=== PATIENT | female | born 1970 | race Two or more races ===

== ENCOUNTER 2021-10-19 11:37 | Emergency (ER) | payer MEDICARE, MEDICAID, SELFPAY ==
[2021-10-19 11:41] VITALS: BP 141/82; PULSE 92; RESP 18; TEMP 36.1; O2SAT 100; BMI 21.1
[2021-10-19 11:55] VITALS: BP 135/94; PULSE 87; RESP 17; TEMP 36.9; O2SAT 100
--- NOTE | 2021-10-19 11:57 | ED_ITS ---
HPI - General Adult General Chief complaint: Nausea/Vomiting/Diarrhea Stated complaint: Diarrhea 9x days Time Seen by Provider: 10/19/21 11:50 Source: patient Mode of arrival: ambulatory Limitations: no limitations History of Present Illness HPI narrative: Patient comes to the emergency room complaining of diarrhea for 90 days. Patient denies vomiting or diarrhea, complaining of mild lower quadrant cramping discomfort. Patient denies any recent travel. Patient has tried loperamide and Pepto-Bismol without any relief. Patient states she moves her bowels at least 10 times per day with diarrhea, very watery. Patient denies any recent use of antibiotics Related Data Previous Rx's Medication Instructions Recorded amitriptyline 50 mg tablet 50 mg PO BEDTIME 30 Days #30 tab 09/27/20 gabapentin 300 mg capsule 300 mg PO BEDTIME 30 Days #30 cap 09/27/20 naproxen 500 mg tablet (Naprosyn) 500 mg PO BEDTIME PRN 30 Days #30 09/27/20 tab diphenoxylate-atropine 2.5 1 tab PO DAILY PRN #5 tab 10/19/21 mg-0.025 mg tablet (Lomotil) Allergies Allergy/AdvReac Type Severity Reaction Status Date / Time aspirin [Aspirin] Allergy Unknown ANAPHYLAXIS, Unverified 03/29/20 15:55 nausea,vomiting cephalexin Allergy Unknown vomiting Unverified 07/26/19 00:00 ibuprofen [From Motrin] Allergy Unknown BLEEDING-PT Unverified 03/29/20 15:55 STATES STILL TAKES morphine [Morphine] Allergy Unknown SOB, Unverified 03/29/20 15:55 horrible feeling Review of Systems Review of Systems: Constitutional : No Weight loss, No Fever, No Chills, No Night Sweats, No Fatigue, No Malaise ENT/Mouth : No Hearing loss, No Ear Pain, No Nasal Congestion, No Sinus Pain, No Hoarseness, No sore throat, No Rhinorrhea, No Swallowing Difficulty Eyes: No Eye Pain, No Swelling, No Redness, No Foreign Body, No Discharge, No Vision Changes Cardiovascular : No Chest Pain, No SOB, No Dyspnea on Exertion, No Orthopnea, No Edema, No Palpitations Respiratory : No Cough, No Sputum, No Wheezing, No Smoke Exposure, No Dyspnea Gastrointestinal : No Nausea, No Vomiting, complaining of copious Diarrhea, No Constipation, bilateral lower quadrant cramping, No Hematochezia, No Melena Genitourinary : no irregular bleeding, No Dysuria, No Urinary Frequency, No Hematuria, No Urinary Incontinence, No Urgency, No Flank Pain, No Urinary Flow Changes, No Hesitancy Musculoskeletal : No joint pain, No Myalgias, No Joint Swelling Skin : No Skin Lesions, No rash Neuro : No Weakness, No Numbness, No Paresthesias, No Loss of Consciousness, No Dizziness, No Headache Psych : No Anxiety/Panic, No Depression, No SI/HI/AH/VH, No Social Issues, Heme/Lymph: No Bruising, No Bleeding,No Lymphadenopathy Endocrine : No Polyuria, No Polydipsia, No Temperature Intolerance [facility] Social History Social History Alcohol intake: never Patient Tobacco Use Status: Current everyday Tobacco user Use of substances other than those prescribed or required for medical reasons: Yes Substance Use Type: Marijuana Advance Directives: No Advance Directives Information Provided: No Patient : No Physical Exam ED Vital Signs: Vital Signs - 24 hr 10/19/21 11:41 10/19/21 11:55 Temperature 97.0 F 98.5 F Pulse Rate 92 87 Respiratory Rate 18 17 Blood Pressure 141/82 H 135/94 H Pulse Oximetry 100 100 BMI result Body Mass Index 21.1 Const Other: Appearance: Alert. Oriented X3. No acute distress. Well-appearing Eyes: Pupils equal, round and reactive to light. ENT: Pharynx normal. Well hydrated Neck: Normal inspection. Neck supple. No lymph nodes noted. No crepitus CVS: Normal heart rate and rhythm. Pulses normal. Normal S1 and S2 Respiratory: No respiratory distress. Breath sounds normal. No Wheezing. No rales Abdomen: Soft and nontender. No rigidity. No distention. Skin: Skin warm and dry. Normal skin color. Normal skin turgor. Extremities: No lower extremity edema. No Lacerations. No Rash Neuro: Oriented X 3. No motor deficit. No sensory deficit. Moving all extr emities. No slurred speech. CN 2 through 12 grossly intact Psych: calm, cooperative, normal affect Course Course Course Narrative: Discussed the labs with the patient. Patient has not had any episodes of diarrhea. Patient was given Lomotil. Otherwise, patient feels well. Medical Decision Making Lab Data Result diagrams: 10/19/21 12:22 10/19/21 12:22 Labs: Lab Results 04/09/22 04/09/22 Range/Units 12: 12:22 WBC 6.7 (4.8-10.8) X10*3/uL RBC 4.42 (4.20-5.50) X10*6/uL Hgb 13.4 (12.0-16.0) g/dl Hct 39.9 (37.0-47.0) % MCV 90.3 (80.0-98.0) fL MCH 30.3 (27.0-33.0) pg MCHC 33.6 (31.0-35.0) g/dl RDW 14.2 (11.0-16.0) % Plt Count 233 (160-400) X10*3/uL MPV 10.6 (9.4-12.3) fL Immature Gran % (Auto) 0.1 (0.0-0.4) % Neut % (Auto) 50.9 (45-73) % Lymph % (Auto) 34.7 (20-40) % [place] % (Auto) 9.9 (2-11) % Eos % (Auto) 4.0 (0-4) % Baso % (Auto) 0.4 (0-2) % Lymph # (Auto) 2.3 (1.2-4.9) X10*3/uL [place] # (Auto) 0.7 (0.1-1.2) X10*3/uL Eos # (Auto) 0.3 (0.0-0.4) X10*3/uL Baso # (Auto) 0.0 (0.0-0.2) X10*3/uL Abs Immat Gran (auto) 0.01 (0.00-0.03) X10*3/uL Absolute Neuts (auto) 3.4 (2.0-8.3) x10*3/uL Absolute Nucleated RBC 0.000 (0.0-0.012) X10*3/uL Nucleated RBC % (auto) 0.0 (0.0-0.2) /100WBC Sodium 137 (135-145) mmol/L Potassium 4.1 (3.3-5.1) mmol/L Chloride 107 (96-108) mmol/L Carbon Dioxide 23 (22-29) mmol/L Anion Gap 11 L (12-20) BUN 14 (9-16) mg/dL Creatinine 0.83 (0.5-1.4) mg/dL Estim Creat Clear Calc 62.5 Estimated GFR > 60 Random Glucose 92 (60-115) mg/dL Calcium 9.0 (8.4-10.2) mg/dL Total Bilirubin 0.4 (0.0-1.0) mg/dL Direct Bilirubin 0.2 (0.0-0.5) mg/dL AST 17 (5-31) U/L ALT 13 (0-31) U/L Alkaline Phosphatase 73 (39-117) U/L Total Protein 6.5 (6.5-8.0) g/dL Albumin 4.0 (3.5-5.0) g/dL Lipase 27 (8-78) U/L Discharge Plan Discharge Clinical Impression: Diarrhea Patient Disposition: Home, Self-Care Instructions: Acute Diarrhea (ED) Additional Instructions: Please follow-up with your primary care physician tomorrow. If you have any worsening or new symptoms, please return to the emergency room or call 911 Prescriptions: New diphenoxylate-atropine [Lomotil] 2.5-0.025 mg tablet 1 tab PO DAILY PRN (Reason: diarrhea) Qty: 5 0RF No Action amitriptyline 50 mg tablet 50 mg PO BEDTIME 30 Days Qty: 30 0RF gabapentin 300 mg capsule 300 mg PO BEDTIME 30 Days Qty: 30 0RF naproxen [Naprosyn] 500 mg tablet 500 mg PO BEDTIME PRN (Reason: pain) 30 Days Qty: 30 0RF
--- NOTE | 2021-10-19 11:57 | ECG_ITS ---
Test Reason : NAUSEA Blood Pressure : / mmHG Vent. Rate : 075 BPM Atrial Rate : 075 BPM P-R Int : 152 ms QRS Dur : 080 ms QT Int : 396 ms P-R-T Axes : 072 067 049 degrees QTc Int : 442 ms Normal sinus rhythm with sinus arrhythmia Cannot rule out Anterior infarct , age undetermined Abnormal ECG When compared with ECG of 07-AUG-2015 11:54, Premature atrial complexes are no longer Present Referred By: Gela Quezada Electronically Signed By:RAZA ESCALONA MD
[2021-10-19 12:26] LABS: MANUAL DIFF FLAG NO
[2021-10-19] MEDS: 0.9 % Sodium Chloride 1,000 ML 999 ML IVCONT (12:31)
[2021-10-19] MEDS: Diphenoxylate/Atrop 2.5/0.025 TABLET 2 TAB PO (12:31)
[2021-10-19 12:35] LABS: Basophils Percent Auto 0.4 % (0-2); Eosinophils Absolute Auto 0.3 X10*3/uL (0.0-0.4); Hematocrit 39.9 % (37.0-47.0); Hemoglobin 13.4 g/dl (12.0-16.0); Imm Gran Abs Auto 0.01 X10*3/uL (0.00-0.03); Imm Gran Pct Auto 0.1 % (0.0-0.4); Lymphocytes Absolute Auto 2.3 X10*3/uL (1.2-4.9); Lymphocytes Percent Auto 34.7 % (20-40); Mean Corpuscular HGB Conc 33.6 g/dl (31.0-35.0); Mean Corpuscular Hemoglobin 30.3 pg (27.0-33.0); Mean Corpuscular Volume 90.3 fL (80.0-98.0); Mean Platelet Volume 10.6 fL (9.4-12.3); Monocytes Absolute Auto 0.7 X10*3/uL (0.1-1.2); Monocytes Percent Auto 9.9 % (2-11); Neutrophils Absolute Auto 3.4 x10*3/uL (2.0-8.3); Neutrophils Percent Auto 50.9 % (45-73); Platelet Count 233 X10*3/uL (160-400); Red Blood Count 4.42 X10*6/uL (4.20-5.50); Red Cell Distribution Width 14.2 % (11.0-16.0); White Blood Count 6.7 X10*3/uL (4.8-10.8)
[2021-10-19 12:50] LABS: Alanine Aminotransferase 13 U/L (0-31); Alkaline Phosphatase 73 U/L (39-117); Anion Gap 11 (12-20); Aspartate Amino Transferase 17 U/L (5-31); Bilirubin Direct 0.2 mg/dL (0.0-0.5); Bilirubin Total 0.4 mg/dL (0.0-1.0); Blood Urea Nitrogen 14 mg/dL (9-16); Carbon Dioxide 23 mmol/L (22-29); Chloride 107 mmol/L (96-108); Creatinine Clr Calc Pharmacy 62.5; Estimated Glomerular Filt Rate > 60; Glucose Random 92 mg/dL (60-115); Lipase 27 U/L (8-78); Potassium 4.1 mmol/L (3.3-5.1); Sodium 137 mmol/L (135-145); Total Protein 6.5 g/dL (6.5-8.0)
--- NOTE | 2021-10-19 14:21 | PC.NURSE ---
nad, skin wpd, has had some abd cramping that comes and goes, steady gait to bathroom but no diarrhea
== END 2021-10-19 15:22 | disposition home or self-care (01) ==
PROVIDERS: Emergency Provider Emergency Medicine
DX: R19.7 Diarrhea, unspecified (principal); F17.200 Nicotine dependence, unspecified, uncomplicated; F12.90 Cannabis use, unspecified, uncomplicated
CPT/HCPCS: 36415; 80048; 80076; 83690; 85025; 93005; 96360; 99284

== ENCOUNTER 2022-02-06 07:43 | Emergency (ER) | payer MEDICARE, MEDICAID, SELFPAY ==
--- NOTE | ~2022-02-06 | CT_ITS ---
EXAMINATION: CT ABDOMEN AND PELVIS WITHOUT CONTRAST CLINICAL INFORMATION: Suprapubic pain COMPARISON: None TECHNIQUE: Multidetector volumetric imaging was performed from the superior aspect of the liver through the pubic symphysis. Sagittal and coronal reformatted images were obtained on the technologist's workstation. This CT examination was performed using dose optimization techniques as appropriate, variously including the following: *Automated exposure control *Adjustment of mA and/or kV according to patient size (this includes techniques or standardized protocols for targeted exams where dose is matched to indication/reason for exam; i.e. extremities or head) *Use of iterative reconstruction technique DLP: 380 mGy-cm FINDINGS: LUNG BASES: Heart is not enlarged. No pneumothorax. No large pleural effusion. LIVER, GALLBLADDER, AND BILIARY TREE: The liver is normal in size, shape, and attenuation. No focal hepatic lesion or biliary ductal dilatation is present. The gallbladder is unremarkable with no evidence of radiopaque gallstones, gallbladder wall thickening, or obvious pericholecystic inflammatory changes. PANCREAS: Unremarkable. SPLEEN: Unremarkable. ADRENAL GLANDS: Unremarkable. KIDNEYS AND URETERS: The kidneys are normal in size, shape, and attenuation. No hydronephrosis, hydroureter, or calculi seen. No perinephric stranding. Punctate calculus medial to the right renal lower pole measuring 3 mm, nonspecific. BLADDER: Unremarkable. GASTROINTESTINAL TRACT: The small and large bowel are unremarkable. The appendix is unremarkable. ABDOMINAL WALL: No significant hernia is appreciated. LYMPH NODES: No enlarged lymph nodes per size criteria. Multiple subcentimeter mesenteric and right lower quadrant lymph nodes are noted, not enlarged per size criteria and nonspecific though may reflect an element of mesenteric adenitis in the appropriate clinical setting. VASCULAR: Abdominal aorta is nonaneurysmal. PELVIC VISCERA: Anteverted uterus. OSSEOUS STRUCTURES: No large lytic or blastic lesions are noted. Sclerotic focus in the left femoral head and neck junction nonspecific though statistically representing a bone island. CT/CT abdomen pelvis wo con IMPRESSION: 1. No acute process of the abdomen or pelvis identified. 2. Multiple subcentimeter mesenteric and right lower quadrant lymph nodes are noted, not enlarged per size criteria and nonspecific though may reflect an element of mesenteric adenitis in the appropriate clinical setting.
[2022-02-06 08:26] VITALS: BP 138/91; PULSE 81; RESP 18; TEMP 37.1; O2SAT 95
[2022-02-06 09:43] LABS: Appearance Urine CLEAR; Color Urine YELLOW; Glucose Urine UA NEG (NEG); Leukocyte Esterase Urine NEG (NEG); Nitrite Urine NEG (NEG); PH 7.5 (5.0-8.0); UACC Culture Trigger NO; Urine Blood 1+ (NEG); Urine Ketones NEG (NEG); Urine Protein NEG (NEG-TRACE)
[2022-02-06 09:53] LABS: UPreg QC Valid YES; Urine Pregnancy NEGATIVE (NEGATIVE)
[2022-02-06 10:01] LABS: Squamous Epithelial Cell Urine 2+ /LPF
[2022-02-06 10:02] LABS: WBC Urine 0 /HPF (0-4)
[2022-02-06] MEDS: Phenazopyridine HCL 200 MG TABLET PO (10:03)
--- NOTE | 2022-02-06 10:19 | ED_ITS ---
HPI - Female Genitourinary General Chief complaint: Urogenital-Female Stated complaint: BLADDER PAIN Time Seen by Provider: 02/06/22 09:16 Source: patient Mode of arrival: ambulatory Limitations: no limitations History of Present Illness HPI Narrative: This is a [id number]-female, with a past medical history of interstitial cystitis, who presents to the emergency department with complaints of bladder pain x 1 week. Patient states that over the last week she has had suprapubic pain, dysuria, urinary frequency, urgency and low back pain. She denies any hematuria, fevers, chills, nausea, vomiting flank pain, or diarrhea. She states that she has taken Pyridium for her symptoms, did not take any in the last two days, which provided her with some relief. She is not sexually active. Denies vaginal discharge. She has been seen by Dr. Robles of urology for IC, where she had hydrodistention procedures performed on a weekly basis. She states that she missed a few appointments and had to find another urologist, does not have an appointment until mid February. She states that her mother has diabetes. Denies any known history of diabetes. No other complaints or concerns at this time. MD elicited complaint: dysuria and back pain Pertinent past history: interstitial cystits Onset (ago): week(s) Location of symptoms: suprapubic and low back Severity: moderate Female Urogenital Radiation: Non-Radiating Quality of pain: cramping Consistency: constant Vaginal discharge: none Vaginal bleeding: none Urinary symptoms: Dysuria, Urgency and Frequency Exacerbating factors: none and urination Relieving factors: medication Associated symptoms: abdominal pain Related Data Previous Rx's Medication Instructions Recorded amitriptyline 50 mg tablet 50 mg PO BEDTIME 30 days #30 tabs 09/27/20 gabapentin 300 mg capsule 300 mg PO BEDTIME 30 days #30 caps 09/27/20 naproxen 500 mg tablet (Naprosyn) 500 mg PO BEDTIME PRN pain 30 days 09/27/20 #30 tabs diphenoxylate-atropine 2.5 1 tab PO DAILY PRN diarrhea #5 tabs 10/19/21 mg-0.025 mg tablet (Lomotil) ketorolac 10 mg tablet 10 mg PO Q8H PRN pain #14 tabs 02/06/22 ondansetron 4 mg disintegrating 4 mg PO Q8H nausea and vomiting 02/06/22 tablet #14 tabs phenazopyridine 100 mg tablet 100 mg PO TID PRN pain 6 doses #6 02/06/22 (Pyridium) tabs Allergies Allergy/AdvReac Type Severity Reaction Status Date / Time aspirin [Aspirin] Allergy Unknown ANAPHYLAXIS, Unverified 03/29/20 15:55 nausea,vomiting cephalexin Allergy Unknown vomiting Unverified 07/26/19 00:00 ibuprofen [From Motrin] Allergy Unknown BLEEDING-PT Unverified 03/29/20 15:55 STATES STILL TAKES morphine [Morphine] Allergy Unknown SOB, Unverified 03/29/20 15:55 horrible feeling Review of Systems Review of Systems: Constitutional : No Weight loss, No Fever, No Chills, No Night Sweats ENT/Mouth : No Hearing loss, No Ear Pain, No Nasal Congestion, No Sinus Pain, No Hoarseness, No sore throat, No Rhinorrhea, No Swallowing Difficulty Eyes: No Eye Pain, No Swelling, No Redness Cardiovascular : No Chest Pain, No SOB, No Dyspnea on Exertion, No Orthopnea, No Edema, No Palpitations Respiratory : No Cough, No Sputum, No Wheezing, No Smoke Exposure, No Dyspnea Gastrointestinal : No Nausea, No Vomiting, No Diarrhea, No Constipation, + suprapubic abdominal Pain, No Hematochezia, No Melena Genitourinary : no irregular bleeding, +Dysuria, +Urinary Frequency, No Hematuria, No Urinary Incontinence, +Urgency, No Flank Pain, No Urinary Flow Changes, No Hesitancy Musculoskeletal : + low back pain, No joint pain, No Myalgias, No Joint Swelling Skin : No Skin Lesions, No rash Neuro : No Weakness, No Numbness, No Paresthesias, No Loss of Consciousness, No Dizziness, No Headache Psych : No Anxiety/Panic, No Depression, No SI/HI/AH/VH, No Social Issues, Heme/Lymph: No Bruising, No Bleeding,No Lymphadenopathy Endocrine : No Polyuria, No Polydipsia, No Temperature Intolerance Yes all other systems are reviewed and are negative [facility] Past Medical History Attestation statement: The following information was validated with the patient. Source: old records reviewed and nursing notes reviewed Social History Social History Alcohol intake: never Patient Tobacco Use Status: Current everyday Tobacco user Substance Use Type: Marijuana Advance Directives: No Advance Directives Information Provided: No Physical Exam Vital Signs: Vital Signs: Last Vital Signs Temp 98.3 F 02/06/22 12:17 Pulse 65 02/06/22 12:17 Resp 16 02/06/22 12:17 BP 133/80 02/06/22 12:17 Pulse Ox 97 02/06/22 12:17 O2 Del Method 02/06/22 12:17 BMI result Body Mass Index 20.0 Vital signs have been reviewed as normal and appeared to be correct. Blood pr essure 138/91. Heart rate normal. Respiration rate normal. Temperature normal. Oxygen saturation normal. Appearance: Alert. Oriented X3. No acute distress. Head: Normal external exam. Normocephalic. Atraumatic. Eyes: PERRLA. EOMI. Conjunctiva and sclera normal. Eyelids normal. ENT: Pharynx normal. Uvula midline. Moist mucous membranes. Normal voice. No trismus noted. No drooling noted. No muffled voice noted. Neck: Normal inspection. Neck supple. FROM. CVS: Normal heart rate and rhythm. Heart sound normal. Pulses normal throughout. No murmurs/rales/gallops. Respiratory: No respiratory distress. Painless inspiration. Breath sounds normal. No wheezes/rales/rhonchi noted. Chest nontender. No accessory muscle usage noted or decreased air movement noted. Abdomen: Soft, suprapubic tenderness with palpation.Bowel sounds normal in all 4 quadrants. No distention noted. No organomegaly noted. No visible injury noted. Back: + Lumbar paraspinous muscle tenderness. No CVA tenderness. Full range of motion noted. Nontender. No signs of trauma. Patient neuro intact bilaterally and distally on all 4 extremities. Patient's reflexes intact bilaterally and distally on all 4 extremities. No rashes/lesion/induration/fluctuance or signs of infection noted. Skin: Skin warm and dry. Normal skin color. Normal skin turgor. No rashes/lesions/lacerations noted. Extremities: Extremities exhibit normal range of motion and nontender. Neuro: Oriented X 3. No motor deficit. No sensory deficit. Reflexes normal. Normal steady gait. No focal neuro deficits noted. CN's II-XII intact bilaterally? Vascular: + radial pulses/+ 2 distal pedal pulses/+2 dorsalis pedis b/l. Normal cap refill. No cyanosis noted to upper extremity nails and lower extremity toes nails. Course Course Course Narrative: 9:20am This is a 51-[id number]-female, with a past medical history of interstitial cystitis, who presents to the emergency department with complaints of bladder pain x 1 week with associated dysuria/urinary frequency/urgency and suprapubic abdominal pain. Plan: Urinalysis ordered in waiting room and reviewed, 1+ blood, otherwise no leukocytes or nitrites. Patient has been urinating every 5 minutes, and also having suprapubic tenderness and low back pain. Will order CT abdomen and pelvis for further evaluation. Patient medicated with Pyridium 200mg PO and Toradol 30mg IM. Reevaluation(s) Reevaluation #1: - labs reviewed and all labs within normal limits. UA revealed blood otherwise no evidence of UTI. Patient negative for . CT scan abdomen pelvis revealed mesenteric adenitis to the right lower aspect although appendix is within normal limits. Patient does have a renal stone. Will DC home with instructions follow-up with urology/PCP and to return if any new or worsening symptoms patient understands agrees with this plan. Time: 13:16 [facility] - Female Genitourinary Medical Records Attestation: I reviewed the patient's medical records. Lab Data Attestation: I reviewed the patient's lab results. Result diagrams: 02/06/22 10:48 02/06/22 10:48 Labs: Lab Results 02/06/22 02/06/22 02/06/22 Range/Units 09:31 09:31 10:48 WBC 9.0 (4.8-10.8) X10*3/uL RBC 4.31 (4.20-5.50) X10*6/uL Hgb 13.3 (12.0-16.0) g/dl Hct 39.0 (37.0-47.0) % MCV 90.5 (80.0-98.0) fL MCH 30.9 (27.0-33.0) pg MCHC 34.1 (31.0-35.0) g/dl RDW 14.6 (11.0-16.0) % Plt Count 208 (160-400) X10*3/uL MPV 10.2 (9.4-12.3) fL Immature Gran % (Auto) 0.2 (0.0-0.4) % Neut % (Auto) 52.8 (45-73) % Lymph % (Auto) 28.1 (20-40) % [place] % (Auto) 7.3 (2-11) % Eos % (Auto) 10.7 H (0-4) % Baso % (Auto) 0.9 (0-2) % Lymph # (Auto) 2.5 (1.2-4.9) X10*3/uL [place] # (Auto) 0.7 (0.1-1.2) X10*3/uL Eos # (Auto) 1.0 H (0.0-0.4) X10*3/uL Baso # (Auto) 0.1 (0.0-0.2) X10*3/uL Abs Immat Gran (auto) 0.02 (0.00-0.03) X10*3/uL Absolute Neuts (auto) 4.8 (2.0-8.3) x10*3/uL Absolute Nucleated RBC 0.000 (0.0-0.012) X10*3/uL Nucleated RBC % (auto) 0.0 (0.0-0.2) /100WBC Sodium (135-145) mmol/L Potassium (3.3-5.1) mmol/L Chloride (96-108) mmol/L Carbon Dioxide (22-29) mmol/L Anion Gap (12-20) BUN (9-16) mg/dL Creatinine (0.5-1.4) mg/dL Estim Creat Clear Calc Estimated GFR Random Glucose (60-115) mg/dL Estimat Average Glucose mg/dL Hemoglobin A1c % % Calcium (8.4-10.2) mg/dL Magnesium (1.6-2.6) mg/dL Total Bilirubin (0.0-1.0) mg/dL AST (5-31) U/L ALT (0-31) U/L Alkaline Phosphatase (39-117) U/L Total Protein (6.5-8.0) g/dL Albumin (3.5-5.0) g/dL Lipase (8-78) U/L Urine Color YELLOW Urine Appearance CLEAR Urine pH 7.5 (5.0-8.0) Ur Specific [place] 1.010 (1.005-1.025) Urine Protein NEG (NEG-TRACE) MG/DL Urine Glucose (UA) NEG (NEG) MG/DL Urine Ketones NEG (NEG) MG/DL Urine Blood 1+ H (NEG) Urine Nitrite NEG (NEG) Ur Leukocyte Esterase NEG (NEG) Urine RBC 1-4 (0) /HPF Urine WBC 0 (0-4) /HPF Ur Squamous Epith Cells 2+ /LPF Urine Bacteria NONE /LPF Urine Test NEGATIVE (NEGATIVE) 02/06/22 02/06/22 Range/Units 10:48 10:48 WBC (4.8-10.8) X10*3/uL RBC (4.20-5.50) X10*6/uL Hgb (12.0-16.0) g/dl Hct (37.0-47.0) % MCV (80.0-98.0) fL MCH (27.0-33.0) pg MCHC (31.0-35.0) g/dl RDW (11.0-16.0) % Plt Count (160-400) X10*3/uL MPV (9.4-12.3) fL Immature Gran % (Auto) (0.0-0.4) % Neut % (Auto) (45-73) % Lymph % (Auto) (20-40) % [place] % (Auto) (2-11) % Eos % (Auto) (0-4) % Baso % (Auto) (0-2) % Lymph # (Auto) (1.2-4.9) X10*3/uL [place] # (Auto) (0.1-1.2) X10*3/uL Eos # (Auto) (0.0-0.4) X10*3/uL Baso # (Auto) (0.0-0.2) X10*3/uL Abs Immat Gran (auto) (0.00-0.03) X10*3/uL Absolute Neuts (auto) (2.0-8.3) x10*3/uL Absolute Nucleated RBC (0.0-0.012) X10*3/uL Nucleated RBC % (auto) (0.0-0.2) /100WBC Sodium 136 (135-145) mmol/L Potassium 4.2 (3.3-5.1) mmol/L Chloride 106 (96-108) mmol/L Carbon Dioxide 23 (22-29) mmol/L Anion Gap 11 L (12-20) BUN 12 (9-16) mg/dL Creatinine 0.85 (0.5-1.4) mg/dL Estim Creat Clear Calc 60.4 Estimated GFR > 60 Random Glucose 90 (60-115) mg/dL Estimat Average Glucose 105 mg/dL Hemoglobin A1c % 5.3 % Calcium 8.9 (8.4-10.2) mg/dL Magnesium 2.2 (1.6-2.6) mg/dL Total Bilirubin 0.9 (0.0-1.0) mg/dL AST 23 (5-31) U/L ALT 28 (0-31) U/L Alkaline Phosphatase 71 (39-117) U/L Total Protein 6.5 (6.5-8.0) g/dL Albumin 3.9 (3.5-5.0) g/dL Lipase 27 (8-78) U/L Urine Color Urine Appearance Urine pH (5.0-8.0) Ur Specific [place] (1.005-1.025) Urine Protein (NEG-TRACE) MG/DL Urine Glucose (UA) (NEG) MG/DL Urine Ketones (NEG) MG/DL Urine Blood (NEG) Urine Nitrite (NEG) Ur Leukocyte Esterase (NEG) Urine RBC (0) /HPF Urine WBC (0-4) /HPF Ur Squamous Epith Cells /LPF Urine Bacteria /LPF Urine Test (NEGATIVE) Imaging Data Abdomen/Pelvis CT : Attestation: I personally reviewed and interpreted this imaging study as follows: Radiologist's impression: EXAMINATION: CT ABDOMEN AND PELVIS WITHOUT CONTRAST? CLINICAL INFORMATION: Suprapubic pain? COMPARISON: None? TECHNIQUE: Multidetector volumetric imaging was performed from the superior aspect of the liver through the pubic symphysis. Sagittal and coronal reformatted images were obtained on the technologist's workstation.? This CT examination was performed using dose optimization techniques as appropriate, variously including the following: *Automated exposure control *Adjustment of mA and/or kV according to patient size (this includes techniques or standardized protocols for targeted exams where dose is matched to indication/reason for exam; i.e. extremities or head) *Use of iterative reconstruction technique DLP: 380 mGy-cm FINDINGS: LUNG BASES: Heart is not enlarged. No pneumothorax. No large pleural effusion.? LIVER, GALLBLADDER, AND BILIARY TREE: The liver is normal in size, shape, and attenuation. No focal hepatic lesion or biliary ductal dilatation is present. The gallbladder is unremarkable with no evidence of radiopaque gallstones, gallbladder wall thickening, or obvious pericholecystic inflammatory changes.? PANCREAS: Unremarkable.? SPLEEN: Unremarkable.? ADRENAL GLANDS: Unremarkable.? KIDNEYS AND URETERS: The kidneys are normal in size, shape, and attenuation. No hydronephrosis, hydroureter, or calculi seen. No perinephric stranding. Punctate calculus medial to the right renal lower pole measuring 3 mm, nonspecific. BLADDER: Unremarkable.? GASTROINTESTINAL TRACT: The small and large bowel are unremarkable. The appendix is unremarkable.? ABDOMINAL WALL: No significant hernia is appreciated.? LYMPH NODES: No enlarged lymph nodes per size criteria. Multiple subcentimeter mesenteric and right lower quadrant lymph nodes are noted, not enlarged per size criteria and nonspecific though may reflect an element of mesenteric adenitis in the appropriate clinical setting. VASCULAR: Abdominal aorta is nonaneurysmal. PELVIC VISCERA: Anteverted uterus.? OSSEOUS STRUCTURES: No large lytic or blastic lesions are noted. Sclerotic focus in the left femoral head and neck junction nonspecific though statistically representing a bone island.? CT/CT abdomen pelvis wo con IMPRESSION: 1.? No acute process of the abdomen or pelvis identified. 2.? Multiple subcentimeter mesenteric and right lower quadrant lymph nodes are noted, not enlarged per size criteria and nonspecific though may reflect an element of mesenteric adenitis in the appropriate clinical setting. Dictated By: Matt Camarena MD Discharge Plan Discharge Clinical Impression: Calculus of right kidney, Interstitial cystitis Patient Disposition: Home, Self-Care Instructions: Kidney Stones (ED), Interstitial Cystitis (ED) Prescriptions: New ketorolac 10 mg tablet 10 mg PO Q8H PRN (Reason: pain) Qty: 14 0RF Rx Instructions: first dose given in ER tolerated well by IM dose phenazopyridine [Pyridium] 100 mg tablet 100 mg PO TID PRN (Reason: pain) Qty: 6 0RF ondansetron 4 mg tablet,disintegrating 4 mg PO Q8H Qty: 14 0RF No Action amitriptyline 50 mg tablet 50 mg PO BEDTIME 30 Days Qty: 30 0RF gabapentin 300 mg capsule 300 mg PO BEDTIME 30 Days Qty: 30 0RF naproxen [Naprosyn] 500 mg tablet 500 mg PO BEDTIME PRN (Reason: pain) 30 Days Qty: 30 0RF diphenoxylate-atropine [Lomotil] 2.5-0.025 mg tablet 1 tab PO DAILY PRN (Reason: diarrhea) Qty: 5 0RF Referrals: Physician,Unknown J [Primary Care Provider] - 2 days (your pcp) Stand Alone Forms: Work/School Release
[2022-02-06] MEDS: Ketorolac Tromethamine 30 MG/ML VIAL IM (10:43)
[2022-02-06 10:52] LABS: MANUAL DIFF FLAG NO
[2022-02-06 10:55] LABS: Basophils Absolute Auto 0.1 X10*3/uL (0.0-0.2); Basophils Percent Auto 0.9 % (0-2); Eosinophils Percent Auto 10.7 % (0-4); Hemoglobin 13.3 g/dl (12.0-16.0); Imm Gran Abs Auto 0.02 X10*3/uL (0.00-0.03); Imm Gran Pct Auto 0.2 % (0.0-0.4); Lymphocytes Absolute Auto 2.5 X10*3/uL (1.2-4.9); Lymphocytes Percent Auto 28.1 % (20-40); Mean Corpuscular HGB Conc 34.1 g/dl (31.0-35.0); Mean Corpuscular Hemoglobin 30.9 pg (27.0-33.0); Mean Corpuscular Volume 90.5 fL (80.0-98.0); Mean Platelet Volume 10.2 fL (9.4-12.3); Monocytes Absolute Auto 0.7 X10*3/uL (0.1-1.2); Monocytes Percent Auto 7.3 % (2-11); Neutrophils Absolute Auto 4.8 x10*3/uL (2.0-8.3); Neutrophils Percent Auto 52.8 % (45-73); Platelet Count 208 X10*3/uL (160-400); Red Blood Count 4.31 X10*6/uL (4.20-5.50); Red Cell Distribution Width 14.6 % (11.0-16.0)
[2022-02-06 11:15] LABS: Alanine Aminotransferase 28 U/L (0-31); Albumin Level 3.9 g/dL (3.5-5.0); Alkaline Phosphatase 71 U/L (39-117); Anion Gap 11 (12-20); Aspartate Amino Transferase 23 U/L (5-31); Bilirubin Total 0.9 mg/dL (0.0-1.0); Blood Urea Nitrogen 12 mg/dL (9-16); Calcium 8.9 mg/dL (8.4-10.2); Carbon Dioxide 23 mmol/L (22-29); Chloride 106 mmol/L (96-108); Creatinine Clr Calc Pharmacy 60.4; Estimated Glomerular Filt Rate > 60; Glucose Random 90 mg/dL (60-115); Lipase 27 U/L (8-78); Magnesium 2.2 mg/dL (1.6-2.6); Potassium 4.2 mmol/L (3.3-5.1); Sodium 136 mmol/L (135-145); Total Protein 6.5 g/dL (6.5-8.0)
[2022-02-06 11:16] LABS: Estimated Average Glucose 105 mg/dL; Hemoglobin A1c % 5.3 %
[2022-02-06] MEDS: Acetaminophen 325 MG TABLET 975 MG PO (12:16)
[2022-02-06 12:17] VITALS: BP 133/80; PULSE 65; RESP 16; TEMP 36.8; O2SAT 97
== END 2022-02-06 13:26 | disposition home or self-care (01) ==
PROVIDERS: Physician Assistant Medical; Emergency Provider Student in an Organized Health Care Education/Training Program
DX: N30.10 Interstitial cystitis (chronic) without hematuria (principal); N20.0 Calculus of kidney; R39.89 Other symptoms and signs involving the genitourinary system; R30.0 Dysuria; R35.0 Frequency of micturition; F17.200 Nicotine dependence, unspecified, uncomplicated; Z71.6 Tobacco abuse counseling; F12.90 Cannabis use, unspecified, uncomplicated; Z79.899 Other long term (current) drug therapy
CPT/HCPCS: 36415; 51798; 74176; 80053; 81001; 81025; 83036; 83690; 83735; 85025; 96372; 99284; J1885

== ENCOUNTER 2022-04-13 14:55 | Emergency (ER) | payer MEDICARE, MEDICAID, SELFPAY ==
--- NOTE | ~2022-04-13 | CT_ITS ---
EXAMINATION: CT ABDOMEN AND PELVIS WITH CONTRAST CLINICAL INFORMATION: Bilateral flank pain COMPARISON: None TECHNIQUE: Multidetector volumetric images were obtained from the superior aspect of the liver through the pubic symphysis following administration 85 mL of Omnipaque 350 intravenous contrast. Sagittal and coronal reformatted images were obtained on the technologist's workstation. Oral contrast: No This CT examination was performed using dose optimization techniques as appropriate, variously including the following: *Automated exposure control *Adjustment of mA and/or kV according to patient size (this includes techniques or standardized protocols for targeted exams where dose is matched to indication/reason for exam; i.e. extremities or head) *Use of iterative reconstruction technique DLP: 399 mGy-cm FINDINGS: LUNG BASES: The visualized lung bases are unremarkable. LIVER, GALLBLADDER, AND BILIARY TREE: The liver is normal in size, shape, and attenuation. No focal hepatic lesion or biliary ductal dilatation is present. The gallbladder is unremarkable with no evidence of radiopaque gallstones, gallbladder wall thickening, or obvious pericholecystic inflammatory changes. PANCREAS: Unremarkable. SPLEEN: Unremarkable. ADRENAL GLANDS: Unremarkable. KIDNEYS AND URETERS: The kidneys are normal in size, shape, and attenuation. No hydronephrosis, hydroureter, or calculi seen. No perinephric stranding. BLADDER: Unremarkable. GASTROINTESTINAL TRACT: The small and large bowel are unremarkable. The appendix is unremarkable. ABDOMINAL WALL: No significant hernia is appreciated. LYMPH NODES: Normal. VASCULAR: Unremarkable. PELVIC VISCERA: Uterus appears normal. No adnexal lesion. Small centimeter left-sided Bartholin's cysts noted. OSSEOUS STRUCTURES: Unremarkable. CT/CT abdomen pelvis w IV con IMPRESSION: No focal lesion to explain patient's symptoms. No stones or obstructive uropathy. Fleischner guidelines were followed.
--- NOTE | ~2022-04-13 | XR_ITS ---
EXAMINATION: XR CHEST CLINICAL INFORMATION: Cough COMPARISON: Chest x-ray on 11/29/2016 TECHNIQUE: Frontal view of the chest was obtained. FINDINGS: No significant abnormality is noted involving the heart, lungs, mediastinum, bony thorax or soft tissues. XR/XR chest 1V IMPRESSION: Unremarkable examination.
[2022-04-13 15:14] VITALS: BP 109/70; PULSE 71; RESP 16; TEMP 36.8; O2SAT 95; BMI 20.4
--- NOTE | 2022-04-13 15:40 | PC.NURSE ---
PT REFUSING RESPIRATORY PANEL, STATING SHE DOES NOT WANT TO BE SWABBED.
[2022-04-13 15:49] LABS: Appearance Urine Hazy; Glucose Urine UA 100 mg/dL (Negative); Leukocyte Esterase Urine Negative (Negative); PH 5.5 (5.0-9.0); Specific Gravity - Urine 1.025 (1.005-1.025); UMIC TRIGGER UACC YES; Urine Blood Moderate (2+) (Negative); Urine Ketones Trace mg/dL (Negative); Urine Protein 30 (1+) mg/dL (Neg-Trace)
[2022-04-13 15:51] LABS: Color Urine ORANGE; Nitrite Urine Positive (Negative)
[2022-04-13 16:04] LABS: UACC Culture Trigger YES; WBC Urine 0-5 /HPF (0-5)
[2022-04-13 16:05] LABS: Bacteria Urine 2+ (None Seen); Hyaline Casts Urine 0-2 /LPF (0-2); RBC Urine >20 /HPF (0-2)
[2022-04-13 18:22] LABS: MANUAL DIFF FLAG NO
--- NOTE | 2022-04-13 18:34 | ED.ABDPAIN ---
HPI - Abdominal Pain General Chief Complaint: Back Pain/Injury Stated Complaint: asthma, bladder issues Time Seen by Provider: 04/13/22 17:45 Source: patient Mode of arrival: ambulatory Limitations: no limitations History of Present Illness HPI narrative: 51-year-old female with a past medical history of asthma, interstitial cystitis, kidney stones and recurrent UTI's presenting to the ED with complaints of suprapubic abdominal pain with associated dysuria, increased urinary frequency/urgency with bilateral flank/back pain for the past 4 days worse today. She also reports an abnormal green vaginal discharge. Reports that she has been taking Pyridium which is making her urine orange. She reports that the green discharge does not have an odor. She denies any thoughts of STDs reports she has not had sex in many years. She also has dry cough with wheezing and has been using her albuterol inhaler with mild to no symptomatic relief. She was seen here on 03/01/2022 and diagnosed with a kidney stone of the right kidney. She denies any fevers, chills, dizziness, headaches, neck pain/stiffness, chest pain, dyspnea on exertion, orthopnea, palpitations, paresthesias, sputum production, nausea/vomiting, diarrhea, hematuria, rashes or lesions to the vaginal area, recent travel or sick contacts, others with similar symptoms or any other symptoms complaints or concerns at this time. MD elicited complaint: abdominal pain and flank pain Pertinent past history: kidney stones and past UTI Onset (ago): day(s) (4) Pain Consistency: constant Location: suprapubic Severity: moderate Quality: cramping and aching Radiation: bilateral flank and back Exacerbating factors: nothing Relieving factors: other (Urination) Associated symptoms: dysuria Related Data Previous Rx's Medication Instructions Recorded amitriptyline 50 mg tablet 50 mg PO BEDTIME 30 days #30 tabs 09/27/20 gabapentin 300 mg capsule 300 mg PO BEDTIME 30 days #30 caps 09/27/20 naproxen 500 mg tablet (Naprosyn) 500 mg PO BEDTIME PRN pain 30 days 09/27/20 #30 tabs diphenoxylate-atropine 2.5 1 tab PO DAILY PRN diarrhea #5 tabs 10/19/21 mg-0.025 mg tablet (Lomotil) ketorolac 10 mg tablet 10 mg PO Q8H PRN pain #14 tabs 02/06/22 ondansetron 4 mg disintegrating 4 mg PO Q8H nausea and vomiting 02/06/22 tablet #14 tabs phenazopyridine 100 mg tablet 100 mg PO TID PRN pain 6 doses #6 02/06/22 (Pyridium) tabs cefuroxime axetil 250 mg tablet 250 mg PO BID 7 days #14 tabs 04/13/22 cyclobenzaprine 10 mg tablet 10 mg PO Q8H #14 tabs 04/13/22 fluconazole 150 mg tablet 150 mg PO Q3D Vaginitis 2 doses #2 04/13/22 (Diflucan) tabs ketorolac 10 mg tablet 10 mg PO Q8H PRN pain #14 tabs 04/13/22 metronidazole 500 mg tablet 500 mg PO BID 7 days #14 tabs 04/13/22 prednisone 20 mg tablet 40 mg PO DAILY Asthma exacerbation 04/13/22 5 days #10 tabs Allergies Allergy/AdvReac Type Severity Reaction Status Date / Time aspirin [Aspirin] Allergy Unknown ANAPHYLAXIS, Unverified 03/29/20 15:55 nausea,vomiting cephalexin Allergy Unknown vomiting Unverified 07/26/19 00:00 ibuprofen [From Motrin] Allergy Unknown BLEEDING-PT Unverified 03/29/20 15:55 STATES STILL TAKES morphine [Morphine] Allergy Unknown SOB, Unverified 03/29/20 15:55 horrible feeling Review of Systems Review of Systems Constitutional : No Weight loss, No Fever, No Chills, No Night Sweats, No Fatigue, No Malaise ENT/Mouth : No Hearing loss, No Ear Pain, No Nasal Congestion, No Sinus Pain, No Hoarseness, No sore throat, No Rhinorrhea, No Swallowing Difficulty Eyes: No Eye Pain, No Swelling, No Redness, No Foreign Body, No Discharge, No Vision Changes Cardiovascular : No Chest Pain, No SOB, No Dyspnea on Exertion, No Orthopnea, No Edema, No Palpitations Respiratory : + Cough, No Sputum, + Wheezing, No Smoke Exposure, No Dyspnea Gastrointestinal : No Nausea, No Vomiting, No Diarrhea, No Constipation, + abdominal Pain, No Hematochezia, No Melena Genitourinary : no irregular bleeding, + Dysuria, + Urinary Frequency, No Hematuria, No Urinary Incontinence, + Urgency, + Flank Pain, No Urinary Flow Changes, No Hesitancy Musculoskeletal : + back pain, No joint pain, No Myalgias, No Joint Swelling Skin : No Skin Lesions, No rash Neuro : No Weakness, No Numbness, No Paresthesias, No Loss of Consciousness, No Dizziness, No Headache Psych : No Anxiety/Panic, No Depression, No SI/HI/AH/VH, No Social Issues, Heme/Lymph: No Bruising, No Bleeding,No Lymphadenopathy Endocrine : No Polyuria, No Polydipsia, No Temperature Intolerance Denies any thoughts of STD's. Yes all other systems are reviewed and are negative [facility] Past Medical History Attestation statement: The following information was validated with the patient. Source: old records reviewed and nursing notes reviewed Social History Social History Alcohol intake: never Patient Tobacco Use Status: Current everyday Tobacco user Substance Use Type: Marijuana Advance Directives: No Advance Directives Information Provided: Yes Physical Exam ED Vital Signs: Vital Signs - 24 hr 04/13/22 15:14 Temperature 98.3 F Pulse Rate 71 Respiratory Rate 16 Blood Pressure 109/70 Pulse Oximetry 95 Oxygen Delivery Method Room Air BMI result Body Mass Index 20.4 vital signs have been reviewed as normal and appeared to be correct. Blood pressure normal. Heart rate normal. Respiration rate normal. Temperature normal. Oxygen saturation normal. Appearance: Alert. Oriented X3. No acute distress. Head: Normal external exam. Normocephalic. Atraumatic. Eyes: PERRLA. EOMI. Conjunctiva and sclera normal. Eyelids normal. ENT: EAC normal. TM's Normal. Pharynx normal. Uvula midline. Moist mucous membranes. No lesions/ulcerations or masses noted on the tongue. Normal voice. No trismus noted. No drooling noted. No muffled voice noted. Neck: Normal inspection. Neck supple. FROM. No adenopathy. Thyroid Normal. No meningeal signs. No neck mass noted. CVS: Normal heart rate and rhythm. Heart sound normal. Pulses normal throughout. No murmurs/rales/gallops. Respiratory: No respiratory distress. Painless inspiration. Breath sounds normal. No wheezes/rales/rhonchi noted. Chest nontender. No accessory muscle usage noted or decreased air movement noted. Abdomen: Soft and moderate tenderness palpation to suprapubic area with guarding. Bowel sounds normal in all 4 quadrants. No distention noted. No organomegaly noted. No visible injury noted. Negative Field sign. Negative obturator's sign. Negative psoas sign. Negative Rovsing sign. : Supervised by BRENNA Barahona. Normal external appearance of urethra. No lesions/lacerations or tenderness noted. Speculum exam normal appearance/palpation of vagina normal. Patient noted to have a yellow/greenish cottage cheese like discharge. Otherwise no vaginal erythema. No foreign bodies noted. No vaginal laceration/lesions or active bleeding noted. No tissue present in vagina. No vaginal mass noted. No vaginal swelling noted. No vaginal tenderness noted. Normal appearance of cervix. Normal palpation of cervix. Cervical os is closed. No cervical lesion/mass. No Bartholin cyst noted. No cervical motion tenderness noted. Negative chandelier sign. Normal bimanual exam. Uterine size normal. Bladder normal to palpation. Uterine consistency normal. Normal cervical palpation. Uterine mobility normal. Uterine shape normal. Normal adnexa. Normal rectovaginal exam. Back: + bilateral CVA tenderness. Full range of motion noted. Nontender. No signs of trauma. Patient neuro intact bilaterally and distally on all 4 extremities. Patient's reflexes intact bilaterally and distally on all 4 extremities. No rashes/lesion/induration/fluctuance or signs of infection noted. Skin: Skin warm and dry. Normal skin color. Normal skin turgor. No rashes/lesions/lacerations noted. Extremities: Extremities exhibit normal range of motion and nontender. Neuro: Oriented X 3. No motor deficit. No sensory deficit. Reflexes normal. Normal steady gait. No focal neuro deficits noted. CN's II-XII intact bilaterally? Vascular: + radial pulses/+ 2 distal pedal pulses/+2 dorsalis pedis b/l. Normal cap refill. No cyanosis noted to upper extremity nails and lower extremity toes nails. Course Course Course Narrative: 18pm - 51-year-old female with a past medical history of asthma, interstitial cystitis, kidney stones and recurrent UTI's presenting to the ED with complaints of suprapubic abdominal pain with associated dysuria, increased urinary frequency/urgency with bilateral flank/back pain for the past 4 days worse today. She also reports an abnormal green vaginal discharge. Reports that she has been taking Pyridium which is making her urine orange. She reports that the green discharge does not have an odor. She denies any thoughts of STDs reports she has not had sex in many years. She also has dry cough with wheezing and has been using her albuterol inhaler with mild to no symptomatic relief. She was seen here on 03/01/2022 and diagnosed with a kidney stone of the right kidney. UA revealed 30 protein. One hundred glucose. Moderate amounts of blood. Positive nitrates and greater than 20 red blood cells. Patient negative for influenza/RSV/COVID. Plan: Therefore at this time will obtain labs, CT scan abdomen pelvis IV contrast, collect bacterial vaginosis/Trichomonas/yeast and gonorrhea chlamydia swabs. Provide a L of IV fluids with IV Toradol and re-evaluate. Reevaluation(s) Reevaluation #1: - labs reviewed patient carbon dioxide 21. BUN 24. Otherwise all other labs are within normal limits. - chest x-ray within normal limits no acute processes noted. - CT scan abdomen pelvis with IV contrast negative for any acute processes no kidney stones and does not appear like pyelonephritis. Therefore at this time will DC home with antibiotics for UTI and treatment for bacterial vaginosis and yeast and instructions return if any new or worsening symptoms follow up with primary care provider. Patient understands agrees with this plan. Time: 20:09 [facility] - Abdominal Pain Medical Records Attestation: I reviewed the patient's medical records. Lab Data Attestation: I reviewed the patient's lab results. Result diagrams: 04/13/22 18:09 04/13/22 18:09 Labs: Lab Results 04/13/22 04/13/22 04/13/22 Range/Units 15:39 18:09 18:09 WBC 9.8 (4.8-10.8) X10*3/uL RBC 3.89 L (4.20-5.50) X10*6/uL Hgb 12.1 (12.0-16.0) g/dl Hct 36.0 L (37.0-47.0) % MCV 92.5 (80.0-98.0) fL MCH 31.1 (27.0-33.0) pg MCHC 33.6 (31.0-35.0) g/dl RDW 13.6 (11.0-16.0) % Plt Count 244 (160-400) X10*3/uL MPV 10.3 (9.4-12.3) fL Immature Gran % (Auto) 0.2 (0.0-0.4) % Neut % (Auto) 48.8 (45-73) % Lymph % (Auto) 34.0 (20-40) % Nobles % (Auto) 8.3 (2-11) % Eos % (Auto) 7.9 H (0-4) % Baso % (Auto) 0.8 (0-2) % Lymph # (Auto) 3.3 (1.2-4.9) X10*3/uL [place]les # (Auto) 0.8 (0.1-1.2) X10*3/uL Eos # (Auto) 0.8 H (0.0-0.4) X10*3/uL Baso # (Auto) 0.1 (0.0-0.2) X10*3/uL Abs Immat Gran (auto) 0.02 (0.00-0.03) X10*3/uL Absolute Neuts (auto) 4.8 (2.0-8.3) x10*3/uL Absolute Nucleated RBC 0.000 (0.0-0.012) X10*3/uL Nucleated RBC % (auto) 0.0 (0.0-0.2) /100WBC Sodium (135-145) mmol/L Potassium (3.3-5.1) mmol/L Chloride (96-108) mmol/L Carbon Dioxide (22-29) mmol/L Anion Gap (12-20) BUN (9-16) mg/dL Creatinine (0.5-1.4) mg/dL Estim Creat Clear Calc Estimated GFR Random Glucose (60-115) mg/dL Calcium (8.4-10.2) mg/dL Magnesium (1.6-2.6) mg/dL Total Bilirubin (0.0-1.0) mg/dL AST (5-31) U/L ALT (0-31) U/L Alkaline Phosphatase (39-117) U/L Total Protein (6.5-8.0) g/dL Albumin (3.5-5.0) g/dL Urine Color ORANGE Urine Appearance Hazy Urine pH 5.5 (5.0-9.0) Ur Specific [place] 1.025 (1.005-1.025) Urine Protein 30 (1+) H (Neg-Trace) mg/dL Urine Glucose (UA) 100 H (Negative) mg/dL Urine Ketones Trace (Negative) mg/dL Urine Blood Moderate (2+) H (Negative) Urine Nitrite Positive H (Negative) Ur Leukocyte Esterase Negative (Negative) Urine RBC >20 H (0-2) /HPF Urine WBC 0-5 (0-5) /HPF Ur Squamous Epith Cells 6-10 (0-2) /HPF Urine Bacteria 2+ (None Seen) Hyaline Casts 0-2 (0-2) /LPF Influenza Type A (PCR) NEGATIVE (Negative) Influenza Type B (PCR) NEGATIVE (Negative) RSV RNA Qual (PCR) NEGATIVE (Negative) SARS-CoV-2 RNA (RT-PCR) NEGATIVE (Negative) 04/13/22 Range/Units 18:09 WBC (4.8-10.8) X10*3/uL RBC (4.20-5.50) X10*6/uL Hgb (12.0-16.0) g/dl Hct (37.0-47.0) % MCV (80.0-98.0) fL MCH (27.0-33.0) pg MCHC (31.0-35.0) g/dl RDW (11.0-16.0) % Plt Count (160-400) X10*3/uL MPV (9.4-12.3) fL Immature Gran % (Auto) (0.0-0.4) % Neut % (Auto) (45-73) % Lymph % (Auto) (20-40) % Nobles % (Auto) (2-11) % Eos % (Auto) (0-4) % Baso % (Auto) (0-2) % Lymph # (Auto) (1.2-4.9) X10*3/uL [place] # (Auto) (0.1-1.2) X10*3/uL Eos # (Auto) (0.0-0.4) X10*3/uL Baso # (Auto) (0.0-0.2) X10*3/uL Abs Immat Gran (auto) (0.00-0.03) X10*3/uL Absolute Neuts (auto) (2.0-8.3) x10*3/uL Absolute Nucleated RBC (0.0-0.012) X10*3/uL Nucleated RBC % (auto) (0.0-0.2) /100WBC Sodium 139 (135-145) mmol/L Potassium 3.8 (3.3-5.1) mmol/L Chloride 105 (96-108) mmol/L Carbon Dioxide 21 L (22-29) mmol/L Anion Gap 17 (12-20) BUN 24 H D (9-16) mg/dL Creatinine 1.19 (0.5-1.4) mg/dL Estim Creat Clear Calc 43.1 Estimated GFR 48 Random Glucose 95 (60-115) mg/dL Calcium 9.3 (8.4-10.2) mg/dL Magnesium 2.1 (1.6-2.6) mg/dL Total Bilirubin 0.5 (0.0-1.0) mg/dL AST 17 (5-31) U/L ALT 13 (0-31) U/L Alkaline Phosphatase 69 (39-117) U/L Total Protein 7.0 (6.5-8.0) g/dL Albumin 4.4 (3.5-5.0) g/dL Urine Color Urine Appearance Urine pH (5.0-9.0) Ur Specific [place] (1.005-1.025) Urine Protein (Neg-Trace) mg/dL Urine Glucose (UA) (Negative) mg/dL Urine Ketones (Negative) mg/dL Urine Blood (Negative) Urine Nitrite (Negative) Ur Leukocyte Esterase (Negative) Urine RBC (0-2) /HPF Urine WBC (0-5) /HPF Ur Squamous Epith Cells (0-2) /HPF Urine Bacteria (None Seen) Hyaline Casts (0-2) /LPF Influenza Type A (PCR) (Negative) Influenza Type B (PCR) (Negative) RSV RNA Qual (PCR) (Negative) SARS-CoV-2 RNA (RT-PCR) (Negative) Imaging Data CT scan abdomen pelvis with IV contrast: Attestation: I personally reviewed and interpreted this imaging study as follows: Radiologist's impression: FINDINGS: LUNG BASES: The visualized lung bases are unremarkable.? LIVER, GALLBLADDER, AND BILIARY TREE: The liver is normal in size, shape, and attenuation. No focal hepatic lesion or biliary ductal dilatation is present. The gallbladder is unremarkable with no evidence of radiopaque gallstones, gallbladder wall thickening, or obvious pericholecystic inflammatory changes.? PANCREAS: Unremarkable.? SPLEEN: Unremarkable.? ADRENAL GLANDS: Unremarkable.? KIDNEYS AND URETERS: The kidneys are normal in size, shape, and attenuation. No hydronephrosis, hydroureter, or calculi seen. No perinephric stranding. ? BLADDER: Unremarkable.? GASTROINTESTINAL TRACT: The small and large bowel are unremarkable. The appendix is unremarkable.? ABDOMINAL WALL: No significant hernia is appreciated.? LYMPH NODES: Normal. VASCULAR: Unremarkable. PELVIC VISCERA: Uterus appears normal. No adnexal lesion. Small centimeter left-sided Bartholin's cysts noted.? OSSEOUS STRUCTURES: Unremarkable.? CT/CT abdomen pelvis w IV con IMPRESSION: No focal lesion to explain patient's symptoms. No stones or obstructive uropathy.? ? Fleischner guidelines were followed. Discharge Plan Discharge Clinical Impression: UTI (urinary tract infection), Asthma, Bacterial vaginosis, [place] vaginitis Patient Disposition: Home, Self-Care Additional Instructions: You have pending lab results if any are positive you will be contacted within 3-5 days. Return if any new or worsening symptoms. Follow up with her primary care provider. Prescriptions: New prednisone 20 mg tablet 40 mg PO DAILY 5 Days Qty: 10 0RF metronidazole 500 mg tablet 500 mg PO BID 7 Days Qty: 14 0RF fluconazole [Diflucan] 150 mg tablet 150 mg PO Q3D 0 Days Qty: 2 0RF Rx Instructions: may repeat second dose 72 hrs after first dose if symptoms persist cefuroxime axetil 250 mg tablet 250 mg PO BID 7 Days Qty: 14 0RF ketorolac 10 mg tablet 10 mg PO Q8H PRN (Reason: pain) Qty: 14 0RF Rx Instructions: Patient given 1st dose in the ER by IV and tolerated well cyclobenzaprine 10 mg tablet 10 mg PO Q8H Qty: 14 0RF No Action amitriptyline 50 mg tablet 50 mg PO BEDTIME 30 Days Qty: 30 0RF gabapentin 300 mg capsule 300 mg PO BEDTIME 30 Days Qty: 30 0RF naproxen [Naprosyn] 500 mg tablet 500 mg PO BEDTIME PRN (Reason: pain) 30 Days Qty: 30 0RF diphenoxylate-atropine [Lomotil] 2.5-0.025 mg tablet 1 tab PO DAILY PRN (Reason: diarrhea) Qty: 5 0RF ketorolac 10 mg tablet 10 mg PO Q8H PRN (Reason: pain) Qty: 14 0RF Rx Instructions: first dose given in ER tolerated well by IM dose phenazopyridine [Pyridium] 100 mg tablet 100 mg PO TID PRN (Reason: pain) Qty: 6 0RF ondansetron 4 mg tablet,disintegrating 4 mg PO Q8H Qty: 14 0RF Referrals: Physician,Unknown J [Primary Care Provider] - 2 days (your pcp) Print Language: Setswana
[2022-04-13 18:36] LABS: Alanine Aminotransferase 13 U/L (0-31); Albumin Level 4.4 g/dL (3.5-5.0); Alkaline Phosphatase 69 U/L (39-117); Anion Gap 17 (12-20); Aspartate Amino Transferase 17 U/L (5-31); Bilirubin Total 0.5 mg/dL (0.0-1.0); Blood Urea Nitrogen 24 mg/dL (9-16); Calcium 9.3 mg/dL (8.4-10.2); Carbon Dioxide 21 mmol/L (22-29); Chloride 105 mmol/L (96-108); Creatinine Clr Calc Pharmacy 43.1; Estimated Glomerular Filt Rate 48; Glucose Random 95 mg/dL (60-115); Magnesium 2.1 mg/dL (1.6-2.6); Potassium 3.8 mmol/L (3.3-5.1); Sodium 139 mmol/L (135-145)
[2022-04-13 18:39] LABS: Basophils Absolute Auto 0.1 X10*3/uL (0.0-0.2); Basophils Percent Auto 0.8 % (0-2); Eosinophils Absolute Auto 0.8 X10*3/uL (0.0-0.4); Eosinophils Percent Auto 7.9 % (0-4); Hemoglobin 12.1 g/dl (12.0-16.0); Imm Gran Abs Auto 0.02 X10*3/uL (0.00-0.03); Imm Gran Pct Auto 0.2 % (0.0-0.4); Lymphocytes Absolute Auto 3.3 X10*3/uL (1.2-4.9); Mean Corpuscular HGB Conc 33.6 g/dl (31.0-35.0); Mean Corpuscular Hemoglobin 31.1 pg (27.0-33.0); Mean Corpuscular Volume 92.5 fL (80.0-98.0); Mean Platelet Volume 10.3 fL (9.4-12.3); Monocytes Absolute Auto 0.8 X10*3/uL (0.1-1.2); Monocytes Percent Auto 8.3 % (2-11); Neutrophils Absolute Auto 4.8 x10*3/uL (2.0-8.3); Neutrophils Percent Auto 48.8 % (45-73); Platelet Count 244 X10*3/uL (160-400); Red Blood Count 3.89 X10*6/uL (4.20-5.50); Red Cell Distribution Width 13.6 % (11.0-16.0); White Blood Count 9.8 X10*3/uL (4.8-10.8)
[2022-04-13] MEDS: 0.9 % Sodium Chloride 1,000 ML 999 ML IVCONT (18:40)
[2022-04-13] MEDS: iohexoL 350 MG/ML 100 ML INFUS..BTL IV (18:52)
[2022-04-13 18:58] LABS: Influenza A PCR NEGATIVE (Negative); Influenza B PCR NEGATIVE (Negative); Resp Syncy Virus RNA Qual PCR NEGATIVE (Negative); SARS COV2 PCR INHOUSE NEGATIVE (Negative)
[2022-04-13] MEDS: levoFLOXacin/D5W 750 MG/150 ML PIGGYBACK 100 MG IV (20:32)
[2022-04-13] MEDS: Ketorolac Tromethamine 15 MG/ML VIAL 30 MG IV (20:32)
[2022-04-14 02:35] LABS: CT PCR NOT DETECTED (Not Detect.); NG PCR NOT DETECTED (Not Detect.)
[2022-04-14 11:14] LABS: BV Int Neg Control Negative (Negative); BV Int Pos Control Positive (Positive)
== END 2022-04-13 20:54 | disposition home or self-care (01) ==
PROVIDERS: Physician Assistant Medical; Emergency Provider Internal Medicine
DX: N39.0 Urinary tract infection, site not specified (principal); B37.31 Acute candidiasis of vulva and vagina; N76.0 Acute vaginitis; R05.9 Cough, unspecified; R10.2 Pelvic and perineal pain; R10.9 Unspecified abdominal pain; J45.909 Unspecified asthma, uncomplicated; Z20.822 Contact with and (suspected) exposure to COVID-19; Z79.899 Other long term (current) drug therapy
CPT/HCPCS: 0241U; 36415; 71045; 74177; 80053; 81001; 83735; 85025; 87086; 87480; 87491; 87510; 87591; 87660; 96365; 96375; 99284; J1885; J1956; Q9967

== ENCOUNTER 2022-05-13 13:50 | Emergency (ER) | payer MEDICARE, MEDICAID, SELFPAY ==
--- NOTE | ~2022-05-13 | CT_ITS ---
EXAMINATION: CT ABDOMEN AND PELVIS WITH CONTRAST CLINICAL INFORMATION: UTI with bilateral flank pain COMPARISON: CT abdomen pelvis 04/13/2022 TECHNIQUE: Multidetector volumetric images were obtained from the superior aspect of the liver through the pubic symphysis following administration 85 mL of Omnipaque 350 intravenous contrast. Sagittal and coronal reformatted images were obtained on the technologist's workstation. Oral contrast: No This CT examination was performed using dose optimization techniques as appropriate, variously including the following: *Automated exposure control *Adjustment of mA and/or kV according to patient size (this includes techniques or standardized protocols for targeted exams where dose is matched to indication/reason for exam; i.e. extremities or head) *Use of iterative reconstruction technique DLP: 365 mGy-cm FINDINGS: LUNG BASES: The visualized lung bases are unremarkable. LIVER, GALLBLADDER, AND BILIARY TREE: The liver is normal in size, shape, and attenuation. No focal hepatic lesion or biliary ductal dilatation is present. The gallbladder is unremarkable with no evidence of radiopaque gallstones, gallbladder wall thickening, or obvious pericholecystic inflammatory changes. PANCREAS: Unremarkable. SPLEEN: Unremarkable. ADRENAL GLANDS: Unremarkable. KIDNEYS AND URETERS: The kidneys are normal in size, shape, and attenuation. No hydronephrosis, hydroureter, or calculi seen. No perinephric stranding. BLADDER: Nearly empty. No stones. GASTROINTESTINAL TRACT: The small and large bowel are unremarkable. The appendix is unremarkable. ABDOMINAL WALL: No significant hernia is appreciated. LYMPH NODES: Normal. VASCULAR: Unremarkable. PELVIC VISCERA: Unremarkable. OSSEOUS STRUCTURES: Unremarkable. CT/CT abdomen pelvis w IV con IMPRESSION: A cause for the patient's bilateral flank pain has not been found. Fleischner guidelines were followed.
[2022-05-13 13:59] VITALS: BP 106/73; PULSE 68; RESP 18; TEMP 36.6; O2SAT 98; BMI 20.4
[2022-05-13 14:24] LABS: MANUAL DIFF FLAG NO
[2022-05-13 14:29] LABS: UPreg QC Valid YES; Urine Pregnancy NEGATIVE (NEGATIVE)
[2022-05-13 14:30] LABS: Basophils Absolute Auto 0.1 X10*3/uL (0.0-0.2); Basophils Percent Auto 0.6 % (0-2); Eosinophils Absolute Auto 0.2 X10*3/uL (0.0-0.4); Eosinophils Percent Auto 2.3 % (0-4); Hematocrit 35.3 % (37.0-47.0); Hemoglobin 11.7 g/dl (12.0-16.0); Imm Gran Abs Auto 0.02 X10*3/uL (0.00-0.03); Imm Gran Pct Auto 0.3 % (0.0-0.4); Lymphocytes Absolute Auto 2.4 X10*3/uL (1.2-4.9); Lymphocytes Percent Auto 30.5 % (20-40); Mean Corpuscular HGB Conc 33.1 g/dl (31.0-35.0); Mean Corpuscular Hemoglobin 31.2 pg (27.0-33.0); Mean Corpuscular Volume 94.1 fL (80.0-98.0); Mean Platelet Volume 10.3 fL (9.4-12.3); Monocytes Absolute Auto 0.6 X10*3/uL (0.1-1.2); Monocytes Percent Auto 7.6 % (2-11); Neutrophils Absolute Auto 4.6 x10*3/uL (2.0-8.3); Neutrophils Percent Auto 58.7 % (45-73); Platelet Count 209 X10*3/uL (160-400); Red Blood Count 3.75 X10*6/uL (4.20-5.50); Red Cell Distribution Width 13.5 % (11.0-16.0); White Blood Count 7.9 X10*3/uL (4.8-10.8)
[2022-05-13 14:36] LABS: Appearance Urine Clear; Color Urine ORANGE; Glucose Urine UA 100 mg/dL (Negative); UMIC TRIGGER UACC YES; Urine Blood Small (1+) (Negative); Urine Ketones Trace mg/dL (Negative); Urine Protein 30 (1+) mg/dL (Neg-Trace)
[2022-05-13 14:43] LABS: Alanine Aminotransferase 10 U/L (0-31); Albumin Level 4.2 g/dL (3.5-5.0); Alkaline Phosphatase 67 U/L (39-117); Anion Gap 14 (12-20); Aspartate Amino Transferase 15 U/L (5-31); Bilirubin Direct 0.2 mg/dL (0.0-0.5); Bilirubin Total 0.4 mg/dL (0.0-1.0); Blood Urea Nitrogen 21 mg/dL (9-16); Calcium 9.5 mg/dL (8.4-10.2); Carbon Dioxide 26 mmol/L (22-29); Chloride 106 mmol/L (96-108); Creatinine Clr Calc Pharmacy 48.4; Estimated Glomerular Filt Rate 55; Glucose Random 116 mg/dL (60-115); Lipase 48 U/L (8-78); Potassium 4.5 mmol/L (3.3-5.1); Sodium 141 mmol/L (135-145); Total Protein 6.6 g/dL (6.5-8.0)
[2022-05-13 15:14] LABS: Bacteria Urine Trace (None Seen); Hyaline Casts Urine 0-2 /LPF (0-2); RBC Urine 0-2 /HPF (0-2); Squamous Epithelial Cell Urine 0-2 /HPF (0-2); WBC Urine 0-5 /HPF (0-5)
[2022-05-13 16:46] VITALS: BP 132/67; PULSE 64; RESP 18; TEMP 36.1; O2SAT 97
--- OUTSIDE RECORDS SUMMARY | 2022-05-13 21:23 | XMS_ITS | Encounter Summary ---
:1970 Author Care Team Providers Name Role Phone [employer] Primary Care Provider [phone] Reason for Visit nausea Assessment and Plan Assessment Note Time On Scene with Patient: 01:07:54 51 YO F establishing care with . She w as seen at [facility] yesterday for pelvic pain that radiates to her back. She was administered IV Ketorolac which made her nauseous and made her face swell up. My face looks way better . She den ies any swelling to tongue, difficulty speaking, or swallowing. She was diagnosed with UTI, BV and asthma exacerbation. She is a current every day smoker, however has not smoked for the last 3 days due to asthma flare up. She was prescribed Ketorolac PRN, Cyclobenzaprine PRN, Metronidazole, Prednisone, Diflucan, and Ceftin. She continues to feel very nauseous de spite her eating breakfast. She denies t aking any medication since discharged from . VSS Exam:Pleasant female patient NAD, in eut hymic mood. HEENT: Normocephalic, atraumatic, EOMI, non injected,upper and lower lids with no edema. Nares patent. Resp: Expiratory wheeze to yakelin lower bas e, yakelin upper villafana, speaking in full sentences, 02 sat wnl, no use of accessory muscles. CV: RRR S1,S2, Extremity: No edema or cyanosis. Psych: Alert and oriented x 3, in euthym ic mood. Test: None Plan: -Zofran prescribed to use PRN for nausea . Recommended to eat small bland meals, hydrate, and avoid fatty foods. -To avoid GI discomfort Metronidazole va ginal gel prescribed and oral abx discontinued. -Patient is to take Ceftin for UTI. -Asthma flare up is managed with prescri bed Prednisone. The patient is advised to make an appt w ith PCP in 3-5 days to discuss ongoing symptoms/ further management. The patient is also advised to go to the ED immediately for any worsening symptoms. The patie nt understood and agreed with this plan. The patient was given discharge instructions and all questions were answered prior to DH team departure. 1. Bacterial vaginosis ? metronidazole 0.75 % (37.5 mg/5 gram) vaginal gel 2. Nausea ? ondansetron 4 mg disintegrating table t 3. Acute urinary tract infection Discussion Note: None recorded.Patient educational handouts: No information available. Plan of Care Patient Instructions Acute Nausea and Vomiting/Diarrhea BASIC INFORMATION Acute nausea and vomiting often start larose ddenly, worsen quickly, and last a few hours to 24 hours. Nausea and vomiting most often occur together, although they can occur alone. Cases of acute nausea and vomiting are often from gastrointestinal viruses such as norovirus, rotavirus and influenza. Less often it can be caused by toxins released from food that ?goes bad? as well as some types of bacteria and parasites. Diarrhea can also occur. Your nurse practitioner will conduct a careful history to help determine if you have one of the more serious causes. The cause of your nausea and vomiting may be unknown. INSTRUCTIONS Medicines: 1) Anti-nausea: You may have been given a prescription for an anti nausea medicine such as Zofran, Phenergan or Compazine. These can be used every 6-8 hours to help prevent nausea and vomiting. They can make you sleepy, so do not drive after taking them. Be sure to read all of the drug information from the pharmacy. 2) Tylenol: Low grade fever is common wi th acute nausea and vomiting. You may use Tylenol, per the recommended dosing on the label, to help control fever. If you have liver disease, do not use Tylenol. Ask your BANKING ATTORNEY how to address fever if you are concerned about Tylenol use. 3) Anti-diarrheal medicines: These are a vailable uwuv-nkw-psroitz, but in some cases are not recommended and can even worsen some cases of intestinal problems. Ask your BANKING ATTORNEY if you should use them. In chi ldren under 12, the only anti-diarrheal that should be considered is Kaopectate. Diet: 1) For the next 12-24 hours, take clear liquids only. No dairy and no caffeinated beverages. After you have not vomited for a complete hour (either with or without the help of the anti-nausea medicine), begin by taking one tablespoon of clear liquid every 15 minutes for one hour. If you are able to tolerate this, you may increase the amount to 2 tablespoons every hour for the next 2 hours. 2) Clear liquids such as gatorade, pedia lyte or broth are recommended because of the electrolytes and sugars that will help replenish the losses from vomiting and diarrhea. 3) If you are able to tolerate clear liq uids as instructed above, you may begin to take a bland diet. Plain pasta/noodles or toast are suggestions. If you have had diarrhea, bananas, rice and applesauce are suggested as these can help make th e stools more solid. Avoid greasy, fatty or fried foods FOLLOW UP You should make an appointment to see yo primary care provider within 24 hours or sooner for worsening condition as described below. If you do not have a primary care doctor, you should follow up with one of the PCP suggestions from [facility]. SEEK CARE IMMEDIATELY IF: 1) You are still unable to tolerate any oral intake after 24 hours 2) You have blood in your vomit or stool 3) You develop severe abdominal pain ramirez t does not go away after an episode of vomiting or diarrhea 4) You have severe dizziness, heart palp itations or are passing out 5) You develop severe muscle cramps or w eakness 6) You have not made urine in over 24 ho urs If you develop any new or worsening symp toms and need after hours care, please go to nearest ER and/or call 911. If you have additional concerns or develop a change in your condition between 8am-10pm, iris valentin call [facility] at to help navigate your care. Reminders Provider Appointments None recorded. ? ? Lab None recorded. ? ? Referral None recorded. ? ? Procedures None recorded. ? ? Surgeries None recorded. ? ? Imaging None recorded. ? ? Medications Name Start Date ? ? albuterol sulfate 2.5 mg/3 mL (0.083 %) solution for n ebulization ? USE 1 VIAL VIA NEBULIZER EVERY 6 HOURS NEEDED FOR WHEEZING/SHORTNESS OF BREATH albuterol sulfate HFA 90 mcg/actuation aerosol inhaler ? INHALE 2 PUFFS BY MOUTH 4 TIMES A DAY NEEDED FOR W HEEZE/SHORTNESS OF BREATH cefuroxime axetil 250 mg tablet ? citalopram 20 mg tablet ? TAKE 1 AND 1/2 TABLET BY MOUTH EVERY DAY clonazepam 1 mg tablet ? TAKE 1 TABLET BY MOUTH TWICE A DAY NEEDED cyclobenzaprine 10 mg tablet ? diphenoxylate-atropine 2.5 mg-0.025 mg tablet ? TAKE 1 TO 2 TABLETS BY MOUTH TWICE A DAY NEEDED MO DERATE TO SEVERE DIARRHEA Flovent HFA 110 mcg/actuation aerosol inhaler ? INHALE 2 PUFFS TWICE A DAY fluconazole 150 mg tablet ? ketorolac 10 mg tablet ? TAKE 1 TABLET BY MOUTH EVERY 8 HOURS NEEDED FOR PA IN - NOT COVERED levocetirizine 5 mg tablet ? TAKE 1 TABLET BY MOUTH EVERY EVENING metronidazole 0.75 % (37.5 mg/5 gram) vaginal gel ? INSERT 1 APPLICATORFUL EVERY DAY BY VAGINAL ROUTE DIRECTED FOR 7 DAYS. metronidazole 500 mg tablet ? naproxen 500 mg tablet ? TAKE 1 TABLET BY MOUTH TWICE A DAY FOR 10 DAYS NEE DED FOR PAIN WITH FOOD ondansetron 4 mg disintegrating tablet ? PLACE 1 TABLET TWICE A DAY BY TRANSLINGUAL ROUTE N EEDED FOR 7 DAYS. prednisone 20 mg tablet ? TAKE 1 TABLET BY MOUTH TWICE A DAY FOR 5 DAYS quetiapine 50 mg tablet ? TAKE 1 TABLET BY MOUTH EVERY DAY AT NIGHT Symbicort 160 mcg-4.5 mcg/actuation HFA aerosol inhale r ? INHALE 2 PUFFS BY MOUTH TWICE A DAY *RINSE MOUTH/THRO AT AFTER USE* Medications Administered None recorded. Vitals Blood Pressure 120/72 mm[Hg] Results Lab Results None recorded. Allergies Code Code System Name Reaction Severity Onset 1191 RxNorm Aspirin ? ? ? 7052 RxNorm Morphine ? ? ? Problems None recorded. Procedures Date Name Performed by ? ? Procedure on Bladder Information not linda ilable ? Removal of Ovarian Cyst(s) Information n ot available Vaccine List None recorded. Social History Tobacco Smoking Status Current Every Day Smoker Does this patient have a PCP? Y Fall Risk: In your opinion (provider), N does the home or patient potentially predispose them to an increase fall risk? ADL: Do you need help with daily N activities such as bathing, preparing meals, dressing, or cleaning? Within the past 12 months, the food you No bought just didn't last and you didn't have money to get more. Do you have an advanced directive? N We know from many of our patients that No covering all of their costs can be difficult at times. This can cause stress and impact health. In the past year, have you been unable to get any of the following when it was really needed? Has the patient seen their PCP in the Y past 6 months? Do you use any illicit or recreational Y Notes: marijuana drugs? Would you like help connecting to None resources? How many years have you smoked tobacco? 22 Is this patient in hospice? N What is your level of alcohol None consumption? Fall Risk: Do you feel unsteady when N standing or walking? Social Support: Do you feel safe? Y Has lack of transportation kept you No from medical appointments, meetings, work, or from getting things needed for daily living? Within the past 12 months, you worried No that your food would run out before you got money to buy more. Excessive Alcohol or Drug Use N At what age did you start smoking 23 tobacco? Functional Status Unknown. Past Encounters 04/14/2022 Bacterial Vaginosis; Nausea; Acute Urina ry Tract Infection Diane Teixeira NP, S: [address] [place] [address], Ph. [phone] History of Present Illness ? General HPI Template - DH Reported By: Patient Note: <div>51 YO F establishing care with . She was seen at [facility] yesterday for pelvicpain that radiates to her back. She was administered IV Ketorolac which made her nauseous and made her face swell up. My face looks way better . She denies any swelling to tongue, difficulty speaking, or swallowing. She was diagnosed with UTI, BV and asthma exacerbation. She is a current every day smoker, however has not smoked for the last 3 days due to asthma flare up. She was prescribed Ketorolac PRN, Cyclobenzaprine PRN, Metronidazole, Prednisone, Diflucan, and Ceftin. She continues to feel very nauseous despite her eating breakfast. She denies taking any medication since discharged from . </div> Review of Systems ? Adult ROS - DH Reported By: Patient Constitutional: Constitutional: no significa nt weight change, good appetite, no fever, normal activity le marc, no fatigue Eyes: Eyes: no eye pain, no blurry vision, no eye redness, no eye itchiness, no eye swelling, no eye discharge Cardiovascular: Cardiovascular: no chest zohra n, normal heart rate Respiratory: Respiratory: no pain with re spiration, normal respiration, cough, wheezing Gastrointestinal: GI: no abdominal pain, no vo miting, no diarrhea, no constipation, nausea Musculoskeletal: Musculoskeletal: no arthralg ias, no joint swelling, no myalgia, moves all extremiti es well, no previous injuries, no trauma Skin: Skin: no redness, no rash, n o hives, no skin lesions, no bruising Neurological symptoms: Neuro: no numbness, no weakn ess, no tingling, no headache, no dizziness, no loss of consci ousness, no ataxia, no disorientation, no spinning dizziness (vertigo) Psychiatric: Psych: no depression, no anx iety, no insomnia Physical Exam ? General Adult Exam - DH_Upda ted12/17, General Adult Exam - DH (Revised) Reported By: Patient Constitutional: General Appearance: non-toxi c, well appearing, in no acute distress Psychiatric: Mental Status: active and al ert, follows commands appropriately. Orientation: to place. Psych ologic normal mood, normal affect, normal insight Head: Head: normocephalic, atrauma tic. Eyes visual acuity, EOMI, no injection, no icterus, no di scharge, lids grossly normal without stye or swelling, no periorb ital swelling or erythema, lids everted: no foreign body, no fluorescein uptake Eyes: Lids and Conjunctivae: non-i njected, no discharge, no pallor. EOM: EOMI. Lens: clear. Sclerae: non-icteric ENMT: Nose: nares patent, no nasal discharge, no epistaxis Pulmonary: Respiratory effort: no dyspn ea. Auscultation: no rales/crackles, no rhonchi. Pulmonary normal ef fort, no respiratory distress, no tachypnea, no accessory musc le use, no intercostal retractions, wheezes upper lobe, bilatera l, lower lobe, bilateral, upper lobe, bilateral, lower lobe, bilat eral, upper lobe, bilateral, lower lobe, bilateral, upper lobe, bilateral, lower lobe, bilateral, upper lobe, bilateral, lower lobe, bilateral, Cardiovascular: Heart Auscultation: RRR, nor mal S1, normal S2, no murmurs, no rubs, no gallops Musculoskeletal:: Joints, Bones, and Muscles: moves all extremities normally Neurologic: Cranial Nerve Testing: memor y normal recent
--- OUTSIDE RECORDS SUMMARY | 2022-05-13 21:23 | XMS_ITS | Continuity of Care Document ---
:1970 Author Organization [facility] Address [address] [place] [address]- Care Team Providers Name Role Phone Michell Hernandez MD Primary Care Physician En[place] [facility] [place] Date(s): 02/11/22 - 04/04/22 [facility] [address] [place] [address]- Attending Physician: Juany Minor Admitting Physician: Juany Minor Referring Physician: Michell Hernandez MD Allergies, Adverse Reactions, Alerts Substance Reaction Severity Status aspirin rash Active morphine Anxiety Active Pineapple Active Seafood C/O: a rash Active Immunizations Given and Recorded Vaccine Date Status Refusal Reason SARS-CoV-2 (COVID-19) mRNA BNT-162b2 vac 04/24/21 Recorde d SARS-CoV-2 (COVID-19) mRNA BNT-162b2 vac 04/03/21 Recorde d tetanus-diphtheria toxoids (Td) 04/19/01 Recorded Medications Albuterol (Eqv-ProAir HFA) 90 mcg/inh inhalation aerosol 2 puffs, Inhalation, 4 times a day, PRN NEEDED FOR WHEEZE/SHORTNESS OF BREATH, # 8.5 each, 5 Refills, [id number], 25, INHALE 2 PUFFS BY MOUTH 4 TIMES A DAY NEEDED FOR WHEEZE/SHORTNESS OF BREATH, 155, cm, 02/27/22 14:31:00 EDT, Height, 48, k... Start Date: 03/04/22 Status: Orderedalbuterol 0.083% inhalation solution See Instructions, USE 1 VIAL VIA NEBULIZER EVERY 6 HOURS NEEDED FOR WHEEZING/SHORTNESS OF BREATH,# 300 mL, 6 Refills, Maintenance, 03/10/22 10:12:00 EDT, [facility] STORE [id number], 155, cm, 02/27/22 14:31:00EDT, Height, 48, kg, 02/05/22 11:39:00 EDT, Dry W... Start Date: 03/10/22 Status: OrderedCitalopram = 20 mg, By Mouth, Daily, 0 Refills, Maintenance, 04/24/20 11:38:00 EDT Start Date: 04/24/20 Status: OrderedKLONopin Tablet = 1 mg, By Mouth, 3 times a day, 0 Refills, Maintenance, 11/04/11 14:01:33 EDT Start Date: 11/04/11 Status: Orderednaproxen 500 mg oral tablet 1 tablet = 500 mg, By Mouth, 2 times a day, PRN for pain, # 20 tablet, 0 Refills, Maintenance, 02/27/22 14:34:00 EDT, Tablet, Partial fill upon patient request if the prescription is for a schedule II opioid drug. Start Date: 02/27/22 Status: OrderedNebulizer/Compressor See Instructions, # 1 each, Refills 0, Tot. Refills 0, Maintenance, with tubing and mouthpiece. med size mask DX J44.9, 03/21/21 13:22:00 EDT, Supply Start Date: 03/21/21 Status: OrderedSeroquel 50 mg, By Mouth, Daily at bedtime, Maintenance, 11/04/11 14:01:54 EDT Start Date: 11/04/11 Status: OrderedSymbicort 160mcg/4.5mcg Inhaler 2, puffs, Inhalation, 2 times a day, rinse mouth and throat after use, # 10.2 Gm, Refills 3, Tot. Refills 3, Maintenance, 01/23/22 12:05:00 EDT, Aerosol, Route to Pharmacy Electronically, [id number], [facility]/pharmacy #[id number], 156,... Start Date: 01/23/22 Status: OrderedXyzal 5 mg oral tablet 1 tablet = 5 mg, By Mouth, Daily in PM, # 90 tablet, 0 Refills, Maintenance, 03/09/22 11:13:00 EDT, Tablet, [id number], Partial fill upon patient request if the prescription is for a schedule II opioid drug., 1 tablet By Mouth Daily in PM, 155... Start Date: 03/09/22 Status: Ordered Problem List Condition Effective Dates Status Health Status Informant Abnormal uterine bleeding Active (AUB)(Confirmed) Anxiety(Confirmed) Active Hyperlipidemia(Confirmed) Active Moderate persistent asthma(Confirmed) Active Pelvic pain(Confirmed) Active Major depressive disorder, Active recurrent(Confirmed) Urinary retention(Confirmed) Active Tobacco use(Confirmed) Active Vertigo(Confirmed) Active Social History Social History Type Response Smoking Status 5-9 cigarettes (between 1/4 to 1/2 pack)/day in last 30 days entered on: 04/24/20 Sex Care Team PersonnelName: Mary THOMPSON, Michell Lazaro Address: [address] [place] [phone]
--- OUTSIDE RECORDS SUMMARY | 2022-05-13 21:23 | XMS_ITS | Continuity of Care Document ---
:1970 Author Organization [facility] Address [address] [place] [address]- Care Team Providers Name Role Phone Ar Spangler MD Primary Care Physician Encounter [facility] [place] Date(s): 03/06/21 - 04/05/21 [facility] [address] [place], [place] [address] Allergies, Adverse Reactions, Alerts Substance Reaction Severity Status aspirin rash Active morphine Anxiety Active Seafood C/O: a rash Active Medications Albuterol (Eqv-ProAir HFA) 90 mcg/inh inhalation aerosol 2 puffs, Inhalation, 4 times a day, PRN NEEDED FOR, WHEEZING/SHORTNESS OF BREATH, # 8.5 Unknown, 3 Refills, Maintenance, 12/24/20 15:34:00 EDT, [id number], 25, TAKE 2 PUFFS 4 TIMES A DAY,X30 DAYS NEEDED FOR :WHEEZING/SHORTNESS OF BREATH, 15... Start Date: 12/24/20 Status: Orderedalbuterol 0.083% inhalation solution 3 mL = 2.5 mg, Inhalation, Every 6 hours, PRN Wheezing/Shortness of Breath, dx. J45.40 asthma, # 120each, 6 Refills, Maintenance, 03/07/21 9:37:00 EDT, Solution, [id number], Partial fill upon patient request if the prescription is for a sche... Start Date: 03/07/21 Status: Orderedamoxicillin 500 mg oral capsule 0 Refills, Maintenance, 12/26/20 8:06:00 EDT, Partial fill upon patient request if the prescription is for a schedule II opioid drug. Start Date: 12/26/20 Status: OrderedCitalopram = 20 mg, By Mouth, Daily, 0 Refills, Maintenance, 04/24/20 11:38:00 EDT Start Date: 04/24/20 Status: OrderedFlovent HFA 110 mcg/inh inhalation aerosol 2 puffs = 220 mcg, Inhalation, 2 times a day, # 1 each, 0 Refills, Maintenance, 03/05/21 12:25:00 EDT, Aerosol, [facility]/pharmacy #[id number], Partial fill upon patient request if the prescription is for a schedule II opioid drug., 156, cm, 03/04/21 12:45:00 EDT... Start Date: 03/05/21 Status: OrderedKLONopin Tablet = 1 mg, By Mouth, 3 times a day, 0 Refills, Maintenance, 11/04/11 14:01:33 EDT Start Date: 11/04/11 Status: OrderedNebulizer/Compressor See Instructions, # 1 each, Refills 0, Tot. Refills 0, Maintenance, with tubing and mouthpiece. med size mask DX J44.9, 03/21/21 13:22:00 EDT, Supply Start Date: 03/21/21 Status: OrderedSeroquel 50 mg, By Mouth, Daily at bedtime, Maintenance, 11/04/11 14:01:54 EDT Start Date: 11/04/11 Status: Ordered Problem List Condition Effective Dates [...]
--- OUTSIDE RECORDS SUMMARY | 2022-05-13 21:23 | XMS_ITS ---
:1970 Author Care Team Providers Name Role Phone [facility] Primary Care Provider [phone] Allergies Code Code System Name Reaction Severity Status Onset 1191 RxNorm Aspirin ? ? Active ? 7052 RxNorm Morphine ? ? Active ? Medications Name Status Start Date Stop Date ? ? albuterol sulfate 2.5 mg/3 mL (0.083 %) solution for nebulizatio n Active ? Not available USE 1 VIAL VIA NEBULIZER EVERY 6 HOURS NEEDED FOR WHEEZING/SHORTNESS OF BREATH albuterol sulfate HFA 90 mcg/actuation aerosol inhaler Active ? Not available cefuroxime axetil 250 mg tablet Active ? Not available citalopram 20 mg tablet Active ? Not avai lable TAKE 1 AND 1/2 TABLET BY MOUTH EVERY DAY clonazepam 1 mg tablet Active ? Not avail able TAKE 1 TABLET BY MOUTH TWICE A DAY NEEDED cyclobenzaprine 10 mg tablet Active ? Not available diphenoxylate-atropine 2.5 mg-0.025 mg tablet Active ? Not available TAKE 1 TO 2 TABLETS BY MOUTH TWICE A DAY NEEDED MO DERATE TO SEVERE DIARRHEA Flovent HFA 110 mcg/actuation aerosol inhaler Active ? Not available INHALE 2 PUFFS TWICE A DAY fluconazole 150 mg tablet Active ? Not av ailable ketorolac 10 mg tablet Active ? Not avail able TAKE 1 TABLET BY MOUTH EVERY 8 HOURS NEEDED FOR PAIN - NOT C OVERED levocetirizine 5 mg tablet Active ? Not a vailable metronidazole 0.75 % (37.5 mg/5 gram) vaginal gel Active ? Not available INSERT 1 APPLICATORFUL EVERY DAY BY VAGINAL ROUTE DIRECTED F OR 7 DAYS. metronidazole 500 mg tablet Active ? Not available naproxen 500 mg tablet Active ? Not avail able TAKE 1 TABLET BY MOUTH TWICE A DAY FOR 10 DAYS NEEDED FOR PA IN WITH FOOD ondansetron 4 mg disintegrating tablet Active ? Not available PLACE 1 TABLET TWICE A DAY BY TRANSLINGUAL ROUTE NEEDED FOR 7 DAYS. prednisone 20 mg tablet Active ? Not avai lable quetiapine 50 mg tablet Active ? Not avai lable TAKE 1 TABLET BY MOUTH EVERY DAY AT NIGHT Symbicort 160 mcg-4.5 mcg/actuation HFA aerosol inhaler Active ? Not available INHALE 2 PUFFS BY MOUTH TWICE A DAY *RINSE MOUTH/THROAT AFTER U SE* Problems None recorded. Procedures Date Name Performed by ? ? Procedure on Bladder Information not linda ilable ? Removal of Ovarian Cyst(s) Information n ot available Results Lab Results None recorded. Past Encounters 04/14/2022 Bacterial Vaginosis; Nausea; Acute Urina ry Tract Infection Diane Teixeira NP, S: [address] , [place] [address], Ph. [phone] Social History Tobacco Smoking Status Current Every Day Smoker Vaccine List None recorded. Plan of Care Patient Instructions Acute Nausea [...] disease, do not use Tylenol. Ask your APPLICATION CONSULTANT how to address fever if you are concerned about Tylenol use. 3) Anti-diarrheal medicines: These are a vailable [id number]-ikmcwde, but in some cases are not recommended and can even worsen some cases of intestinal problems. Ask your APPLICATION CONSULTANT if you should use them. In chi [...] with one of the PCP suggestions from [facility]. SEEK CARE IMMEDIATELY IF: 1) You [...] your condition between 8am-10pm, iris valentin call [facility] at to help navigate your care. Reminders Provider Appointments None recorded. ? ? Lab None recorded. ? ? Referral None recorded. ? ? Procedures None recorded. ? ? Surgeries None recorded. ? ? Imaging None recorded. ? ? Vitals Blood Pressure 120/72 mm[Hg]
--- OUTSIDE RECORDS SUMMARY | 2022-05-13 21:23 | XMS_ITS | Continuity of Care Document ---
:1970 Author Organization [facility] Address [address] [place] [address]- Care Team Providers Name Role Phone Ar Spangler MD Primary Care Physician [place] [facility] [place](s[place] 03/29/21 - 04/28/21 [facility] [address] [place], [place] [address] Allergies, Adverse Reactions, Alerts Substance Reaction Severity Status aspirin rash Active morphine Anxiety Active Seafood C/O: a rash Active Medications Albuterol (Eqv-ProAir HFA) 90 mcg/inh inhalation aerosol 2 puffs, Inhalation, 4 times a day, PRN NEEDED FOR, WHEEZING/SHORTNESS OF BREATH, # 8.5 Unknown, 3 Refills, Maintenance, 12/24/20 15:34:00 EDT, [id number], 25, TAKE 2 PUFFS 4 TIMES A DAY,X30 DAYS NEEDED FOR :WHEEZING/SHORTNESS OF BREATH, 15... Start Date: 12/24/20 Status: Orderedalbuterol 0.083% inhalation solution 3 mL = 2.5 mg, Inhalation, Every 6 hours, PRN Wheezing/Shortness of Breath, dx. J45.40 asthma, # 120each, 6 Refills, Maintenance, 03/07/21 9:37:00 EDT, Solution, [id number], Partial fill upon patient request if the [...] 0 Refills, Maintenance, 03/05/21 12:25:00 EDT, Aerosol, [facility]/pharmacy #[id number], Partial fill upon patient request if [...]
--- OUTSIDE RECORDS SUMMARY | 2022-05-13 21:23 | XMS_ITS | Continuity of Care Document ---
:1970 Author Organization [facility] Address [address] [place] [address]- Care Team Providers Name Role Phone Mary THOMPSON, Michell Lazaro Primary Care Physician [place] [facility] [place] 02[place]22 [facility] [address] [place] [address]- Allergies, Adverse Reactions, Alerts Substance Reaction Severity Status aspirin rash Active morphine Anxiety Active Seafood C/O: a rash Active Immunizations Given and Recorded Vaccine Date Status Refusal Reason SARS-CoV-2 (COVID-19) mRNA BNT-162b2 vac 04/24/21 Recorde d SARS-CoV-2 (COVID-19) mRNA BNT-162b2 vac 04/03/21 Recorde d tetanus-diphtheria toxoids (Td) 04/19/01 Recorded Medications Albuterol (Eqv-ProAir HFA) 90 mcg/inh inhalation aerosol 2 puffs, Inhalation, 4 times a day, PRN NEEDED FOR, WHEEZING/SHORTNESS OF BREATH, # 8.5 each, 3 Refills, 11/15/21 10:25:00 EDT, [facility]/pharmacy #[id number], 16, 2 puffs Inhalation 4 times a day,PRN: NEEDEDFOR,Instr:WHEEZING/SHORTNESS OF BREATH, 156, cm,... Start Date: 11/15/21 Status: OrderedCitalopram = 20 mg, By Mouth, Daily, 0 Refills, Maintenance, 04/24/20 11:38:00 EDT Start Date: 04/24/20 Status: OrderedKLONopin Tablet = 1 mg, By Mouth, 3 times a day, 0 Refills, Maintenance, 11/04/11 14:01:33 EDT Start Date: 11/04/11 Status: Orderednaproxen 500 mg oral tablet 1 tablet = 500 mg, By Mouth, 2 times a day, PRN Pain , Moderate, for 10 days, with food, # 20 capsule, 0 Refills, Acute 02/22/22 10:16:00 EDT, 02/12/22 10:16:00 EDT, [facility]/pharmacy #[id number], Partial fill upon patient request if the prescription is for a sc... Start Date: 02/12/22 Stop Date: 02/22/22 Status: OrderedNebulizer/Compressor See Instructions, # 1 each, Refills 0, Tot. Refills 0, Maintenance, with tubing and mouthpiece. med size mask DX J44.9, 03/21/21 13:22:00 EDT, Supply Start Date: 03/21/21 Status: Orderednicotine 2 mg oral transmucosal gum 1 each = 2 mg, Chew, 3 times a day after meals, PRN as needed for smoking cessation, # 90 each, 1 Refills, Acute 02/23/22 12:16:00 EDT, 01/23/22 12:15:00 EDT, Gum, [facility]/pharmacy #[id number], Partial fill uponpatient request if the prescription is for a sche... Start Date: 01/23/22 Stop Date: 02/23/22 Status: OrderedSeroquel 50 mg, By Mouth, Daily at bedtime, Maintenance, 11/04/11 14:01:54 EDT Start Date: 11/04/11 Status: OrderedSymbicort 160mcg/4.5mcg Inhaler 2, puffs, Inhalation, 2 times a day, rinse mouth and throat after use, # 10.2 Gm, Refills 3, Tot. Refills 3, Maintenance, 01/23/22 12:05:00 EDT, Aerosol, Route to Pharmacy Electronically, [id number], [facility]/pharmacy #[id number], 156,... Start Date: 01/23/22 Status: OrderedXyzal 5 mg oral tablet 1 tablet = 5 mg, By Mouth, Daily in PM, # 30 tablet, 3 Refills, Maintenance, 01/23/22 12:06:00 EDT, Tablet, [facility]/pharmacy #[id number], Partial fill upon patient request if the prescription is for a schedule II opioid drug., 1 tablet By Mouth Daily in PM, 156... Start Date: 01/23/22 Status: Ordered Problem List Condition Effective Dates [...]
--- OUTSIDE RECORDS SUMMARY | 2022-05-13 21:23 | XMS_ITS | Continuity of Care Document ---
:1970 Author Organization [facility] Address [address] [place] [address]- Care Team Providers Name Role Phone Not on Staff, PCP Primary Care Physician Unavailable Encounter [facility] [place] Date(s): 08/17/20 - 08/24/20 [facility] [address] [place], [place] [address] Attending Physician: Shahram Hernandez MD Referring Physician: Lior Womack NP Allergies, Adverse Reactions, Alerts Substance Reaction Severity Status aspirin rash Active morphine Anxiety Active Seafood C/O: a rash Active Medications Citalopram = 20 mg, By Mouth, Daily, 0 Refills, Maintenance, 04/24/20 11:38:00 EDT Start Date: 04/24/20 Status: OrderedFlovent HFA Inhalation, 2 times a day, PRN Wheezing/Shortness of Breath, 0 Refills, Maintenance, 11/04/11 14:01:59 EDT Start Date: 11/04/11 Status: OrderedKLONopin Tablet = 1 mg, By Mouth, 3 times a day, 0 Refills, Maintenance, 11/04/11 14:01:33 EDT Start Date: 11/04/11 Status: OrderedProAir HFA 90 mcg/inh inhalation aerosol 2 puffs, Inhalation, 4 times a day, PRN Wheezing/Shortness of Breath, # 1 each, 3 Refills, Maintenance, 08/17/20 11:35:00 EST, Inhaler, [id number], Partial fill upon patient request if the prescription is for a schedule II opioid drug., 2 puff... Start Date: 08/17/20 Stop Date: 12/15/20 Status: OrderedSeroquel 50 mg, By Mouth, Daily at bedtime, Maintenance, 11/04/11 14:01:54 EDT Start Date: 11/04/11 Status: Ordered Problem List Condition Effective Dates Status Health Status Informant Abnormal uterine bleeding Active (AUB)(Confirmed) Asthma(Confirmed) Active Depression with anxiety(Confirmed) Active Pelvic pain(Confirmed) Active Urinary retention(Confirmed) Active Tobacco use(Confirmed) Active Vital Signs Most recent to oldest [Reference Range]: 1 Height 156 cm (08/17/20 11:04 AM) Weight 46 kg (08/17/20 11:04 AM) Body Mass Index [18.5-24.99] 18.9 (08/17/20 11:04 AM) Dry Weight 46 kg (08/17/20 11:04 AM) Weight Obtained Via Patient/family stated (08/17/20 11:04 AM) Dry Weight Obtained Via Patient/family stated (08/17/20 11:04 AM) Social History Social History Type Response Smoking Status 5-9 cigarettes (between 1/4 to 1/2 pack)/day in last 30 days entered on: 04/24/20 Sex
--- OUTSIDE RECORDS SUMMARY | 2022-05-13 21:23 | XMS_ITS | Continuity of Care Document ---
:1970 Author Organization [facility] Address [address] [place] [address]- Care Team Providers Name Role Phone Mary THOMPSON, Michell Lazaro Primary Care Physician [place] [facility] [place] - 03/[place]/22 [facility] [address] [place], [place] [address] Attending Physician: Michell Hernandez MD Allergies, Adverse Reactions, Alerts Substance Reaction Severity Status aspirin rash Active morphine Anxiety Active Seafood C/O: a rash Active Pineapple Active Immunizations Given and Recorded Vaccine Date Status Refusal Reason SARS-CoV-2 (COVID-19) mRNA BNT-162b2 vac 04/24/21 Recorde d SARS-CoV-2 (COVID-19) mRNA BNT-162b2 vac 04/03/21 Recorde d tetanus-diphtheria toxoids (Td) 04/19/01 Recorded Medications Albuterol (Eqv-ProAir HFA) 90 mcg/inh inhalation aerosol 2 puffs, Inhalation, 4 times a day, PRN NEEDED FOR WHEEZE/SHORTNESS OF BREATH, # 8.5 each, 5 Refills, [id number], 25, INHALE 2 PUFFS BY MOUTH 4 TIMES A DAY NEEDED FOR WHEEZE/SHORTNESS OF BREATH, 155, cm, 02/27/22 14:31:00 EDT, Height, 48, k... Start Date: 03/04/22 Status: OrderedCitalopram = 20 mg, By Mouth, [...] 12:05:00 EDT, Aerosol, Route to Pharmacy Electronically, [id number], [facility]/pharmacy #[id number], 156,... Start Date: 01/23/22 Status: OrderedXyzal 5 mg oral tablet 1 tablet = 5 mg, By Mouth, Daily in PM, # 30 tablet, 3 Refills, Maintenance, 01/23/22 12:06:00 EDT, Tablet, [facility]/pharmacy #[id number], Partial fill upon patient request if [...] Team PersonnelName: Mary THOMPSON, Michell Lazaro Address: [address] [place] [id number]
--- OUTSIDE RECORDS SUMMARY | 2022-05-13 21:23 | XMS_ITS | Continuity of Care Document ---
:1970 Author Organization [facility] Address [address] [place] [address]- Care Team Providers Name Role Phone Ar Spangler MD Primary Care Physician [place] [facility] [place] 01/17/21 - 02/16/21 [facility] [address] [place], [place] [address] Allergies, Adverse Reactions, Alerts Substance Reaction Severity Status aspirin rash Active morphine Anxiety Active Seafood C/O: a rash Active Medications Albuterol (Eqv-ProAir HFA) 90 mcg/inh inhalation aerosol 2 puffs, Inhalation, 4 times a day, PRN NEEDED FOR, WHEEZING/SHORTNESS OF BREATH, # 8.5 Unknown, 3 Refills, Maintenance, 12/24/20 15:34:00 EDT, [facility], 25, TAKE 2 PUFFS 4 TIMES A DAY,X30 DAYS NEEDED FOR :WHEEZING/SHORTNESS OF BREATH, 15... Start Date: 12/24/20 Status: Orderedalbuterol 0.083% inhalation solution 3 mL = 2.5 mg, Inhalation, Every 6 hours, PRN Wheezing/Shortness of Breath, # 120 each, 1 Refills, Maintenance, 12/27/20 8:09:00 EDT, Solution, [id number], Partial fill upon patient request if the prescription is for a schedule II opioid drug.... Start Date: 12/27/20 Status: Orderedamoxicillin 500 mg oral capsule 0 Refills, Maintenance, 12/26/20 8:06:00 EDT, Partial fill upon patient request if the prescription is for a schedule II opioid drug. Start Date: 12/26/20 Status: OrderedCitalopram = 20 mg, By Mouth, Daily, 0 Refills, Maintenance, 04/24/20 11:38:00 EDT Start Date: 04/24/20 Status: OrderedFlovent HFA 110 mcg/inh inhalation aerosol 2 puffs, Inhalation, 2 times a day, # 12 Gm, 0 Refills, Maintenance, 12/27/20 8:06:00 EDT, Aerosol, Partial fill upon patient request if the prescription is for a schedule II opioid drug. Start Date: 12/27/20 Status: OrderedKLONopin Tablet = 1 mg, By Mouth, 3 times a day, 0 Refills, Maintenance, 11/04/11 14:01:33 EDT Start Date: 11/04/11 Status: OrderedNebulizer/Compressor See Instructions, # 1 each, Maintenance, with tubing and mouthpiece. med size mask DX J44.9, 12/27/20 8:00:00 EDT, Supply, 156, cm, 12/26/20 8:04:00 EDT, Height, 46, kg, 08/17/20 11:04:00 EST, Dry Weight Start Date: 12/27/20 Status: OrderedSeroquel 50 mg, By Mouth, Daily at bedtime, Maintenance, 11/04/11 14:01:54 EDT Start Date: 11/04/11 Status: Ordered Problem List Condition Effective Dates Status Health Status Informant Abnormal uterine bleeding Active (AUB)(Confirmed) Anxiety(Confirmed) Active Moderate persistent asthma(Confirmed) Active Pelvic pain(Confirmed) Active Major depressive disorder, Active recurrent(Confirmed) Urinary retention(Confirmed) Active Tobacco use(Confirmed) Active Social History Social History Type Response Smoking Status 5-9 cigarettes (between 1/4 to 1/2 pack)/day in last 30 days entered on: 04/24/20 Sex
--- OUTSIDE RECORDS SUMMARY | 2022-05-13 21:23 | XMS_ITS | Continuity of Care Document ---
:1970 Author Organization [facility] Address [address] [place] [address]- Care Team Providers Name Role Phone Vu CUELLAR, Lior Rhodes Primary Care Physician Encounter [facility] [place] Date(s): 05/01/20 - 05/08/20 [facility] [address] [place] [address]- [facility] Attending Physician: Not on Staff, Attending MD Allergies, Adverse Reactions, Alerts Substance Reaction Severity Status aspirin Active morphine Anxiety Active Valium Active Medications Citalopram By Mouth, Daily, 0 Refills, Maintenance, 04/24/20 11:38:00 EDT Start Date: 04/24/20 Status: OrderedFlovent HFA Inhalation, 2 times a day, 0 Refills, Maintenance Start Date: 11/04/11 Status: OrderedKLONopin Tablet By Mouth, 3 times a day, 0 Refills, Maintenance Start Date: 11/04/11 Status: OrderedOmega-3 oral capsule 0 Refills, Maintenance, 04/24/20 11:38:00 EDT Start Date: 04/24/20 Status: OrderedProAir HFA Inhalation, 4 times a day, 0 Refills, Maintenance Start Date: 11/04/11 Status: OrderedSeroquel By Mouth, Maintenance, 11/04/11 14:01:54 Start Date: 11/04/11 Status: Ordered Problem List Condition Effective Dates Status Health Status Informant Abnormal uterine bleeding Active (AUB)(Confirmed) Depression with anxiety(Confirmed) Active Pelvic pain(Confirmed) Active Urinary retention(Confirmed) Active Tobacco use(Confirmed) Active Social History Social History Type Response Smoking Status 5-9 cigarettes (between 1/4 to 1/2 pack)/day in last 30 days entered on: 04/24/20 Sex
--- OUTSIDE RECORDS SUMMARY | 2022-05-13 21:23 | XMS_ITS | Continuity of Care Document ---
:1970 Author Organization [facility] Address [address] [place] [address]- Care Team Providers Name Role Phone Mary THOMPSON, Michell Lazaro Primary Care Physician [place] [facility] [place] 02/27/22 - 03/29/22 [facility] [address] [place] [address]- Attending Physician: Admtr, Ar8 Admitting Physician: Admtr, Ar8 Referring Physician: Admtr, Ar8 Allergies, Adverse Reactions, Alerts Substance Reaction Severity Status aspirin rash Active Pineapple Active morphine Anxiety Active Seafood C/O: a [...] OF BREATH, # 8.5 each, 5 Refills, [facility], 25, INHALE 2 PUFFS BY MOUTH 4 TIMES A DAY NEEDED FOR WHEEZE/SHORTNESS OF BREATH, 155, cm, 02/27/22 14:31:00 EDT, Height, 48, k... Start Date: 03/04/22 Status: Orderedalbuterol 0.083% inhalation solution See Instructions, USE 1 VIAL VIA NEBULIZER EVERY 6 HOURS NEEDED FOR WHEEZING/SHORTNESS OF BREATH,# 300 mL, 6 Refills, Maintenance, 03/10/22 10:12:00 EDT, [facility] STORE 14[facility], 155, cm, 02/27/22 14:31:00EDT, Height, 48, kg, [...] 12:05:00 EDT, Aerosol, Route to Pharmacy Electronically, [id number], [facility]/pharmacy #[id number], 156,... Start Date: 01/23/22 Status: OrderedXyzal 5 mg oral tablet 1 tablet = 5 mg, By Mouth, Daily in PM, # 90 tablet, 0 Refills, Maintenance, 03/09/22 11:13:00 EDT, Tablet, [id number], Partial fill upon patient request if the [...] Team PersonnelName: Mary THOMPSON, Michell Lazaro Address: [address] [place] [id number]
--- OUTSIDE RECORDS SUMMARY | 2022-05-13 21:23 | XMS_ITS | Continuity of Care Document ---
:1970 Author Organization [facility] Address [address] [place] [address]- Care Team Providers Name Role Phone Vu CUELLAR, Lior Rhodes Primary Care Physician En[place] [facility] [place] Date(s): 03/02/20 - 04/01/20 [facility] [address] [place] [address]- [facility] Allergies, Adverse Reactions, Alerts Substance Reaction Severity Status Valium Active Medications Abilify Tablet Daily, Maintenance, 11/04/11 14:01:14 Start Date: 11/04/11 Status: Orderedamitriptyline 10 mg oral tablet 1 tablet = 10 mg, By Mouth, Daily at bedtime, # 30 tablet, 5 Refills, Maintenance Start Date: 09/13/12 Stop Date: 03/15/13 Status: OrderedFlovent HFA Inhalation, 2 times a day, 0 Refills, Maintenance Start Date: 11/04/11 Status: OrderedKLONopin Tablet By Mouth, 3 times a day, 0 Refills, Maintenance Start Date: 11/04/11 Status: OrderedLexapro Tablet By Mouth, Daily, 0 Refills, Maintenance Start Date: 11/04/11 Status: Orderedoxybutynin 10 mg/24 hr oral tablet, extended release 1 tablet = 10 mg, By Mouth, Daily, # 30 tablet, 1 Refills, Maintenance, ER Tablet Start Date: 09/14/12 Status: OrderedProAir HFA Inhalation, 4 times a day, 0 Refills, Maintenance Start Date: 11/04/11 Status: OrderedSeroquel By Mouth, Maintenance, 11/04/11 14:01:54 Start Date: 11/04/11 Status: OrderedTrazodone By Mouth, 0 Refills, Maintenance Start Date: 11/04/11 Status: Ordered
--- OUTSIDE RECORDS SUMMARY | 2022-05-13 21:23 | XMS_ITS | Continuity of Care Document ---
:1970 Author Organization [facility] Address [address] [place] [address]- Care Team Providers Name Role Phone Ar Spangler MD Primary Care Physician Encounter [facility] [place] Date(s): 04/02/21 - 05/02/21 [facility] [address] [place], [place] [address] Allergies, Adverse Reactions, Alerts Substance Reaction Severity Status aspirin rash Active morphine Anxiety Active Seafood C/O: a rash Active Medications Albuterol (Eqv-ProAir HFA) 90 mcg/inh inhalation aerosol 2 puffs, Inhalation, 4 times a day, PRN NEEDED FOR, WHEEZING/SHORTNESS OF BREATH, # 8.5 Unknown, 3 Refills, Maintenance, 12/24/20 15:34:00 EDT, [facility], 25, TAKE 2 PUFFS 4 TIMES A DAY,X30 DAYS NEEDED FOR :WHEEZING/SHORTNESS OF BREATH, 15... Start Date: 12/24/20 Status: Orderedalbuterol 0.083% inhalation solution 3 mL = 2.5 mg, Inhalation, Every 6 hours, PRN Wheezing/Shortness of Breath, dx. J45.40 asthma, # 120each, 6 Refills, Maintenance, 03/07/21 9:37:00 EDT, Solution, [id number], Partial fill upon patient request if the [...] 0 Refills, Maintenance, 03/05/21 12:25:00 EDT, Aerosol, [facility]/pharmacy #[id number], Partial fill upon patient request if [...]
--- OUTSIDE RECORDS SUMMARY | 2022-05-13 21:23 | XMS_ITS | Continuity of Care Document ---
:1970 Author Organization [facility] Address [address] [place] [address]- Care Team Providers Name Role Phone Mary THOMPSON, Michell Lazaro Primary Care Physician En[place] [facility] [place] [facility] R [id number] Date(s): 02/12/22 - 04/05/22 [facility] [address] [place] [address]- Attending Physician: Michell Hernandez MD Allergies, Adverse [...] OF BREATH, # 8.5 each, 5 Refills, [facility], 25, INHALE 2 PUFFS BY MOUTH 4 TIMES A DAY NEEDED FOR WHEEZE/SHORTNESS OF BREATH, 155, cm, 02/27/22 14:31:00 EDT, Height, 48, k... Start Date: 03/04/22 Status: Orderedalbuterol 0.083% inhalation solution See Instructions, USE 1 VIAL VIA NEBULIZER EVERY 6 HOURS NEEDED FOR WHEEZING/SHORTNESS OF BREATH,# 300 mL, 6 Refills, Maintenance, 03/10/22 10:12:00 EDT, [facility], 155, cm, 02/27/22 14:31:00EDT, Height, 48, kg, [...] 12:05:00 EDT, Aerosol, Route to Pharmacy Electronically, [id number], [facility]/pharmacy #[id number], 156,... Start Date: 01/23/22 Status: OrderedXyzal 5 mg oral tablet 1 tablet = 5 mg, By Mouth, Daily in PM, # 90 tablet, 0 Refills, Maintenance, 03/09/22 11:13:00 EDT, Tablet, [facility]/pharmacy #[id number], Partial fill upon patient request [...] Team PersonnelName: Mary THOMPSON, Michell Lazaro Address: [address] [place], [place] [address]
--- OUTSIDE RECORDS SUMMARY | 2022-05-13 21:23 | XMS_ITS | Continuity of Care Document ---
:1970 Author Organization [facility] Address [address] [place] [address]- Care Team Providers Name Role Phone Ar Spangler MD Primary Care Physician Encounter [facility] [place] Date(s): 01/04/21 - 02/09/21 [facility] [address] [place], [place] [address] Attending Physician: Ar Spangler MD Allergies, Adverse Reactions, Alerts Substance Reaction Severity Status aspirin rash Active morphine Anxiety Active Seafood C/O: a rash Active Medications Albuterol (Eqv-ProAir HFA) 90 mcg/inh inhalation aerosol 2 puffs, Inhalation, 4 times a day, PRN NEEDED FOR, WHEEZING/SHORTNESS OF BREATH, # 8.5 Unknown, 3 Refills, Maintenance, 12/24/20 15:34:00 EDT, [facility], 25, TAKE 2 PUFFS 4 TIMES A DAY,X30 DAYS NEEDED FOR :WHEEZING/SHORTNESS OF BREATH, 15... Start Date: 12/24/20 Status: Orderedalbuterol 0.083% inhalation solution 3 mL = 2.5 mg, Inhalation, Every 6 hours, PRN Wheezing/Shortness of Breath, # 120 each, 1 Refills, Maintenance, 12/27/20 8:09:00 EDT, Solution, [facility]/pharmacy #[id number], Partial fill upon patient request if the [...]
--- OUTSIDE RECORDS SUMMARY | 2022-05-13 21:23 | XMS_ITS | Continuity of Care Document ---
:1970 Author Organization [facility] Address [address] [place] [address]- Care Team Providers Name Role Phone Ar Spangler MD Primary Care Physician En[place] [facility] [place] Date(s): 01/10/21 - 02/09/21 [facility] [address] [place], [place] [address] Attending Physician: Admtr, Joseph8 Admitting Physician: Admtr, Joseph8 Referring Physician: Admtr, Ar8 Allergies, Adverse Reactions, Alerts Substance Reaction Severity Status aspirin rash Active morphine Anxiety Active Seafood C/O: a rash Active Medications Albuterol (Eqv-ProAir HFA) 90 mcg/inh inhalation aerosol 2 puffs, Inhalation, 4 times a day, PRN NEEDED FOR, WHEEZING/SHORTNESS OF BREATH, # 8.5 Unknown, 3 Refills, Maintenance, 12/24/20 15:34:00 EDT, [facility], 25, TAKE 2 PUFFS 4 TIMES A DAY,X30 DAYS NEEDED FOR :WHEEZING/SHORTNESS OF BREATH, 15... Start Date: 12/24/20 Status: Orderedalbuterol 0.083% inhalation solution 3 mL = 2.5 mg, Inhalation, Every 6 hours, PRN Wheezing/Shortness of Breath, # 120 each, 1 Refills, Maintenance, 12/27/20 8:09:00 EDT, Solution, [facility]/pharmacy #[id number], Partial fill upon patient request if the [...]
--- OUTSIDE RECORDS SUMMARY | 2022-05-13 21:23 | XMS_ITS | Continuity of Care Document ---
:1970 Author Organization [facility] Address [address] [facility], [facility] [address] [place] [address]- Care Team Providers Name Role Phone Mary THOMPSON, Michell Lazaro Primary Care Physician Encounter 11/05/21 - 12/15/21 [facility] [address], [address] [place] [address]- Attending Physician: Ar Spangler MD Admitting Physician: Ar Spangler MD Referring Physician: Ar Spangler MD Allergies, Adverse Reactions, Alerts Substance Reaction Severity Status aspirin rash Active Seafood C/O: a rash Active morphine Anxiety Active Immunizations Given and Recorded Vaccine Date [...] Inhalation, 2 times a day, # 12 each, 0 Refills, [facility], 156, cm, 11/05/21 10:26:00 EDT, Height, 46, kg, 08/17/20 11:04:00 EST, Dry Weight Start Date: 12/11/21 Status: OrderedKLONopin Tablet = 1 mg, By [...]
--- OUTSIDE RECORDS SUMMARY | 2022-05-13 21:23 | XMS_ITS | Continuity of Care Document ---
:1970 Author Organization [facility] Address [address] [place] [address]- Care Team Providers Name Role Phone Mary THOMPSON, Michell Lazaro Primary Care Physician Encounter [facility] [place] ACCT R [id number] Date(s): 03/06/22 - 04/05/22 [facility] [address] [place] [address]- Attending Physician: Admtr, Ar8 Admitting Physician: Admtr, [...] OF BREATH, # 8.5 each, 5 Refills, [facility] 275[facility], 25, INHALE 2 PUFFS BY MOUTH 4 TIMES A DAY NEEDED FOR WHEEZE/SHORTNESS OF BREATH, 155, cm, 02/27/22 14:31:00 EDT, Height, 48, k... Start Date: 03/04/22 Status: Orderedalbuterol 0.083% inhalation solution See Instructions, USE 1 VIAL VIA NEBULIZER EVERY 6 HOURS NEEDED FOR WHEEZING/SHORTNESS OF BREATH,# 300 mL, 6 Refills, Maintenance, 03/10/22 10:12:00 EDT, [facility] 605[facility], 155, cm, 02/27/22 14:31:00EDT, Height, 48, kg, [...] 12:05:00 EDT, Aerosol, Route to Pharmacy Electronically, [id number], [facility]/pharmacy #[id number], 156,... Start Date: 01/23/22 Status: OrderedXyzal 5 mg oral tablet 1 tablet = 5 mg, By Mouth, Daily in PM, # 90 tablet, 0 Refills, Maintenance, 03/09/22 11:13:00 EDT, Tablet, [facility]/pharmacy #[id number], Partial fill upon [...] PersonnelName: Mary THOMPSON, Michell Lazaro Address: [address] [place], [place] [address]
--- OUTSIDE RECORDS SUMMARY | 2022-05-13 21:23 | XMS_ITS | Continuity of Care Document ---
:1970 Author Organization [facility] Address [address] [place] [address]- Care Team Providers Name Role Phone Mary THOMPSON, Michell Lazaro Primary Care Physician Encounter [facility] [place] Date(s): 02/12/22 - 02/19/22 [facility] [address] [place] [address]- Encounter Diagnosis Chronic interstitial cystitis (Discharge Diagnosis) - 02/12/22 Kidney stone (Discharge Diagnosis) - 02/12/22 Moderate persistent asthma (Discharge Diagnosis) - 02/12/22 Tobacco use (Discharge Diagnosis) - 02/12/22 Chronic depression (Discharge Diagnosis) - 02/12/22 Attending Physician: Yuko Quick NP Allergies, Adverse Reactions, Alerts Substance Reaction [...] 8.5 each, 3 Refills, 11/15/21 10:25:00 EDT, [id number], [facility], 2 puffs Inhalation 4 times [...] Acute 02/22/22 10:16:00 EDT, 02/12/22 10:16:00 EDT, [facility]/pharmacy #[id number], Partial fill upon patient request if [...] 02/23/22 12:16:00 EDT, 01/23/22 12:15:00 EDT, Gum, [facility]/pharmacy #[id number], Partial fill uponpatient request if the [...] 12:05:00 EDT, Aerosol, Route to Pharmacy Electronically, [id number], [facility]/pharmacy #[id number], 156,... Start Date: 01/23/22 Status: OrderedXyzal 5 mg oral tablet 1 tablet = 5 mg, By Mouth, Daily in PM, # 30 tablet, 3 Refills, Maintenance, 01/23/22 12:06:00 EDT, Tablet, [facility]/pharmacy #[id number], Partial fill upon patient request if the [...] retention(Confirmed) Active Tobacco use(Confirmed) Active Vertigo(Confirmed) Active Diagnosis Diagnosis Type Effective Dates Health Clinical Infor mant Status Service Chronic Discharge 02/12/22 interstitial Diagnosis cystitis Moderate persistent Discharge 02/12/22 asthma Diagnosis Tobacco use Discharge 02/12/22 Diagnosis Kidney stone Discharge 02/12/22 Diagnosis Chronic depression Discharge 02/12/22 Diagnosis Vital Signs Most recent to oldest [Reference Range]: 1 Height 155 cm (02/12/22 9:26 AM) Weight 50.9 kg (02/12/22 9:26 AM) Oxygen Saturation [94-100 %] 98 % (02/12/22 9:26 AM) Pulse Rate [55-90 bpm] 75 bpm (02/12/22 9:26 AM) Body Mass Index [18.5-24.99] 21.19 (02/12/22 9:26 AM) Blood Pressure [90-138/55-84 mm Hg] 123/81 mm Hg (02/12/22 9:26 AM) Respiratory Rate [16-30 br/min] 18 br/min (02/12/22 9:26 AM) Blood pressure sites Arm, left (02/12/22 9:26 AM) Weight Obtained Via Standing scale (02/12/22 9:26 AM) Social History Social History Type Response Smoking Status 5-9 cigarettes (between 1/4 to 1/2 pack)/day in last 30 days entered on: 04/24/20 Sex
--- OUTSIDE RECORDS SUMMARY | 2022-05-13 21:23 | XMS_ITS | Continuity of Care Document ---
:1970 Author Organization [facility] Address [address] [place] [address]- Care Team Providers Name Role Phone Mary THOMPSON, Michell Lazaro Primary Care Physician [place] [facility] [place]s): 02/10/22 - 03/12/22 [facility] [address] [place] [address]- Allergies, Adverse Reactions, Alerts Substance Reaction Severity [...] OF BREATH, # 8.5 each, 5 Refills, [facility] ST[facility] 58[facility], 25, INHALE 2 PUFFS BY MOUTH 4 TIMES A DAY NEEDED FOR WHEEZE/SHORTNESS OF BREATH, 155, cm, 02/27/22 14:31:00 EDT, Height, 48, k... Start Date: 03/04/22 Status: Orderedalbuterol 0.083% inhalation solution See Instructions, USE 1 VIAL VIA NEBULIZER EVERY 6 HOURS NEEDED FOR WHEEZING/SHORTNESS OF BREATH,# 300 mL, 6 Refills, Maintenance, 03/10/22 10:12:00 EDT, [facility], 155, cm, 02/27/22 14:31:00EDT, Height, 48, kg, [...] 12:05:00 EDT, Aerosol, Route to Pharmacy Electronically, [id number], [facility]/pharmacy #[id number], 156,... Start Date: 01/23/22 Status: OrderedXyzal 5 mg oral tablet 1 tablet = 5 mg, By Mouth, Daily in PM, # 90 tablet, 0 Refills, Maintenance, 03/09/22 11:13:00 EDT, Tablet, [facility]/pharmacy #[id number], Partial fill upon patient request if [...] PersonnelName: Mary THOMPSON, Michell Lazaro Address: [address] [place], [place] [address]
--- OUTSIDE RECORDS SUMMARY | 2022-05-13 21:23 | XMS_ITS | Continuity of Care Document ---
:1970 Author Organization [facility] Address [address] [place] [address]- Care Team Providers Name Role Phone Not on Staff, PCP Primary Care Physician Unavailable Encounter [facility] [place] Date(s): 08/17/20 - 09/16/20 [facility] [address] [place], [place] [address] Attending Physician: Shalini Cisse Admitting Physician: Shalini Cisse Referring Physician: AdmtrShalini Allergies, Adverse Reactions, Alerts Substance Reaction Severity [...] 3 Refills, Maintenance, 08/17/20 11:35:00 EST, Inhaler, [facility]/pharmacy #[id number], Partial fill upon patient request if the [...]
--- OUTSIDE RECORDS SUMMARY | 2022-05-13 21:23 | XMS_ITS | Continuity of Care Document ---
:1970 Author Organization [facility] Address [address] [place] [address]- Care Team Providers Name Role Phone Not on Staff, PCP Primary Care Physician Unavailable Encounter [place] Date(s): 08/09/20 - 09/08/20 [facility] [address] [place], [place] [address] Allergies, Adverse Reactions, Alerts Substance Reaction Severity [...] Refills, Maintenance, 08/17/20 11:35:00 EST, Inhaler, [id number], Partial fill upon patient request if the [...]
--- OUTSIDE RECORDS SUMMARY | 2022-05-13 21:23 | XMS_ITS | Continuity of Care Document ---
:1970 Author Organization [facility] Address [address] [facility], [facility] [address] [place] [address]- Care Team Providers Name Role Phone Ar Spangler MD Primary Care Physician Encounter 03/05/21 - 03/12/21 [facility] [address], [address] [place] [address]- Attending Physician: Ar Spangler MD Admitting Physician: [...] Refills, Maintenance, 12/24/20 15:34:00 EDT, [facility], 25, TAKE 2 PUFFS 4 TIMES A DAY,X30 DAYS NEEDED FOR :WHEEZING/SHORTNESS OF BREATH, 15... Start Date: 12/24/20 Status: Orderedalbuterol 0.083% inhalation solution 3 mL = 2.5 mg, Inhalation, Every 6 hours, PRN Wheezing/Shortness of Breath, dx. J45.40 asthma, # 120each, 6 Refills, Maintenance, 03/07/21 9:37:00 EDT, Solution, [id number], Partial fill upon patient request if the [...] 0 Refills, Maintenance, 03/05/21 12:25:00 EDT, Aerosol, [facility]/pharmacy #[id number], Partial fill upon patient request if the prescription is for a schedule II opioid drug., 156, cm, 03/04/21 12:45:00 EDT... Start Date: 03/05/21 Status: OrderedKLONopin Tablet = 1 mg, By Mouth, 3 times a day, 0 Refills, Maintenance, 11/04/11 14:01:33 EDT Start Date: 11/04/11 Status: Orderedmeclizine 25 mg oral tablet 1 tablet = 25 mg, By Mouth, 3 times a day, PRN for dizziness, # 30 tablet, 1 Refills, Acute 03/18/2112:00:00 EDT, 03/04/21 12:59:00 EDT, Tablet, [facility]/pharmacy #[id number], Partial fill upon patient request if the prescription is for a schedule II opioid lisa... Start Date: 03/04/21 Stop Date: 03/18/21 Status: OrderedNebulizer/Compressor See Instructions, # 1 each, Maintenance, with tubing and mouthpiece. med size mask DX J44.9, 03/05/21 12:26:00 EDT, Supply, 156, cm, 03/04/21 12:45:00 EDT, Height, 46, kg, 08/17/20 11:04:00 EST, Dry Weight Start Date: 03/05/21 Status: OrderedSeroquel 50 mg, By Mouth, Daily [...]
--- OUTSIDE RECORDS SUMMARY | 2022-05-13 21:23 | XMS_ITS | Continuity of Care Document ---
:1970 Author Organization [facility] Address [address] [place] [address]- Care Team Providers Name Role Phone Mary THOMPSON, Michell Lazaro Primary Care Physician Encounter [facility] [place] Date(s): 11/11/21 - 12/11/21 [facility] [address] [place] [address]- Allergies, Adverse Reactions, Alerts Substance Reaction Severity [...] 8.5 each, 3 Refills, 11/15/21 10:25:00 EDT, [facility]/pharmacy #[id number], 16, 2 puffs Inhalation 4 times a day,PRN: NEEDEDFOR,Instr:WHEEZING/SHORTNESS OF BREATH, 156, cm,... Start Date: 11/15/21 Status: OrderedCitalopram = 20 mg, By Mouth, Daily, 0 Refills, Maintenance, 04/24/20 11:38:00 EDT Start Date: 04/24/20 Status: OrderedFlovent HFA 110 mcg/inh inhalation aerosol 2 puffs, Inhalation, 2 times a day, # 12 each, 0 Refills, [facility], 156, cm, 11/05/21 10:26:00 EDT, Height, 46, [...]
--- OUTSIDE RECORDS SUMMARY | 2022-05-13 21:23 | XMS_ITS | Continuity of Care Document ---
:1970 Author Organization [facility] Address [address] [place] [address]- Care Team Providers Name Role Phone Ar Spangler MD Primary Care Physician Encounter [facility] [place] [facility] [id number] Date(s): 12/26/20 - 01/02/21 [facility] [address] [place] [address]- Encounter Diagnosis Moderate persistent asthma (Discharge Diagnosis) - 12/26/20 Major depressive disorder, recurrent (Discharge Diagnosis) - 12/26/20 Anxiety (Discharge Diagnosis) - 12/26/20 Screening for diabetes mellitus (Discharge Diagnosis) - 12/26/20 Need for hepatitis C screening test (Discharge Diagnosis) - 12/26/20 Screening, lipid (Discharge Diagnosis) - 12/26/20 Tobacco use (Discharge Diagnosis) - 12/26/20 Breast cancer screening (Discharge Diagnosis) - 12/26/20 Attending Physician: Ar Spangler MD Allergies, Adverse Reactions, Alerts Substance Reaction Severity Status aspirin rash Active morphine Anxiety Active Seafood C/O: a rash Active Medications Albuterol (Eqv-ProAir HFA) 90 mcg/inh inhalation aerosol 2 puffs, Inhalation, 4 times a day, PRN NEEDED FOR, WHEEZING/SHORTNESS OF BREATH, # 8.5 Unknown, 3 Refills, Maintenance, 12/24/20 15:34:00 EDT, [facility], 25, TAKE 2 PUFFS 4 TIMES A DAY,X30 DAYS NEEDED FOR :WHEEZING/SHORTNESS OF BREATH, 15... Start Date: 12/24/20 Status: Orderedalbuterol 0.083% inhalation solution 3 mL = 2.5 mg, Inhalation, Every 6 hours, PRN Wheezing/Shortness of Breath, # 120 each, 1 Refills, Maintenance, 12/27/20 8:09:00 EDT, Solution, [id number], Partial fill upon patient request if [...] recurrent(Confirmed) Urinary retention(Confirmed) Active Tobacco use(Confirmed) Active Diagnosis Diagnosis Type Effective Dates Health Clinical Infor mant Status Service Moderate Discharge 12/26/20 persistent asthma Diagnosis Major depressive Discharge 12/26/20 disorder, Diagnosis recurrent Anxiety Discharge 12/26/20 Diagnosis Screening for Discharge 12/26/20 diabetes mellitus Diagnosis Need for Discharge 12/26/20 hepatitis C Diagnosis screening test Screening, lipid Discharge 12/26/20 Diagnosis Tobacco use Discharge 12/26/20 Diagnosis Breast cancer Discharge 12/26/20 screening Diagnosis Vital Signs Most recent to oldest [Reference Range]: 1 Height 156 cm (12/26/20 8:04 AM) Social History Social History Type Response Smoking Status 5-9 cigarettes (between 1/4 to 1/2 pack)/day in last 30 days entered on: 04/24/20 Sex
--- OUTSIDE RECORDS SUMMARY | 2022-05-13 21:23 | XMS_ITS | Continuity of Care Document ---
:1970 Author Organization [facility] Address [address] [place] [address]- Care Team Providers Name Role Phone Ar Spangler MD Primary Care Physician [place] [facility] [place] 04/14/21 [facility] [address] [place], [place] [address] Allergies, Adverse Reactions, Alerts Substance Reaction Severity Status aspirin rash Active morphine Anxiety Active Seafood C/O: a rash Active Medications Albuterol (Eqv-ProAir HFA) 90 mcg/inh inhalation aerosol 2 puffs, Inhalation, 4 times a day, PRN NEEDED FOR, WHEEZING/SHORTNESS OF BREATH, # 8.5 Unknown, 3 Refills, Maintenance, 12/24/20 15:34:00 EDT, [facility], 25, TAKE 2 PUFFS 4 TIMES A DAY,X30 DAYS NEEDED FOR :WHEEZING/SHORTNESS OF BREATH, 15... Start Date: 12/24/20 Status: Orderedalbuterol 0.083% inhalation solution 3 mL = 2.5 mg, Inhalation, Every 6 hours, PRN Wheezing/Shortness of Breath, dx. J45.40 asthma, # 120each, 6 Refills, Maintenance, 03/07/21 9:37:00 EDT, Solution, [id number], Partial fill upon patient request if the [...] 0 Refills, Maintenance, 03/05/21 12:25:00 EDT, Aerosol, [facility]/pharmacy #[id number], Partial fill upon patient request [...]
--- OUTSIDE RECORDS SUMMARY | 2022-05-13 21:23 | XMS_ITS | Continuity of Care Document ---
:1970 Author Organization [facility] Address [address] [place] [address]- Care Team Providers Name Role Phone Mary THOMPSON, Michell Lazaro Primary Care Physician Encounter [facility] [place] Date(s): 03/05/22 - 04/04/22 [facility] [address] [place] [address]- Attending Physician: Admtr, Shalini Admitting Physician: Admtr, Ar8 Referring Physician: Admtr, [...] OF BREATH, # 8.5 each, 5 Refills, [facility] STORE 99025, 25, INHALE 2 PUFFS BY MOUTH 4 TIMES A DAY NEEDED FOR WHEEZE/SHORTNESS OF BREATH, 155, cm, 02/27/22 14:31:00 EDT, Height, 48, k... Start Date: 03/04/22 Status: Orderedalbuterol 0.083% inhalation solution See Instructions, USE 1 VIAL VIA NEBULIZER EVERY 6 HOURS NEEDED FOR WHEEZING/SHORTNESS OF BREATH,# 300 mL, 6 Refills, Maintenance, 03/10/22 10:12:00 EDT, [facility] STORE 10351, 155, cm, 02/27/22 14:31:00EDT, Height, 48, kg, [...] 12:05:00 EDT, Aerosol, Route to Pharmacy Electronically, [id number], [facility]/pharmacy #[id number], 156,... Start Date: 01/23/22 Status: OrderedXyzal 5 mg oral tablet 1 tablet = 5 mg, By Mouth, Daily in PM, # 90 tablet, 0 Refills, Maintenance, 03/09/22 11:13:00 EDT, Tablet, [id number], Partial fill upon patient request if the [...] Team PersonnelName: Mary THOMPSON, Michell Lazaro Address: [address] [place] [address]
--- OUTSIDE RECORDS SUMMARY | 2022-05-13 21:23 | XMS_ITS | Continuity of Care Document ---
:1970 Author Organization [facility] Address [address] [place] [address]- Care Team Providers Name Role Phone Ar Spangler MD Primary Care Physician Encounter [facility] [place] Date(s): 03/04/21 - 03/11/21 [facility] [address] [place] [address]- Encounter Diagnosis Moderate persistent asthma (Discharge Diagnosis) - 03/04/21 Hyperlipidemia (Discharge Diagnosis) - 03/04/21 Vertigo (Discharge Diagnosis) - 03/04/21 Anxiety (Discharge Diagnosis) - 03/04/21 Attending Physician: Ar Spangler MD Allergies, Adverse Reactions, Alerts Substance Reaction Severity Status aspirin rash Active morphine Anxiety Active Seafood C/O: a rash Active Medications Albuterol (Eqv-ProAir HFA) 90 mcg/inh inhalation aerosol 2 puffs, Inhalation, 4 times a day, PRN NEEDED FOR, WHEEZING/SHORTNESS OF BREATH, # 8.5 Unknown, 3 Refills, Maintenance, 12/24/20 15:34:00 EDT, [facility], 25, TAKE 2 PUFFS 4 TIMES A DAY,X30 DAYS NEEDED FOR :WHEEZING/SHORTNESS OF BREATH, 15... Start Date: 12/24/20 Status: Orderedalbuterol 0.083% inhalation solution 3 mL = 2.5 mg, Inhalation, Every 6 hours, PRN Wheezing/Shortness of Breath, dx. J45.40 asthma, # 120each, 6 Refills, Maintenance, 03/07/21 9:37:00 EDT, Solution, [id number], Partial fill upon patient request if the [...] Refills, Maintenance, 03/05/21 12:25:00 EDT, Aerosol, [facility]/pharmacy #[id number], Partial fill upon patient request if [...] Acute 03/18/2112:00:00 EDT, 03/04/21 12:59:00 EDT, Tablet, [facility]/pharmacy #[id number], Partial fill upon patient request if [...] Health Clinical Infor mant Status Service Moderate persistent Discharge 03/04/21 asthma Diagnosis Hyperlipidemia Discharge 03/04/21 Diagnosis Vertigo Discharge 03/04/21 Diagnosis Anxiety Discharge 03/04/21 Diagnosis Vital Signs Most recent to oldest [Reference Range]: 1 Height 156 cm (03/04/21 12:45 PM) Weight 49.5 kg (03/04/21 12:45 PM) Pulse Rate [55-90 bpm] 60 bpm (03/04/21 12:45 PM) Body Mass Index [18.5-24.99] 20.34 (03/04/21 12:45 PM) Blood Pressure [90-138/55-84 mm Hg] 117/66 mm Hg (03/04/21 12:45 PM) Blood pressure sites Arm, right (03/04/21 12:45 PM) Weight Obtained Via Standing scale (03/04/21 12:45 PM) Social History Social History Type Response Smoking Status 5-9 cigarettes (between 1/4 to 1/2 pack)/day in last 30 days entered on: 04/24/20 Sex
--- OUTSIDE RECORDS SUMMARY | 2022-05-13 21:23 | XMS_ITS | Continuity of Care Document ---
:1970 Author Organization [facility] Address [address] [place] [address]- Care Team Providers Name Role Phone Ar Spangler MD Primary Care Physician Encounter [facility] [place] Date(s): 11/05/21 - 11/12/21 [facility] [address] [place] [address]- Encounter Diagnosis Chronic diarrhea (Discharge Diagnosis) - 11/05/21 RLQ abdominal pain (Discharge Diagnosis) - 11/05/21 Attending Physician: Ar Spangler MD Allergies, Adverse [...] OF BREATH, # 8.5 each, 3 Refills, [facility], 16, TAKE 2 PUFFS 4 TIMES A DAY,X30 DAYS NEEDED FOR :WHEEZING/SHORTNESS OFBREATH, 156, cm, 03/04/21 12:45:00 EDT, Height, 4... Start Date: 07/24/21 Status: OrderedCitalopram = 20 mg, By Mouth, Daily, 0 Refills, Maintenance, 04/24/20 11:38:00 EDT Start Date: 04/24/20 Status: OrderedFlovent HFA 110 mcg/inh inhalation aerosol See Instructions, INHALE 2 PUFFS TWICE A DAY, # 12 each, 0 Refills, [facility], 156, cm, 03/04/21 12:45:00 EDT, Height, 46, kg, 08/17/20 11:04:00 EST, Dry Weight Start Date: 08/19/21 Status: OrderedFlovent HFA 110 mcg/inh inhalation aerosol See Instructions, INHALE 2 PUFFS TWICE A DAY, # 12 each, 0 Refills, [facility], 156, cm, 11/05/21 10:26:00 EDT, Height, 46, kg, 08/17/20 11:04:00 EST, Dry Weight Start Date: 11/11/21 Status: OrderedKLONopin Tablet = 1 mg, By [...] Active Diagnosis Diagnosis Type Effective Dates Health Status Clinical In formant Service Chronic diarrhea Discharge 11/05/21 Diagnosis RLQ abdominal Discharge 11/05/21 pain Diagnosis Vital Signs Most recent to oldest [Reference Range]: 1 Height 156 cm (11/05/21 10:26 AM) Weight 50 kg (11/05/21 10:26 AM) Oxygen Saturation [94-100 %] 99 % (11/05/21 10:26 AM) Pulse Rate [55-90 bpm] 7 bpm *L* (11/05/21 10:26 AM) Body Mass Index [18.5-24.99] 20.55 (4/26/22 10:26 AM) Blood Pressure [90-138/55-84 mm Hg] 112/78 mm Hg (11/05/21 10:26 AM) Blood pressure sites Arm, left (11/05/21 10:26 AM) Weight Obtained Via Standing scale (11/05/21 10:26 AM) Social History Social History Type Response Smoking Status 5-9 cigarettes (between 1/4 to 1/2 pack)/day in last 30 days entered on: 04/24/20 Sex
--- OUTSIDE RECORDS SUMMARY | 2022-05-13 21:23 | XMS_ITS | Continuity of Care Document ---
:1970 Author Organization [facility] Address [address], [address] [place] [address]- Care Team Providers Name Role Phone Vu CUELLAR, Lior Rhodes Primary Care Physician Encounter 05/09/20 - 06/20/20 [facility] [address], [address] [place] [address]- Attending Physician: Lisette Rangel MD Admitting Physician: Lisette Rangel MD Referring Physician: Lisette Rangel MD Allergies, Adverse Reactions, Alerts Substance Reaction [...]
--- OUTSIDE RECORDS SUMMARY | 2022-05-13 21:24 | XMS_ITS | Continuity of Care Document ---
:1970 Author Organization [facility] Address [address] [place] [address]- Care Team Providers Name Role Phone Mary THOMPSON, Michell Lazaro Primary Care Physician [place] [facility] [place] 11/27[place] [facility] [address] [place] [address]- Allergies, Adverse Reactions, Alerts Substance Reaction Severity [...] each, 3 Refills, 11/15/21 10:25:00 EDT, [facility]/pharmacy #[id number], 16, 2 puffs Inhalation 4 times a day,PRN: NEEDEDFOR,Instr:WHEEZING/SHORTNESS OF BREATH, 156, cm,... Start Date: 11/15/21 Status: OrderedCitalopram = 20 mg, By Mouth, Daily, 0 Refills, Maintenance, 04/24/20 11:38:00 EDT Start Date: 04/24/20 Status: OrderedFlovent HFA 110 mcg/inh inhalation aerosol See Instructions, INHALE 2 PUFFS TWICE A DAY, # 12 each, 0 Refills, [facility], 156, cm, 03/04/21 12:45:00 EDT, Height, 46, kg, 08/17/20 11:04:00 EST, Dry Weight Start Date: 08/19/21 Status: OrderedFlovent HFA 110 mcg/inh inhalation aerosol See Instructions, INHALE 2 PUFFS TWICE A DAY, # 12 each, 0 Refills, [facility], 156, cm, 11/05/21 10:26:00 EDT, Height, 46, [...]
--- OUTSIDE RECORDS SUMMARY | 2022-05-13 21:24 | XMS_ITS | Continuity of Care Document ---
:1970 Author Organization [facility] Address [address] [place] [address]- Care Team Providers Name Role Phone Ar Spangler MD Primary Care Physician Encounter [facility] [place] Date(s): 03/15/21 - 04/14/21 [facility] [address] [place], [place] [address] Allergies, Adverse Reactions, Alerts Substance Reaction Severity Status aspirin rash Active morphine Anxiety Active Seafood C/O: a rash Active Medications Albuterol (Eqv-ProAir HFA) 90 mcg/inh inhalation aerosol 2 puffs, Inhalation, 4 times a day, PRN NEEDED FOR, WHEEZING/SHORTNESS OF BREATH, # 8.5 Unknown, 3 Refills, Maintenance, 12/24/20 15:34:00 EDT, [facility], 25, TAKE 2 PUFFS 4 TIMES A DAY,X30 DAYS NEEDED FOR :WHEEZING/SHORTNESS OF BREATH, 15... Start Date: 12/24/20 Status: Orderedalbuterol 0.083% inhalation solution 3 mL = 2.5 mg, Inhalation, Every 6 hours, PRN Wheezing/Shortness of Breath, dx. J45.40 asthma, # 120each, 6 Refills, Maintenance, 03/07/21 9:37:00 EDT, [facility], [facility], Partial fill upon patient request if the [...] 0 Refills, Maintenance, 03/05/21 12:25:00 EDT, Aerosol, [facility]/pharmacy #[id number], Partial fill upon patient [...]
--- OUTSIDE RECORDS SUMMARY | 2022-05-13 21:24 | XMS_ITS | Continuity of Care Document ---
:1970 Author Organization [facility] Address [address] [place] [address]- Care Team Providers Name Role Phone Ar Spangler MD Primary Care Physician [place] [facility] [place] [id number] Date(s): 10/22/21 - 10/29/21 [facility] [address] [place] [address]- Encounter Diagnosis Diarrhea (Discharge Diagnosis) - 10/22/21 Anxiety (Discharge Diagnosis) - 10/22/21 Attending Physician: Shyann Gaviria MD Allergies, Adverse Reactions, Alerts Substance Reaction [...] OF BREATH, # 8.5 each, 3 Refills, [facility] 63645, 16, TAKE 2 PUFFS 4 TIMES A DAY,X30 DAYS NEEDED FOR :WHEEZING/SHORTNESS OFBREATH, 156, cm, 03/04/21 12:45:00 EDT, Height, 4... Start Date: 07/24/21 Status: OrderedCitalopram = 20 mg, By Mouth, Daily, 0 Refills, Maintenance, 04/24/20 11:38:00 EDT Start Date: 04/24/20 Status: OrderedFlovent HFA 110 mcg/inh inhalation aerosol See Instructions, INHALE 2 PUFFS TWICE A DAY, # 12 each, 0 Refills, [facility], 156, cm, 03/04/21 12:45:00 EDT, Height, 46, kg, 08/17/20 11:04:00 EST, Dry Weight Start Date: 08/19/21 Status: OrderedKLONopin Tablet = 1 mg, By [...] Diagnosis Type Effective Dates Health Status Clinical Serv ice Informant Diarrhea Discharge 10/22/21 Diagnosis Anxiety Discharge 10/22/21 Diagnosis Vital Signs Most recent to oldest [Reference Range]: 1 Height 156 cm (10/22/21 7:57 AM) Social History Social History Type Response Smoking Status 5-9 cigarettes (between 1/4 to 1/2 pack)/day in last 30 days entered on: 04/24/20 Sex
--- OUTSIDE RECORDS SUMMARY | 2022-05-13 21:24 | XMS_ITS | Continuity of Care Document ---
:1970 Author Organization [facility] Address [address] [place] [id number]- Care Team Providers Name Role Phone Mary THOMPSON, Michell Lazaro Primary Care Physician Encounter [facility] [place] Date(s): 02/05/22 - 02/05/[address] [address]- Discharge Disposition: A-D/C Walkout Attending Physician: Not on Staff, Attending MD Admitting Physician: Not on Staff, Admitting MD Referring Physician: Not on Staff, Referring MD Allergies, Adverse Reactions, Alerts Substance Reaction [...] 8.5 each, 3 Refills, 11/15/21 10:25:00 EDT, [facility]/pharmacy #[id number], 16, 2 puffs Inhalation 4 times [...] 02/23/22 12:16:00 EDT, 01/23/22 12:15:00 EDT, Gum, [facility]/pharmacy #[id number], Partial fill uponpatient request if the [...] 12:05:00 EDT, Aerosol, Route to Pharmacy Electronically, [id number], [facility]/pharmacy #[id number], 156,... Start Date: 01/23/22 Status: OrderedXyzal 5 mg oral tablet 1 tablet = 5 mg, By Mouth, Daily in PM, # 30 tablet, 3 Refills, Maintenance, 01/23/22 12:06:00 EDT, Tablet, [facility]/pharmacy #[id number], Partial fill upon patient request if [...] retention(Confirmed) Active Tobacco use(Confirmed) Active Vertigo(Confirmed) Active Vital Signs Most recent to oldest 1 2 3 [Reference Range]: Height 155 cm (02/05/22 11:39 AM) Weight 48 kg (02/05/22 11:39 AM) Oxygen Saturation [94-100 %] 96 % 97 % (02/05/22 1:38 PM) (02/05/22 10:43 AM) Pulse Rate [55-90 bpm] 70 bpm 62 bpm 99 bpm (02/05/22 1:38 PM) (02/05/22 11:39 AM) *H* (02/05/22 10:43 A M) Blood Pressure [90-138/55-84 145/78 mm Hg 144/78 mm Hg mm Hg] *H* *H* (02/05/22 1:38 PM) (02/05/22 11:39 AM) Respiratory Rate [16-30 18 br/min 18 br/min br/min] (02/05/22 1:38 PM) (02/05/22 11:39 AM) Temperature [96.8-100.4 98.1 DegF 97.9 DegF DegF] (02/05/22 1:38 PM) (02/05/22 11:39 AM) Mode of Delivery (Oxygen) Room air Room air Room a ir (02/05/22 1:38 PM) (02/05/22 11:39 AM) (02/05/22 10 :43 AM) Blood pressure sites Arm, right Arm, left (02/05/22 1:38 PM) (02/05/22 11:39 AM) Temperature Route Oral Oral (02/05/22 1:38 PM) (02/05/22 11:39 AM) Dry Weight 48 kg (02/05/22 11:39 AM) Social History Social History Type Response Smoking Status 5-9 cigarettes (between 1/4 to 1/2 pack)/day in last 30 days entered on: 04/24/20 Sex
--- NOTE | 2022-05-13 22:21 | ED_ITS ---
HPI - Female Genitourinary General Chief complaint: Urogenital-Female Stated complaint: dizzy, bladder infection? Time Seen by Provider: 05/13/22 21:28 Source: patient Mode of arrival: ambulatory Limitations: no limitations History of Present Illness HPI Narrative: This is a 51-year-old female past medical history significant for anxiety, depression, asthma, interstitial cystitis overactive bladder presenting to the emergency department with complaints of urinary frequency, urgency, dysuria, vaginal discharge all going on since April 13. Patient tells me she was seen here on April 13 1 is diagnosed with a UTI, vaginal candidiasis, bacterial vaginosis, she was placed on antibiotics and given medication for these however she reports symptoms have not improved. Patient tells me that with bothering he r most is her urinary symptoms, she tells me it feels like her typical UTI. Currently taking [id number] azo and Tylenol with little to no relief. Patient reports subjective fevers and chills. And tells me that she is having bilateral flank discomfort as well as suprapubic abdominal discomfort and some abdominal distension. Reports that that is an aching pain to bilateral flanks. Patient denies any concerns for sexually transmitted infections and tells me she is not sexually active. She does however tell me that she is having green/yellow vaginal discharge that is very uncomfortable. She tells me she would not like a pelvic exam done today and is adamantly refusing 1. Patient de nies chest pain, shortness of breath, nausea, vomiting, headache, dizziness, vision changes and weakness. To note patient tells me she was feeling slightly lightheaded and dizzy before because she had not eaten however this has resolved. Related Data Previous Rx's Medication Instructions Recorded amitriptyline 50 mg tablet 50 mg PO BEDTIME 30 days #30 tabs 09/27/20 gabapentin 300 mg capsule 300 mg PO BEDTIME 30 days #30 caps 09/27/20 naproxen 500 mg tablet (Naprosyn) 500 mg PO BEDTIME PRN pain 30 days 09/27/20 #30 tabs diphenoxylate-atropine 2.5 1 tab PO DAILY PRN diarrhea #5 tabs 10/19/21 mg-0.025 mg tablet (Lomotil) ketorolac 10 mg tablet 10 mg PO Q8H PRN pain #14 tabs 02/06/22 ondansetron 4 mg disintegrating 4 mg PO Q8H nausea and vomiting 02/06/22 tablet #14 tabs phenazopyridine 100 mg tablet 100 mg PO TID PRN pain 6 doses #6 02/06/22 (Pyridium) tabs cefuroxime axetil 250 mg tablet 250 mg PO BID 7 days #14 tabs 04/13/22 cyclobenzaprine 10 mg tablet 10 mg PO Q8H #14 tabs 04/13/22 fluconazole 150 mg tablet 150 mg PO Q3D Vaginitis 2 doses #2 04/13/22 (Diflucan) tabs ketorolac 10 mg tablet 10 mg PO Q8H PRN pain #14 tabs 04/13/22 metronidazole 500 mg tablet 500 mg PO BID 7 days #14 tabs 04/13/22 prednisone 20 mg tablet 40 mg PO DAILY Asthma exacerbation 04/13/22 5 days #10 tabs Allergies Allergy/AdvReac Type Severity Reaction Status Date / Time aspirin [Aspirin] Allergy Unknown ANAPHYLAXIS, Unverified 03/29/20 15:55 nausea,vomiting cephalexin Allergy Unknown vomiting Unverified 07/26/19 00:00 ibuprofen [From Motrin] Allergy Unknown BLEEDING-PT Unverified 03/29/20 15:55 STATES STILL TAKES morphine [Morphine] Allergy Unknown SOB, Unverified 03/29/20 15:55 horrible feeling Review of Systems Review of Systems: Constitutional : No Weight loss, + Fever, + Chills, No Fatigue, No Malaise ENT/Mouth : No sore throat, No Rhinorrhea Eyes: No Eye Pain, No Swelling, No Redness Cardiovascular : No Chest Pain, No SOB, No Dyspnea on Exertion, No Orthopnea, No Edema, No Palpitations Respiratory : No Cough, No Sputum, No Wheezing Gastrointestinal : No Nausea, No Vomiting, No Diarrhea, No Constipation, + abdominal Pain, No Hematochezia, No Melena, + abdominal bloating Genitourinary : + Dysuria, + Urinary Frequency, No Hematuria, + vaginal dc Musculoskeletal : No joint pain, No Myalgias, No Joint Swelling Skin : No Skin Lesions, No rash Neuro : No Weakness, No Numbness, No Dizziness, No Headache Psych : No Anxiety/Panic, No Depression All other systems reviewed and are negative PMFSH Past Medical History Attestation statement: The following information was validated with the patient. Source: old records reviewed and nursing notes reviewed Social History Social History Alcohol intake: never Patient Tobacco Use Status: Current everyday Tobacco user Smoked in Last 30 Days: Yes Use of substances other than those prescribed or required for medical reasons: Yes Substance Use Type: Marijuana Substance Use Frequency: Daily Advance Directives: No Advance Directives Information Provided: No Physical Exam Vital Signs: Vital Signs: Last Vital Signs Temp 98.2 F 05/14/22 00:32 Pulse 69 05/14/22 00:32 Resp 16 05/14/22 00:32 BP 142/79 H 05/14/22 00:32 Pulse Ox 99 05/14/22 00:32 O2 Del Method 05/14/22 00:32 BMI result Body Mass Index 20.4 Vital signs stable Appearance: Alert.? Oriented X3.? No acute distress.? Head: Normocephalic, atraumatic, no step-offs or deformities Eyes: Pupils equal, round and reactive to light.? CVS: Normal heart rate and rhythm.? Pulses normal.? Respiratory: No respiratory distress.? Breath sounds normal.? Abdomen: Soft and tenderness to suprapubic region.? Normoactive bowel Skin: Skin warm and dry.? Normal skin color.? Normal skin turgor.? Extremities: No lower extremity edema.? No calf ttp. 5/5 strength to bilateral upper and lower extremities Back: + mild CVA tenderness bilaterally Neuro: Oriented X 3.? No motor deficit.? No sensory deficit. CN 2-12 intact . Normal esadea-ki-tles, tcxj-vt-vbwn, steady tandem gait with normal coordination. Course Reevaluation(s) Reevaluation #1: CBC appears to be around patient's baseline. Chemistry with no acute electrolyte abnormalities requiring intervention. Transaminases normal. Lipase within normal limits. Urine will be repeated because initial urine had dark pigment which interfered with test results. Bladder scan without urinary retention. Trichomonas negative, use negative. Imaging, repeat urine. Bacterial vaginosis, gonorrhea and chlamydia pending. Time: 23:07 Reevaluation #2: CT of the abdomen and pelvis is unable to identify a cause for patient's bilateral flank pain. Time: 23:48 Reevaluation #3: Urine pending. Patient eating and drinking w/o difficulties no nausea, voiting or abd pain. Time: 00:23 Additional Reevaluation(s): Urine without infection. I suspect this is likely interstitial cystitis. Will advise patient to follow-up with urology will give her information for urology follow-up. At this time I feel comfortable with discharge home. Educated her to return with new or worsening symptoms, educated on worrisome signs and symptoms and when to return. Comfortable discharge. To know at time of discharge patient tells me her pain has improved however she still having urinary frequency and urgency. I explained to her that there is no benefit starting antibiotics within negative urine, I told her if the urine culture comes back positive she will receive a call. I also told her that we will wait to get swabs back before initiating antibiotics. As patient does not want prophylactic treatment for STDs. And patient was adamant on refusing a pelvic exam. I will have her follow-up with GI and urology for these symptoms. At this time I feel comfortable discharge home. At time of discharge patient eating and drinking tolerating p.o. hemodynamically stable and appears comfortable P MDM - Female Genitourinary MDM Narrative Medical decision making narrative: 1025 51-year-old female presents with abdominal distension, suprapubic discomfort, bilateral flank pain, urinary symptoms, vaginal discharge since April 13. Patient reports she took antibiotics and other medications with little to no relief. Also reporting subjective fevers and chills. Was told last time she was here she had bacterial vaginosis, UTI and candidiasis. Physical examination significant for suprapubic tenderness on exam, mild yakelin ateral CVA tenderness, regular rate and rhythm, lungs clear, neuro nonfocal.. Patient refusing/deferring sensitive exam. No signs of acute abdomen. Will rule out cystitis, UTI, pyelo. Unlikely that this is small or large bowel obstruction. Patient denies concerns for STDs, low suspicion for PID. Unlikely torsion or ectopic . Plan at this time is labs, urine, CT of the abdomen and pelvis with contrast. Will obtain swabs for gonorrhea, chlamydia, Trichomonas, BV, yeast. To note p atient tells me she is in pain however does not want pain medicine. Medical Records Attestation: I reviewed the patient's medical records. Lab Data Attestation: I reviewed the patient's lab results. Result diagrams: 05/13/22 14:20 05/13/22 14:20 Labs: Lab Results 05/13/22 05/13/22 05/13/22 Range/Units 14:20 14:20 14:20 WBC 7.9 (4.8-10.8) X10*3/uL RBC 3.75 L (4.20-5.50) X10*6/uL Hgb 11.7 L (12.0-16.0) g/dl Hct 35.3 L (37.0-47.0) % MCV 94.1 (80.0-98.0) fL MCH 31.2 (27.0-33.0) pg MCHC 33.1 (31.0-35.0) g/dl RDW 13.5 (11.0-16.0) % Plt Count 209 (160-400) X10*3/uL MPV 10.3 (9.4-12.3) fL Immature Gran % (Auto) 0.3 (0.0-0.4) % Neut % (Auto) 58.7 (45-73) % Lymph % (Auto) 30.5 (20-40) % [place] % (Auto) 7.6 (2-11) % Eos % (Auto) 2.3 (0-4) % Baso % (Auto) 0.6 (0-2) % Lymph # (Auto) 2.4 (1.2-4.9) X10*3/uL [place] # (Auto) 0.6 (0.1-1.2) X10*3/uL Eos # (Auto) 0.2 (0.0-0.4) X10*3/uL Baso # (Auto) 0.1 (0.0-0.2) X10*3/uL Abs Immat Gran (auto) 0.02 (0.00-0.03) X10*3/uL Absolute Neuts (auto) 4.6 (2.0-8.3) x10*3/uL Absolute Nucleated RBC 0.000 (0.0-0.012) X10*3/uL Nucleated RBC % (auto) 0.0 (0.0-0.2) /100WBC Sodium 141 (135-145) mmol/L Potassium 4.5 (3.3-5.1) mmol/L Chloride 106 (96-108) mmol/L Carbon Dioxide 26 (22-29) mmol/L Anion Gap 14 (12-20) BUN 21 H (9-16) mg/dL Creatinine 1.06 (0.5-1.4) mg/dL Estim Creat Clear Calc 48.4 Estimated GFR 55 Random Glucose 116 H (60-115) mg/dL Calcium 9.5 (8.4-10.2) mg/dL Total Bilirubin 0.4 (0.0-1.0) mg/dL Direct Bilirubin 0.2 (0.0-0.5) mg/dL AST 15 (5-31) U/L ALT 10 (0-31) U/L Alkaline Phosphatase 67 (39-117) U/L Total Protein 6.6 (6.5-8.0) g/dL Albumin 4.2 (3.5-5.0) g/dL Lipase 48 (8-78) U/L Urine Color ORANGE Urine Appearance Clear Urine pH 5.0 (5.0-9.0) Ur Specific [place] 1.020 (1.005-1.025) Urine Protein 30 (1+) H (Neg-Trace) mg/dL Urine Glucose (UA) 100 H (Negative) mg/dL Urine Ketones Trace (Negative) mg/dL Urine Blood Small (1+) H (Negative) Urine Nitrite See Note (Negative) Ur Leukocyte Esterase See Note (Negative) Urine RBC 0-2 (0-2) /HPF Urine WBC 0-5 (0-5) /HPF Ur Squamous Epith Cells 0-2 (0-2) /HPF Urine Bacteria Trace (None Seen) Hyaline Casts 0-2 (0-2) /LPF Urine Test (NEGATIVE) 05/13/22 05/14/22 Range/Units 14:20 00:48 WBC (4.8-10.8) X10*3/uL RBC (4.20-5.50) X10*6/uL Hgb (12.0-16.0) g/dl Hct (37.0-47.0) % MCV (80.0-98.0) fL MCH (27.0-33.0) pg MCHC (31.0-35.0) g/dl RDW (11.0-16.0) % Plt Count (160-400) X10*3/uL MPV (9.4-12.3) fL Immature Gran % (Auto) (0.0-0.4) % Neut % (Auto) (45-73) % Lymph % (Auto) (20-40) % [place] % (Auto) (2-11) % Eos % (Auto) (0-4) % Baso % (Auto) (0-2) % Lymph # (Auto) (1.2-4.9) X10*3/uL [place] # (Auto) (0.1-1.2) X10*3/uL Eos # (Auto) (0.0-0.4) X10*3/uL Baso # (Auto) (0.0-0.2) X10*3/uL Abs Immat Gran (auto) (0.00-0.03) X10*3/uL Absolute Neuts (auto) (2.0-8.3) x10*3/uL Absolute Nucleated RBC (0.0-0.012) X10*3/uL Nucleated RBC % (auto) (0.0-0.2) /100WBC Sodium (135-145) mmol/L Potassium (3.3-5.1) mmol/L Chloride (96-108) mmol/L Carbon Dioxide (22-29) mmol/L Anion Gap (12-20) BUN (9-16) mg/dL Creatinine (0.5-1.4) mg/dL Estim Creat Clear Calc Estimated GFR Random Glucose (60-115) mg/dL Calcium (8.4-10.2) mg/dL Total Bilirubin (0.0-1.0) mg/dL Direct Bilirubin (0.0-0.5) mg/dL AST (5-31) U/L ALT (0-31) U/L Alkaline Phosphatase (39-117) U/L Total Protein (6.5-8.0) g/dL Albumin (3.5-5.0) g/dL Lipase (8-78) U/L Urine Color Dark Yellow Urine Appearance Clear Urine pH 6.5 (5.0-9.0) Ur Specific [place] >= 1.030 H (1.005-1.025) Urine Protein Negative (Neg-Trace) mg/dL Urine Glucose (UA) Negative (Negative) mg/dL Urine Ketones Trace (Negative) mg/dL Urine Blood Small (1+) H (Negative) Urine Nitrite Negative (Negative) Ur Leukocyte Esterase Negative (Negative) Urine RBC (0-2) /HPF Urine WBC (0-5) /HPF Ur Squamous Epith Cells (0-2) /HPF Urine Bacteria (None Seen) Hyaline Casts (0-2) /LPF Urine Test NEGATIVE (NEGATIVE) Critical Care Time Critical Care Time Critical Care Time: No Discharge Plan Discharge Clinical Impression: Interstitial cystitis, Abdominal pain, Vaginal discharge Patient Disposition: Home, Self-Care Instructions: Abdominal Pain (ED), Interstitial Cystitis (ED) Additional Instructions: Take your medications as prescribed. If you were prescribed antibiotics today, it is important that you take your medication to their entirety, do not skip any doses, do not finish them early. Follow-up with your primary care provider this week. Please follow-up with urology. Follow-up with GI for your abdominal discomfort that appears to be chronic in nature. Return to the emergency department with new or worsening symptoms. Such as fevers, chills, chest pain, shortness of breath, nausea, vomiting, dizziness, headache, vision changes, lethargy, weakness In case of emergency call 911 Some of your swabs are still pending. Urine did not show any signs of infection. No need to take antibiotics or Pyridium. Your laboratory studies and electrolytes were unremarkable and showed no acute findings. Apply heating packs to the affected area. He can take Tylenol as needed for discomfort. ?CT/CT abdomen pelvis w IV con IMPRESSION: A cause for the patient's bilateral flank pain has not been found. Prescriptions: No Action amitriptyline 50 mg tablet 50 mg PO BEDTIME 30 Days Qty: 30 0RF gabapentin 300 mg capsule 300 mg PO BEDTIME 30 Days Qty: 30 0RF naproxen [Naprosyn] 500 mg tablet 500 mg PO BEDTIME PRN (Reason: pain) 30 Days Qty: 30 0RF diphenoxylate-atropine [Lomotil] 2.5-0.025 mg tablet 1 tab PO DAILY PRN (Reason: diarrhea) Qty: 5 0RF ketorolac 10 mg tablet 10 mg PO Q8H PRN (Reason: pain) Qty: 14 0RF Rx Instructions: first dose given in ER tolerated well by IM dose phenazopyridine [Pyridium] 100 mg tablet 100 mg PO TID PRN (Reason: pain) Qty: 6 0RF ondansetron 4 mg tablet,disintegrating 4 mg PO Q8H Qty: 14 0RF prednisone 20 mg tablet 40 mg PO DAILY 5 Days Qty: 10 0RF metronidazole 500 mg tablet 500 mg PO BID 7 Days Qty: 14 0RF fluconazole [Diflucan] 150 mg tablet 150 mg PO Q3D 0 Days Qty: 2 0RF Rx Instructions: may repeat second dose 72 hrs after first dose if symptoms persist cefuroxime axetil 250 mg tablet 250 mg PO BID 7 Days Qty: 14 0RF ketorolac 10 mg tablet 10 mg PO Q8H PRN (Reason: pain) Qty: 14 0RF Rx Instructions: Patient given 1st dose in the ER by IV and tolerated well cyclobenzaprine 10 mg tablet 10 mg PO Q8H Qty: 14 0RF Referrals: [facility] [Provider Group] - 1 day Physician,Unknown J [Primary Care Provider] - 2 days [facility] [Provider Group] - 1 day Stand Alone Forms: Work/School Release
[2022-05-13] MEDS: iohexoL 350 MG/ML 100 ML INFUS..BTL IV (22:56)
[2022-05-14 00:32] VITALS: BP 142/79; PULSE 69; RESP 16; TEMP 36.8; O2SAT 99
[2022-05-14 00:57] LABS: Appearance Urine Clear; Color Urine Dark Yellow; Glucose Urine UA Negative (Negative); Leukocyte Esterase Urine Negative (Negative); Nitrite Urine Negative (Negative); PH 6.5 (5.0-9.0); Specific Gravity - Urine >= 1.030 (1.005-1.025); UMIC TRIGGER UACC YES; Urine Blood Small (1+) (Negative); Urine Ketones Trace mg/dL (Negative); Urine Protein Negative (Neg-Trace)
[2022-05-14 01:09] LABS: Bacteria Urine None Seen (None Seen); Hyaline Casts Urine 0-2 /LPF (0-2); Squamous Epithelial Cell Urine 0-2 /HPF (0-2); WBC Urine 0-5 /HPF (0-5)
[2022-05-14] MEDS: Simethicone 80 MG TAB.CHEW PO (01:27)
[2022-05-14 13:08] LABS: BV Int Neg Control Negative (Negative); BV Int Pos Control Positive (Positive)
[2022-05-14 15:21] LABS: CT PCR NOT DETECTED (Not Detect.); NG PCR NOT DETECTED (Not Detect.)
== END 2022-05-14 01:58 | disposition home or self-care (01) ==
PROVIDERS: Physician Assistant; Emergency Provider Internal Medicine
DX: N30.10 Interstitial cystitis (chronic) without hematuria (principal); N76.0 Acute vaginitis; R10.9 Unspecified abdominal pain; F17.200 Nicotine dependence, unspecified, uncomplicated; F12.90 Cannabis use, unspecified, uncomplicated
CPT/HCPCS: 36415; 51798; 74177; 80048; 80076; 81001; 81025; 83690; 85025; 87480; 87491; 87510; 87591; 87660; 99284; Q9967

== ENCOUNTER 2022-07-04 10:34 | Outpatient (REF) | payer MEDICARE, MEDICAID, SELFPAY ==
[2022-07-04 16:40] LABS: Urine Cytology See Pathology rpt
== END 2022-07-04 10:35 | disposition home or self-care (01) ==
LOC: HO.LAB 10:34
PROVIDERS: PCP Family Medicine; Visit Provider Nurse Practitioner Family
DX: R31.29 Other microscopic hematuria (principal)
CPT/HCPCS: 51700; 51798; 88112; 99202

== ENCOUNTER → 2022-07-08 09:23 | Outpatient (BNVA) | payer MEDICARE, MEDICAID, SELFPAY | PROVIDERS: PCP Family Medicine; Visit Provider Nurse Practitioner Family | DX: N30.10 Interstitial cystitis (chronic) without hematuria (principal); N32.81 Overactive bladder | CPT/HCPCS: 51700; 99212 ==

== ENCOUNTER → 2022-07-09 09:27 | Outpatient (BNVA) | payer MEDICARE, MEDICAID, SELFPAY | PROVIDERS: PCP Family Medicine; Visit Provider Nurse Practitioner Family | DX: N30.10 Interstitial cystitis (chronic) without hematuria (principal); N32.81 Overactive bladder | CPT/HCPCS: 51700; 99212 ==

== ENCOUNTER → 2022-07-10 09:24 | Outpatient (BNVA) | payer MEDICARE, MEDICAID, SELFPAY | PROVIDERS: PCP Family Medicine; Visit Provider Nurse Practitioner Family | DX: N32.81 Overactive bladder (principal); N30.10 Interstitial cystitis (chronic) without hematuria | CPT/HCPCS: 99212 ==

== ENCOUNTER → 2022-07-11 09:24 | Outpatient (BNVA) | payer MEDICARE, MEDICAID, SELFPAY | PROVIDERS: PCP Family Medicine; Visit Provider Nurse Practitioner Family | DX: N32.81 Overactive bladder (principal); N30.10 Interstitial cystitis (chronic) without hematuria | CPT/HCPCS: 51700; 99212 ==

== ENCOUNTER 2022-08-04 06:39 | Day surgery (SDC) | payer MEDICARE, MEDICAID, SELFPAY ==
[2022-08-04] VITALS (7 sets, daily range): BP systolic 110–143; BP diastolic 48–81; PULSE 44–60; RESP 14–18; TEMP 36.6–36.8; O2SAT 96–100; BMI 22.1
[2022-08-04 08:23] LABS: UPreg QC Valid YES; Urine Pregnancy NEGATIVE (NEGATIVE)
[2022-08-04] MEDS: levoFLOXacin 500 MG TABLET PO (09:10)
--- NOTE | 2022-08-04 09:19 | HO.ANESPROP2 ---
HPI - Anesthesia Eval Consult details Narrative: Interstitial cystitis PMFSH Active Problems Active Problems: All Active Problems (Updated 07/29/22 @ 16:29 by Shahida Sebastian RN) Overactive bladder (Acute) Interstitial cystitis (Acute) Past Medical History Medical History Anxiety Arthritis Asthma Bipolar disorder Depression Interstitial cystitis Overactive bladder Family History Family history of problems with anesthesia: No Surgical History Surgical History History of cystoscopy Hx of eye surgery Hx of ovarian cystectomy History of Problems with Anesthesia: No Social History Social History Alcohol intake: never Patient Tobacco Use Status: Current everyday Tobacco user Tobacco use type: Cigarette Cigarettes Per Day: 4 Date Education Initiated: 08/04/22 Use of substances other than those prescribed or required for medical reasons: Yes Substance Use Type: Marijuana Are you DNR?: No Advance Directives: No Advance Directives Information Provided: Yes Meds Allergies Allergy/AdvReac Type Severity Reaction Status Date / Time aspirin [Aspirin] Allergy Unknown ANAPHYLAXIS, Verified 07/29/22 16:29 nausea,vomiting cephalexin Allergy Unknown vomiting Verified 07/29/22 16:29 ibuprofen [From Motrin] Allergy Unknown BLEEDING-PT Verified 07/29/22 16:29 STATES STILL TAKES morphine [Morphine] Allergy Unknown SOB, Verified 07/29/22 16:29 horrible feeling Home Medications Medication Instructions Recorded Confirmed Last Taken Type quetiapine 50 mg tablet 50 mg PO BEDTIME 07/04/22 07/29/22 Unknown History clonazepam 1 mg tablet 1 mg PO BID PRN Anxiety 07/08/22 07/29/22 Unknown History albuterol sulfate 90 mcg/actuation inhalation 07/29/22 Unknown History aerosol inhaler budesonide-formoterol HFA 160 2 puff inhalation BID 07/29/22 07/29/22 Unknown History mcg-4.5 mcg/actuation aerosol inhaler (Symbicort) citalopram 20 mg tablet 1.5 tab PO DAILY 07/29/22 07/29/22 Unknown History levocetirizine 5 mg tablet 1 tab PO DAILY 07/29/22 07/29/22 Unknown History Exam Exam Date and Time: August 04, 2022918 Height,Weight and Vital Signs: Height 5 ft 1 in Weight 53.07 kg Last Vital Signs Temp 98.1 F 08/04/22 08:14 Pulse 60 08/04/22 08:14 Resp 18 08/04/22 08:14 BP 115/48 L 08/04/22 08:14 Pulse Ox 96 08/04/22 08:14 O2 Del Method 08/04/22 08:14 Pertinent Lab Results Pertinent Lab Results: Laboratory Tests 08/04/22 08:05 Urine Test NEGATIVE Airway Mallampati Class: II TM Dist: >3cm Neck ROM: Full Partial: Upper Heart: [id number] Lungs: cta b/l Assessment and Plan Assessment Anesthesia Assessment: Anesthesia Plan Discussed and Chart Reviewed Final Anesthetic Review Family History of Problems with Anesthesia: No History of Problems with Anesthesia: No NPO: Yes ASA Class: II Final Preanesthetic Review: No Changes in Pt Med Stat, Meds/Allgs Chart Reviewed, Consent Obtained/Reviewed and Anes Risks/Benef Reviewed Patient Risk: Intermediate Procedure Risk: Low Assessment/Block/Sedation in SS: Assess/Block/Sedation-SS Anesthetic Plan Anesthetic Plan: MAC: and Agree w/ Assess. and Plan Disposition: Standard PACU
--- NOTE | 2022-08-04 09:22 | P.CONAN_ITS ---
FORM[facility]LY [facility] Active Problems Active Problems: All Active Problems (Updated 07/29/22 @ 16:29 by Shahida Sebastian RN) Overactive bladder (Acute) Interstitial cystitis (Acute) Past Medical History Medical History Anxiety Arthritis Asthma Bipolar disorder Depression Interstitial cystitis Overactive bladder Family History Family history of problems with anesthesia: No Surgical History Surgical History History of cystoscopy Hx of eye surgery Hx of ovarian cystectomy History of Problems with Anesthesia: No Social History Social History Alcohol intake: never Patient Tobacco Use Status: Current everyday Tobacco user Tobacco use type: Cigarette Cigarettes Per Day: 4 Date Education Initiated: 08/04/22 Use of substances other than those prescribed or required for medical reasons: Yes Substance Use Type: Marijuana Are you DNR?: No Advance Directives: No Advance Directives Information Provided: Yes Meds Allergies Allergy/AdvReac Type Severity Reaction Status Date / Time aspirin [Aspirin] Allergy Unknown ANAPHYLAXIS, Verified 07/29/22 16:29 nausea,vomiting cephalexin Allergy Unknown vomiting Verified 07/29/22 16:29 ibuprofen [From Motrin] Allergy Unknown BLEEDING-PT Verified 07/29/22 16:29 STATES STILL TAKES morphine [Morphine] Allergy Unknown SOB, Verified 07/29/22 16:29 horrible feeling Active Medications: Current Medications Acetaminophen (Acetaminophen 325 Mg Tablet) 650 mg PO ONCE PRN PRN Reason: Pain, Mild (Pain Scale 1-3) Fentanyl (Fentanyl Citrate/Pf 100 Mcg/2 Ml Vial) 25 mcg IVPUSH Q5M PRN; Protocol PRN Reason: Pain, Moderate (Pain Scale 4-6 Promethazine HCl 6.25 mg/ (Sodium Chloride) 50.25 mls @ 201 mls/hr IV ONCE PRN PRN Reason: Nausea and Vomiting Ondansetron HCl (Ondansetron Hcl 4 Mg/2 Ml Vial) 4 mg IVPUSH ONCE PRN PRN Reason: Nausea and Vomiting Oxycodone HCl (Oxycodone Hcl Immed Release 5 Mg Tablet) 5 mg PO ONCE PRN PRN Reason: Pain, Severe (Pain Scale 7-10) Home Medications Medication Instructions Recorded Confirmed Last Taken Type quetiapine 50 mg tablet 50 mg PO BEDTIME 07/04/22 07/29/22 Unknown History clonazepam 1 mg tablet 1 mg PO BID PRN Anxiety 07/08/22 07/29/22 Unknown History albuterol sulfate 90 mcg/actuation inhalation 07/29/22 Unknown History aerosol inhaler budesonide-formoterol HFA 160 2 puff inhalation BID 07/29/22 07/29/22 Unknown History mcg-4.5 mcg/actuation aerosol inhaler (Symbicort) citalopram 20 mg tablet 1.5 tab PO DAILY 07/29/22 07/29/22 Unknown History levocetirizine 5 mg tablet 1 tab PO DAILY 07/29/22 07/29/22 Unknown History Exam Exam Date and Time: August 04, 2022921 Height,Weight and Vital Signs: Height 5 ft 1 in Weight 53.07 kg Last Vital Signs Temp 98.1 F 08/04/22 08:14 Pulse 60 08/04/22 08:14 Resp 18 08/04/22 08:14 BP 115/48 L 08/04/22 08:14 Pulse Ox 96 08/04/22 08:14 O2 Del Method 08/04/22 08:14 Pertinent Lab Results Pertinent Lab Results: Laboratory Tests 08/04/22 08:05 Urine Test NEGATIVE Airway Mallampati Class: II TM Dist: >3cm Neck ROM: Full Partial: Upper Loose/Missing/Broken Teeth: Upper and Lower Assessment and Plan Assessment Anesthesia Assessment: Anesthesia Plan Discussed and Chart Reviewed Final Anesthetic Review Family History of Problems with Anesthesia: No History of Problems with Anesthesia: No NPO: Yes ASA Class: II Final Preanesthetic Review: No Changes in Pt Med Stat, Meds/Allgs Chart Reviewed, Consent Obtained/Reviewed and Anes Risks/Benef Reviewed Patient Risk: Intermediate Procedure Risk: Intermediate Anesthetic Plan Anesthetic Plan: MAC: Disposition: Standard PACU
--- NOTE | 2022-08-04 09:54 | W.PM.OPN ---
Operative Note Operative Note Date of Service: 08/04/22 Narrative: PreOperative Diagnosis: Interstitial cystitis with pelvic pain Post Operative Diagnosis: Interstitial cystitis with pelvic pain Procedure: Hydrodistention Surgeon: Dr Khurram Hoffmann Anesthesia: General Indications for procedure: completed rescue solutions. Reports frequent small evening voids Procedure: After informed consent was verified the patient was brought to the operating room and placed in a supine position. Anesthesia was administered per protocol. The patient was placed in a modified dorsal lithotomy position and prepped and draped in sterile fashion. Safety pause time-out was observed. Antibiotics being given. A 22 [place] cystoscope was used to empty the bladder. A mixture of bupivacaine lidocaine gel 20 cc was instilled into the bladder and allowed to sit for 2-3 minutes. Hydrodistention of the bladder was performed. The bladder was filled and allowed to sit for 2 minutes. Filling was from a height of 1 m. On the 1st fill there was 300 cc within the bladder. Cystoscopy revealed glomerulations consistent with interstitial cystitis. Second filling of the bladder was performed in similar fashion. l. Volume was approximately 400 cc. Terminal hematuria noted. The the bladder was emptied. The patient tolerated procedure well was extubated in operating room transferred in stable condition to the recovery area. Appropriate postprocedure pain medication was provided. Pathology: none Drains: None
[2022-08-04] MEDS: Acetaminophen 325 MG TABLET 650 MG PO (10:07)
[2022-08-04] MEDS: Phenazopyridine HCL 100 MG TABLET PO (10:08)
== END 2022-08-04 11:43 | disposition home or self-care (01) ==
PROVIDERS: Anesthesiology; PCP Family Medicine; Visit Provider Urology
PROC: 0T7B7ZZ Dilation of Bladder, Via Natural or Artificial Opening (ICD-10-PCS; CPT 52260; principal; 2022-08-04 08:50)
DX: N30.10 Interstitial cystitis (chronic) without hematuria (principal); N32.81 Overactive bladder; R10.2 Pelvic and perineal pain; J45.909 Unspecified asthma, uncomplicated; Z79.1 Long term (current) use of non-steroidal anti-inflammatories (NSAID); Z79.899 Other long term (current) drug therapy; Z88.1 Allergy status to other antibiotic agents; Z88.8 Allergy status to other drugs, medicaments and biological substances; F17.210 Nicotine dependence, cigarettes, uncomplicated
CPT/HCPCS: 52260; 81025; J2795; J3010

== ENCOUNTER 2022-10-01 08:11 | Emergency (ER) | payer MEDICARE, MEDICAID, SELFPAY ==
--- NOTE | ~2022-10-01 | CT_ITS ---
EXAMINATION: CT ABDOMEN AND PELVIS WITH CONTRAST CLINICAL INFORMATION: Generalized abdominal pain COMPARISON: CT abdomen pelvis 05/13/2022. TECHNIQUE: Multidetector volumetric images were obtained from the superior aspect of the liver through the pubic symphysis following administration 85 mL of Omnipaque 350 intravenous contrast. Sagittal and coronal reformatted images were obtained on the technologist's workstation. Oral contrast: No This CT examination was performed using dose optimization techniques as appropriate, variously including the following: *Automated exposure control *Adjustment of mA and/or kV according to patient size (this includes techniques or standardized protocols for targeted exams where dose is matched to indication/reason for exam; i.e. extremities or head) *Use of iterative reconstruction technique DLP: 404 mGy-cm FINDINGS: LUNG BASES: The lung bases are clear. Heart size is normal. LIVER, GALLBLADDER, AND BILIARY TREE: The liver is normal in size, shape, and attenuation. No focal hepatic lesion or biliary ductal dilatation is present. The gallbladder is unremarkable with no evidence of radiopaque gallstones, gallbladder wall thickening, or obvious pericholecystic inflammatory changes. PANCREAS: Unremarkable. SPLEEN: Unremarkable. ADRENAL GLANDS: Unremarkable. KIDNEYS AND URETERS: The kidneys are normal in size, shape, and attenuation. No hydronephrosis, hydroureter, or calculi seen. No perinephric stranding. BLADDER: Unremarkable. GASTROINTESTINAL TRACT: There is moderate scattered stool and gas seen throughout the colon without any significant distention. The small bowel loops are normal caliber. Appendix is normal caliber. No inflammatory process seen. There is no free fluid. ABDOMINAL WALL: No significant hernia is appreciated. LYMPH NODES: Normal. VASCULAR: Unremarkable. PELVIC VISCERA: There is a 4.2 x 3.4 cm cyst right adnexa likely ovarian cysts. The uterus is anteverted and appears unremarkable. There is a 1.3 x 1.8 cm 2 cysts adjacent to each other in left adnexa likely ovarian origin. OSSEOUS STRUCTURES: No aggressive lytic or sclerotic process seen. CT/CT abdomen pelvis w IV con IMPRESSION: 1. No acute intra-abdominal process seen. 2. Moderate constipation.. 3. Bilateral ovarian cysts. Fleischner guidelines were followed.
[2022-10-01 08:34] VITALS: BP 114/54; PULSE 63; RESP 16; TEMP 36.7; O2SAT 99; BMI 23.2
[2022-10-01 09:18] LABS: Appearance Urine Clear; Color Urine Dark Yellow; Glucose Urine UA Negative (Negative); Leukocyte Esterase Urine Negative (Negative); Nitrite Urine Positive (Negative); PH 6.5 (5.0-9.0); UMIC TRIGGER UACC YES; Urine Blood Trace (Negative); Urine Ketones Negative (Negative); Urine Protein Negative (Neg-Trace)
[2022-10-01 09:20] LABS: UPreg QC Valid YES; Urine Pregnancy NEGATIVE (NEGATIVE)
[2022-10-01 09:37] LABS: Bacteria Urine None Seen (None Seen); Hyaline Casts Urine 0-2 /LPF (0-2); Squamous Epithelial Cell Urine 0-2 /HPF (0-2); UACC Culture Trigger YES; WBC Urine 0-5 /HPF (0-5)
--- NOTE | 2022-10-01 11:16 | ED_ITS ---
HPI - Abdominal Pain General Chief Complaint: Abdominal Pain Stated Complaint: lower ab pain Time Seen by Provider: 10/01/22 10:21 Source: patient Mode of arrival: ambulatory Limitations: no limitations History of Present Illness HPI narrative: 51-year-old female presents with abdominal pain. The abdominal pain is generalized to lower abdominal area. The pain is constant. Described as a 7/10. The pain does not radiate. There is no clear relieving or exacerbating features. Patient has chronic hematuria but that has not changed. She denies any frequency, urgency or dysuria. She denies any diarrhea or constipation. She had a small bowel movement earlier today. She reports never passing flatus. She has had no fevers or chills per she had also describes some vaginal cream discharge without irritation or smell patient denies being sexually active for quite some time Related Data Home Medications Medication Instructions Recorded Confirmed quetiapine 50 mg tablet 50 mg PO BEDTIME 07/04/22 07/29/22 clonazepam 1 mg tablet 1 mg PO BID PRN Anxiety 07/08/22 07/29/22 albuterol sulfate 90 mcg/actuation inhalation 07/29/22 aerosol inhaler budesonide-formoterol HFA 160 2 puff inhalation BID 07/29/22 07/29/22 mcg-4.5 mcg/actuation aerosol inhaler (Symbicort) citalopram 20 mg tablet 1.5 tab PO DAILY 07/29/22 07/29/22 levocetirizine 5 mg tablet 1 tab PO DAILY 07/29/22 07/29/22 Previous Rx's Medication Instructions Recorded amitriptyline 50 mg tablet 50 mg PO BEDTIME 30 days #30 tabs 09/27/20 naproxen 500 mg tablet (Naprosyn) 500 mg PO BEDTIME PRN pain 30 days 09/27/20 #30 tabs tramadol 50 mg tablet 50 mg PO Q8H PRN pain #15 tabs 08/01/22 mirabegron 25 mg tablet,extended 25 mg PO DAILY interstial cystitis 08/04/22 release 24 hr (Myrbetriq) 30 days #30 tabs oxycodone 5 mg capsule 5 mg PO Q8H PRN pain (scale score 08/04/22 4-6) 3 days #20 caps dicyclomine 20 mg tablet 20 mg PO TID PRN abdominal 10/01/22 discomfort #10 tabs metronidazole 500 mg tablet 500 mg PO BID #14 tabs 10/01/22 Allergies Allergy/AdvReac Type Severity Reaction Status Date / Time aspirin [Aspirin] Allergy Unknown ANAPHYLAXIS, Verified 10/01/22 08:34 nausea,vomiting cephalexin Allergy Unknown vomiting Verified 10/01/22 08:34 ibuprofen [From Motrin] Allergy Unknown BLEEDING-PT Verified 10/01/22 08:34 STATES STILL TAKES morphine [Morphine] Allergy Unknown SOB, Verified 10/01/22 08:34 horrible feeling PMFSH Past Medical History Medical History Anxiety Arthritis Asthma Bipolar disorder Depression Interstitial cystitis Overactive bladder Surgical History History of cystoscopy Hx of eye surgery Hx of ovarian cystectomy Social History Social History Alcohol intake: never Patient Tobacco Use Status: Current everyday Tobacco user Tobacco use type: Cigarette Cigarettes Per Day: 4 Substance Use Type: Marijuana Advance Directives: No Advance Directives Information Provided: Yes Physical Exam ED Vital Signs: Vital Signs - 24 hr 10/01/22 08:34 Temperature 98.1 F Pulse Rate 63 Respiratory Rate 16 Blood Pressure 114/54 L Pulse Oximetry 99 Oxygen Delivery Method Room Air BMI result Body Mass Index 23.2 GEN: Well developed, no acute distress, alert, oriented HEENT: Normocephalic, atraumatic, normal external ears, nose appears normal, no oropharyngeal edema or exudates Eyes: Normal to appearance Neck: Supple, no lymphadenopathy Respiratory: Talks in complete sentences, no respiratory distress, clear to auscultation bilaterally Cardiovascular: Regular rate and rhythm, no murmurs rubs or gallops Abdomen: Soft, nontender, slightly distended, no guarding, no rebound Back: No CVA tenderness Extremities: No clubbing cyanosis or edema Neurologic: No focal neurologic deficits, cranial nerves 2-12 intact, strength is 5/5 bilaterally, gait normal Skin: No rash Course Course Course Narrative: 51-year-old female presents with abdominal pain. She also reports distention. Examination revealed mild a cinching however abdomen was soft. There is no tenderness, rebound or guarding. Negative Field sign, negative McBurney's point tenderness. Patient reports having had bladder surgery in July of this year. At this point, I doubt postoperative complication however, patient may have built scar tissue. Symptoms could be concerning for bowel obstruction, ileus or partial small bowel obstruction. Will obtain a CT scan of the abdomen and pelvis. Will provide patient with IV fluids analgesics and review laboratory analysis. Reevaluation(s) Reevaluation #1: Patient had of pelvic exam. There is white discharge. This is mostly consistent with bacterial vaginosis. Doubt GC or chlamydia given patient's abstinence from intercourse. Will start patient on metronidazole. Time: 13:43 Reevaluation #2: Patient is pending CT results. Anticipate discharge as I suspect no acute abdominal diagnosis that requires emergent intervention. Discharge instructions and prescriptions have been written in the case of patient's results being negative. She is being signed out to my colleague at this time pending results. Time: 13:47 Medical Decision Making Medical Decision Making MDM Narrative: Differential diagnosis includes: SBO, partial SBO, ileus, UTI, colitis, diverticulitis appendicitis. Abdominal exam without peritoneal signs. No evidence of acute abdomen at this time. Well appearing. Low suspicion for acute hepatobiliary disease (includng acute cholecystitis), acute pancreatitis, PUD (including perforation), acute infectious processes (pneumonia, hepatitis, pyelonephritis), acute appendicitis, vascular catastrophe, bowel obstruction or viscus perforation. Presentation not consistent with other acute, emergent c auses of abdominal pain at this time. Plan: labs, UA, CT, pain control, serial reassessment Differential Diagnosis Differential Diagnoses: The differential diagnosis associated with the presentation includes (Cholecystitis, diverticulitis, pancreatitis, peptic ulcer, bowel obstruction, perforated viscus) Admission/Observation Consideration of admission/observation: Escalation of care including admission/observation considered Lab Data [facility] Lab Attestation statement: I reviewed the patient's lab results. 10/01/22 11:31 10/01/22 11:31 Labs: Lab Results 10/01/22 10/01/22 10/01/22 Range/Units 08:56 08:56 11:31 WBC 8.1 (4.8-10.8) X10*3/uL RBC 3.93 L (4.20-5.50) X10*6/uL Hgb 12.0 (12.0-16.0) g/dl Hct 35.7 L (37.0-47.0) % MCV 90.8 (80.0-98.0) fL MCH 30.5 (27.0-33.0) pg MCHC 33.6 (31.0-35.0) g/dl RDW 14.7 (11.0-16.0) % Plt Count 210 (160-400) X10*3/uL MPV 10.1 (9.4-12.3) fL Immature Gran % (Auto) 0.2 (0.0-0.4) % Neut % (Auto) 56.5 (45-73) % Lymph % (Auto) 32.1 (20-40) % [place] % (Auto) 8.1 (2-11) % Eos % (Auto) 2.6 (0-4) % Baso % (Auto) 0.5 (0-2) % Lymph # (Auto) 2.6 (1.2-4.9) X10*3/uL [place] # (Auto) 0.7 (0.1-1.2) X10*3/uL Eos # (Auto) 0.2 (0.0-0.4) X10*3/uL Baso # (Auto) 0.0 (0.0-0.2) X10*3/uL Abs Immat Gran (auto) 0.02 (0.00-0.03) X10*3/uL Absolute Neuts (auto) 4.6 (2.0-8.3) x10*3/uL Absolute Nucleated RBC 0.000 (0.0-0.012) X10*3/uL Nucleated RBC % (auto) 0.0 (0.0-0.2) /100WBC Sodium (135-145) mmol/L Potassium (3.3-5.1) mmol/L Chloride (96-108) mmol/L Carbon Dioxide (22-29) mmol/L Anion Gap (12-20) BUN (9-16) mg/dL Creatinine (0.5-1.4) mg/dL Estim Creat Clear Calc Estimated GFR Random Glucose (60-115) mg/dL Calcium (8.4-10.2) mg/dL Total Bilirubin (0.0-1.0) mg/dL AST (5-31) U/L ALT (0-31) U/L Alkaline Phosphatase (39-117) U/L Total Protein (6.5-8.0) g/dL Albumin (3.5-5.0) g/dL Lipase (8-78) U/L Urine Color Dark Yellow Urine Appearance Clear Urine pH 6.5 (5.0-9.0) Ur Specific [place] 1.020 (1.005-1.025) Urine Protein Negative (Neg-Trace) mg/dL Urine Glucose (UA) Negative (Negative) mg/dL Urine Ketones Negative (Negative) mg/dL Urine Blood Trace H (Negative) Urine Nitrite Positive H (Negative) Ur Leukocyte Esterase Negative (Negative) Urine RBC 3-5 H (0-2) /HPF Urine WBC 0-5 (0-5) /HPF Ur Squamous Epith Cells 0-2 (0-2) /HPF Urine Bacteria None Seen (None Seen) Hyaline Casts 0-2 (0-2) /LPF Urine Test NEGATIVE (NEGATIVE) 10/01/22 Range/Units 11:31 WBC (4.8-10.8) X10*3/uL RBC (4.20-5.50) X10*6/uL Hgb (12.0-16.0) g/dl Hct (37.0-47.0) % MCV (80.0-98.0) fL MCH (27.0-33.0) pg MCHC (31.0-35.0) g/dl RDW (11.0-16.0) % Plt Count (160-400) X10*3/uL MPV (9.4-12.3) fL Immature Gran % (Auto) (0.0-0.4) % Neut % (Auto) (45-73) % Lymph % (Auto) (20-40) % [place] % (Auto) (2-11) % Eos % (Auto) (0-4) % Baso % (Auto) (0-2) % Lymph # (Auto) (1.2-4.9) X10*3/uL [place] # (Auto) (0.1-1.2) X10*3/uL Eos # (Auto) (0.0-0.4) X10*3/uL Baso # (Auto) (0.0-0.2) X10*3/uL Abs Immat Gran (auto) (0.00-0.03) X10*3/uL Absolute Neuts (auto) (2.0-8.3) x10*3/uL Absolute Nucleated RBC (0.0-0.012) X10*3/uL Nucleated RBC % (auto) (0.0-0.2) /100WBC Sodium 139 (135-145) mmol/L Potassium 3.9 (3.3-5.1) mmol/L Chloride 109 H (96-108) mmol/L Carbon Dioxide 26 (22-29) mmol/L Anion Gap 8 L (12-20) BUN 13 (9-16) mg/dL Creatinine 0.79 (0.5-1.4) mg/dL Estim Creat Clear Calc 64.9 Estimated GFR > 60 Random Glucose 123 H (60-115) mg/dL Calcium 8.8 D (8.4-10.2) mg/dL Total Bilirubin 0.4 (0.0-1.0) mg/dL AST 17 (5-31) U/L ALT 12 (0-31) U/L Alkaline Phosphatase 70 (39-117) U/L Total Protein 6.1 L (6.5-8.0) g/dL Albumin 3.9 (3.5-5.0) g/dL Lipase 30 (8-78) U/L Urine Color Urine Appearance Urine pH (5.0-9.0) Ur Specific [place] (1.005-1.025) Urine Protein (Neg-Trace) mg/dL Urine Glucose (UA) (Negative) mg/dL Urine Ketones (Negative) mg/dL Urine Blood (Negative) Urine Nitrite (Negative) Ur Leukocyte Esterase (Negative) Urine RBC (0-2) /HPF Urine WBC (0-5) /HPF Ur Squamous Epith Cells (0-2) /HPF Urine Bacteria (None Seen) Hyaline Casts (0-2) /LPF Urine Test (NEGATIVE) Independent Interpretation I performed an independent interpretation of an: CT Scan (Distended bladder, possible intrahepatic biliary dilation, mild, no obstruction no other acute findings) Radiology Impression Discussion of test interpretation with radiology: I have reviewed the radiologist's reading. External Record Review External record reviewed: Other (Surgical report from 08/04/2022) Tests considered The following testing was considered but not selected: MRI Prescription Management I considered prescription management with: Pain Medication and Antibiotic Medications Administered Discontinued Medications Generic Name Dose Route Start Last Admin Trade Name Freq PRN Reason Stop Dose Admin Sodium Chloride 1,000 mls @ 999 mls/hr 10/01/22 11:15 10/01/22 12:34 Ns IV 10/01/22 12:15 Infused .Q1H1M ALISIA Infusion Iohexol 100 ml 10/01/22 12:59 10/01/22 13:00 Iohexol 350 Mg/Ml 100 Ml Infus..Btl IV 10/01/22 13:00 85 ml ONCE ONE Administration Ketorolac Tromethamine 15 mg 10/01/22 11:12 10/01/22 11:34 Ketorolac Tromethamine 15 Mg/Ml Vial IVPUSH 10/01/22 11:13 15 mg ONCE ONE Administration Discharge Plan Discharge Clinical Impression: Abdominal pain, Bacterial vaginosis Patient Disposition: Still a Patient Instructions: Abdominal Pain (ED), Vaginal Discharge (ED) Additional Instructions: You have been evaluated in the emergency department today for abdominal pain. Your evaluation did not show any evidence of a medical condition requiring emergent intervention at this time. Please schedule appointment with her [facility] provider within 2-3 days. Should you experience worsening or uncontrolled pain, high fevers, recurrent vomiting, inability to tolerate food or fluids by mouth, blood in stools or vomit, black or dark tarry stools or any other concerning symptoms, please return to the emergency department for evaluation. Please make sure to follow-up with your urologist on Thursday as scheduled. Prescriptions: New dicyclomine 20 mg tablet 20 mg PO TID PRN (Reason: abdominal discomfort) Qty: 10 0RF metronidazole 500 mg tablet 500 mg PO BID Qty: 14 0RF No Action amitriptyline 50 mg tablet 50 mg PO BEDTIME 30 Days Qty: 30 0RF naproxen [Naprosyn] 500 mg tablet 500 mg PO BEDTIME PRN (Reason: pain) 30 Days Qty: 30 0RF tramadol 50 mg tablet 50 mg PO Q8H PRN (Reason: pain) Qty: 15 0RF citalopram 20 mg tablet 1.5 tab PO DAILY albuterol sulfate 90 mcg/actuation HFA aerosol inhaler inhalation budesonide-formoterol [Symbicort] 160-4.5 mcg/actuation HFA aerosol inhaler 2 puff INHALATION BID levocetirizine 5 mg tablet 1 tab PO DAILY Myrbetriq 25 mg tablet extended release 24 hr 25 mg PO DAILY 30 Days Qty: 30 0RF oxycodone 5 mg capsule 5 mg PO Q8H PRN (Reason: pain (scale score 4-6)) 3 Days Qty: 20 0RF Rx Instructions: Partial Fill upon patient request. quetiapine 50 mg tablet 50 mg PO BEDTIME clonazepam 1 mg tablet 1 mg PO BID PRN (Reason: Anxiety) Referrals: Michell Hernandez MD [Primary Care Provider] - 2 days
[2022-10-01] MEDS: 0.9 % Sodium Chloride 1,000 ML 999 ML IV (11:33)
[2022-10-01] MEDS: Ketorolac Tromethamine 15 MG/ML VIAL IVPUSH (11:34)
[2022-10-01 11:35] LABS: MANUAL DIFF FLAG NO
[2022-10-01 11:36] LABS: Basophils Percent Auto 0.5 % (0-2); Eosinophils Absolute Auto 0.2 X10*3/uL (0.0-0.4); Eosinophils Percent Auto 2.6 % (0-4); Hematocrit 35.7 % (37.0-47.0); Imm Gran Abs Auto 0.02 X10*3/uL (0.00-0.03); Imm Gran Pct Auto 0.2 % (0.0-0.4); Lymphocytes Absolute Auto 2.6 X10*3/uL (1.2-4.9); Lymphocytes Percent Auto 32.1 % (20-40); Mean Corpuscular HGB Conc 33.6 g/dl (31.0-35.0); Mean Corpuscular Hemoglobin 30.5 pg (27.0-33.0); Mean Corpuscular Volume 90.8 fL (80.0-98.0); Mean Platelet Volume 10.1 fL (9.4-12.3); Monocytes Absolute Auto 0.7 X10*3/uL (0.1-1.2); Monocytes Percent Auto 8.1 % (2-11); Neutrophils Absolute Auto 4.6 x10*3/uL (2.0-8.3); Neutrophils Percent Auto 56.5 % (45-73); Platelet Count 210 X10*3/uL (160-400); Red Blood Count 3.93 X10*6/uL (4.20-5.50); Red Cell Distribution Width 14.7 % (11.0-16.0); White Blood Count 8.1 X10*3/uL (4.8-10.8)
[2022-10-01 11:53] LABS: Alanine Aminotransferase 12 U/L (0-31); Albumin Level 3.9 g/dL (3.5-5.0); Alkaline Phosphatase 70 U/L (39-117); Anion Gap 8 (12-20); Aspartate Amino Transferase 17 U/L (5-31); Bilirubin Total 0.4 mg/dL (0.0-1.0); Blood Urea Nitrogen 13 mg/dL (9-16); Calcium 8.8 mg/dL (8.4-10.2); Carbon Dioxide 26 mmol/L (22-29); Chloride 109 mmol/L (96-108); Creatinine Clr Calc Pharmacy 64.9; Estimated Glomerular Filt Rate > 60; Glucose Random 123 mg/dL (60-115); Lipase 30 U/L (8-78); Potassium 3.9 mmol/L (3.3-5.1); Sodium 139 mmol/L (135-145); Total Protein 6.1 g/dL (6.5-8.0)
[2022-10-01] MEDS: iohexoL 350 MG/ML 100 ML INFUS..BTL IV (13:00)
[2022-10-01 14:24] VITALS: BP 157/83; PULSE 58; RESP 12; O2SAT 100
--- NOTE | 2022-10-01 14:30 | PC.NURSE ---
Patient becoming very agitated towards staff, requesting to leave AMA. Provider made aware. Patient refusing to sign AMA form. Yelling go fuck yourself on way out of emergency department.
--- NOTE | 2022-10-01 14:31 | PC.NURSE ---
agitated and verbally abusive to staff, pt upset that we suggested that she not eat until afte ct results, pt refused to sign ama paperwork
[2022-10-02 10:48] LABS: BV Int Neg Control Negative (Negative); BV Int Pos Control Positive (Positive)
== END 2022-10-01 14:34 | disposition left against medical advice (07) ==
PROVIDERS: Emergency Provider Emergency Medicine; PCP Family Medicine
DX: R10.30 Lower abdominal pain, unspecified (principal); N76.0 Acute vaginitis; F17.210 Nicotine dependence, cigarettes, uncomplicated; F12.90 Cannabis use, unspecified, uncomplicated; Z79.899 Other long term (current) drug therapy
CPT/HCPCS: 36415; 74177; 80053; 81001; 81025; 83690; 85025; 87086; 87480; 87510; 87660; 96361; 96374; 99284; J1885; Q9967

== ENCOUNTER 2022-10-03 10:30 | Outpatient (REF) | payer MEDICARE, MEDICAID, SELFPAY | END 2022-10-03 10:31 | disposition home or self-care (01) | LOC: HO.LAB 10:30 | PROVIDERS: PCP Family Medicine; Visit Provider Nurse Practitioner Family | DX: N32.81 Overactive bladder (principal); N30.10 Interstitial cystitis (chronic) without hematuria | CPT/HCPCS: 51700; 87086; 99212 ==

== ENCOUNTER → 2022-10-07 13:25 | Outpatient (BNVA) | payer MEDICARE, MEDICAID, SELFPAY | PROVIDERS: PCP Family Medicine; Visit Provider Nurse Practitioner Family | DX: N30.10 Interstitial cystitis (chronic) without hematuria (principal) | CPT/HCPCS: 51700; 99212 ==

== ENCOUNTER → 2022-10-08 09:14 | Outpatient (BNVA) | payer MEDICARE, MEDICAID, SELFPAY | PROVIDERS: PCP Family Medicine; Visit Provider Nurse Practitioner Family | DX: N30.10 Interstitial cystitis (chronic) without hematuria (principal) | CPT/HCPCS: 51700; 99212 ==

== ENCOUNTER → 2022-10-09 09:26 | Outpatient (BNVA) | payer MEDICARE, MEDICAID, SELFPAY | PROVIDERS: PCP Family Medicine; Visit Provider Nurse Practitioner Family | DX: N30.10 Interstitial cystitis (chronic) without hematuria (principal) | CPT/HCPCS: 51700; 99212 ==

== ENCOUNTER → 2022-10-10 09:26 | Outpatient (BNVA) | payer MEDICARE, MEDICAID, SELFPAY | PROVIDERS: PCP Family Medicine; Visit Provider Nurse Practitioner Family | DX: N30.10 Interstitial cystitis (chronic) without hematuria (principal) | CPT/HCPCS: 51700; 99212 ==

== ENCOUNTER → 2022-10-13 10:30 | Outpatient (BNVA) | payer MEDICARE, MEDICAID, SELFPAY | PROVIDERS: PCP Family Medicine; Visit Provider Nurse Practitioner Family | DX: N30.10 Interstitial cystitis (chronic) without hematuria (principal) | CPT/HCPCS: 51700; 99212 ==

== ENCOUNTER → 2022-11-04 09:25 | Outpatient (BNVA) | payer MEDICARE, MEDICAID, SELFPAY | PROVIDERS: PCP Family Medicine; Visit Provider Nurse Practitioner Family | DX: N30.10 Interstitial cystitis (chronic) without hematuria (principal); N32.81 Overactive bladder | CPT/HCPCS: 51700; 99212 ==

== ENCOUNTER → 2022-11-11 08:25 | Outpatient (BNVA) | payer MEDICARE, MEDICAID, SELFPAY | PROVIDERS: PCP Family Medicine; Visit Provider Nurse Practitioner Family | DX: N30.10 Interstitial cystitis (chronic) without hematuria (principal); N32.81 Overactive bladder | CPT/HCPCS: 51700; 99212 ==

== ENCOUNTER → 2022-11-21 10:25 | Outpatient (BNVA) | payer MEDICARE, MEDICAID, SELFPAY | PROVIDERS: PCP Family Medicine; Visit Provider Nurse Practitioner Family | DX: N32.81 Overactive bladder (principal); N30.10 Interstitial cystitis (chronic) without hematuria | CPT/HCPCS: 51700; 99212 ==

== ENCOUNTER → 2022-11-28 09:28 | Outpatient (BNVA) | payer MEDICARE, MEDICAID, SELFPAY | PROVIDERS: PCP Family Medicine; Visit Provider Nurse Practitioner Family | DX: N32.81 Overactive bladder (principal); N30.10 Interstitial cystitis (chronic) without hematuria | CPT/HCPCS: 51700; 99212 ==

== ENCOUNTER → 2022-12-02 09:25 | Outpatient (BNVA) | payer MEDICARE, MEDICAID, SELFPAY | PROVIDERS: PCP Family Medicine; Visit Provider Nurse Practitioner Family | DX: N32.81 Overactive bladder (principal); N30.10 Interstitial cystitis (chronic) without hematuria | CPT/HCPCS: 51700; 99212 ==

== ENCOUNTER → 2022-12-10 10:25 | Outpatient (BNVA) | payer MEDICARE, MEDICAID, SELFPAY | PROVIDERS: PCP Family Medicine; Visit Provider Nurse Practitioner Family | DX: N30.10 Interstitial cystitis (chronic) without hematuria (principal); N32.81 Overactive bladder | CPT/HCPCS: 51700; 99212 ==

== ENCOUNTER → 2023-01-09 11:45 | Outpatient (BNVA) | payer MEDICARE, MEDICAID, SELFPAY | PROVIDERS: PCP Family Medicine; Visit Provider Nurse Practitioner Family | DX: N30.10 Interstitial cystitis (chronic) without hematuria (principal); N32.81 Overactive bladder; Z79.899 Other long term (current) drug therapy | CPT/HCPCS: 51700; 51701; 99212 ==

== ENCOUNTER 2023-04-06 06:16 | Day surgery (SDC) | payer MEDICARE, MEDICAID, SELFPAY ==
[2023-04-02 11:20] VITALS: BMI 21.5
--- NOTE | 2023-04-03 11:54 | P.CONAN_ITS ---
Documented by User: Dahiana Leach NP 04/03/23 11:57 HPI - Anesthesia Eval Consult details Narrative: 52yo F for Cystoscopy Hydrodistention of Bladder s/p same 07/2022 with GA-LMA PMFSH Active Problems Active Problems: All Active Problems (Updated 04/02/23 @ 11:16 by Leticia Monique RN) Overactive bladder (Acute) Interstitial cystitis (Acute) Past Medical History Medical History PONV (postoperative nausea and vomiting) Arthritis Bipolar disorder Depression Anxiety Asthma Interstitial cystitis Overactive bladder Family History Family history of problems with anesthesia: No Surgical History Surgical History Hx of eye surgery History of cystoscopy Hx of ovarian cystectomy History of Problems with Anesthesia: No Social History Social History (Updated 04/02/23 @ 11:17 by Leticia Monique RN) Household Members: None Housing: Apartment Are you a primary restorative care technician to a significant other at home: No Do you presently have visiting nurse or other home services: No Alcohol intake: never Patient Tobacco Use Status: Current everyday Tobacco user Tobacco use type: Cigarette Cigarettes Per Day: 4 Use of substances other than those prescribed or required for medical reasons: Yes Substance Use Type: Marijuana Substance Use Frequency: Occasionally Have you been hit, kicked, punched, or otherwise hurt by someone within the past year? If so, by whom?: No Are you DNR?: No Advance Directives: No Advance Directives Information Provided: Yes Advance Directives on File: No Recently lost weight without trying: No Nutrition Risks: No Nutritional Risk Patient : No FDLMP: 03/25/2023 : No Poor oral hygiene: No Meds Allergies Allergy/AdvReac Type Severity Reaction Status Date / Time aspirin [Aspirin] Allergy Severe ANAPHYLAXIS, Verified 04/02/23 11:18 nausea,vomiting morphine [Morphine] Allergy Severe SOB, Verified 04/02/23 11:18 horrible feeling cephalexin Allergy Intermediate vomiting Verified 04/02/23 11:18 ibuprofen [From Motrin] Allergy Intermediate BLEEDING-PT Verified 04/02/23 11:18 STATES STILL TAKES pineapple Allergy Mild Rash Verified 04/02/23 13:21 Home Medications Medication Instructions Recorded Confirmed Last Taken Type clonazepam 1 mg tablet 1 mg PO BID PRN Anxiety 07/08/22 04/02/23 Unknown History albuterol sulfate 90 mcg/actuation inhalation PRN Shortness Of Breath 07/29/22 Unknown History aerosol inhaler Or Wheezing budesonide-formoterol HFA 160 2 puff inhalation BID 07/29/22 07/29/22 Unknown History mcg-4.5 mcg/actuation aerosol inhaler (Symbicort) citalopram 20 mg tablet 1.5 tab PO DAILY 07/29/22 04/02/23 Unknown History levocetirizine 5 mg tablet 1 tab PO DAILY 07/29/22 04/02/23 Unknown History quetiapine 50 mg tablet 50 mg PO BEDTIME 01/09/23 04/02/23 Unknown History Exam Exam Date and Time: April 03, 2023 1154 Height,Weight and Vital Signs: Height 5 ft 1 in Weight 51.71 kg Pertinent Lab Results Pertinent Lab Results: Laboratory Tests 10/01/22 11:31 WBC 8.1 Hgb 12.0 Hct 35.7 L Plt Count 210 Sodium 139 Potassium 3.9 Chloride 109 H Carbon Dioxide 26 BUN 13 Creatinine 0.79 Assessment and Plan Assessment Anesthesia Assessment: Chart Reviewed Final Anesthetic Review Family History of Problems with Anesthesia: No History of Problems with Anesthesia: No Documented by User: Cuco Monique MD 04/06/23 08:37 [facility] Past Medical History Medical History PONV (postoperative nausea and vomiting) Arthritis Bipolar disorder Depression Anxiety Asthma Interstitial cystitis Overactive bladder Surgical History Surgical History Hx of eye surgery History of cystoscopy Hx of ovarian cystectomy History of Problems with Anesthesia: Yes (PONV) Social History Social History (Updated 04/02/23 @ 11:17 by Leticia Monique RN) Household Members: None Housing: Apartment Are you a primary restorative care technician to a significant other at home: No Do you presently have visiting nurse or other home services: No Alcohol intake: never Patient Tobacco Use Status: Current everyday Tobacco user Tobacco use type: Cigarette Cigarettes Per Day: 4 Use of substances other than those prescribed or required for medical reasons: Yes Substance Use Type: Marijuana Substance Use Frequency: Occasionally Have you been hit, kicked, punched, or otherwise hurt by someone within the past year? If so, by whom?: No Are you DNR?: No Advance Directives: No Advance Directives Information Provided: Yes Advance Directives on File: No Recently lost weight without trying: No Nutrition Risks: No Nutritional Risk Patient : No FDLMP: 03/25/2023 : No Poor oral hygiene: No Meds Allergies Allergy/AdvReac Type Severity Reaction Status Date / Time aspirin [Aspirin] Allergy Severe ANAPHYLAXIS, Verified 04/02/23 11:18 nausea,vomiting morphine [Morphine] Allergy Severe SOB, Verified 04/02/23 11:18 horrible feeling cephalexin Allergy Intermediate vomiting Verified 04/02/23 11:18 ibuprofen [From Motrin] Allergy Intermediate BLEEDING-PT Verified 04/02/23 11:18 STATES STILL TAKES pineapple Allergy Mild Rash Verified 04/02/23 13:21 Home Medications Medication Instructions Recorded Confirmed Last Taken Type clonazepam 1 mg tablet 1 mg PO BID PRN Anxiety 07/08/22 04/02/23 Unknown History albuterol sulfate 90 mcg/actuation inhalation PRN Shortness Of Breath 07/29/22 Unknown History aerosol inhaler Or Wheezing budesonide-formoterol HFA 160 2 puff inhalation BID 07/29/22 07/29/22 Unknown History mcg-4.5 mcg/actuation aerosol inhaler (Symbicort) citalopram 20 mg tablet 1.5 tab PO DAILY 07/29/22 04/02/23 Unknown History levocetirizine 5 mg tablet 1 tab PO DAILY 07/29/22 04/02/23 Unknown History quetiapine 50 mg tablet 50 mg PO BEDTIME 01/09/23 04/02/23 Unknown History Exam Airway Mallampati Class: I TM Dist: >3cm Neck ROM: Full Partial: Upper Heart: ok Lungs: ok Assessment and Plan Assessment Anesthesia Assessment: Anesthesia Plan Discussed Final Anesthetic Review History of Problems with Anesthesia: Yes (PONV) NPO: Yes ASA Class: II Final Preanesthetic Review: No Changes in Pt Med Stat, Meds/Allgs Chart Reviewed, Consent Obtained/Reviewed and Anes Risks/Benef Reviewed Patient Risk: Low Procedure Risk: Low Anesthetic Plan Anesthetic Plan: GA and Agree w/ Assess. and Plan Disposition: Standard PACU
[2023-04-06] VITALS (7 sets, daily range): BP systolic 92–112; BP diastolic 51–67; PULSE 42–66; RESP 14–17; TEMP 36.1–36.7; O2SAT 98–100
[2023-04-06 07:13] LABS: UPreg QC Valid YES; Urine Pregnancy NEGATIVE (NEGATIVE)
[2023-04-06] MEDS: Lactated Ringers 1,000 ML 100 ML IVCONT (07:23)
--- NOTE | 2023-04-06 08:26 | MHC.SHP ---
Pre-Procedural Eval Section A Date of Service: 04/06/23 The patient is an INPATIENT: No Changes since office visit: No Cold of Flu in the past 2 weeks, No New Medical Problems, No Changes in Medication and No Patient answered all questions The History & Physical has been completed within 30 days and I have reviewed it.: Yes Section B Chief Complaint: Interstitial cystitis (chronic) without hematuria Relevant Social History: None Present Medications: see Short Stay Collaborative assessment Medical History: Significant History History of Previous Operations: Relevant previous surgery/procedure and date(s) Allergies: Allergies Allergy/AdvReac Type Severity Reaction Status Date / Time aspirin [Aspirin] Allergy Severe ANAPHYLAXIS, Verified 04/02/23 11:18 nausea,vomiting morphine [Morphine] Allergy Severe SOB, Verified 04/02/23 11:18 horrible feeling cephalexin Allergy Intermediate vomiting Verified 04/02/23 11:18 ibuprofen [From Motrin] Allergy Intermediate BLEEDING-PT Verified 04/02/23 11:18 STATES STILL TAKES pineapple Allergy Mild Rash Verified 04/02/23 13:21 Review of Systems Sugical H&P ROS: Negative: Constitution, Cardiovascular, Respiratory, Neurological, Psychiatric, Hem-Onc, Allergic/Immunologic, Gastrointestinal, Genitourinary, Musculoskeletal, Integumentary, Endocrine and Eyes/Ears/Nose/Throat Exam Surgical H&P Exam: Normal: HEENT, Normal: Heart, Normal: Lungs, Normal: Extremities, Normal: Abdomen, Normal: Skin and Normal: Neurological Plan Diagnosis/Plan: Unchanged ( hydro distension) I have reviewed the history and physical and performed a pertinent physical examination on my patient. No changes have occurred unless specified. Time Spent With Patient Time: Total time managing care of this patient today ____ minutes.
[2023-04-06] MEDS: Acetaminophen 325 MG TABLET 975 MG PO (09:27)
[2023-04-06] MEDS: Phenazopyridine HCL 100 MG TABLET PO (09:27)
--- NOTE | 2023-04-06 09:35 | P.OP_ITS ---
Operative Note Operative Note Date of Service: 04/06/23 Narrative: PreOperative Diagnosis: Interstitial cystitis with pelvic pain Post Operative Diagnosis: Interstitial cystitis with pelvic pain Procedure: Hydrodistention Surgeon: Dr Khurram Hoffmann Anesthesia: General Indications for procedure: prior procedure good effect. Worsening current control. Procedure: After informed consent was verified the patient was brought to the operating room and placed in a supine position. Anesthesia was administered per protocol. The patient was placed in a modified dorsal lithotomy position and prepped and draped in sterile fashion. Safety pause time-out was observed. Antibiotics being given. A 22 Croatian cystoscope was used to empty the bladder. A mixture of bupivacaine lidocaine gel 20 cc was instilled into the bladder and allowed to sit for 2-3 minutes. A belladonna and opiate rectal suppository was placed. Hydrodistention of the bladder was performed. The bladder was filled and allowed to sit for 2 minutes. Filling was from a height of 1 m. On the 1st fill there was Three hundred seventy-five cc within the bladder. Cystoscopy revealed glomerulations consistent with interstitial cystitis. Second filling of the bladder was performed in similar fashion. Bladder biopsies were performed and fulguration used for control. Volume was approximately 400 cc. Terminal hematuria noted. The the bladder was emptied. The patient tolerated procedure well was extubated in operating room transferred in stable condition to the recovery area. Appropriate postprocedure pain medication was provided. Pathology: - Drains: None
== END 2023-04-06 11:15 | disposition home or self-care (01) ==
PROVIDERS: Anesthesiology; Visit Provider Urology
PROC: 0T7B7ZZ Dilation of Bladder, Via Natural or Artificial Opening (ICD-10-PCS; CPT 52260; principal; 2023-04-06 08:30)
DX: N30.10 Interstitial cystitis (chronic) without hematuria (principal); N32.81 Overactive bladder; J45.909 Unspecified asthma, uncomplicated; F41.9 Anxiety disorder, unspecified; F17.210 Nicotine dependence, cigarettes, uncomplicated; F12.90 Cannabis use, unspecified, uncomplicated; Z79.899 Other long term (current) drug therapy
CPT/HCPCS: 52260; 81025; J1956; J2250; J2405; J3010

== ENCOUNTER → 2023-04-06 06:16 | Outpatient (BNV) | payer MEDICARE, MEDICAID, SELFPAY | PROVIDERS: Visit Provider Urology | DX: N30.10 Interstitial cystitis (chronic) without hematuria (principal) | CPT/HCPCS: 52260 ==

== ENCOUNTER 2023-04-22 09:05 | Outpatient (AMB) | payer MEDICARE, MEDICAID, SELFPAY ==
--- NOTE | 2023-04-22 09:11 | MHC.OFFVIS ---
Intake Intake Visit Reasons: 2 weeks ([place]) Intake Note: Patient is present for follow up interstitial cystitis/hydrodistention Urology Medications: none Blood Thinner: none PVR: 0mls Microbiology Laboratory Manager Required: No Accompanied by: Self / Same As Patient Allergies aspirin [Aspirin] Allergy (Severe, Verified 04/22/23 09:49) ANAPHYLAXIS, nausea,vomiting morphine [Morphine] Allergy (Severe, Verified 04/22/23 09:49) SOB, horrible feeling cephalexin Allergy (Intermediate, Verified 04/22/23 09:49) vomiting ibuprofen [From Motrin] Allergy (Intermediate, Verified 04/22/23 09:49) BLEEDING-PT STATES STILL TAKES pineapple Allergy (Mild, Verified 04/22/23 09:49) Rash Medication List - Last Reconciled 04/22/23 by PHIL Mccormick-NOE albuterol sulfate 90 mcg/actuation inhalation PRN amitriptyline 50 mg PO BEDTIME 30 days budesonide-formoterol 160-4.5 mcg/actuation (Symbicort) 2 puffs inhalation BID citalopram 1.5 tabs PO DAILY clonazepam 1 mg PO BID PRN dicyclomine 20 mg PO TID PRN levocetirizine 1 tab PO DAILY quetiapine 50 mg PO BEDTIME tramadol 50 mg PO Q8H PRN 7 days HPI HPI Comments History of Present Illness Details Analilia is a pleasant 52-year-old female who is a patient of Dr. Hernandez. She presents to the office today as a follow-up of her interstitial cystitis in addition to her overactive bladder. She has a past medical history of anxiety, asthma, bipolar disorder, depression, interstitial cystitis, and overactive bladder. Patient is status post cystoscopy hydrodistention with Dr. Hoffmann in the OR on 04/06/23. Patient presents to the office today for a follow up. When asked she reports recently losing her dog Obama approximately 1 month ago and is trying to cope with this situation. She reports noting lower urinary tract symptoms status post cystoscopy hydrodistention 4 days after. She reports typically after her cystoscopy hydro distentions symptoms worsen for 24 hours however feels this time symptoms were longer. She currently reports urgency, bladder pressure, and intermittent episodes of dysuria however states symptoms are improving compared to prior. In office urinalysis results reviewed with the patient today. Discussed and stressed importance of avoiding bladder triggers. PFSH Medical History PONV (postoperative nausea and vomiting) Arthritis Bipolar disorder Depression Anxiety Asthma Interstitial cystitis Overactive bladder Surgical History Hx of eye surgery History of cystoscopy Hx of ovarian cystectomy Social History Household Members: None Housing: Apartment Are you a primary healthcare translator to a significant other at home: No Do you presently have visiting nurse or other home services: No Alcohol intake: never Patient Tobacco Use Status: Current everyday Tobacco user Tobacco use type: Cigarette Cigarettes Per Day: 4 Substance Use Type: Marijuana Physical Exam Const General: cooperative, healthy appearing, comfortable, no acute distress, well developed, alert and awake Orientation/consciousness: patient oriented x3 Limitations: no limitations HEENT Head: Yes normal to inspection, Yes normocephalic and Yes atraumatic Ears: hearing grossly normal bilaterally Eyes General: appearance normal, both eyes and all related structures Neck Neck: Yes normal visual inspection and Yes trachea midline Chest Chest palpation & inspection: normal inspection of the chest Resp Effort & Inspection: normal respiratory effort and able to speak in complete sentences Cardio Rate: regular rate GI Inspection: Yes normal to inspection General: Yes no CVA tenderness Back/Spine/Pelvis Back: no CVA tenderness Skin General skin exam: no rashes or lesions noted Neuro General: patient oriented x3 Extrem General: Yes normal to inspection Psych Appearance: grossly normal and well kempt Mental Status: mental status grossly normal Speech and movement: Normal speech and movement present and Clear speech present Affect: normal affect and Sad affect present Attitude: cooperative Thought process: Normal thought process present Thought content: Normal thought content present Insight: Fair insight present (Psych) Judgement: Fair judgement present (Psych) Office Procedures Post Void Residual Post Residual Void Post Void Residual (PVR): 0 [id number] Void Residual by ultrasound Results AMB Urinalysis, Automated UA Leukoctes 0 Carina/uL Last Edit by Marvel Palma on 04/22/23 09:23 UA Nitrite Negative Last Edit by Marvel Palma on 04/22/23 09:23 UA Urobilinogen 0.2 mg/dL Last Edit by Marvel Petersonvelma on 04/22/23 09:23 UA Protein 15 mg/dL Last Edit by Marvel Palma on 04/22/23 09:23 UA pH 5.5 Last Edit by Marvel Kristenvelma on 04/22/23 09:23 UA Blood 200 Vinicio/uL Last Edit by Marvel Palma on 04/22/23 09:23 UA Specific Howard 1.030 Last Edit by Robertash Kristenvelma on 04/22/23 09:23 UA Ketone Negative Last Edit by Marvel Kristenvelma on 04/22/23 09:23 UA Bilirubin 1 mg/dL Last Edit by Marvel Palma on 04/22/23 09:23 UA Glucose 0 mg/dL Last Edit by Marvel Palma on 04/22/23 09:23 Results Reviewed Results Reviewed: Laboratory Last Values Urine pH (Auto) 5.5 04/22/23 09:14 Specific Howard (Auto) 1.030 04/22/23 09:14 Urine Protein (Auto) 15 mg/dL 04/22/23 09:14 Glucose (UA)(Auto) 0 mg/dL 04/22/23 09:14 Urine Ketones (Auto) Negative 04/22/23 09:14 Urine Blood (Auto) 200 Vinicio/uL 04/22/23 09:14 Urine Nitrite (Auto) Negative 04/22/23 09:14 Urine Bilirubin (Auto) 1 mg/dL 04/22/23 09:14 Urine Urobilinogen (Auto) 0.2 mg/dL 04/22/23 09:14 Leukocyte Esterase (Auto) 0 Carina/uL 04/22/23 09:14 Assessment & Plan Assessment & Plan (1) Overactive bladder: Code(s): N32.81 - Overactive bladder (2) Interstitial cystitis: Code(s): N30.10 - Interstitial cystitis (chronic) without hematuria Plan In office urinalysis results reviewed with the patient today; as noted above. Discussed, educated, and stressed the importance of drinking plenty of water daily. Discussed avoiding bladder triggers/irritants. Patient continues to report urinary urgency, frequency, and bladder pressure however reports symptoms are improving when compared to preprocedure. Discussed near future in office rescue treatments if symptoms persist. Follow-up in 1 week with PVR; or sooner with any issues, concerns, and or questions. Orders: Orders AMB Urinalysis Automated Today Z13.9 - Encounter for screening, unspecified AMB Post Void Residual by ultrasound Today N30.10 - Interstitial cystitis (chronic) without hematuria Medications: Refilled tramadol 50 mg PO Q8H PRN 15 tabs 0RF pain 7 days N30.10 - Interstitial cystitis (chronic) without hematuria Patient Instructions: The patient had an opportunity to ask questions regarding the treatment plan. All questions were answered. Physical exam, labs, and imaging were discussed and reviewed in detail. As well as risks, benefits, and discussion of treatment choices. No major barriers to understanding were identified. The patient expressed understanding and agreement with the above treatment plan. The patient was made aware they should contact our office by phone for worsening of their current condition, the appearance of new symptoms, or with any questions or concerns. Compliance is encouraged with any medications and follow up testing that is ordered. It is a privilege to be allowed the opportunity to participate in? your urological care.? Again, if you have any questions or concerns If you have any questions or concerns please do not hesitate to contact me. The office is [phone]. This note is constructed using voice recognition software. While every effort has been made to ensure accuracy environmental management specialist errors may have been included. Yours sincerely, EVERT Mccormick Coding Level of Care Code Est Pt Level 3 (45908) Diagnoses Overactive bladder N32.81 Interstitial cystitis N30.10 CPT Codes Post Residual Void - PVR CPT Code: 60736-Feno Void Residual by ultrasound ([id number])
== END 2023-04-22 09:51 | disposition home or self-care (01) ==
LOC: HO.HUSH 09:05
PROVIDERS: Visit Provider Nurse Practitioner Family
DX: N32.81 Overactive bladder (principal); N30.10 Interstitial cystitis (chronic) without hematuria
CPT/HCPCS: 99213

== ENCOUNTER → 2023-04-22 09:05 | Outpatient (BNVA) | payer MEDICARE, MEDICAID, SELFPAY | PROVIDERS: Visit Provider Nurse Practitioner Family | DX: N30.10 Interstitial cystitis (chronic) without hematuria (principal); N32.81 Overactive bladder | CPT/HCPCS: 51798; 81003; 99212 ==

== ENCOUNTER 2023-07-17 09:26 | Outpatient (AMB) | payer MEDICARE, MEDICAID, SELFPAY ==
--- NOTE | 2023-07-17 10:14 | MHC.OFFVIS ---
Intake Intake Visit Reasons: 1 Month f/u w/ PVR r/s Intake Note: Patient is present for follow up interstitial cystitis/hydrodistention Urology Medications: none Blood Thinner: none PVR: 0mls Public Works Technician Required: No Accompanied by: Self / Same As Patient Allergies aspirin [Aspirin] Allergy (Severe, Verified 07/18/23 13:36) ANAPHYLAXIS, nausea,vomiting morphine [Morphine] Allergy (Severe, Verified 07/18/23 13:36) SOB, horrible feeling cephalexin Allergy (Intermediate, Verified 07/18/23 13:36) vomiting ibuprofen [From Motrin] Allergy (Intermediate, Verified 07/18/23 13:36) BLEEDING-PT STATES STILL TAKES pineapple Allergy (Mild, Verified 07/18/23 13:36) Rash Medication List - Last Reconciled 07/19/23 by PHIL Mccormick- albuterol sulfate 90 mcg/actuation inhalation PRN amitriptyline 50 mg PO BEDTIME 30 days budesonide-formoterol 160-4.5 mcg/actuation (Symbicort) 2 puffs inhalation BID citalopram 1.5 tabs PO DAILY clonazepam 1 mg PO BID PRN dicyclomine 20 mg PO TID PRN levocetirizine 1 tab PO DAILY quetiapine 50 mg PO BEDTIME tramadol 50 mg PO Q8H PRN 7 days HPI HPI Comments History of Present Illness Details Analilia is a pleasant 52-year-old female who is a patient of Dr. Hernandez. She has a past medical history of anxiety, asthma, bipolar disorder, depression, interstitial cystitis, and overactive bladder. She presents to the office today as a follow-up of her interstitial cystitis in addition to her overactive bladder. When asked she reports feeling flare-up of her interstitial cystitis. She reports noting nocturia, urinary urgency, urinary frequency, and bladder pressure. She reports she is unsure if she is premenopausal as she has not had her menses for the last 2 months. When asked she denies incontinence, nocturia, hematuria, dysuria, foul smelling urine, changes to urinary stream, flank pain, fever, and or chills. In office bladder instillation provided. Discussed further treatment options with weekly bladder instillation, medications, and other treatment options. At this time patient wishes to move forward with cystoscopy hydrodistention given good benefits in the past. In office urinalysis results reviewed with the patient today. PVR 0ml's. Discussed and stressed importance of avoiding bladder triggers. She discusses her upcoming travel to [place] to see her mom who was had recent kidney surgery. She otherwise denies any other issues or concerns at this time [facility] Medical History PONV (postoperative nausea and vomiting) Arthritis Bipolar disorder Depression Anxiety Asthma Interstitial cystitis Overactive bladder Surgical History Hx of eye surgery History of cystoscopy Hx of ovarian cystectomy Social History Household Members: None Housing: Apartment Are you a primary health care attorney to a significant other at home: No Do you presently have visiting nurse or other home services: No Alcohol intake: never Patient Tobacco Use Status: Current everyday Tobacco user Tobacco use type: Cigarette Cigarettes Per Day: 4 Substance Use Type: Marijuana Review of Systems Const Reports no additional complaints Eyes Reports no additional complaints ENT Details: patient reports allergies Reports no additional complaints Card Reports no additional complaints Resp Reports no additional complaints GI Reports as per HPI Reports as per HPI Neuro Reports no additional complaints Psych Reports anxiety and Reports depression Endo Reports no additional complaints Ryan/Lymph Reports no additional complaints Aller/Immun Reports no additional complaints Physical Exam Const General: cooperative, healthy appearing, comfortable, no acute distress, well developed, alert and awake Orientation/consciousness: patient oriented x3 Limitations: no limitations HEENT Head: Yes normal to inspection, Yes normocephalic and Yes atraumatic Ears: hearing grossly normal bilaterally Eyes General: appearance normal, both eyes and all related structures Neck Neck: Yes normal visual inspection and Yes trachea midline Chest Chest palpation & inspection: normal inspection of the chest Resp Effort & Inspection: normal respiratory effort and able to speak in complete sentences Cardio Rate: regular rate GI Inspection: Yes normal to inspection General: Yes no CVA tenderness Back/Spine/Pelvis Back: no CVA tenderness Skin General skin exam: no rashes or lesions noted Neuro General: patient oriented x3 Extrem General: Yes normal to inspection Psych Appearance: grossly normal and well kempt Mental Status: mental status grossly normal Speech and movement: Normal speech and movement present and Clear speech present Affect: normal affect and Sad affect present Attitude: cooperative Thought process: Normal thought process present Thought content: Normal thought content present Insight: Fair insight present (Psych) Judgement: Fair judgement present (Psych) Office Procedures Bladder/Catheter Procedure Details: Bladder instillation for interstitial cystitis. Patient was catheterized using clean technique 14 [place] female CIC catheter utilized. Bladder was emptied for [10] mL of yellow urine Bladder rescue installed : 10 mls bupivicaine 0.50% 10 mls lidocaine 2% 10 ml lidocaine urojet 2 mls (10,000 units) heparin 1 ml (40 mg) solumedrol Patient tolerated procedure well. Instructed and educated to hold in bladder for 1 hour or greater. 74973-Sovsaurwel of Bladder 70792-Tshadh Bladder Catheter Procedure code (CPT) selection complete Post Void Residual Post Residual Void Post Void Residual (PVR): 0 82452-Oois Void Residual by ultrasound Results AMB Urinalysis, Automated UA Leukoctes 0 Carina/uL Last Edit by Tuloko on 07/17/23 10:54 UA Nitrite Negative Last Edit by Tuloko on 07/17/23 10:54 UA Urobilinogen 0.2 mg/dL Last Edit by Tuloko on 07/17/23 10:54 UA Protein 0 mg/dL Last Edit by Tuloko on 07/17/23 10:54 UA pH 6.0 Last Edit by Tuloko on 07/17/23 10:54 UA Blood 80 Vinicio/uL Last Edit by Tuloko on 07/17/23 10:54 UA Specific [place] 1.020 Last Edit by Tuloko on 07/17/23 10:54 UA Ketone Negative Last Edit by Tuloko on 07/17/23 10:54 UA Bilirubin 0 mg/dL Last Edit by Tuloko on 07/17/23 10:54 UA Glucose 0 mg/dL Last Edit by Tuloko on 07/17/23 10:54 Results Reviewed Results Reviewed: Laboratory Last Values Urine pH (Auto) 6.0 07/17/23 10:16 Specific [place] (Auto) 1.020 07/17/23 10:16 Urine Protein (Auto) 0 mg/dL 07/17/23 10:16 Glucose (UA)(Auto) 0 mg/dL 07/17/23 10:16 Urine Ketones (Auto) Negative 07/17/23 10:16 Urine Blood (Auto) 80 Vinicio/uL 07/17/23 10:16 Urine Nitrite (Auto) Negative 07/17/23 10:16 Urine Bilirubin (Auto) 0 mg/dL 07/17/23 10:16 Urine Urobilinogen (Auto) 0.2 mg/dL 07/17/23 10:16 Leukocyte Esterase (Auto) 0 Carina/uL 07/17/23 10:16 Assessment & Plan Assessment & Plan (1) Overactive bladder: Code(s): N32.81 - Overactive bladder (2) Interstitial cystitis: Code(s): N30.10 - Interstitial cystitis (chronic) without hematuria Plan: Risks, benefits and alternatives to therapy were discussed. These include but are not limited to infection, bleeding, damage to local organs and tissues, need for further interventions. ? Anesthetic risks regarding cardiac arrhythmia, blood clots, and potential mortality were discussed. The patient understands the typical recovery time and the outpatient nature of the procedure. After consideration of these risks the patient gives full informed consent and they wish to move ahead with the procedure. Plan In office urinalysis results reviewed with the patient today; as noted above. PVR: 0ml's Discussed, educated, and stressed the importance of drinking plenty of water daily. Discussed avoiding bladder triggers/irritants. Bladder instillation provided at today's office visit Patient continues to report urinary urgency, nocturia, frequency, and bladder pressure. Discussed cystoscopy hydrodistention at length; risks and benefits Will schedule for cystoscopy hydrodistention with Dr. Hoffmann as discussed Follow-up postprocedure per Dr. Hoffmann's order; or sooner with any issues, concerns, and or questions. Orders: Orders AMB Urinalysis Automated 07/17/23 Z13.9 - Encounter for screening, unspecified AMB Post Void Residual by ultrasound 07/17/23 N32.81 - Overactive bladder AMB Bladder/Catheter Procedure 07/17/23 N30.10 - Interstitial cystitis (chronic) without hematuria Medications: Refilled tramadol 50 mg PO Q8H 7 days PRN 15 tabs 0RF pain N30.10 - Interstitial cystitis (chronic) without hematuria Patient Instructions: The patient had an opportunity to ask questions regarding the treatment plan. All questions were answered. Physical exam, labs, and imaging were discussed and reviewed in detail. As well as risks, benefits, and discussion of treatment choices. No major barriers to understanding were identified. The patient expressed understanding and agreement with the above treatment plan. The patient was made aware they should contact our office by phone for worsening of their current condition, the appearance of new symptoms, or with any questions or concerns. Compliance is encouraged with any medications and follow up testing that is ordered. It is a privilege to be allowed the opportunity to participate in? your urological care.? Again, if you have any questions or concerns If you have any questions or concerns please do not hesitate to contact me. The office is [phone]. This note is constructed using voice recognition software. While every effort has been made to ensure accuracy slitter helper errors may have been included. Yours sincerely, EVERT Mccormick Coding Level of Care Code Est Pt Level 4 (09498) Diagnoses Overactive bladder N32.81 Interstitial cystitis N30.10 CPT Codes Bladder/Catheter Procedure - CPT: 18537-Amoyymllvy of Bladder ([id number]) Bladder/Catheter Procedure - CPT: 40681-Oxqbsi Bladder Catheter ([id number]) Post Residual Void - PVR CPT Code: 85655-Lzyo Void Residual by ultrasound ([id number])
== END 2023-07-17 10:52 | disposition home or self-care (01) ==
LOC: HO.HUSH 09:26
PROVIDERS: Visit Provider Nurse Practitioner Family
DX: N30.10 Interstitial cystitis (chronic) without hematuria (principal); N32.81 Overactive bladder; Z13.9 Encounter for screening, unspecified
CPT/HCPCS: 51700; 99214

== ENCOUNTER → 2023-07-17 09:26 | Outpatient (BNVA) | payer MEDICARE, MEDICAID, SELFPAY | PROVIDERS: Visit Provider Nurse Practitioner Family | DX: N32.81 Overactive bladder (principal); N30.10 Interstitial cystitis (chronic) without hematuria | CPT/HCPCS: 51700; 51798; 81003; 99212 ==

== ENCOUNTER 2023-10-08 14:25 | Outpatient (AMB) | payer MEDICARE, MEDICAID, SELFPAY ==
--- NOTE | 2023-10-08 14:51 | A.OFFVIS_ITS ---
Intake Intake Visit Reasons: H&P Hydrodistention/cath Intake Note: Patient presents today for a follow up on H&P Hydrodistention/cath Meds- None Allergies to Antibiotic- Aspirin, Cephalexin Blood Thinner- None Post Void Residual: 0ml Pad Assembler Required: No Accompanied by: Self / Same As Patient Allergies aspirin [Aspirin] Allergy (Severe, Verified 10/08/23 15:47) ANAPHYLAXIS, nausea,vomiting morphine [Morphine] Allergy (Severe, Verified 10/08/23 15:47) SOB, horrible feeling cephalexin Allergy (Intermediate, Verified 10/08/23 15:47) vomiting ibuprofen [From Motrin] Allergy (Intermediate, Verified 10/08/23 15:47) BLEEDING-PT STATES STILL TAKES pineapple Allergy (Mild, Verified 10/08/23 15:47) Rash Medication List - Last Reconciled 10/08/23 by PHIL Mccormick-NOE albuterol sulfate 90 mcg/actuation 1 inh inhalation Q4H PRN amitriptyline 50 mg PO BEDTIME 30 days budesonide-formoterol 160-4.5 mcg/actuation (Symbicort) 2 puffs inhalation BID citalopram 1.5 tabs PO DAILY clonazepam 1 mg PO BID PRN quetiapine 50 mg PO BEDTIME HPI HPI Comments History of Present Illness Details Analilia is a pleasant 52-year-old female who is a patient of Dr. Hernandez. She has a past medical history of anxiety, asthma, bipolar disorder, depression, interstitial cystitis, and overactive bladder. She presents to the office today as a follow-up of her interstitial cystitis in addition to her overactive bladder. When asked she reports feeling flare-up of her interstitial cystitis. She reports noting nocturia, urinary urgency, urinary frequency, and bladder pressure. She discusses not having her menses for over the last 5 months and feels she has been having hot flashes. She discusses having dysmenorrhea however has not had her menses. When asked she denies incontinence, nocturia, hematuria, dysuria, foul smelling urine, changes to urinary stream, flank pain, fever, and or chills. In office bladder instillation provided. Discussed further treatment options with weekly bladder instillation, medications, and other treatment options. At this time patient wishes to move forward with cystoscopy hydrodistention given good benefits in the past. In office urinalysis results reviewed with the patient today. PVR 0ml's. Discussed and stressed importance of avoiding bladder triggers. She otherwise denies any other issues or concerns at this time. [facility] Medical History PONV (postoperative nausea and vomiting) Arthritis Bipolar disorder Depression Anxiety Asthma Interstitial cystitis Overactive bladder Surgical History Hx of eye surgery History of cystoscopy Hx of ovarian cystectomy Social History Household Members: None Housing: Apartment Are you a primary healthcare recruiter to a significant other at home: No Do you presently have visiting nurse or other home services: No Alcohol intake: never Patient Tobacco Use Status: Current everyday Tobacco user Tobacco use type: Cigarette Cigarettes Per Day: 4 Substance Use Type: Marijuana Review of Systems Const Reports no additional complaints Eyes Reports no additional complaints ENT Details: patient reports allergies Reports no additional complaints Card Reports no additional complaints Resp Reports no additional complaints GI Reports as per HPI Reports as per HPI Neuro Reports no additional complaints Psych Reports anxiety and Reports depression Endo Reports no additional complaints Ryan/Lymph Reports no additional complaints Aller/Immun Reports no additional complaints Physical Exam Const General: cooperative, healthy appearing, comfortable, no acute distress, well developed, alert and awake Orientation/consciousness: patient oriented x3 Limitations: no limitations HEENT Head: Yes normal to inspection, Yes normocephalic and Yes atraumatic Ears: hearing grossly normal bilaterally Eyes General: appearance normal, both eyes and all related structures Neck Neck: Yes normal visual inspection and Yes trachea midline Chest Chest palpation & inspection: normal inspection of the chest Resp Effort & Inspection: normal respiratory effort and able to speak in complete sentences Cardio Rate: regular rate GI Inspection: Yes normal to inspection General: Yes no CVA tenderness Back/Spine/Pelvis Back: no CVA tenderness Skin General skin exam: no rashes or lesions noted Neuro General: patient oriented x3 Extrem General: Yes normal to inspection Psych Appearance: grossly normal and well kempt Mental Status: mental status grossly normal Speech and movement: Normal speech and movement present and Clear speech present Affect: normal affect and Sad affect present Attitude: cooperative Thought process: Normal thought process present Thought content: Normal thought content present Insight: Fair insight present (Psych) Judgement: Fair judgement present (Psych) Office Procedures Post Void Residual Post Residual Void Post Void Residual (PVR): 0 50081-Fpvv Void Residual by ultrasound Bladder/Catheter Procedure Details: Bladder instillation for interstitial cystitis. Patient was catheterized using clean technique 14 [place] female CIC catheter utilized. Bladder was emptied for 10 mL of yellow urine Bladder rescue installed 50% bupivacaine- 10mL Heparin 5000 units- 1mL Lidocaine 2% uro jet- 10mL Lidocaine 2%- 10mL Patient tolerated procedure well. Instructed and educated to hold in bladder for 1 hour or greater. 80508-Zavxmj Temporary Bladder Catheter Procedure code (CPT) selection complete Results AMB Urinalysis, Automated UA Leukoctes 0 Carina/uL Last Edit by Layne Donald CMA on 10/08/23 15 :09 UA Nitrite Negative Last Edit by Layne Donald CMA on 10/08/23 15: 09 UA Urobilinogen 0.2 mg/dL Last Edit by Layne Donald CMA on 4 15:09 UA Protein 15 mg/dL Last Edit by Layne Donald CMA on 10/08/23 15:0 9 UA pH 6.0 Last Edit by Layne Donald CMA on 10/08/23 15:09 UA Blood 80 Vinicio/uL Last Edit by Layne Donald [facility] on 10/08/23 15:09 UA Specific [place] 1.025 Last Edit by Layne Donald CMA on 15:09 UA Ketone Negative Last Edit by Layne Donald CMA on 10/08/23 15:0 9 UA Bilirubin 0 mg/dL Last Edit by Layne Donald CMA on 10/08/23 15: 09 UA Glucose 0 mg/dL Last Edit by Layne Donald CMA on 10/08/23 15:09 Results Reviewed Results Reviewed: Laboratory Last Values Urine pH (Auto) 6.0 10/08/23 14:53 Specific [place] (Auto) 1.025 10/08/23 14:53 Urine Protein (Auto) 15 mg/dL 10/08/23 14:53 Glucose (UA)(Auto) 0 mg/dL 10/08/23 14:53 Urine Ketones (Auto) Negative 10/08/23 14:53 Urine Blood (Auto) 80 Vinicio/uL 10/08/23 14:53 Urine Nitrite (Auto) Negative 10/08/23 14:53 Urine Bilirubin (Auto) 0 mg/dL 10/08/23 14:53 Urine Urobilinogen (Auto) 0.2 mg/dL 10/08/23 14:53 Leukocyte Esterase (Auto) 0 Carina/uL 10/08/23 14:53 Assessment & Plan Assessment & Plan (1) Overactive bladder: Code(s): N32.81 - Overactive bladder (2) Interstitial cystitis: Code(s): N30.10 - Interstitial cystitis (chronic) without hematuria Plan: Risks, benefits and alternatives to therapy were discussed. These include but are not limited to infection, bleeding, damage to local organs and tissues, need for further interventions. ? Anesthetic risks regarding cardiac arrhythmia, blood clots, and potential mortality were discussed. The patient understands the typical recovery time and the outpatient nature of the procedure. After consideration of these risks the patient gives full informed consent and they wish to move ahead with the procedure. Plan In office urinalysis results reviewed with the patient today; as noted above. PVR: 0ml's Discussed, educated, and stressed the importance of drinking plenty of water daily. Discussed avoiding bladder triggers/irritants. Bladder instillation provided at today's office visit Patient continues to report urinary urgency, nocturia, frequency, and bladder pressure. Will refer to PERFECT BINDER FEEDER OFFBEARER as requested; has not had menses for 5 months and experiencing hot flashes Discussed cystoscopy hydrodistention at length; risks and benefits Follow-up postprocedure per Dr. Hoffmann's order; or sooner with any issues, concerns, and or questions. Orders: Orders AMB Urinalysis Automated 10/08/23 R33.9 - Retention of urine, unspecified AMB Post Void Residual by ultrasound 10/08/23 R33.9 - Retention of urine, unspecified Referrals THERAPY ASSISTANT Referral N95.1 - Menopausal and female climacteric states Patient Instructions: The patient had an opportunity to ask questions regarding the treatment plan. All questions were answered. Physical exam, labs, and imaging were discussed and reviewed in detail. As well as risks, benefits, and discussion of treatment choices. No major barriers to understanding were identified. The patient expressed understanding and agreement with the above treatment plan. The patient was made aware they should contact our office by phone for worsening of their current condition, the appearance of new symptoms, or with any questions or concerns. Compliance is encouraged with any medications and follow up testing that is ordered. It is a privilege to be allowed the opportunity to participate in? your urological care.? Again, if you have any questions or concerns If you have any questions or concerns please do not hesitate to contact me. The office is [phone]. This note is constructed using voice recognition software. While every effort has been made to ensure accuracy operator supply errors may have been included. Yours sincerely, EVERT Mccormick Coding Level of Care Code Est Pt Level 4 (11375) Diagnoses Overactive bladder N32.81 Interstitial cystitis N30.10 CPT Codes Post Residual Void - PVR CPT Code: 03797-Mfpn Void Residual by ultrasound ([id number]) Bladder/Catheter Procedure - CPT: 41747-Dxhvjc Temporary Bladder Catheter ([id number]) Time Spent (min) 30
== END 2023-10-08 15:41 | disposition home or self-care (01) ==
PROVIDERS: Visit Provider Nurse Practitioner Family
DX: N32.81 Overactive bladder (principal); N30.10 Interstitial cystitis (chronic) without hematuria
CPT/HCPCS: 51702; 99214

== ENCOUNTER → 2023-10-08 14:25 | Outpatient (BNVA) | payer MEDICARE, MEDICAID, SELFPAY | PROVIDERS: Visit Provider Nurse Practitioner Family | DX: N32.81 Overactive bladder (principal); N30.10 Interstitial cystitis (chronic) without hematuria | CPT/HCPCS: 51702; 51798; 81003; 99212 ==

== ENCOUNTER 2023-12-21 09:12 | Day surgery (SDC) | payer MEDICARE, MEDICAID, SELFPAY ==
[2023-10-08 09:56] VITALS: BMI 21.5
--- NOTE | 2023-10-09 09:24 | P.CONAN_ITS ---
HPI - Anesthesia Eval Consult details Narrative: 52yo F for Cystoscopy Hydrodistention of Bladder s/p same 03/2023 with [facility]-LMA 4 PMFSH Active Problems Active Problems: All Active Problems (Updated 10/08/23 @ 15:47 [facility] Hot flashes due to menopause (Acute) Perimenopausal (Acute) Overactive bladder (Acute) Interstitial cystitis (Acute) Past Medical History Medical History PONV (postoperative nausea and vomiting) Arthritis Bipolar disorder Depression Anxiety Asthma Interstitial cystitis Overactive bladder Family History Family history of problems with anesthesia: No Surgical History Surgical History Hx of eye surgery History of cystoscopy Hx of ovarian cystectomy History of Problems with Anesthesia: Yes (PONV) Social History Social History Household Members: None Housing: Apartment Are you a primary critical care paramedic to a significant other at home: No Do you presently have visiting nurse or other home services: No Alcohol intake: never Patient Tobacco Use Status: Current everyday Tobacco user Tobacco use type: Cigarette Cigarettes Per Day: 4 Substance Use Type: Marijuana Meds Allergies Allergy/AdvReac Type Severity Reaction Status Date / Time aspirin [Aspirin] Allergy Severe ANAPHYLAXIS, Verified 10/08/23 15:47 nausea,vomiting morphine [Morphine] Allergy Severe SOB, Verified 10/08/23 15:47 horrible feeling cephalexin Allergy Intermediate vomiting Verified 10/08/23 15:47 ibuprofen [From Motrin] Allergy Intermediate BLEEDING-PT Verified 10/08/23 15:47 STATES STILL TAKES pineapple Allergy Mild Rash Verified 10/08/23 15:47 Home Medications Medication Instructions Recorded Confirmed Last Taken Type clonazepam 1 mg tablet 1 mg PO BID PRN Anxiety 07/08/22 10/08/23 Unknown History albuterol sulfate 90 mcg/actuation 1 inh inhalation Q4H PRN Shortness 07/29/22 10/08/23 Unknown History aerosol inhaler Of Breath Or Wheezing budesonide-formoterol HFA 160 2 puff inhalation BID 07/29/22 10/08/23 Unknown History mcg-4.5 mcg/actuation aerosol inhaler (Symbicort) citalopram 20 mg tablet 1.5 tab PO DAILY 07/29/22 10/08/23 Unknown History quetiapine 50 mg tablet 50 mg PO BEDTIME 01/09/23 10/08/23 Unknown History Exam Height,Weight and Vital Signs: Height 5 ft 1 in Weight 51.71 kg Assessment and Plan Assessment Anesthesia Assessment: Chart Reviewed Final Anesthetic Review Family History of Problems with Anesthesia: No History of Problems with Anesthesia: Yes (PONV)
--- NOTE | 2023-12-17 14:43 | P.CONAN_ITS ---
Documented by User: Dahiana Leach NP 12/17/23 14:44 HPI - Anesthesia Eval Consult details Narrative: 53yo F for Cystoscopy Hydrodistention of Bladder s/p same 2022 with GA-LMA 4 Hx PONV but none with previous hydrodistentions PMFSH Active Problems Active Problems: All Active Problems Hot flashes due to menopause (Acute) Perimenopausal (Acute) Overactive bladder (Acute) Interstitial cystitis (Acute) Past Medical History Medical History PONV (postoperative nausea and vomiting) Arthritis Bipolar disorder Depression Anxiety Asthma Interstitial cystitis Overactive bladder Family History Family history of problems with anesthesia: No Surgical History Surgical History Hx of eye surgery History of cystoscopy Hx of ovarian cystectomy History of Problems with Anesthesia: Yes (PONV) Social History Social History Household Members: None Housing: Apartment Are you a primary rn coronary care unit to a significant other at home: No Do you presently have visiting nurse or other home services: No Alcohol intake: never Patient Tobacco Use Status: Current everyday Tobacco user Tobacco use type: Cigarette Cigarettes Per Day: 4 Substance Use Type: Marijuana Advance Directives: No Advance Directives Information Provided: Yes Meds Allergies Allergy/AdvReac Type Severity Reaction Status Date / Time aspirin [Aspirin] Allergy Severe ANAPHYLAXIS, Verified 12/21/23 09:58 nausea,vomiting morphine [Morphine] Allergy Severe SOB, Verified 12/21/23 09:58 horrible feeling cephalexin Allergy Intermediate vomiting Verified 12/21/23 09:58 ibuprofen [From Motrin] Allergy Intermediate BLEEDING-PT Verified 12/21/23 09:58 STATES STILL TAKES pineapple Allergy Mild Rash Verified 12/21/23 09:58 Home Medications ?Medication ?Instructions ?Recorded ?Confirmed ?Last Taken ?Type clonazepam 1 mg tablet 1 mg PO BID PRN Anxiety 07/08/22 12/21/23 Unknown History albuterol sulfate 90 mcg/actuation 1 inh inhalation Q4H PRN Shortness 07/29/22 12/21/23 Unknown History aerosol inhaler Of Breath Or Wheezing citalopram 20 mg tablet 1.5 tab PO DAILY 07/29/22 12/21/23 Unknown History quetiapine 50 mg tablet 50 mg PO BEDTIME 01/09/23 12/21/23 Unknown History tramadol 50 mg tablet 50 mg PO Q8H PRN pain 12/21/23 12/21/23 Unknown History Exam Height,Weight and Vital Signs: Height 5 ft 1 in Weight 51.71 kg Assessment and Plan Assessment Anesthesia Assessment: Chart Reviewed Final Anesthetic Review Family History of Problems with Anesthesia: No History of Problems with Anesthesia: Yes (PONV) Documented by User: Cuco Monique MD 12/21/23 11:45 PMFSH Past Medical History Medical History PONV (postoperative nausea and vomiting) Arthritis Bipolar disorder Depression Anxiety Asthma Interstitial cystitis Overactive bladder Surgical History Surgical History Hx of eye surgery History of cystoscopy Hx of ovarian cystectomy Social History Social History Household Members: None Housing: Apartment Are you a primary rn coronary care unit to a significant other at home: No Do you presently have visiting nurse or other home services: No Alcohol intake: never Patient Tobacco Use Status: Current everyday Tobacco user Tobacco use type: Cigarette Cigarettes Per Day: 4 Substance Use Type: Marijuana Advance Directives: No Advance Directives Information Provided: Yes Meds Allergies Allergy/AdvReac Type Severity Reaction Status Date / Time aspirin [Aspirin] Allergy Severe ANAPHYLAXIS, Verified 12/21/23 09:58 nausea,vomiting morphine [Morphine] Allergy Severe SOB, Verified 12/21/23 09:58 horrible feeling cephalexin Allergy Intermediate vomiting Verified 12/21/23 09:58 ibuprofen [From Motrin] Allergy Intermediate BLEEDING-PT Verified 12/21/23 09:58 STATES STILL TAKES pineapple Allergy Mild Rash Verified 12/21/23 09:58 Home Medications ?Medication ?Instructions ?Recorded ?Confirmed ?Last Taken ?Type clonazepam 1 mg tablet 1 mg PO BID PRN Anxiety 07/08/22 12/21/23 Unknown History albuterol sulfate 90 mcg/actuation 1 inh inhalation Q4H PRN Shortness 07/29/22 12/21/23 Unknown History aerosol inhaler Of Breath Or Wheezing citalopram 20 mg tablet 1.5 tab PO DAILY 07/29/22 12/21/23 Unknown History quetiapine 50 mg tablet 50 mg PO BEDTIME 01/09/23 12/21/23 Unknown History tramadol 50 mg tablet 50 mg PO Q8H PRN pain 12/21/23 12/21/23 Unknown History Exam Airway Mallampati Class: II TM Dist: >3cm Neck ROM: Full Denture: Upper Heart: ok Lungs: ok Assessment and Plan Assessment Anesthesia Assessment: Anesthesia Plan Discussed Final Anesthetic Review NPO: Yes ASA Class: II Final Preanesthetic Review: No Changes in Pt Med Stat, Meds/Allgs Chart Reviewed, Consent Obtained/Reviewed and Anes Risks/Benef Reviewed Patient Risk: Low Procedure Risk: Low Anesthetic Plan Anesthetic Plan: GA and Agree w/ Assess. and Plan Disposition: Standard PACU
[2023-12-21 10:09] VITALS: BP 102/64; PULSE 59; RESP 16; TEMP 36.7; O2SAT 98; BMI 20.2
[2023-12-21 10:15] LABS: UPreg QC Valid YES; Urine Pregnancy NEGATIVE (NEGATIVE)
[2023-12-21] MEDS: Lactated Ringers 1,000 ML 100 ML IVCONT (10:29)
--- NOTE | 2023-12-21 11:05 | P.HPSUR_ITS ---
Pre-Procedural Eval Section A - 24 Hr Update-Section A only Date of Service: 12/21/23 The patient is an INPATIENT: No Changes since office visit: No Cold of Flu in the past 2 weeks, No New Medical Problems, No Changes in Medication and No Patient answered all questions The patient has been examined within 24 hours of the surgical procedure. The History & Physical has been completed within 30 days and I have reviewed it.: No Section B - Complete if H&P > 30 days Chief Complaint: Interstitial cystitis (chronic) without hematuria Details of Present Illness: Chronic interstitial cystitis. Here for hyd rodistention Relevant Family History (Specify if Yes): No Relevant Social History: None Present Medications: see Short Stay Collaborative assessment Medical History: Significant History History of Previous Operations: Relevant previous surgery/procedure and date(s) Allergies: Allergies Allergy/AdvReac Type Severity Reaction Status Date / Time aspirin [Aspirin] Allergy Severe ANAPHYLAXIS, Verified 12/21/23 09:58 nausea,vomiting morphine [Morphine] Allergy Severe SOB, Verified 12/21/23 09:58 horrible feeling cephalexin Allergy Intermediate vomiting Verified 12/21/23 09:58 ibuprofen [From Motrin] Allergy Intermediate BLEEDING-PT Verified 12/21/23 09:58 STATES STILL TAKES pineapple Allergy Mild Rash Verified 12/21/23 09:58 Review of Systems Sugical H&P ROS: Negative: Constitution, Cardiovascular, Respiratory, Neurological, Psychiatric, Hem-Onc, Allergic/Immunologic, Gastrointestinal, Genitourinary, Musculoskeletal, Integumentary, Endocrine and Eyes/Ears/Nose/Throat Exam Surgical H&P Exam: Normal: HEENT, Normal: Heart, Normal: Lungs, Normal: Extremities, Normal: Abdomen, Normal: Skin and Normal: Neurological Plan Diagnosis/Plan: Unchanged (Cystoscopy hydrodistention) I have reviewed the history and physical and performed a pertinent physical examination on my patient. No changes have occurred unless specified. Time Spent With Patient Time: Total time managing care of this patient today ____ minutes.
--- NOTE | 2023-12-21 12:24 | W.PM.OPN ---
Operative Note Operative Note Date of Service: 12/21/23 Narrative: PreOperative Diagnosis: Interstitial cystitis with pelvic pain Post Operative Diagnosis: Interstitial cystitis with pelvic pain Procedure: Hydrodistention Surgeon: Dr Khurram Hoffmann Anesthesia: General Indications for procedure: None interstitial cystitis Procedure: After informed consent was verified the patient was brought to the operating room and placed in a supine position. Anesthesia was administered per protocol. The patient was placed in a modified dorsal lithotomy position and prepped and draped in sterile fashion. Safety pause time-out was observed. Antibiotics being given. A 22 [place] cystoscope was used to empty the bladder. A mixture of bupivacaine lidocaine gel 20 cc was instilled into the bladder and allowed to sit for 2-3 minutes. A belladonna and opiate rectal suppository was placed. Hydrodistention of the bladder was performed. The bladder was filled and allowed to sit for 2 minutes. Filling was from a height of 1 m. On the 1st fill there was 275 cc within the bladder. Cystoscopy revealed glomerulations consistent with interstitial cystitis. Second filling of the bladder was performed in similar fashion. Volume was approximately 300 cc. Terminal hematuria noted. The the bladder was emptied. The patient tolerated procedure well was extubated in operating room transferred in stable condition to the recovery area. Appropriate postprocedure pain medication was provided. Reintroduction of 20 cc of lidocaine gel with bupivacaine placed. Pathology: None Drains: None
[2023-12-21 12:29] VITALS: BP 84/54; PULSE 75; RESP 16; TEMP 36.3; O2SAT 97
[2023-12-21 12:34] VITALS: BP 99/59; PULSE 61; RESP 16; O2SAT 99
[2023-12-21 12:39] VITALS: BP 93/60; PULSE 60; RESP 17; O2SAT 100
[2023-12-21 12:44] VITALS: BP 106/69; PULSE 54; RESP 17; O2SAT 100
[2023-12-21 12:59] VITALS: BP 112/79; PULSE 47; RESP 15; TEMP 36.1; O2SAT 100
== END 2023-12-21 13:55 | disposition home or self-care (01) ==
PROVIDERS: Anesthesiology; Visit Provider Urology
PROC: 0T7B7ZZ Dilation of Bladder, Via Natural or Artificial Opening (ICD-10-PCS; CPT 52260; principal; 2023-12-21 11:20)
DX: N30.10 Interstitial cystitis (chronic) without hematuria (principal); N32.81 Overactive bladder; Z88.5 Allergy status to narcotic agent; Z88.6 Allergy status to analgesic agent; Z88.8 Allergy status to other drugs, medicaments and biological substances
CPT/HCPCS: 52260; 81025; J0131; J1956; J2250; J2704; J3010

== ENCOUNTER → 2023-12-21 09:12 | Outpatient (BNV) | payer MEDICARE, MEDICAID, SELFPAY | PROVIDERS: Visit Provider Urology | DX: N30.10 Interstitial cystitis (chronic) without hematuria (principal) | CPT/HCPCS: 52260 ==

== ENCOUNTER 2023-12-24 10:27 | Outpatient (AMB) | payer MEDICARE, MEDICAID, SELFPAY ==
--- NOTE | 2023-12-24 10:30 | AM.OFFVISNUR ---
Intake Intake Visit Reasons: PVR Allergies aspirin [Aspirin] Allergy (Severe, Verified 12/21/23 09:58) ANAPHYLAXIS, nausea,vomiting morphine [Morphine] Allergy (Severe, Verified 12/21/23 09:58) SOB, horrible feeling cephalexin Allergy (Intermediate, Verified 12/21/23 09:58) vomiting ibuprofen [From Motrin] Allergy (Intermediate, Verified 12/21/23 09:58) BLEEDING-PT STATES STILL TAKES pineapple Allergy (Mild, Verified 12/21/23 09:58) Rash Office Procedures Bladder/Catheter Procedure Details: pt presents to office for follow up s/p bladder botox. UA done, no signs of infection. Per Dr. Hoffmann give patient one treatment rescue solution for IC flare and send 5 days pyridium 5mg TID PRN. Patient stated she did not want pyridium sent as insurance does not cover medication and she has AZO OTC at home. Patient understood to hold rescue solution for an hour and then can release bladder. Patient to call office with any questions or concerns 12 fr straight cath used to empty bladder and instill: bupivicaine 10 mls heparin 10,000 units (2 mls) lidocaine 2% 10 mls lidocaine urojet 1(10 mls) solumedrol 1 ml (40 mg) 99750-Odfkldzooe of Bladder 91738-Qaoqva Bladder Catheter Procedure code (CPT) selection complete Results AMB Urinalysis, Automated UA Leukoctes 0 Carina/uL Last Edit by Scott Mock LPN on 12/24/23 10:43 UA Nitrite Negative Last Edit by Scott Mock LPN on 12/24/23 10:43 UA Urobilinogen 0 mg/dL Last Edit by Scott Mock LPN on 12/24/23 10:43 UA Protein 15 mg/dL Last Edit by Scott Mock LPN on 12/24/23 10:43 UA pH 6.0 Last Edit by Scott Mock LPN on 12/24/23 10:43 UA Blood 200 Vinicio/uL Last Edit by Scott Mock LPN on 12/24/23 10:43 UA Specific [place] 1.020 Last Edit by Scott Mock LPN on 12/24/23 10:43 UA Ketone Negative Last Edit by Scott Mock LPN on 12/24/23 10:43 UA Bilirubin 0 mg/dL Last Edit by Scott Mock LPN on 12/24/23 10:43 UA Glucose 0 mg/dL Last Edit by Scott Mock LPN on 12/24/23 10:43 Coding CPT Codes Bladder/Catheter Procedure - CPT: 59618-Fxccdotdss of Bladder ([id number]) Bladder/Catheter Procedure - CPT: 67710-Hyxuiv Bladder Catheter ([id number]) Assessment & Plan Assessment & Plan Orders: Orders AMB Urinalysis Automated Today N30.10 - Interstitial cystitis (chronic) without hematuria, N32.81 - Overactive bladder AMB Bladder/Catheter Procedure Today N30.10 - Interstitial cystitis (chronic) without hematuria, N32.81 - Overactive bladder
== END 2023-12-24 11:06 | disposition home or self-care (01) ==
LOC: HO.HUSH 10:27
PROVIDERS: Visit Provider Urology
DX: N32.81 Overactive bladder (principal); N30.10 Interstitial cystitis (chronic) without hematuria

== ENCOUNTER → 2023-12-24 10:27 | Outpatient (BNVA) | payer MEDICARE, MEDICAID, SELFPAY | PROVIDERS: Visit Provider Urology | DX: N30.10 Interstitial cystitis (chronic) without hematuria (principal); N32.81 Overactive bladder | CPT/HCPCS: 51700; 51701; 81003; J0665; J1644; J2919 ==

== ENCOUNTER 2023-12-31 08:26 | Emergency (ER) | payer MEDICARE, MEDICAID, SELFPAY ==
[2023-12-31 08:33] VITALS: BP 132/75; PULSE 67; RESP 18; TEMP 36.4; O2SAT 99; BMI 20.2
[2023-12-31 09:02] VITALS: BP 125/75; PULSE 74; RESP 16; TEMP 36.7; O2SAT 100
--- NOTE | 2023-12-31 09:14 | PC.NURSE ---
Pt reports she found a lump on right breast, was seen by her doctor last Thursday and is waiting for an appointment for further work-up.Reports she had an increase in anxiety for last week waiting for appointment. Reports pain and pressure in right breast 01/19. Surgery 2 weeks ago on her bladder. Denies SOB, CP, N/V/D, fevers, cough. Alert and oriented, breathing even and unlabored, skin warm and dry.
--- NOTE | 2023-12-31 09:39 | ED.GENADULT ---
HPI - General Adult General Chief complaint: General Medical Stated complaint: Pain R breast Time Seen by Provider: 12/31/23 08:55 Source: patient and RN notes reviewed Mode of arrival: ambulatory Limitations: no limitations History of Present Illness ED Provider: Carmen Hill PA-C HPI narrative: This is a 86-[id number]-ehw-female, who presents to the ER with complaints of right breast mass x 1 week. Pt reports that over the last week she had noticed a right sided breast mass that is tender to the touch. She followed up with her primary care physician who told her that it is nothing to worry about but also ordered a mammogram. She has been waiting for a call for scheduling, and has called 3 times and they have not returned her phone call. She states that she is very anxious about this. She states that her last mammogram was 1 year ago, which was normal. She denies any fevers, chills, chest pain, shortness of breath, abdominal pain, nausea, vomiting or diarrhea. Denies any significant changes in her weight or profound night sweats. No other complaints or concerns at this time. MD complaint: R breast mass Onset (ago): week(s) Radiation: non-radiation Quality: aching Relieving factors: none Exacerbating factors: none Associated symptoms: denies other symptoms Treatments prior to arrival: none Related Data Home Medications ?Medication ?Instructions ?Recorded ?Confirmed clonazepam 1 mg tablet 1 mg PO BID PRN Anxiety 07/08/22 12/21/23 albuterol sulfate 90 mcg/actuation 1 inh inhalation Q4H PRN Shortness 07/29/22 12/21/23 aerosol inhaler Of Breath Or Wheezing citalopram 20 mg tablet 1.5 tab PO DAILY 07/29/22 12/21/23 quetiapine 50 mg tablet 50 mg PO BEDTIME 01/09/23 12/21/23 tramadol 50 mg tablet 50 mg PO Q8H PRN pain 12/21/23 12/21/23 Previous Rx's ?Medication ?Instructions ?Recorded oxycodone-acetaminophen 5 mg-325 1 tab PO Q4H PRN pain (scale score 12/21/23 mg tablet 4-6) 7 days #20 tabs oxycodone-acetaminophen 5 mg-325 1 tab PO Q4H PRN pain (scale score 12/21/23 mg tablet 4-6) 7 days #20 tabs Allergies Allergy/AdvReac Type Severity Reaction Status Date / Time aspirin [Aspirin] Allergy Severe ANAPHYLAXIS, Verified 12/31/23 08:35 nausea,vomiting morphine [Morphine] Allergy Severe SOB, Verified 12/31/23 08:35 horrible feeling cephalexin Allergy Intermediate vomiting Verified 12/31/23 08:35 ibuprofen [From Motrin] Allergy Intermediate BLEEDING-PT Verified 12/31/23 08:35 STATES STILL TAKES pineapple Allergy Mild Rash Verified 12/31/23 08:35 Review of Systems Review of Systems: Yes all other systems are reviewed and are negative Constitutional: Constitutional: Reports as per HPI [facility] Past Medical History Medical History PONV (postoperative nausea and vomiting) Arthritis Bipolar disorder Depression Anxiety Asthma Interstitial cystitis Overactive bladder Surgical History Hx of eye surgery History of cystoscopy Hx of ovarian cystectomy Social History Social History Household Members: None Housing: Apartment Are you a primary director long term care to a significant other at home: No Do you presently have visiting nurse or other home services: No Alcohol intake: never Patient Tobacco Use Status: Current everyday Tobacco user Tobacco use type: Cigarette Cigarettes Per Day: 4 Smoked in Last 30 Days: Yes Use of substances other than those prescribed or required for medical reasons: Yes Substance Use Type: Marijuana Advance Directives: No Advance Directives Information Provided: Yes Physical Exam ED Vital Signs: Vital Signs - 24 hr 12/31/23 09:02 12/31/23 10:32 12/31/23 10:33 Temperature 98.1 F 98.1 F 98.1 F Pulse Rate 74 57 57 Respiratory Rate 16 14 14 Blood Pressure 125/75 135/77 135/77 Pulse Oximetry 100 99 99 Oxygen Delivery Method Room Air Room Air Room Air BMI result Body Mass Index 20.2 Const General: cooperative, comfortable and no acute distress Orientation/consciousness: patient oriented x3 Limitations: no limitations HENMT Head: Yes normal to inspection, Yes normocephalic and Yes atraumatic Ears: hearing grossly normal bilaterally General nose exam: Normal external nose present Face and sinus: Yes normal facial exam Mouth: Normal oral and palatal mucosa present, oropharynx normal and moist mucous membranes Throat: Yes posterior oropharynx normal Eyes General: appearance normal, both eyes and all related structures Eyelids: Yes eyelids normal Conjunctivae: conjunctivae normal Sclerae: sclerae normal Pupils: Equal, round and reactive pupils present EOM: EOMs intact bilaterally Neck Neck: Yes normal visual inspection, Yes full ROM and Yes no lymphadenopathy Lymphatic: no lymphadenopathy noted Chest Other: Patient has 2 x 2 cm tender, indurated mass noted to the right upper outer quadrant of the right breast, proximally at the 11 o'clock position 5 in from the nipple. No overlying skin changes, or nipple drainage. Chest palpation & inspection: normal inspection of the chest Resp Effort & Inspection: normal respiratory effort and able to speak in complete sentences Auscultation: clear to auscultation bilaterally, no crackles, no rales, no rhonchi and no wheezes Cardio Rate: regular rate Rhythm: regular rhythm Heart sounds: S1 normal heart sound present and S2 normal heart sound present GI Inspection: Yes normal to inspection Skin General skin exam: no rashes or lesions noted Trauma: no lacerations or abrasions Wounds: no wounds Neuro General: patient oriented x3 and moves all extremities Cranial nerves: Yes Equal, round and reactive pupils present Extrem General: Yes normal to inspection Right upper extremity: normal to inspection Left upper extremity: normal to inspection Right lower extremity: normal to inspection Left lower extremity: normal to inspection Medical Decision Making Medical Decision Making MDM Narrative: This is a [id number]-female who presents to the ER with complaints of right breast mass x 1 week. On arrival, pt is a&Ox4, under no distress. VSS. There is a 2 x 2 cm tender, indurated mass noted to the right upper outer quadrant of the right breast, proximally at the 11 o'clock position 5 in from the nipple. No overlying skin changes, or nipple drainage. Does not appear to be cellulitic or abscess, therefore cannot obtaain diagnostic US/mammogram in the ER, relayed message to pt. [facility] and Dr. Cain to help schedule this. She received a call while in the ER and will have further US scheduled. Given return precautions. Stable for d/c. Differential Diagnosis Differential Diagnoses: The differential diagnosis associated with the presentation includes mass, abscess, cellulitis Discharge Plan Discharge Clinical Impression: Breast mass, right Patient Disposition: Home, Self-Care Instructions: Breast Mass (ED) Additional Instructions: You were seen in the ER for a breast mass. [facility]. If any new or worsening symptoms occur, please return. Prescriptions: No Action citalopram 20 mg tablet 1.5 tab PO DAILY albuterol sulfate 90 mcg/actuation HFA aerosol inhaler 1 inh inhalation Q4H PRN (Reason: Shortness Of Breath Or Wheezing) tramadol 50 mg tablet 50 mg PO Q8H PRN (Reason: pain) oxycodone-acetaminophen 5-325 mg tablet 1 tab PO Q4H PRN (Reason: pain (scale score 4-6)) 7 Days Qty: 20 0RF Rx Instructions: Partial Fill upon patient request. oxycodone-acetaminophen 5-325 mg tablet 1 tab PO Q4H PRN (Reason: pain (scale score 4-6)) 7 Days Qty: 20 0RF Rx Instructions: Partial Fill upon patient request. clonazepam 1 mg tablet 1 mg PO BID PRN (Reason: Anxiety) quetiapine 50 mg tablet 50 mg PO BEDTIME Interventions: ED Discharge Assessment Last Done: 12/31/23 10:33 Discharge Date/Time: 12/31/23 10:33 Print Language: [place]
[2023-12-31 10:32] VITALS: BP 135/77; PULSE 57; RESP 14; TEMP 36.7; O2SAT 99
[2023-12-31 10:33] VITALS: BP 135/77; PULSE 57; RESP 14; TEMP 36.7; O2SAT 99
== END 2023-12-31 10:33 | disposition home or self-care (01) ==
PROVIDERS: Emergency Provider Emergency Medicine
DX: N63.11 Unspecified lump in the right breast, upper outer quadrant (principal); N64.4 Mastodynia
CPT/HCPCS: 99282; 99284

== ENCOUNTER 2024-01-12 10:24 | Outpatient (AMB) | payer MEDICARE, MEDICAID, SELFPAY ==
--- NOTE | 2024-01-12 10:28 | MHC.OFFVIS ---
Intake Visit Reasons: Hydrodistention follow up Sub Assembly Team Worker Required: No Accompanied by: Self / Same As Patient Allergies aspirin [Aspirin] Allergy (Severe, Verified 01/12/24 11:40) ANAPHYLAXIS, nausea,vomiting morphine [Morphine] Allergy (Severe, Verified 01/12/24 11:40) SOB, horrible feeling cephalexin Allergy (Intermediate, Verified 01/12/24 11:40) vomiting ibuprofen [From Motrin] Allergy (Intermediate, Verified 01/12/24 11:40) BLEEDING-PT STATES STILL TAKES pineapple Allergy (Mild, Verified 01/12/24 11:40) Rash Medication List - Last Reconciled 01/12/24 by PHIL Mccormick- albuterol sulfate 90 mcg/actuation 1 inh inhalation Q4H PRN citalopram 1.5 tabs PO DAILY clonazepam 1 mg PO BID PRN mirabegron ER (Myrbetriq) 25 mg PO DAILY 30 days quetiapine 50 mg PO BEDTIME tramadol 50 mg PO Q8H PRN 10 days HPI Comments Details: Analilia is a pleasant 53-year-old female who is a patient of Dr. Hernandez. She has a past medical history of anxiety, asthma, bipolar disorder, depression, interstitial cystitis, and overactive bladder. She presents to the office today as a follow-up of her interstitial cystitis in addition to her overactive bladder. Of note, patient underwent cystoscopy hydrodistention with Dr. Hoffmann on 12/21/23. She reports feeling lower urinary tract symptoms have significantly improved since her hydrodistention. She reports prior to hydrodistention she felt extreme sense of urinary urgency, urinary frequency, and episodes of nocturia up to 6 times per night. She does continue to report bladder pressure at times however discusses recently getting her menses the last 2-3 months regularly as she had been not having her menses for the last 5 months prior. She discusses following up on Thursday with urogynaecologist for right-sided lump she palpated during self breast exam. She reports pain upon palpation of lump. She has a scheduled breast ultrasound and mammogram. In office urinalysis results reviewed with the patient today 3+ microscopic hematuria otherwise within normal limits. Discussed Cystoscopy revealed glomerulations consistent with interstitial cystitis. She otherwise denies incontinence, foul smelling urine, changes to urinary stream, flank pain, fever, and or chills. Discussed and stressed importance of avoiding bladder triggers. She otherwise denies any other issues or concerns at this time. FOR[facility]LY [facility] Medical History PONV (postoperative nausea and vomiting) Arthritis Bipolar disorder Depression Anxiety Asthma Interstitial cystitis Overactive bladder Surgical History Hx of eye surgery History of cystoscopy Hx of ovarian cystectomy Social History Household Members: None Housing: Apartment Are you a primary school child care attendant to a significant other at home: No Do you presently have visiting nurse or other home services: No Alcohol intake: never Patient Tobacco Use Status: Current everyday Tobacco user Tobacco use type: Cigarette Cigarettes Per Day: 4 Substance Use Type: Marijuana Office Procedures Post Void Residual Post Residual Void Post Void Residual (PVR): 0 [id number]-[id number] Void Residual by ultrasound Results AMB Urinalysis, Automated UA Leukoctes 0 Carina/uL Last Edit by Verena Muhammad CMA on 01/12/24 10:45 UA Nitrite Negative Last Edit by Verena Muhammad CMA on 01/12/24 10:45 UA Urobilinogen 0.2 mg/dL Last Edit by Verena Muhammad CMA on 01/12/24 10:45 UA Protein 15 mg/dL Last Edit by Verena Muhammad CMA on 01/12/24 10:45 UA pH 6.0 Last Edit by Verena Muhammad CMA on 01/12/24 10:45 UA Blood 200 Vinicio/uL Last Edit by Verena Muhammad CMA on 01/12/24 10:45 UA Specific [place] 1.030 Last Edit by Verena Muhammad CMA on 01/12/24 10:45 UA Ketone Negative Last Edit by Verena Muhammad CMA on 01/12/24 10:45 UA Bilirubin 0 mg/dL Last Edit by Verena Muhammad CMA on 01/12/24 10:45 UA Glucose 0 mg/dL Last Edit by Verena Muhammad CMA on 01/12/24 10:45 Results Reviewed Results Reviewed: Laboratory Last Values Urine pH (Auto) 6.0 01/12/24 10:42 Specific [place] (Auto) 1.030 01/12/24 10:42 Urine Protein (Auto) 15 mg/dL 01/12/24 10:42 Glucose (UA)(Auto) 0 mg/dL 01/12/24 10:42 Urine Ketones (Auto) Negative 01/12/24 10:42 Urine Blood (Auto) 200 Vinicio/uL 01/12/24 10:42 Urine Nitrite (Auto) Negative 01/12/24 10:42 Urine Bilirubin (Auto) 0 mg/dL 01/12/24 10:42 Urine Urobilinogen (Auto) 0.2 mg/dL 01/12/24 10:42 Leukocyte Esterase (Auto) 0 Carina/uL 01/12/24 10:42 Assessment & Plan Assessment & Plan (1) Overactive bladder: Code(s): N32.81 - Overactive bladder Category: Medical (2) Interstitial cystitis: Code(s): N30.10 - Interstitial cystitis (chronic) without hematuria Category: Medical Plan In office urinalysis results reviewed with the patient today; as noted above. PVR: 0ml's Discussed, educated, and stressed the importance of drinking plenty of water daily. Discussed avoiding bladder triggers/irritants. Patient continues to report urinary urgency, nocturia, frequency, and bladder pressure however does feel symptoms are improving since cystoscopy hydrodistention Continue to follow-up with urogynaecologist for palpable right-sided breast mass. Start Myrbetriq as discussed and prescribed. Follow-up in 1-3 months with PVR; or sooner with any issues, concerns, and or questions. Orders: Orders AMB Urinalysis Automated Today Z13.9 - Encounter for screening, unspecified AMB Post Void Residual by ultrasound Today N32.81 - Overactive bladder Medications: New mirabegron ER (Myrbetriq) 25 mg PO DAILY 30 tabs 2RF 30 days N30.10 - Interstitial cystitis (chronic) without hematuria, N32.81 - Overactive bladder, R35.1 - Nocturia, R39.15 - Urgency of urination Changed From tramadol 50 mg PO Q8H PRN pain To tramadol 50 mg PO Q8H PRN 30 tabs 0RF pain 10 days Patient Instructions: The patient had an opportunity to ask questions regarding the treatment plan. All questions were answered. Physical exam, labs, and imaging were discussed and reviewed in detail. As well as risks, benefits, and discussion of treatment choices. No major barriers to understanding were identified. The patient expressed understanding and agreement with the above treatment plan. The patient was made aware they should contact our office by phone for worsening of their current condition, the appearance of new symptoms, or with any questions or concerns. Compliance is encouraged with any medications and follow up testing that is ordered. It is a privilege to be allowed the opportunity to participate in? your urological care.? Again, if you have any questions or concerns If you have any questions or concerns please do not hesitate to contact me. The office is [phone]. This note is constructed using voice recognition software. While every effort has been made to ensure accuracy delivery professional errors may have been included. Yours sincerely, EVERT Mccormick Coding Level of Care Code Est Pt Level 4 (53888) Complex EM visit Add On G2211 Diagnoses Overactive bladder N32.81 Interstitial cystitis N30.10 CPT Codes Post Residual Void - PVR CPT Code: 60187-Pcgd Void Residual by ultrasound ([id number])
== END 2024-01-12 11:05 | disposition home or self-care (01) ==
LOC: HO.HUSH 10:24
PROVIDERS: Visit Provider Nurse Practitioner Family
DX: N32.81 Overactive bladder (principal); N30.10 Interstitial cystitis (chronic) without hematuria; Z13.9 Encounter for screening, unspecified
CPT/HCPCS: 99214; G2211

== ENCOUNTER → 2024-01-12 10:24 | Outpatient (BNVA) | payer MEDICARE, MEDICAID, SELFPAY | PROVIDERS: Visit Provider Nurse Practitioner Family | DX: N32.81 Overactive bladder (principal); N30.10 Interstitial cystitis (chronic) without hematuria | CPT/HCPCS: 51798; 81003; 99212 ==

== ENCOUNTER 2024-03-07 11:30 | Outpatient (AMB) | payer MEDICARE, MEDICAID, SELFPAY ==
--- NOTE | 2024-03-07 11:31 | MHC.OFFVIS ---
Intake Visit Reasons: 1m/PVR Intake Note: Patient presents today for follow up on: interstitial cystitis Urology Medication: Myrbetriq Allergies to Antibiotic- Aspirin, Cephalexin Blood Thinner- None Post Void Residual: 0ml's Flat Screen Worker Required: No Accompanied by: Self / Same As Patient Allergies aspirin [Aspirin] Allergy (Severe, Verified 03/07/24 12:26) ANAPHYLAXIS, nausea,vomiting morphine [Morphine] Allergy (Severe, Verified 03/07/24 12:26) SOB, horrible feeling cephalexin Allergy (Intermediate, Verified 03/07/24 12:26) vomiting ibuprofen [From Motrin] Allergy (Intermediate, Verified 03/07/24 12:26) BLEEDING-PT STATES STILL TAKES pineapple Allergy (Mild, Verified 03/07/24 12:) Rash Medication List - Last Reconciled 03/07/24 by PHIL Mccormick- albuterol sulfate 90 mcg/actuation 1 inh inhalation Q4H PRN citalopram 1.5 tabs PO DAILY clonazepam 1 mg PO BID PRN mirabegron ER (Myrbetriq) 25 mg PO DAILY 30 days quetiapine 50 mg PO BEDTIME tramadol 50 mg PO Q8H PRN 10 days HPI Comments Details: Analilia is a pleasant 53-year-old female who is a patient of Dr. Hernandez. She has a past medical history of anxiety, asthma, bipolar disorder, depression, interstitial cystitis, and overactive bladder. She presents to the office today as a follow-up of her interstitial cystitis in addition to her overactive bladder. In discussion with the patient today she reports since her last office visit here approximately 6 weeks ago she has since undergone right-sided breast lump biopsy and has been diagnosed with breast cancer. She reports being told by Dr. Otoole that she was able to remove cancerous lump and she is s/p right-sided lumpectomy. She reports last 2 breast biopsies have been negative. She reports to be undergoing 3-4 weeks of daily radiation with Dr. Patel. She discusses needing referral for peanut butter maker for bilateral oophorectomy given recent diagnosis of breast cancer and patient continues with menstruation. She reports having had intermittent issues with lower urinary tract symptoms however has increased her fluid intake and feels this has been helpful. She reports having quit smoking recreational marijuana since her surgery. She reports somewhat bothersome urinary symptoms of urinary urgency and frequency however upon increase water consumption feels they improve. In office urinalysis results reviewed with the patient today. Of note, patient underwent cystoscopy hydrodistention with Dr. Hoffmann on 12/21/23. Discussed Cystoscopy revealed glomerulations consistent with interstitial cystitis. She otherwise denies incontinence, foul smelling urine, changes to urinary stream, flank pain, fever, and or chills. Discussed and stressed importance of avoiding bladder triggers. She otherwise denies any other issues or concerns at this time. PFSH Medical History PONV (postoperative nausea and vomiting) Arthritis Bipolar disorder Depression Anxiety Asthma Interstitial cystitis Overactive bladder Surgical History Hx of eye surgery History of cystoscopy Hx of ovarian cystectomy Social History Household Members: None Housing: Apartment Are you a primary animal caretaker to a significant other at home: No Do you presently have visiting nurse or other home services: No Alcohol intake: never Patient Tobacco Use Status: Current everyday Tobacco user Tobacco use type: Cigarette Cigarettes Per Day: 4 Substance Use Type: Marijuana Review of Systems Const Reports no additional complaints Eyes Reports no additional complaints ENT Details: patient reports allergies Reports no additional complaints Card Reports no additional complaints Resp Reports no additional complaints GI Reports as per HPI Reports as per HPI Neuro Reports no additional complaints Psych Reports anxiety and Reports depression Endo Reports no additional complaints Ryan/Lymph Reports no additional complaints Aller/Immun Reports no additional complaints Physical Exam Const General: cooperative, healthy appearing, comfortable, no acute distress, well developed, alert and awake Orientation/consciousness: patient oriented x3 Limitations: no limitations HEENT Head: Yes normal to inspection, Yes normocephalic and Yes atraumatic Ears: hearing grossly normal bilaterally Eyes General: appearance normal, both eyes and all related structures Neck Neck: Yes normal visual inspection and Yes trachea midline Chest Chest palpation & inspection: normal inspection of the chest Resp Effort & Inspection: normal respiratory effort and able to speak in complete sentences Cardio Rate: regular rate GI Inspection: Yes normal to inspection General: Yes no CVA tenderness Back/Spine/Pelvis Back: no CVA tenderness Skin General skin exam: no rashes or lesions noted Neuro General: patient oriented x3 Extrem General: Yes normal to inspection Psych Appearance: grossly normal and well kempt Mental Status: mental status grossly normal Speech and movement: Normal speech and movement present and Clear speech present Affect: normal affect and Sad affect present Attitude: cooperative Thought process: Normal thought process present Thought content: Normal thought content present Insight: Fair insight present (Psych) Judgement: Fair judgement present (Psych) Office Procedures Post Void Residual Post Residual Void Post Void Residual (PVR): 0 [id number] Void Residual by ultrasound Results AMB Urinalysis, Automated UA Leukoctes 0 Carina/uL Last Edit by Decision Pace on 03/07/24 11:52 UA Nitrite Last Edit by Decision Pace on 03/07/24 11:52 UA Urobilinogen 0.2 mg/dL Last Edit by Decision Pace on 03/07/24 11:52 UA Protein 0 mg/dL Last Edit by Decision Pace on 03/07/24 11:52 UA pH 6.0 Last Edit by Decision Pace on 03/07/24 11:52 UA Blood 80 Vinicio/uL Last Edit by Decision Pace on 03/07/24 11:52 UA Specific [place] 1.015 Last Edit by Decision Pace on 03/07/24 11:52 UA Ketone Last Edit by Decision Pace on 03/07/24 11:52 UA Bilirubin 0 mg/dL Last Edit by Decision Pace on 03/07/24 11:52 UA Glucose 0 mg/dL Last Edit by Decision Pace on 03/07/24 11:52 Results Reviewed Results Reviewed: Laboratory Last Values Urine pH (Auto) 6.0 03/07/24 11:50 Specific [place] (Auto) 1.015 03/07/24 11:50 Urine Protein (Auto) 0 mg/dL 03/07/24 11:50 Glucose (UA)(Auto) 0 mg/dL 03/07/24 11:50 Urine Blood (Auto) 80 Vinicio/uL 03/07/24 11:50 Urine Bilirubin (Auto) 0 mg/dL 03/07/24 11:50 Urine Urobilinogen (Auto) 0.2 mg/dL 03/07/24 11:50 Leukocyte Esterase (Auto) 0 Carina/uL 03/07/24 11:50 Assessment & Plan Assessment & Plan (1) Overactive bladder: Code(s): N32.81 - Overactive bladder Category: Medical (2) Interstitial cystitis: Code(s): N30.10 - Interstitial cystitis (chronic) without hematuria Category: Medical Plan In office urinalysis results reviewed with the patient today; as noted above. PVR 0ml's Discussed at length bladder triggers/irritants. Will refer to [facility] for further assessment evaluation. Discussed, educated, and stressed the importance of drinking plenty of water daily. Patient continues to report urinary urgency, nocturia, frequency, and bladder pressure however does feel symptoms improve with water intake. Follow-up in 1-3 months with PVR; or sooner with any issues, concerns, and or questions. Orders: Orders AMB Urinalysis Automated Today Z13.9 - Encounter for screening, unspecified AMB Post Void Residual by ultrasound Today N32.81 - Overactive bladder Urine Cytology Today C50.919 - Malignant neoplasm of unspecified site of unspecified female breast, N30.10 - Interstitial cystitis (chronic) without hematuria, Z13.9 - Encounter for screening, unspecified Medications: Refilled tramadol 50 mg PO Q8H PRN 30 tabs 0RF pain 10 days Patient Instructions: The patient had an opportunity to ask questions regarding the treatment plan. All questions were answered. Physical exam, labs, and imaging were discussed and reviewed in detail. As well as risks, benefits, and discussion of treatment choices. No major barriers to understanding were identified. The patient expressed understanding and agreement with the above treatment plan. The patient was made aware they should contact our office by phone for worsening of their current condition, the appearance of new symptoms, or with any questions or concerns. Compliance is encouraged with any medications and follow up testing that is ordered. It is a privilege to be allowed the opportunity to participate in? your urological care.? Again, if you have any questions or concerns If you have any questions or concerns please do not hesitate to contact me. The office is [phone]. This note is constructed using voice recognition software. While every effort has been made to ensure accuracy lead assistant manager errors may have been included. Yours sincerely, EVERT Mccormick Coding Level of Care Code Est Pt Level 3 (02887) Complex EM visit Add On G2211 Diagnoses Overactive bladder N32.81 Interstitial cystitis N30.10 CPT Codes Post Residual Void - PVR CPT Code: 74364-Ecpn Void Residual by ultrasound ([id number])
== END 2024-03-07 12:23 | disposition home or self-care (01) ==
PROVIDERS: Visit Provider Nurse Practitioner Family
DX: N32.81 Overactive bladder (principal); N30.10 Interstitial cystitis (chronic) without hematuria; Z13.9 Encounter for screening, unspecified
CPT/HCPCS: 99213; G2211

== ENCOUNTER 2024-03-07 11:30 | Outpatient (REF) | payer MEDICARE, MEDICAID, SELFPAY ==
[2024-03-07 16:20] LABS: Urine Cytology See Pathology rpt
== END 2024-03-07 11:31 | disposition home or self-care (01) ==
LOC: HO.LNP 11:30
PROVIDERS: Visit Provider Nurse Practitioner Family
DX: N30.10 Interstitial cystitis (chronic) without hematuria (principal); C50.919 Malignant neoplasm of unspecified site of unspecified female breast; N32.81 Overactive bladder
CPT/HCPCS: 51798; 81003; 88112; 99212

== ENCOUNTER 2024-04-12 11:06 | Outpatient (AMB) | payer MEDICARE, MEDICAID, SELFPAY ==
--- NOTE | 2024-04-12 11:12 | A.OFFVIS_ITS ---
Intake Visit Reasons: 2M f/u with PVR Intake Note: Patient presents today for follow up on: interstitial cystitis Urology Medication: Myrbetriq (pt stated that she never took) Allergies to Antibiotic: Cephalexin Blood Thinner:None Post Void Residual: 0ml's [employer] Administrator Required: No Accompanied by: Self / Same As Patient Allergies aspirin [Aspirin] Allergy (Severe, Verified 04/12/24 21:03) ANAPHYLAXIS, nausea,vomiting morphine [Morphine] Allergy (Severe, Verified 04/12/24 21:03) SOB, horrible feeling cephalexin Allergy (Intermediate, Verified 04/12/24 21:03) vomiting ibuprofen [From Motrin] Allergy (Intermediate, Verified 04/12/24 21:03) BLEEDING-PT STATES STILL TAKES pineapple Allergy (Mild, Verified 04/12/24 21:03) Rash Medication List - Last Reconciled 04/12/24 by PHIL Mccormick- albuterol sulfate 90 mcg/actuation 1 inh inhalation Q4H PRN citalopram 1.5 tabs PO DAILY clonazepam 1 mg PO BID PRN mirabegron ER (Myrbetriq) 25 mg PO DAILY 30 days quetiapine 50 mg PO BEDTIME tramadol 50 mg PO Q8H PRN 10 days HPI Comments Details: Analilia is a pleasant 53-year-old female who is a patient of Dr. Hernandez. She has a past medical history of anxiety, asthma, bipolar disorder, depression, interstitial cystitis, and overactive bladder. She presents to the office today as a follow-up of her interstitial cystitis in addition to her overactive bladder. She presents to the office today for bladder instillation due to ongoing urgency, frequency, and episodes of nocturia she has been experiencing over the last 3-5 days. In discussion with the patient today she reports feeling her interstitial cystitis is flaring up as she has been experiencing increased lower urinary tract symptoms. She discusses she will complete radiation treatment to right breast tomorrow as she has been recently diagnosed with breast cancer and follows up with Dr. Otoole. She also discusses her upcoming appointment with [facility] for possible hys terectomy and or oophorectomy consultation given history of breast cancer and patient continues with menstruation. In office urinalysis results reviewed with the patient today 3+ microscopic hematuria and pH 5.5. We discussed at length importance of increase in hydration in relation to interstitial cystitis as well as microscopic hematuria. She otherwise denies incontinence, foul smelling urine, changes to urinary stream, flank pain, fever, and or chills. She reports having quit smoking recreational marijuana since her surgery. Of note, patient underwent cystoscopy hydrodistention with Dr. Hoffmann on 12/21/23. Discussed Cystoscopy revealed glomerulations consistent with interstitial cystitis. Bladder instillation provided at today's office visit. She otherwise denies any other issues or concerns at this time. [facility] Medical History PONV (postoperative nausea and vomiting) Arthritis Bipolar disorder Depression Anxiety Asthma Interstitial cystitis Overactive bladder Surgical History Hx of eye surgery History of cystoscopy Hx of ovarian cystectomy Social History Household Members: None Housing: Apartment Are you a primary dog daycare provider to a significant other at home: No Do you presently have visiting nurse or other home services: No Alcohol intake: never Patient Tobacco Use Status: Current everyday Tobacco user Tobacco use type: Cigarette Cigarettes Per Day: 4 Substance Use Type: Marijuana Review of Systems Const Reports no additional complaints Eyes Reports no additional complaints ENT Details: patient reports allergies Reports no additional complaints Card Reports no additional complaints Resp Reports no additional complaints GI Reports as per HPI Reports as per HPI Neuro Reports no additional complaints Psych Reports anxiety and Reports depression Endo Reports no additional complaints Ryan/Lymph Reports no additional complaints Aller/Immun Reports no additional complaints Physical Exam Const General: cooperative, healthy appearing, comfortable, no acute distress, well developed, alert and awake Orientation/consciousness: patient oriented x3 Limitations: no limitations HEENT Head: Yes normal to inspection, Yes normocephalic and Yes atraumatic Ears: hearing grossly normal bilaterally Eyes General: appearance normal, both eyes and all related structures Neck Neck: Yes normal visual inspection and Yes trachea midline Chest Chest palpation & inspection: normal inspection of the chest Resp Effort & Inspection: normal respiratory effort and able to speak in complete sentences Cardio Rate: regular rate GI Inspection: Yes normal to inspection General: Yes no CVA tenderness Back/Spine/Pelvis Back: no CVA tenderness Skin General skin exam: no rashes or lesions noted Neuro General: patient oriented x3 Extrem General: Yes normal to inspection Psych Appearance: grossly normal and well kempt Mental Status: mental status grossly normal Speech and movement: Normal speech and movement present and Clear speech present Affect: normal affect and Sad affect present Attitude: cooperative Thought process: Normal thought process present Thought content: Normal thought content present Insight: Fair insight present (Psych) Judgement: Fair judgement present (Psych) Office Procedures Bladder/Catheter Procedure Details: Gloria LOYD to do instillation for patient. 14 fr straight catheter used to instill: 10mls bupivicaine 0.50% 2mls heparin 10,000 units 10mls lidocaine 2% 1 lidocaine urojet 1ml solumedrol 90358-Nayncooadv of Bladder 33711-Ytpmrn Bladder Catheter Procedure code (CPT) selection complete Post Void Residual Post Residual Void Post Void Residual (PVR): 0 29173-Xflm Void Residual by ultrasound Results AMB Urinalysis, Automated UA Leukoctes 0 Carina/uL Last Edit by Marvel Palma on 04/12/24 11:45 UA Nitrite Negative Last Edit by Marvel Palma on 04/12/24 11:45 UA Urobilinogen 0.2 mg/dL Last Edit by Marvel Palma on 04/12/24 11:45 UA Protein 15 mg/dL Last Edit by Marvel Palma on 04/12/24 11:45 UA pH 5.5 Last Edit by Marvel Palma on 04/12/24 11:45 UA Blood 200 Vinicio/uL Last Edit by Marvel Palma on 04/12/24 11:45 UA Specific [place] 1.030 Last Edit by Marvel Palma on 04/12/24 11:45 UA Ketone Last Edit by Marvel Palma on 04/12/24 11:45 UA Bilirubin 1 mg/dL Last Edit by Marvel Palma on 04/12/24 11:45 UA Glucose 0 mg/dL Last Edit by Marvel Palma on 04/12/24 11:45 Results Reviewed Results Reviewed: Laboratory Last Values Urine pH (Auto) 5.5 04/12/24 11:43 Specific [place] (Auto) 1.030 04/12/24 11:43 Urine Protein (Auto) 15 mg/dL 04/12/24 11:43 Glucose (UA)(Auto) 0 mg/dL 04/12/24 11:43 Urine Blood (Auto) 200 Vinicio/uL 04/12/24 11:43 Urine Nitrite (Auto) Negative 04/12/24 11:43 Urine Bilirubin (Auto) 1 mg/dL 04/12/24 11:43 Urine Urobilinogen (Auto) 0.2 mg/dL 04/12/24 11:43 Leukocyte Esterase (Auto) 0 Carina/uL 04/12/24 11:43 Assessment & Plan Assessment & Plan (1) Overactive bladder: Code(s): N32.81 - Overactive bladder Category: Medical (2) Interstitial cystitis: Code(s): N30.10 - Interstitial cystitis (chronic) without hematuria Category: Medical Plan In office urinalysis results reviewed with the patient today; as noted above. PVR 0ml's Bladder instillation provided. Discussed at length bladder triggers/irritants. Discussed, educated, and stressed the importance of drinking plenty of water daily. Discussed trial of Myrbetriq; however patient declines at this time. Follow-up next week for bladder instillation; or sooner with any issues, concerns, and or questions. Orders: Orders AMB Post Void Residual by ultrasound Today N32.81 - Overactive bladder AMB Bladder/Catheter Procedure Today N30.10 - Interstitial cystitis (chronic) without hematuria AMB Urinalysis Automated Today Z13.9 - Encounter for screening, unspecified Medications: Refilled tramadol 50 mg PO Q8H PRN 30 tabs 0RF pain 10 days Patient Instructions: The patient had an opportunity to ask questions regarding the treatment plan. All questions were answered. Physical exam, labs, and imaging were discussed and reviewed in detail. As well as risks, benefits, and discussion of treatment choices. No major barriers to understanding were identified. The patient expressed understanding and agreement with the above treatment plan. The patient was made aware they should contact our office by phone for worsening of their current condition, the appearance of new symptoms, or with any questions or concerns. Compliance is encouraged with any medications and follow up testing that is ordered. It is a privilege to be allowed the opportunity to participate in? your urological care.? Again, if you have any questions or concerns If you have any questions or concerns please do not hesitate to contact me. The office is [phone]. This note is constructed using voice recognition software. While every effort has been made to ensure accuracy area loss prevention manager errors may have been included. Yours sincerely, EVERT Mccormick Coding Level of Care Code Est Pt Level 4 (26633) Complex EM visit Add On G2211 Diagnoses Overactive bladder N32.81 Interstitial cystitis N30.10 CPT Codes Bladder/Catheter Procedure - CPT: 57134-Cnutphzxwn of Bladder ([id number]) Bladder/Catheter Procedure - CPT: 47022-Hwsotz Bladder Catheter ([id number]) Post Residual Void - PVR CPT Code: 35846-Yyqb Void Residual by ultrasound ([id number]) Time Spent (min) 25
== END 2024-04-12 11:54 | disposition home or self-care (01) ==
LOC: HO.HUSH 11:06
PROVIDERS: Visit Provider Nurse Practitioner Family
DX: N32.81 Overactive bladder (principal); N30.10 Interstitial cystitis (chronic) without hematuria; Z13.9 Encounter for screening, unspecified
CPT/HCPCS: 51700; 99214; G2211

== ENCOUNTER → 2024-04-12 11:06 | Outpatient (BNVA) | payer MEDICARE, MEDICAID, SELFPAY | PROVIDERS: Visit Provider Nurse Practitioner Family | DX: N30.10 Interstitial cystitis (chronic) without hematuria (principal); N32.81 Overactive bladder | CPT/HCPCS: 51700; 51798; 81003; 99212 ==

== ENCOUNTER 2024-04-20 08:29 | Outpatient (AMB) | payer MEDICARE, MEDICAID, SELFPAY ==
--- NOTE | 2024-04-20 08:41 | A.OFFVIS_ITS ---
Intake Visit Reasons: IC instillation Intake Note: Patient presents today for follow up on: interstitial cystitis/bladder installation#2 Urology Medication: none Allergies to Antibiotic: Cephalexin Blood Thinner:None Route Inspector Required: No Accompanied by: Self / Same As Patient Allergies aspirin [Aspirin] Allergy (Severe, Verified 04/20/24 15:12) ANAPHYLAXIS, nausea,vomiting morphine [Morphine] Allergy (Severe, Verified 04/20/24 15:12) SOB, horrible feeling cephalexin Allergy (Intermediate, Verified 04/20/24 15:12) vomiting ibuprofen [From Motrin] Allergy (Intermediate, Verified 04/20/24 15:12) BLEEDING-PT STATES STILL TAKES pineapple Allergy (Mild, Verified 04/20/24 15:12) Rash Medication List - Last Reconciled 04/20/24 by PHIL Mccormick- albuterol sulfate 90 mcg/actuation 1 inh inhalation Q4H PRN citalopram 1.5 tabs PO DAILY clonazepam 1 mg PO BID PRN quetiapine 50 mg PO BEDTIME tramadol 50 mg PO Q8H PRN 10 days HPI Comments Details: Analilia is a pleasant 53-year-old female who is a patient of Dr. Hernandez. She has a past medical history of anxiety, asthma, bipolar disorder, depression, interstitial cystitis, and overactive bladder. She presents to the office today as a follow-up of her interstitial cystitis in addition to her overactive bladder. She presents to the office today for bladder instillation due to ongoing urgency, frequency, and episodes of nocturia she has been experiencing over the last 3-5 days. In discussion with the patient today she reports feeling her interstitial cystitis is flaring up as she has been experiencing increased lower urinary tract symptoms. However, she feels bladder instillation since last week has has been helpful in improving lower urinary tract symptoms as she feels they are still present however not as bothersome. She discusses having completed radiation treatment to right breast and will follow-up with Dr. Otoole within the next 6 weeks. She also reports she has upcoming appointment with [facility] bass mechanism maker to discuss hysterectomy and or oophorectomy consultation given history of breast cancer and patient continues with menstruation. She reports having increased her fluid intake and also feels this has been helpful in urinary urgency and frequency. We discussed importance in doing so in relation to lower urinary tract symptoms and interstitial cystitis. In office urinalysis results reviewed with the patient today. PVR 0 mL.She otherwise denies incontinence, foul smelling urine, changes to urinary stream, flank pain, fever, and or chills. She reports having quit smoking recr eational marijuana since her surgery. Of note, patient underwent cystoscopy hydrodistention with Dr. Hoffmann on 12/21/23. Discussed Cystoscopy revealed glomerulations consistent with interstitial cystitis. Bladder instillation provided at today's office visit. She otherwise denies any other issues or concerns at this time. Recent urine cytology results reviewed with the patient today 03/05 Negative for high-grade urothelial carcinoma. [facility] Medical History PONV (postoperative nausea and vomiting) Arthritis Bipolar disorder Depression Anxiety Asthma Interstitial cystitis Overactive bladder Surgical History Hx of eye surgery History of cystoscopy Hx of ovarian cystectomy Social History Household Members: None Housing: Apartment Are you a primary home care manager to a significant other at home: No Do you presently have visiting nurse or other home services: No Alcohol intake: never Patient Tobacco Use Status: Current everyday Tobacco user Tobacco use type: Cigarette Cigarettes Per Day: 4 Substance Use Type: Marijuana Review of Systems Const Reports no additional complaints Eyes Reports no additional complaints ENT Details: patient reports allergies Reports no additional complaints Card Reports no additional complaints Resp Reports no additional complaints GI Reports as per HPI Reports as per HPI Neuro Reports no additional complaints Psych Reports anxiety and Reports depression Endo Reports no additional complaints Ryan/Lymph Reports no additional complaints Aller/Immun Reports no additional complaints Office Procedures Bladder/Catheter Procedure Details: Gloria LOYD to do instillation for patient. 14 fr straight catheter used to instill: 10mls bupivicaine 0.50% 2mls heparin 10,000 units 10mls lidocaine 2% 1 lidocaine urojet 1ml solumedrol 41468-Ftblsvtzfb of Bladder 34490-Hxvjrz Bladder Catheter Procedure code (CPT) selection complete Results AMB Urinalysis, Automated UA Leukoctes 0 Carina/uL Last Edit by Marvel Palma on 04/20/24 08:50 UA Nitrite Last Edit by Marvel Kristenvelma on 04/20/24 08:50 UA Urobilinogen 0.2 mg/dL Last Edit by Robertash Kristenvelma on 04/20/24 08:50 UA Protein 0 mg/dL Last Edit by Marvel Kristenvelma on 04/20/24 08:50 UA pH 6.0 Last Edit by Robertash Kristenvelma on 04/20/24 08:50 UA Blood 80 Vinicio/uL Last Edit by Marvel Kristenvelma on 04/20/24 08:50 UA Specific [place] 1.020 Last Edit by Marvel Kristenvelma on 04/20/24 08:50 UA Ketone Last Edit by Robertash Kristenvelma on 04/20/24 08:50 UA Bilirubin 0 mg/dL Last Edit by Marvel Kristenvelma on 04/20/24 08:50 UA Glucose 0 mg/dL Last Edit by Marvel Kristenvelma on 04/20/24 08:50 Results Reviewed Results Reviewed: Laboratory Last Values Urine pH (Auto) 6.0 04/20/24 08:49 Specific [place] (Auto) 1.020 04/20/24 08:49 Urine Protein (Auto) 0 mg/dL 04/20/24 08:49 Glucose (UA)(Auto) 0 mg/dL 04/20/24 08:49 Urine Blood (Auto) 80 Vinicio/uL 04/20/24 08:49 Urine Bilirubin (Auto) 0 mg/dL 04/20/24 08:49 Urine Urobilinogen (Auto) 0.2 mg/dL 04/20/24 08:49 Leukocyte Esterase (Auto) 0 Carina/uL 04/20/24 08:49 Assessment & Plan Assessment & Plan (1) Overactive bladder: Code(s): N32.81 - Overactive bladder Category: Medical (2) Interstitial cystitis: Code(s): N30.10 - Interstitial cystitis (chronic) without hematuria Category: Medical Plan In office urinalysis results reviewed with the patient today; as noted above. PVR 0ml's Bladder instillation provided. Discussed at length bladder triggers/irritants. Discussed, educated, and stressed the importance of drinking plenty of water daily. Previous urine cytology results reviewed with the patient today; as noted above. Follow-up next week for bladder instillation; or sooner with any issues, concerns, and or questions. Orders: Orders AMB Urinalysis Automated Today Z13.9 - Encounter for screening, unspecified AMB Bladder/Catheter Procedure Today N30.10 - Interstitial cystitis (chronic) without hematuria, N32.81 - Overactive bladder Patient Instructions: The patient had an opportunity to ask questions regarding the treatment plan. All questions were answered. Physical exam, labs, and imaging were discussed and reviewed in detail. As well as risks, benefits, and discussion of treatment choices. No major barriers to understanding were identified. The patient expressed understanding and agreement with the above treatment plan. The patient was made aware they should contact our office by phone for worsening of their current condition, the appearance of new symptoms, or with any questions or concerns. Compliance is encouraged with any medications and follow up testing that is ordered. It is a privilege to be allowed the opportunity to participate in? your urological care.? Again, if you have any questions or concerns If you have any questions or concerns please do not hesitate to contact me. The office is [phone]. This note is constructed using voice recognition software. While every effort has been made to ensure accuracy disease control inspector errors may have been included. Yours sincerely, EVERT Mccormick Coding Level of Care Code Est Pt Level 3 (15039) Complex EM visit Add On G2211 Diagnoses Overactive bladder N32.81 Interstitial cystitis N30.10 CPT Codes Bladder/Catheter Procedure - CPT: 46845-Ewadzzmggz of Bladder ([id number]) Bladder/Catheter Procedure - CPT: 35231-Pkpuqf Bladder Catheter ([id number])
== END 2024-04-20 09:06 | disposition home or self-care (01) ==
LOC: HO.HUSH 08:29
PROVIDERS: Visit Provider Nurse Practitioner Family
DX: N32.81 Overactive bladder (principal); N30.10 Interstitial cystitis (chronic) without hematuria; Z13.9 Encounter for screening, unspecified
CPT/HCPCS: 51700; 99213; G2211

== ENCOUNTER → 2024-04-20 08:29 | Outpatient (BNVA) | payer MEDICARE, MEDICAID, SELFPAY | PROVIDERS: Visit Provider Nurse Practitioner Family | DX: N30.10 Interstitial cystitis (chronic) without hematuria (principal); N32.81 Overactive bladder | CPT/HCPCS: 51700; 81003; 99212 ==

== ENCOUNTER 2024-04-28 09:29 | Outpatient (AMB) | payer MEDICARE, MEDICAID, SELFPAY ==
--- NOTE | 2024-04-28 09:39 | A.OFFVIS_ITS ---
Intake Visit Reasons: IC instillation Intake Note: Patient presents today for follow up on: interstitial cystitis/bladder installation#3 Urology Medication: none Allergies to Antibiotic: Cephalexin Blood Thinner:None Swimming Pool Salesperson Required: No Accompanied by: Self / Same As Patient Allergies aspirin [Aspirin] Allergy (Severe, Verified 04/28/24 10:19) ANAPHYLAXIS, nausea,vomiting morphine [Morphine] Allergy (Severe, Verified 04/28/24 10:19) SOB, horrible feeling cephalexin Allergy (Intermediate, Verified 04/28/24 10:19) vomiting ibuprofen [From Motrin] Allergy (Intermediate, Verified 04/28/24 10:19) BLEEDING-PT STATES STILL TAKES pineapple Allergy (Mild, Verified 04/28/24 10:19) Rash Medication List - Last Reconciled 04/28/24 by PHIL Mccormick-NOE albuterol sulfate 90 mcg/actuation 1 inh inhalation Q4H PRN citalopram 1.5 tabs PO DAILY clonazepam 1 mg PO BID PRN quetiapine 50 mg PO BEDTIME sulfamethoxazole-trimethoprim 800-160 mg (Bactrim DS) 1 tab PO BID 5 days tramadol 50 mg PO Q8H PRN 10 days HPI Comments Details: Analilia is a pleasant 53-year-old female who is a patient of Dr. Hernandez. She has a past medical history of anxiety, asthma, bipolar disorder, depression, interstitial cystitis, and overactive bladder. She presents to the office today as a follow-up of her interstitial cystitis in addition to her overactive bladder. She presents to the office today for rescue bladder instillation due to ongoing urgency, frequency, and episodes of nocturia she has been experiencing over the last 3 weeks. However, upon assessment of the patient today she is reporting UTI like symptoms that she has noted over the last 2-3 days. She reports noting dysuria and a pulsation to her urethra. In office urinalysis results notes positive leukocytes and nitrates. We discussed treatment for urinary tract infection in holding bladder instillation at this time given patient with a potential UTI. Will send urine today for urine culture. She discusses having followed up with [place] mus[facility] physiotherapist and will be undergoing bilateral oophorectomy within the next 6-8 weeks given her recent diagnosis of breast cancer with Dr. Otoole. She is status post right breast biopsy and completion of radiation. She otherwise denies incontinence, changes to urinary stream, flank pain, fever, and or chills. Of note, patient underwent cystoscopy hydrodistention with Dr. Hoffmann on 12/21/23. Discussed Cystoscopy revealed glomerulations consistent with interstitial cystitis. She otherwise denies any other issues or concerns at this time. Urine cytology 03/05 Negative for high-grade urothelial carcinoma. [facility] Medical History PONV (postoperative nausea and vomiting) Arthritis Bipolar disorder Depression Anxiety Asthma Interstitial cystitis Overactive bladder Surgical History Hx of eye surgery History of cystoscopy Hx of ovarian cystectomy Social History Household Members: None Housing: Apartment Are you a primary healthcare management to a significant other at home: No Do you presently have visiting nurse or other home services: No Alcohol intake: never Patient Tobacco Use Status: Current everyday Tobacco user Tobacco use type: Cigarette Cigarettes Per Day: 4 Substance Use Type: Marijuana Review of Systems Const Reports no additional complaints Eyes Reports no additional complaints ENT Details: patient reports allergies Reports no additional complaints Card Reports no additional complaints Resp Reports no additional complaints GI Reports as per HPI Reports as per HPI Neuro Reports no additional complaints Psych Reports anxiety and Reports depression Endo Reports no additional complaints Ryan/Lymph Reports no additional complaints Aller/Immun Reports no additional complaints Physical Exam Const General: cooperative, healthy appearing, comfortable, no acute distress, well developed, alert and awake Orientation/consciousness: patient oriented x3 Limitations: no limitations HEENT Head: Yes normal to inspection, Yes normocephalic and Yes atraumatic Ears: hearing grossly normal bilaterally Eyes General: appearance normal, both eyes and all related structures Neck Neck: Yes normal visual inspection and Yes trachea midline Chest Chest palpation & inspection: normal inspection of the chest Resp Effort & Inspection: normal respiratory effort and able to speak in complete sentences Cardio Rate: regular rate GI Inspection: Yes normal to inspection General: Yes no CVA tenderness Back/Spine/Pelvis Back: no CVA tenderness Skin General skin exam: no rashes or lesions noted Neuro General: patient oriented x3 Extrem General: Yes normal to inspection Psych Appearance: grossly normal and well kempt Mental Status: mental status grossly normal Speech and movement: Normal speech and movement present and Clear speech present Affect: normal affect and Sad affect present Attitude: cooperative Thought process: Normal thought process present Thought content: Normal thought content present Insight: Fair insight present (Psych) Judgement: Fair judgement present (Psych) Office Procedures Bladder/Catheter Procedure Details: Patient did not get instillation due to infection. Procedure code (CPT) selection complete Results AMB Urinalysis, Automated UA Leukoctes 15 Carina/uL Last Edit by Marvel Petersonvelma on 04/28/24 09:51 UA Nitrite Last Edit by RobertColoWraplucía PetersonBarre on 04/28/24 09:51 UA Urobilinogen 0.2 mg/dL Last Edit by Marvel Palma on 04/28/24 09:51 UA Protein 15 mg/dL Last Edit by RobertColoWraplucía PetersonBarre on 04/28/24 09:51 UA pH 5.5 Last Edit by [employer] on 04/28/24 09:51 UA Blood 80 Vinicio/uL Last Edit by Mah[employer] Gameslucía PetersonBarre on 04/28/24 09:51 UA Specific Foster 1.025 Last Edit by [employer] on 04/28/24 09:51 UA Ketone Negative Last Edit by RobertColoWraplucía PetersonBarre on 04/28/24 09:51 UA Bilirubin 1 mg/dL Last Edit by RobertColoWraplucía PetersonBarre on 04/28/24 09:51 UA Glucose 0 mg/dL Last Edit by [employer] on 04/28/24 09:51 Results Reviewed Results Reviewed: Laboratory Last Values Urine pH (Auto) 5.5 04/28/24 09:49 Specific Foster (Auto) 1.025 04/28/24 09:49 Urine Protein (Auto) 15 mg/dL 04/28/24 09:49 Glucose (UA)(Auto) 0 mg/dL 04/28/24 09:49 Urine Ketones (Auto) Negative 04/28/24 09:49 Urine Blood (Auto) 80 Vinicio/uL 04/28/24 09:49 Urine Bilirubin (Auto) 1 mg/dL 04/28/24 09:49 Urine Urobilinogen (Auto) 0.2 mg/dL 04/28/24 09:49 Leukocyte Esterase (Auto) 15 Carina/uL 04/28/24 09:49 Assessment & Plan Assessment & Plan (1) Overactive bladder: Code(s): N32.81 - Overactive bladder Category: Medical (2) Interstitial cystitis: Code(s): N30.10 - Interstitial cystitis (chronic) without hematuria Category: Medical (3) UTI (urinary tract infection): Code(s): N39.0 - Urinary tract infection, site not specified Category: Medical Plan In office urinalysis results reviewed with the patient today; as noted above; will send for urine culture. Start Bactrim as discussed and prescribed. Discussed, educated, and stressed the importance of adequate hydration. Discussed bladder triggers/irritants. No rescue bladder instillation provided given patient with possible UTI. Discussed seeking medical treatment or calling office with worsening symptoms. Follow-up next week; or sooner with any issues, concerns, and or questions. Orders: Orders AMB Urinalysis Automated Today Z13.9 - Encounter for screening, unspecified AMB Bladder/Catheter Procedure Today N30.10 - Interstitial cystitis (chronic) without hematuria, N32.81 - Overactive bladder Urine Culture Today N39.0 - Urinary tract infection, site not specified Medications: New sulfamethoxazole-trimethoprim 800-160 mg (Bactrim DS) 1 tab PO BID 10 tabs 0RF 5 days N32.81 - Overactive bladder Refilled tramadol 50 mg PO Q8H PRN 30 tabs 0RF pain 10 days Patient Instructions: The patient had an opportunity to ask questions regarding the treatment plan. All questions were answered. Physical exam, labs, and imaging were discussed and reviewed in detail. As well as risks, benefits, and discussion of treatment choices. No major barriers to understanding were identified. The patient expressed understanding and agreement with the above treatment plan. The patient was made aware they should contact our office by phone for worsening of their current condition, the appearance of new symptoms, or with any questions or concerns. Compliance is encouraged with any medications and follow up testing that is ordered. It is a privilege to be allowed the opportunity to participate in? your urological care.? Again, if you have any questions or concerns If you have any questions or concerns please do not hesitate to contact me. The office is [phone]. This note is constructed using voice recognition software. While every effort has been made to ensure accuracy trucker hand errors may have been included. Yours sincerely, EVERT Mccormick Coding Level of Care Code Est Pt Level 4 (13743) Diagnoses Overactive bladder N32.81 Interstitial cystitis N30.10 UTI (urinary tract infection) N39.0
== END 2024-04-28 10:10 | disposition home or self-care (01) ==
LOC: HO.HUSH 09:29
PROVIDERS: Visit Provider Nurse Practitioner Family
DX: N32.81 Overactive bladder (principal); N30.10 Interstitial cystitis (chronic) without hematuria; N39.0 Urinary tract infection, site not specified
CPT/HCPCS: 51700; 99214

== ENCOUNTER 2024-05-05 09:48 | Outpatient (AMB) | payer MEDICARE, MEDICAID, SELFPAY ==
--- NOTE | 2024-05-05 10:08 | A.OFFVIS_ITS ---
Intake Visit Reasons: follow up Intake Note: Patient presents today for follow up on: interstitial cystitis/bladder installation#3 Urology Medication: none Allergies to Antibiotic: Cephalexin Blood Thinner:None Shredded Filler Cutter Operator Required: No Accompanied by: Self / Same As Patient Allergies aspirin [Aspirin] Allergy (Severe, Verified 05/05/24 11:20) ANAPHYLAXIS, nausea,vomiting morphine [Morphine] Allergy (Severe, Verified 05/05/24 11:20) SOB, horrible feeling cephalexin Allergy (Intermediate, Verified 05/05/24 11:20) vomiting ibuprofen [From Motrin] Allergy (Intermediate, Verified 05/05/24 11:20) BLEEDING-PT STATES STILL TAKES pineapple Allergy (Mild, Verified 05/05/24 11:20) Rash Medication List - Last Reconciled 05/05/24 by PHIL Mccormick- albuterol sulfate 90 mcg/actuation 1 inh inhalation Q4H PRN citalopram 1.5 tabs PO DAILY clonazepam 1 mg PO BID PRN quetiapine 50 mg PO BEDTIME tramadol 50 mg PO Q8H PRN 10 days HPI Comments Details: Analilia is a pleasant 53-year-old female who is a patient of Dr. Hernandez. She has a past medical history of anxiety, asthma, bipolar disorder, depression, interstitial cystitis, and overactive bladder. She presents to the office today as a follow-up of her interstitial cystitis in addition to her overactive bladder. She presents to the office today for rescue bladder instillation due to ongoing urgency, frequency, and episodes of nocturia she has been experiencing over the last 3 weeks. Patient was last seen approximately 1 week ago however was unable to undergo rescue bladder solution as she had been experiencing UTI like symptoms and in office urinalysis noted positive leukocytes and nitrates. In discussion with the patient today she reports having completed antibiotics as prescribed. She reports somewhat improvement in lower urinary tract symptoms however does continue to experience episodes of nocturia. In office urinalysis results today 2+ microscopic hematuria otherwise within normal limits. She discusses having followed up with [place] and will undergo surgical procedure for potential bilateral oophorectomy June 20. She also discusses her recent diagnosis of right-sided breast cancer with Dr. Otoole. She is status post right breast biopsy and completion of radiation. She otherwise denies incontinence, changes to urinary stream, flank pain, fever, and or chills. Of note, patient underwent cystoscopy hydrodistention with Dr. Hoffmann on 12/21/23. Discussed Cystoscopy revealed glomerulations consistent with interstitial cystitis at which time recommendations were made for Myrbetriq 25 mg daily however given patient's multiple medical issues she had been experiencing she has not yet started the medication. She otherwise denies any other issues or concerns at this time. Urine cytology 03/05 Negative for high- grade urothelial carcinoma. [facility] Medical History PONV (postoperative nausea and vomiting) Arthritis Bipolar disorder Depression Anxiety Asthma Interstitial cystitis Overactive bladder Surgical History Hx of eye surgery History of cystoscopy Hx of ovarian cystectomy Social History Household Members: None Housing: Apartment Are you a primary care manager to a significant other at home: No Do you presently have visiting nurse or other home services: No Alcohol intake: never Patient Tobacco Use Status: Current everyday Tobacco user Tobacco use type: Cigarette Cigarettes Per Day: 4 Substance Use Type: Marijuana Review of Systems Const Reports no additional complaints Eyes Reports no additional complaints ENT Details: patient reports allergies Reports no additional complaints Card Reports no additional complaints Resp Reports no additional complaints GI Reports as per HPI Reports as per HPI Neuro Reports no additional complaints Psych Reports anxiety and Reports depression Endo Reports no additional complaints Ryan/Lymph Reports no additional complaints Aller/Immun Reports no additional complaints Physical Exam Const General: cooperative, healthy appearing, comfortable, no acute distress, well developed, alert and awake Orientation/consciousness: patient oriented x3 Limitations: no limitations HEENT Head: Yes normal to inspection, Yes normocephalic and Yes atraumatic Ears: hearing grossly normal bilaterally Eyes General: appearance normal, both eyes and all related structures Neck Neck: Yes normal visual inspection and Yes trachea midline Chest Chest palpation & inspection: normal inspection of the chest Resp Effort & Inspection: normal respiratory effort and able to speak in complete sentences Cardio Rate: regular rate GI Inspection: Yes normal to inspection General: Yes no CVA tenderness Back/Spine/Pelvis Back: no CVA tenderness Skin General skin exam: no rashes or lesions noted Neuro General: patient oriented x3 Extrem General: Yes normal to inspection Psych Appearance: grossly normal and well kempt Mental Status: mental status grossly normal Speech and movement: Normal speech and movement present and Clear speech present Affect: normal affect and Sad affect present Attitude: cooperative Thought process: Normal thought process present Thought content: Normal thought content present Insight: Fair insight present (Psych) Judgement: Fair judgement present (Psych) Office Procedures Bladder/Catheter Procedure Details: Bladder instillation for interstitial cystitis. Patient was catheterized using clean technique 14 [place] female CIC catheter utilized. Bladder was emptied for 10 mL of yellow urine Bladder rescue installed 50% bupivacaine- 10mL Heparin 5000 units- 1mL Lidocaine 2% uro jet- 10mL Lidocaine 2%- 10mL Patient tolerated procedure well. Instructed and educated to hold in bladder for 1 hour or greater. 62603-Pkplhvbtrl of Bladder 25022-Azzqyg Bladder Catheter Procedure code (CPT) selection complete Results AMB Urinalysis, Automated UA Leukoctes 0 Carina/uL Last Edit by Marvel Palma on 05/05/24 10:34 UA Nitrite Last Edit by Marvel Palma on 05/05/24 10:34 UA Urobilinogen 0.2 mg/dL Last Edit by RobertMeusoniclucía Palma on 05/05/24 10:34 UA Protein 15 mg/dL Last Edit by Marvel Palma on 05/05/24 10:34 UA pH 6.0 Last Edit by [email or web address] on 05/05/24 10:34 UA Blood 80 Vinicio/uL Last Edit by [employer] Minerva on 05/05/24 10:34 UA Specific [place] 1.030 Last Edit by RobertMeusoniclucía Palma on 05/05/24 10:34 UA Ketone Last Edit by RobertMeusoniclucía Palma on 05/05/24 10:34 UA Bilirubin 1 mg/dL Last Edit by RobertMeusoniclucía Palma on 05/05/24 10:34 UA Glucose 0 mg/dL Last Edit by [employer] on 05/05/24 10:34 Results Reviewed Results Reviewed: Laboratory Last Values Urine pH (Auto) 6.0 05/05/24 10:23 Specific [place] (Auto) 1.030 05/05/24 10:23 Urine Protein (Auto) 15 mg/dL 05/05/24 10:23 Glucose (UA)(Auto) 0 mg/dL 05/05/24 10:23 Urine Blood (Auto) 80 Vinicio/uL 05/05/24 10:23 Urine Bilirubin (Auto) 1 mg/dL 05/05/24 10:23 Urine Urobilinogen (Auto) 0.2 mg/dL 05/05/24 10:23 Leukocyte Esterase (Auto) 0 Carina/uL 05/05/24 10:23 Assessment & Plan Assessment & Plan (1) Overactive bladder: Code(s): N32.81 - Overactive bladder Category: Medical (2) Interstitial cystitis: Code(s): N30.10 - Interstitial cystitis (chronic) without hematuria Category: Medical (3) UTI (urinary tract infection): Code(s): N39.0 - Urinary tract infection, site not specified Category: Medical Plan In office urinalysis results reviewed with the patient today; as noted above. Bladder instillation provided during today's office visit. Discussed, educated, and stressed the importance of adequate hydration. Discussed bladder triggers/irritants. Start Myrbetriq as discussed and prescribed. Follow-up next week; or sooner with any issues, concerns, and or questions. Orders: Orders AMB Bladder/Catheter Procedure 05/05/24 N30.10 - Interstitial cystitis (chronic) without hematuria, N32.81 - Overactive bladder AMB Urinalysis Automated 05/05/24 Z13.9 - Encounter for screening, unspecified Medications: New ondansetron HCl 4 mg PO Q8H PRN 15 tabs 0RF nausea and vomiting 7 days Refilled tramadol 50 mg PO Q8H PRN 30 tabs 1RF pain 10 days Patient Instructions: The patient had an opportunity to ask questions regarding the treatment plan. All questions were answered. Physical exam, labs, and imaging were discussed and reviewed in detail. As well as risks, benefits, and discussion of treatment choices. No major barriers to understanding were identified. The patient expressed understanding and agreement with the above treatment plan. The patient was made aware they should contact our office by phone for worsening of their current condition, the appearance of new symptoms, or with any questions or concerns. Compliance is encouraged with any medications and follow up testing that is ordered. It is a privilege to be allowed the opportunity to participate in? your urological care.? Again, if you have any questions or concerns If you have any questions or concerns please do not hesitate to contact me. The office is [phone]. This note is constructed using voice recognition software. While every effort has been made to ensure accuracy director organizational errors may have been included. Yours sincerely, VEERT Mccormick Coding Level of Care Code Est Pt Level 3 (28406) Complex EM visit Add On G2211 Diagnoses Overactive bladder N32.81 Interstitial cystitis N30.10 UTI (urinary tract infection) N39.0 CPT Codes Bladder/Catheter Procedure - CPT: 01567-Epoggvkald of Bladder ([id number]) Bladder/Catheter Procedure - CPT: 25927-Sjzmwo Bladder Catheter ([id number])
== END 2024-05-05 10:46 | disposition home or self-care (01) ==
LOC: HO.HUSH 09:48
PROVIDERS: Visit Provider Nurse Practitioner Family
DX: N32.81 Overactive bladder (principal); N39.0 Urinary tract infection, site not specified; N30.10 Interstitial cystitis (chronic) without hematuria
CPT/HCPCS: 51700; 99213

== ENCOUNTER → 2024-05-05 09:48 | Outpatient (BNVA) | payer MEDICARE, MEDICAID, SELFPAY | PROVIDERS: Visit Provider Nurse Practitioner Family | DX: N30.10 Interstitial cystitis (chronic) without hematuria (principal); N32.81 Overactive bladder; R35.1 Nocturia | CPT/HCPCS: 51700; 81003; 99212; J0665; J1644; J2003; J2919 ==

== ENCOUNTER 2024-05-16 09:27 | Outpatient (AMB) | payer MEDICARE, MEDICAID, SELFPAY ==
--- NOTE | 2024-05-16 09:32 | MHC.OFFVIS ---
Intake Visit Reasons: IC instillation Intake Note: Patient presents today for follow up on: interstitial cystitis/bladder installation#4 Urology Medication: none Allergies to Antibiotic: Cephalexin Blood Thinner:None Alterations Tailor Required: No Accompanied by: Self / Same As Patient Allergies aspirin [Aspirin] Allergy (Severe, Verified 05/16/24 10:42) ANAPHYLAXIS, nausea,vomiting morphine [Morphine] Allergy (Severe, Verified 05/16/24 10:42) SOB, horrible feeling cephalexin Allergy (Intermediate, Verified 05/16/24 10:42) vomiting ibuprofen [From Motrin] Allergy (Intermediate, Verified 05/16/24 10:42) BLEEDING-PT STATES STILL TAKES pineapple Allergy (Mild, Verified 05/16/24 10:42) Rash Medication List - Last Reconciled 05/16/24 by PHIL Mccormick- albuterol sulfate 90 mcg/actuation 1 inh inhalation Q4H PRN citalopram 1.5 tabs PO DAILY clonazepam 1 mg PO BID PRN mirabegron ER (Myrbetriq) 25 mg PO DAILY 90 days ondansetron HCl 4 mg PO Q8H PRN 7 days quetiapine 50 mg PO BEDTIME tramadol 50 mg PO Q8H PRN 7 days HPI Comments Details: Analilia is a pleasant 53-year-old female who is a patient of Dr. Hernandez. She has a past medical history of anxiety, asthma, bipolar disorder, depression, interstitial cystitis, and overactive bladder. She presents to the office today as a follow-up of her interstitial cystitis in addition to her overactive bladder. She presents to the office today for rescue bladder instillation due to ongoing urgency, frequency, and episodes of nocturia she has been experiencing over the last few weeks. In discussion with the patient today she reports having started Myrbetriq as prescribed and feels this has also been helpful in decreasing episodes of nocturia she had been experiencing. In office urinalysis results reviewed with the patient today. PVR 27 mLs. She discusses her upcoming surgical intervention for bilateral oophorectomy given her recent history of right-sided breast cancer. She is status post right breast biopsy and completion of radiation. She otherwise denies incontinence, changes to urinary stream, flank pain, fever, and or chills. Of note, patient underwent cystoscopy hydrodistention with Dr. Hoffmann on 12/21/23. Discussed Cystoscopy revealed glomerulations consistent with interstitial cystitis at which time recommendations were made for Myrbetriq 25 mg daily however given patient's multiple medical issues she had been experiencing she was hesitant in initiation of Myrbetriq however has since started medication approximately 2 weeks ago. She otherwise denies any other issues or concerns at this time. Urine cytology 03/05 Negative for high-grade urothelial carcinoma. Bladder instillation provided at today's office visit. PFSH Medical History PONV (postoperative nausea and vomiting) Arthritis Bipolar disorder Depression Anxiety Asthma Interstitial cystitis Overactive bladder Surgical History Hx of eye surgery History of cystoscopy Hx of ovarian cystectomy Social History Household Members: None Housing: Apartment Are you a primary career and technology education teacher to a significant other at home: No Do you presently have visiting nurse or other home services: No Alcohol intake: never Patient Tobacco Use Status: Current everyday Tobacco user Tobacco use type: Cigarette Cigarettes Per Day: 4 Substance Use Type: Marijuana Review of Systems Const Reports no additional complaints Eyes Reports no additional complaints ENT Details: patient reports allergies Reports no additional complaints Card Reports no additional complaints Resp Reports no additional complaints GI Reports as per HPI Reports as per HPI Neuro Reports no additional complaints Psych Reports anxiety and Reports depression Endo Reports no additional complaints Ryan/Lymph Reports no additional complaints Aller/Immun Reports no additional complaints Physical Exam Const General: cooperative, healthy appearing, comfortable, no acute distress, well developed, alert and awake Nutritional Appearance: average body habitus Orientation/consciousness: patient oriented x3 Limitations: no limitations HEENT Head: Yes normal to inspection, Yes normocephalic and Yes atraumatic Ears: hearing grossly normal bilaterally Eyes General: appearance normal, both eyes and all related structures Neck Neck: Yes normal visual inspection and Yes trachea midline Chest Chest palpation & inspection: normal inspection of the chest Resp Effort & Inspection: normal respiratory effort and able to speak in complete sentences Cardio Rate: regular rate GI Inspection: Yes normal to inspection General: Yes no CVA tenderness Back/Spine/Pelvis Back: no CVA tenderness Skin General skin exam: no rashes or lesions noted Neuro General: patient oriented x3 Extrem General: Yes normal to inspection Psych Appearance: grossly normal and well kempt Mental Status: mental status grossly normal Speech and movement: Normal speech and movement present and Clear speech present Affect: normal affect and Sad affect present Attitude: cooperative Thought process: Normal thought process present Thought content: Normal thought content present Insight: Fair insight present (Psych) Judgement: Fair judgement present (Psych) Office Procedures Bladder/Catheter Procedure Details: Bladder instillation for interstitial cystitis. Patient was catheterized using clean technique 14 [place] female CIC catheter utilized. Bladder was emptied for 27 mL of yellow urine Bladder rescue installed 50% bupivacaine- 10mL Heparin 5000 units- 1mL Lidocaine 2% uro jet- 10mL Lidocaine 2%- 10mL Patient tolerated procedure well. Instructed and educated to hold in bladder for 1 hour or greater. 35831-Mdpuwrildp of Bladder 77363-Dfvggi Bladder Catheter Procedure code (CPT) selection complete Results AMB Urinalysis, Automated UA Leukoctes 0 Carina/uL Last Edit by [employer] E Capital Managementlucía PetersonRabbit on 05/16/24 09:45 UA Nitrite Last Edit by Marvel Palma on 05/16/24 09:45 UA Urobilinogen 0.2 mg/dL Last Edit by Marvel Palma on 05/16/24 09:45 UA Protein 0 mg/dL Last Edit by Blue Medora KristenRabbit on 05/16/24 09:45 UA pH 6.0 Last Edit by RobertE [employer] E Capital Managementlucía PetersonRabbit on 05/16/24 09:45 UA Blood 80 Vinicio/uL Last Edit by Blue Medora KristenRabbit on 05/16/24 09:45 UA Specific [place] 1.025 Last Edit by RobertE [employer] E Capital Managementlucía Palma on 05/16/24 09:45 UA Ketone Last Edit by Blue Medora KristenRabbit on 05/16/24 09:45 UA Bilirubin 0 mg/dL Last Edit by Immunome on 05/16/24 09:45 UA Glucose 0 mg/dL Last Edit by Blue Medora KristenRabbit on 05/16/24 09:45 Results Reviewed Results Reviewed: Laboratory Last Values Urine pH (Auto) 6.0 05/16/24 09:44 Specific [place] (Auto) 1.025 05/16/24 09:44 Urine Protein (Auto) 0 mg/dL 05/16/24 09:44 Glucose (UA)(Auto) 0 mg/dL 05/16/24 09:44 Urine Blood (Auto) 80 Vinicio/uL 05/16/24 09:44 Urine Bilirubin (Auto) 0 mg/dL 05/16/24 09:44 Urine Urobilinogen (Auto) 0.2 mg/dL 05/16/24 09:44 Leukocyte Esterase (Auto) 0 Carina/uL 05/16/24 09:44 Assessment & Plan Assessment & Plan (1) Overactive bladder: Code(s): N32.81 - Overactive bladder Category: Medical (2) Interstitial cystitis: Code(s): N30.10 - Interstitial cystitis (chronic) without hematuria Category: Medical Plan In office urinalysis results reviewed with the patient today; as noted above. PVR 27 mL Bladder instillation provided during today's office visit. Discussed, educated, and stressed the importance of adequate hydration. Discussed bladder triggers/irritants. Continue Myrbetriq as patient reports significant improvement in lower urinary tract symptoms; refill provided Follow-up next week for in office bladder instillation; or sooner with any issues, concerns, and or questions. Orders: Orders AMB Urinalysis Automated Today Z13.9 - Encounter for screening, unspecified Medications: New mirabegron ER (Myrbetriq) 25 mg PO DAILY 90 tabs 1RF 90 days N32.81 - Overactive bladder, R35.1 - Nocturia Changed From tramadol 50 mg PO Q8H PRN 30 tabs 1RF pain 10 days To tramadol 50 mg PO Q8H PRN 20 tabs 0RF pain 7 days Patient Instructions: The patient had an opportunity to ask questions regarding the treatment plan. All questions were answered. Physical exam, labs, and imaging were discussed and reviewed in detail. As well as risks, benefits, and discussion of treatment choices. No major barriers to understanding were identified. The patient expressed understanding and agreement with the above treatment plan. The patient was made aware they should contact our office by phone for worsening of their current condition, the appearance of new symptoms, or with any questions or concerns. Compliance is encouraged with any medications and follow up testing that is ordered. It is a privilege to be allowed the opportunity to participate in? your urological care.? Again, if you have any questions or concerns If you have any questions or concerns please do not hesitate to contact me. The office is [phone]. This note is constructed using voice recognition software. While every effort has been made to ensure accuracy stencil cutter errors may have been included. Yours sincerely, PHIL Mccormick- Coding Level of Care Code Est Pt Level 3 (08894) Complex EM visit Add On G2211 Diagnoses Overactive bladder N32.81 Interstitial cystitis N30.10 CPT Codes Bladder/Catheter Procedure - CPT: 51575-Npovmabwnv of Bladder ([id number]) Bladder/Catheter Procedure - CPT: 42900-Jhmsku Bladder Catheter ([id number])
== END 2024-05-16 10:21 | disposition home or self-care (01) ==
LOC: HO.HUSH 09:27
PROVIDERS: Visit Provider Nurse Practitioner Family
DX: N32.81 Overactive bladder (principal); N30.10 Interstitial cystitis (chronic) without hematuria; Z13.9 Encounter for screening, unspecified
CPT/HCPCS: 51700; 99213

== ENCOUNTER → 2024-05-16 09:27 | Outpatient (BNVA) | payer MEDICARE, MEDICAID, SELFPAY | PROVIDERS: Visit Provider Nurse Practitioner Family | DX: N32.81 Overactive bladder (principal); N30.10 Interstitial cystitis (chronic) without hematuria | CPT/HCPCS: 51700; 81003; 99212 ==

== ENCOUNTER 2024-05-23 09:29 | Outpatient (AMB) | payer MEDICARE, MEDICAID, SELFPAY ==
--- NOTE | 2024-05-23 09:36 | A.OFFVIS_ITS ---
Intake Visit Reasons: IC instillation Intake Note: Patient presents today for follow up on: interstitial cystitis/bladder installation#5 Urology Medication: myrbetriq Allergies to Antibiotic: Cephalexin Blood Thinner:None Scoreboard Operator Required: No Accompanied by: Self / Same As Patient Allergies aspirin [Aspirin] Allergy (Severe, Verified 05/23/24 10:42) ANAPHYLAXIS, nausea,vomiting morphine [Morphine] Allergy (Severe, Verified 05/23/24 10:42) SOB, horrible feeling cephalexin Allergy (Intermediate, Verified 05/23/24 10:42) vomiting ibuprofen [From Motrin] Allergy (Intermediate, Verified 05/23/24 10:42) BLEEDING-PT STATES STILL TAKES pineapple Allergy (Mild, Verified 05/23/24 10:42) Rash Medication List - Last Reconciled 05/23/24 by ROSAS MccormickP- albuterol sulfate 90 mcg/actuation 1 inh inhalation Q4H PRN citalopram 1.5 tabs PO DAILY clonazepam 1 mg PO BID PRN mirabegron ER (Myrbetriq) 25 mg PO DAILY 90 days ondansetron HCl 4 mg PO Q8H PRN 7 days quetiapine 50 mg PO BEDTIME tramadol 50 mg PO Q8H PRN 7 days HPI Comments Details: Analilia is a pleasant 53-year-old female who is a patient of Dr. Hernandez. She has a past medical history of anxiety, asthma, bipolar disorder, depression, interstitial cystitis, and overactive bladder. She presents to the office today as a follow-up of her interstitial cystitis in addition to her overactive bladder. She presents to the office today for rescue bladder instillation due to ongoing urgency, frequency, and episodes of nocturia she has been experiencing. In discussion with the patient today she reports to be doing and feeling well. She reports significant improvement in lower urinary tract symptoms with weekly bladder instillations as well as having started Myrbetriq as prescribed. In office urinalysis results reviewed with the patient today. PVR 13 mL. She discusses her upcoming appointment tomorrow for pelvic ultrasound as she has upcoming surgical intervention for bilateral oophorectomy given her recent history of right-sided breast cancer. She is status post right breast biopsy and completion of radiation. She discusses feeling episodes of no cturia have significantly decreased as she had been experiencing nocturia up to 5 times per night. She otherwise denies incontinence, changes to urinary stream, flank pain, fever, and or chills. Of note, patient underwent cystoscopy hydrodistention with Dr. Hoffmann on 12/21/23. Cystoscopy revealed glomerulations consistent with interstitial cystitis. She otherwise denies any other issues or concerns at this time. Urine cytology 03/05 Negative for high-grade urothelial carcinoma. Bladder instillation provided at today's office visit. [facility] Medical History PONV (postoperative nausea and vomiting) Arthritis Bipolar disorder Depression Anxiety Asthma Interstitial cystitis Overactive bladder Surgical History Hx of eye surgery History of cystoscopy Hx of ovarian cystectomy Social History Household Members: None Housing: Apartment Are you a primary customer care agent to a significant other at home: No Do you presently have visiting nurse or other home services: No Alcohol intake: never Patient Tobacco Use Status: Current everyday Tobacco user Tobacco use type: Cigarette Cigarettes Per Day: 4 Substance Use Type: Marijuana Review of Systems Const Reports no additional complaints Eyes Reports no additional complaints ENT Details: patient reports allergies Reports no additional complaints Card Reports no additional complaints Resp Reports no additional complaints GI Reports as per HPI Reports as per HPI Neuro Reports no additional complaints Psych Reports anxiety and Reports depression Endo Reports no additional complaints Ryan/Lymph Reports no additional complaints Aller/Immun Reports no additional complaints Physical Exam Const General: cooperative, healthy appearing, comfortable, no acute distress, well developed, alert and awake Nutritional Appearance: average body habitus Orientation/consciousness: patient oriented x3 Limitations: no limitations HEENT Head: Yes normal to inspection, Yes normocephalic and Yes atraumatic Ears: hearing grossly normal bilaterally Eyes General: appearance normal, both eyes and all related structures Neck Neck: Yes normal visual inspection and Yes trachea midline Chest Chest palpation & inspection: normal inspection of the chest Resp Effort & Inspection: normal respiratory effort and able to speak in complete sentences Cardio Rate: regular rate GI Inspection: Yes normal to inspection General: Yes no CVA tenderness Back/Spine/Pelvis Back: no CVA tenderness Skin General skin exam: no rashes or lesions noted Neuro General: patient oriented x3 Extrem General: Yes normal to inspection Psych Appearance: grossly normal and well kempt Mental Status: mental status grossly normal Speech and movement: Normal speech and movement present and Clear speech present Affect: normal affect and Sad affect present Attitude: cooperative Thought process: Normal thought process present Thought content: Normal thought content present Insight: Fair insight present (Psych) Judgement: Fair judgement present (Psych) Office Procedures Bladder/Catheter Procedure Details: Bladder instillation for interstitial cystitis. Patient was catheterized using clean technique 14 [place] female CIC catheter utilized. Bladder was emptied for 13 mL of yellow urine Bladder rescue installed 50% bupivacaine- 10mL Heparin 5000 units- 1mL Lidocaine 2% uro jet- 10mL Lidocaine 2%- 10mL Patient tolerated procedure well. Instructed and educated to hold in bladder for 1 hour or greater. 93164-Cqikxwblyl of Bladder 38230-Swdbbi Temporary Bladder Catheter Procedure code (CPT) selection complete Results AMB Urinalysis, Automated UA Leukoctes 0 Carina/uL Last Edit by Marvel Palma on 05/23/24 10:32 UA Nitrite Last Edit by Marvel Palma on 05/23/24 10:32 UA Urobilinogen 0.2 mg/dL Last Edit by Marvel Palma on 05/23/24 10:32 UA Protein 0 mg/dL Last Edit by Marvel Palma on 05/23/24 10:32 UA pH 6.0 Last Edit by RobertMobiliteclucía Palma on 05/23/24 10:32 UA Blood 25 Vinicio/uL Last Edit by Marvel Palma on 05/23/24 10:32 UA Specific [place] 1.015 Last Edit by Marvel Palma on 05/23/24 10:32 UA Ketone Last Edit by Marvel Palma on 05/23/24 10:32 UA Bilirubin 0 mg/dL Last Edit by Marvel Palma on 05/23/24 10:32 UA Glucose 0 mg/dL Last Edit by RobertMobiliteclucía Palma on 05/23/24 10:32 Results Reviewed Results Reviewed: Laboratory Last Values Urine pH (Auto) 6.0 05/23/24 10:31 Specific [place] (Auto) 1.015 05/23/24 10:31 Urine Protein (Auto) 0 mg/dL 05/23/24 10:31 Glucose (UA)(Auto) 0 mg/dL 05/23/24 10:31 Urine Blood (Auto) 25 Vinicio/uL 05/23/24 10:31 Urine Bilirubin (Auto) 0 mg/dL 05/23/24 10:31 Urine Urobilinogen (Auto) 0.2 mg/dL 05/23/24 10:31 Leukocyte Esterase (Auto) 0 Carina/uL 05/23/24 10:31 Assessment & Plan Assessment & Plan (1) Overactive bladder: Code(s): N32.81 - Overactive bladder Category: Medical (2) Interstitial cystitis: Code(s): N30.10 - Interstitial cystitis (chronic) without hematuria Category: Medical Plan In office urinalysis results reviewed with the patient today; as noted above. PVR 13 mL Bladder instillation provided during today's office visit. Discussed, educated, and stressed the importance of adequate hydration. Discussed bladder triggers/irritants. Continue Myrbetriq Follow-up next week for in office bladder instillation; or sooner with any issues, concerns, and or questions. Orders: Orders AMB Urinalysis Automated Today Z13.9 - Encounter for screening, unspecified Medications: Changed From tramadol 50 mg PO Q8H 7 days PRN 20 tabs 0RF pain To tramadol 50 mg PO Q8H 10 days PRN 30 tabs 0RF pain Patient Instructions: The patient had an opportunity to ask questions regarding the treatment plan. All questions were answered. Physical exam, labs, and imaging were discussed and reviewed in detail. As well as risks, benefits, and discussion of treatment choices. No major barriers to understanding were identified. The patient expressed understanding and agreement with the above treatment plan. The patient was made aware they should contact our office by phone for worsening of their current condition, the appearance of new symptoms, or with any questions or concerns. Compliance is encouraged with any medications and follow up testing that is ordered. It is a privilege to be allowed the opportunity to participate in? your urological care.? Again, if you have any questions or concerns If you have any questions or concerns please do not hesitate to contact me. The office is [phone]. This note is constructed using voice recognition software. While every effort has been made to ensure accuracy optometrist assistant errors may have been included. Yours sincerely, PHIL Mccormick- Coding Level of Care Code Est Pt Level 3 (20342) Complex EM visit Add On G2211 Diagnoses Overactive bladder N32.81 Interstitial cystitis N30.10 CPT Codes Bladder/Catheter Procedure - CPT: 56685-Ooalakfqlh of Bladder ([id number]) Bladder/Catheter Procedure - CPT: 18418-Xjgyul Temporary Bladder Catheter ([id number])
== END 2024-05-23 10:24 | disposition home or self-care (01) ==
LOC: HO.HUSH 09:29
PROVIDERS: Visit Provider Nurse Practitioner Family
DX: N32.81 Overactive bladder (principal); N30.10 Interstitial cystitis (chronic) without hematuria; Z13.9 Encounter for screening, unspecified
CPT/HCPCS: 51700; 99213

== ENCOUNTER → 2024-05-23 09:29 | Outpatient (BNVA) | payer MEDICARE, MEDICAID, SELFPAY | PROVIDERS: Visit Provider Nurse Practitioner Family | DX: N32.81 Overactive bladder (principal); N30.10 Interstitial cystitis (chronic) without hematuria | CPT/HCPCS: 51700; 81003; 99212 ==

== ENCOUNTER 2024-05-31 09:42 | Outpatient (AMB) | payer MEDICARE, MEDICAID, SELFPAY ==
--- NOTE | 2024-05-31 09:45 | A.OFFVIS_ITS ---
Intake Visit Reasons: IC instillation Intake Note: Patient presents today for follow up on: interstitial cystitis/bladder installation#6 Urology Medication: myrbetriq Allergies to Antibiotic: Cephalexin Blood Thinner:None Vendor Relationship Manager Required: No Accompanied by: Self / Same As Patient Allergies aspirin [Aspirin] Allergy (Severe, Verified 05/31/24 11:24) ANAPHYLAXIS, nausea,vomiting morphine [Morphine] Allergy (Severe, Verified 05/31/24 11:24) SOB, horrible feeling cephalexin Allergy (Intermediate, Verified 05/31/24 11:24) vomiting ibuprofen [From Motrin] Allergy (Intermediate, Verified 05/31/24 11:24) BLEEDING-PT STATES STILL TAKES pineapple Allergy (Mild, Verified 05/31/24 11:24) Rash Medication List - Last Reconciled 05/31/24 by Gloria Roberts AUTO PAINTER HELPER- albuterol sulfate 90 mcg/actuation 1 inh inhalation Q4H PRN citalopram 1.5 tabs PO DAILY clonazepam 1 mg PO BID PRN mirabegron ER (Myrbetriq) 25 mg PO DAILY 90 days ondansetron HCl 4 mg PO Q8H PRN 7 days quetiapine 50 mg PO BEDTIME tramadol 50 mg PO Q8H PRN 10 days HPI Comments Details: Analilia is a pleasant 53-year-old female who is a patient of Dr. Hernandez. She has a past medical history of anxiety, asthma, bipolar disorder, depression, interstitial cystitis, and overactive bladder. She presents to the office today as a follow-up of her interstitial cystitis in addition to her overactive bladder. She presents to the office today for rescue bladder instillation due to ongoing urgency, frequency, and episodes of nocturia she has been experiencing however feels lower urinary tract symptoms have improved and does not wish to have bladder instillation at today's office visit. She reports feeling Myrbetriq has been extremely helpful in episodes of nocturia as well as urinary urgency and frequency. In office urinalysis results reviewed with the patient today 2+ microscopic hematuria otherwise within normal limits. She reports having had pelvic ultrasound late last week and right ovarian cysts were noted therefore she was educated to obtain blood work for further assessment evaluation. She reports having had blood work earlier this morning prior to her appointment here. She discusses her anxiety regarding her health as she has recently been diagnosed with breast cancer and has underwent lumpectomy and radiation to her right breast. She discusses her upcoming surgical appointment on June 20 for possible hysterectomy verses oophorectomy. She otherwise denies incontinence, changes to urinary stream, flank pain, fever, and or chills. Of note, patient underwent cystoscopy hydrodistention with Dr. Hoffmann on 12/21/23. Cystoscopy revealed glomerulations consistent with interstitial cystitis. She otherwise denies any other issues or concerns at this time. Urine cytology 03/05 Negative for high-grade urothelial carcinoma. [facility] Medical History PONV (postoperative nausea and vomiting) Arthritis Bipolar disorder Depression Anxiety Asthma Interstitial cystitis Overactive bladder Surgical History Hx of eye surgery History of cystoscopy Hx of ovarian cystectomy Social History Household Members: None Housing: Apartment Are you a primary home care manager rn to a significant other at home: No Do you presently have visiting nurse or other home services: No Alcohol intake: never Patient Tobacco Use Status: Current everyday Tobacco user Tobacco use type: Cigarette Cigarettes Per Day: 4 Substance Use Type: Marijuana Review of Systems Const Reports no additional complaints Eyes Reports no additional complaints ENT Details: patient reports allergies Reports no additional complaints Card Reports no additional complaints Resp Reports no additional complaints GI Reports as per HPI Reports as per HPI Neuro Reports no additional complaints Psych Reports anxiety and Reports depression Endo Reports no additional complaints Ryan/Lymph Reports no additional complaints Aller/Immun Reports no additional complaints Physical Exam Const General: cooperative, healthy appearing, comfortable, no acute distress, well developed, alert and awake Nutritional Appearance: average body habitus Orientation/consciousness: patient oriented x3 Limitations: no limitations HEENT Head: Yes normal to inspection, Yes normocephalic and Yes atraumatic Ears: hearing grossly normal bilaterally Eyes General: appearance normal, both eyes and all related structures Neck Neck: Yes normal visual inspection and Yes trachea midline Chest Chest palpation & inspection: normal inspection of the chest Resp Effort & Inspection: normal respiratory effort and able to speak in complete sentences Cardio Rate: regular rate GI Inspection: Yes normal to inspection General: Yes no CVA tenderness Back/Spine/Pelvis Back: no CVA tenderness Skin General skin exam: no rashes or lesions noted Neuro General: patient oriented x3 Extrem General: Yes normal to inspection Psych Appearance: grossly normal and well kempt Mental Status: mental status grossly normal Speech and movement: Normal speech and movement present and Clear speech present Affect: normal affect and Sad affect present Attitude: cooperative Thought process: Normal thought process present Thought content: Normal thought content present Insight: Fair insight present (Psych) Judgement: Fair judgement present (Psych) Results AMB Urinalysis, Automated UA Leukoctes 0 Carina/uL Last Edit by [employer] on 05/31/24 10:08 UA Nitrite Last Edit by [employer] on 05/31/24 10:08 UA Urobilinogen 0.2 mg/dL Last Edit by [employer] on 05/31/24 10:08 UA Protein 15 mg/dL Last Edit by [employer] on 05/31/24 10:08 UA pH 6.0 Last Edit by [employer] on 05/31/24 10:08 UA Blood 80 Vinicio/uL Last Edit by [employer] on 05/31/24 10:08 UA Specific [place] 1.030 Last Edit by [employer] on 05/31/24 10:08 UA Ketone Negative Last Edit by [employer] on 05/31/24 10:08 UA Bilirubin 0 mg/dL Last Edit by [employer] on 05/31/24 10:08 UA Glucose 0 mg/dL Last Edit by [employer] on 05/31/24 10:08 Results Reviewed Results Reviewed: Laboratory Last Values Urine pH (Auto) 6.0 05/31/24 10:04 Specific [place] (Auto) 1.030 05/31/24 10:04 Urine Protein (Auto) 15 mg/dL 05/31/24 10:04 Glucose (UA)(Auto) 0 mg/dL 05/31/24 10:04 Urine Ketones (Auto) Negative 05/31/24 10:04 Urine Blood (Auto) 80 Vinicio/uL 05/31/24 10:04 Urine Bilirubin (Auto) 0 mg/dL 05/31/24 10:04 Urine Urobilinogen (Auto) 0.2 mg/dL 05/31/24 10:04 Leukocyte Esterase (Auto) 0 Carina/uL 05/31/24 10:04 Assessment & Plan Assessment & Plan (1) Interstitial cystitis: Code(s): N30.10 - Interstitial cystitis (chronic) without hematuria Category: Medical (2) Overactive bladder: Code(s): N32.81 - Overactive bladder Category: Medical Plan In office urinalysis results reviewed with the patient today; as noted above. Discussed, educated, and stressed the importance of adequate hydration. Discussed bladder triggers/irritants. Continue Myrbetriq. Follow-up next week for in office bladder instillation; or sooner with any issues, concerns, and or questions. Orders: Orders AMB Urinalysis Automated Today Z13.9 - Encounter for screening, unspecified Medications: Refilled tramadol 50 mg PO Q8H PRN 30 tabs 0RF pain 10 days Patient Instructions: The patient had an opportunity to ask questions regarding the treatment plan. All questions were answered. Physical exam, labs, and imaging were discussed and reviewed in detail. As well as risks, benefits, and discussion of treatment choices. No major barriers to understanding were identified. The patient expressed understanding and agreement with the above treatment plan. The patient was made aware they should contact our office by phone for worsening of their current condition, the appearance of new symptoms, or with any questions or concerns. Compliance is encouraged with any medications and follow up testing that is ordered. It is a privilege to be allowed the opportunity to participate in? your urological care.? Again, if you have any questions or concerns If you have any questions or concerns please do not hesitate to contact me. The office is [phone]. This note is constructed using voice recognition software. While every effort has been made to ensure accuracy ict programmer errors may have been included. Yours sincerely, EVERT Mccormick Coding Level of Care Code Est Pt Level 3 (91935) Diagnoses Interstitial cystitis N30.10 Overactive bladder N32.81
== END 2024-05-31 10:12 | disposition home or self-care (01) ==
LOC: HO.HUSH 09:42
PROVIDERS: Visit Provider Nurse Practitioner Family
DX: N30.10 Interstitial cystitis (chronic) without hematuria (principal); N32.81 Overactive bladder; Z13.9 Encounter for screening, unspecified
CPT/HCPCS: 99213

== ENCOUNTER → 2024-05-31 09:42 | Outpatient (BNVA) | payer MEDICARE, MEDICAID, SELFPAY | PROVIDERS: Visit Provider Nurse Practitioner Family | DX: N30.10 Interstitial cystitis (chronic) without hematuria (principal); N32.81 Overactive bladder | CPT/HCPCS: 81003; 99212 ==

== ENCOUNTER 2024-08-22 09:50 | Outpatient (AMB) | payer MEDICARE, MEDICAID, SELFPAY ==
--- NOTE | 2024-08-22 09:50 | MHC.OFFVIS ---
Intake Visit Reasons: H & P discussion Intake Note: Patient presents today for follow up on: interstitial cystitis Urology Medication: myrbetriq Allergies to Antibiotic: Cephalexin Blood Thinner:None Electric Meter Installer Helper Required: No Accompanied by: Self / Same As Patient Allergies aspirin [Aspirin] Allergy (Severe, Verified 08/22/24 09:52) ANAPHYLAXIS, nausea,vomiting morphine [Morphine] Allergy (Severe, Verified 08/22/24 09:52) SOB, horrible feeling cephalexin Allergy (Intermediate, Verified 08/22/24 09:52) vomiting ibuprofen [From Motrin] Allergy (Intermediate, Verified 08/22/24 09:52) BLEEDING-PT STATES STILL TAKES pineapple Allergy (Mild, Verified 08/22/24 09:52) Rash PFSH Medical History PONV (postoperative nausea and vomiting) Arthritis Bipolar disorder Depression Anxiety Asthma Interstitial cystitis Overactive bladder Surgical History Hx of eye surgery History of cystoscopy Hx of ovarian cystectomy Social History Household Members: None Housing: Apartment Are you a primary rn care manager to a significant other at home: No Do you presently have visiting nurse or other home services: No Alcohol intake: never Patient Tobacco Use Status: Current everyday Tobacco user Tobacco use type: Cigarette Cigarettes Per Day: 4 Substance Use Type: Marijuana Telehealth Telehealth [facility]health [facility] Location of provider rendering services: practice address Location of patient: address on file Patient Identification confirmed using: Name, : Yes Telehealth method: video Patient verbally consented to treatment: Yes Patient verbally consented to billing insurance company: Yes Patient informed of any privacy concerns related to visit: Yes Coding
== END 2024-08-22 10:32 | disposition home or self-care (01) ==
LOC: HO.HUSH 09:50
PROVIDERS: Visit Provider Nurse Practitioner Family
DX: N32.81 Overactive bladder (principal); N30.10 Interstitial cystitis (chronic) without hematuria
CPT/HCPCS: 98016

== ENCOUNTER 2024-11-14 06:43 | Day surgery (SDC) | payer MEDICARE, MEDICAID, SELFPAY ==
--- OUTSIDE RECORDS SUMMARY | 2024-11-11 13:51 | XMS_ITS | Data Portability ---
Author Organization [place] [facility] Address [address] [place] [id number] Care Team Providers Care Chief Mechanical Engineer Name Role Phone [facility] Primary Care Provider Assessment Encounter Date Assessment Date Assessment LastModified by Organization Details LastModified Time 04/14/2022 04/14/2022 Time On Scene with Patient: 01:07:54 51 YO F establishing care with . She was seen at [facility] yesterday for pelvic pain that radiates [...] taking any medication since discharged from . VSS Exam:Pleasant female patient NAD, in euthymic mood. HEENT: Normocephalic, atraumatic, EOMI, non injected,upper and lower lids with no edema. Nares patent. Resp: Expiratory wheeze to yakelin lower base, yakelin upper villafana, speaking in full sentences, 02 sat wnl, no use of accessory muscles. CV: RRR S1,S2, Extremity: No edema or cyanosis. Psych: Alert and oriented x 3, in euthymic mood. Test: None Plan: -Zofran prescribed to use PRN for nausea. Recommended to eat small bland meals, hydrate, and avoid fatty foods. -To avoid GI discomfort Metronidazole vaginal gel prescribed and oral abx discontinued. -Patient is to take Ceftin for UTI. -Asthma flare up is managed with prescribed Prednisone. The patient is advised to make an appt with PCP in 3-5 days to discuss ongoing symptoms/ further management. The patient is also advised to go to the ED immediately for any worsening symptoms. The patient understood and agreed with this plan. The patient was given discharge instructions and all questions were answered prior to DH team departure. [email or web address] Not available 04/14/2022 16:04:44 Plan of Treatment Reminders Order Date Submit Date Provider Last Modified By Organization Details Last Modified Time Details Appointments None recorded. Lab None recorded. Referral None recorded. Procedures None recorded. Surgeries None recorded. Imaging None recorded. Medication Orders ondansetron 4 mg disintegrat ing tablet 2021 [email or web address] [facility]/Pharmacy #[id number], [address] [place], [address], 16:00:25 metronidazo le 0.75 % (37.5 mg/5 gram) vaginal gel 2021 LOLA [facility]/Pharmacy #[id number], [address] [place], [address], 13:42:34 Patient TargetsNo targets recorded. Patient Instructions Encounter Date Encounter Id Patient Instructions Last Modified By Organization Details Last Modified Time 04/14/2022 [id number] Acute Nausea and Vomiting/Diarrhea BASIC INFORMATION Acute nausea and vomiting often start suddenly, worsen quickly, and last a few hours to 24 hours. Nausea and vomiting most often occur together, although they can occur alone. Cases of acute nausea and vomiting are often from gastrointestinal viruses such as norovirus, rotavirus and influenza. Less often it can be caused by toxins released from food that ? g oes bad? as well as some types of [...] 2) Tylenol: Low grade fever is common with acute nausea and vomiting. You may use Tylenol, per the recommended dosing on the label, to help control fever. If you have liver disease, do not use Tylenol. Ask your DIESEL TRAILER MECHANIC how to address fever if you are concerned about Tylenol use. 3) Anti-diarrheal medicines: These are available [id number], but in some cases are not recommended and can even worsen some cases of intestinal problems. Ask your DIESEL TRAILER MECHANIC if you should use them. In children under 12, the only anti-diarrheal that should [...] hours. 2) Clear liquids such as gatorade, pedialyte or broth are recommended because of the electrolytes and sugars that will help replenish the losses from vomiting and diarrhea. 3) If you are able to tolerate clear liquids as instructed above, you may begin to take a bland diet. Plain pasta/noodles or toast are suggestions. If you have had diarrhea, bananas, rice and applesauce are suggested as these can help make the stools more solid. Avoid greasy, fatty or fried foods FOLLOW UP You should make an appointment to see your primary care provider within 24 hours or sooner for worsening condition as described below. If you do not have a primary care doctor, you should follow up with one of the PCP suggestions from [facility]. SEEK CARE IMMEDIATELY IF: 1) You are still unable to tolerate any oral intake after 24 hours 2) You have blood in your vomit or stool 3) You develop severe abdominal pain that does not go away after an episode of vomiting or diarrhea 4) You have severe dizziness, heart palpitations or are passing out 5) You develop severe muscle cramps or weakness 6) You have not made urine in over 24 hours If you develop any new or worsening symptoms and need after hours care, please go to nearest ER and/or call 911. If you have additional concerns or develop a change in your condition between 8am-10pm, please call [facility] at [phone] to help navigate your care. 3 Not available 04/14/2022 14:43:23 Reason for Referral None Reported. Procedures Surgical History Date Name Laterality Status Provider Name and Address Organization Details Recorded Time Removal of ovarian cyst(s) completed Angela Teixeira NP [address], [place], [address], [place] [facility] 04/14/2022 12:43:44 procedure on urinary bladder completed Angela Teixeira NP [address], [place], [address], [place] [facility] 04/14/2022 12:44:03 Imaging Results None recorded. Procedure Notes None recorded. Medical Equipment None Reported. Allergies Allergen ID Allergen Name Allergen Category Reaction Reaction Severity Criticality Documentation Date Start Date Code Code System Note Provider Name and Address Organization Details Recorded Time 487609 morphine medicatio n Not available Not available Not available 04/14/2022 7052 RxNorm Angela Teixeira NP [address], [place], [address], [place] [facility] 12:41:13 039348 aspirin medicatio n Not available Not available Not available 04/14/2022 1191 RxNorm Angela Teixeira NP [address], [place], [address], [place] - [facility] 2 12:41:21 Medications Name Sig Start Date Stop Date Status Note LastModified by Organization Details LastModified Time cyclobenzapr ine 10 mg tablet active Not Available Not Available Not Available cefuroxime axetil 250 mg tablet active Not Available Not Available No t Available albuterol sulfate 2.5 mg/3 mL (0.083 %) solution for nebulization USE 1 VIAL VIA NEBULIZER EVERY 6 HOURS NEEDED FOR WHEEZING/SH ORTNESS OF BREATH active Not Available Not Available No t Available fluconazole 150 mg tablet active Not Available Not Available Not Available metronidazol e 0.75 % (37.5 mg/5 gram) vaginal gel INSERT 1 APPLICATORF UL EVERY DAY BY VAGINAL ROUTE DIRECTED FOR 7 DAYS. active Not Available Not Available Not Available prednisone 20 mg tablet TAKE 1 TABLET BY MOUTH TWICE A DAY FOR 5 DAYS active Not Available Not Available No t Available clonazepam 1 mg tablet TAKE 1 TABLET BY MOUTH TWICE A DAY NEEDED active Not Available Not Available No t Available diphenoxylat e-atropine 2.5 mg-0.025 mg tablet TAKE 1 TO 2 TABLETS BY MOUTH TWICE A DAY NEEDED MODERATE TO SEVERE DIARRHEA active Not Available Not Available No t Available metronidazol e 500 mg tablet active Not Available Not Available Not Available ketorolac 10 mg tablet TAKE 1 TABLET BY MOUTH EVERY 8 HOURS NEEDED FOR PAIN - NOT COVERED active Not Available Not Available No t Available citalopram 20 mg tablet TAKE 1 AND 1/2 TABLET BY MOUTH EVERY DAY active Not Available Not Available No t Available albuterol sulfate HFA 90 mcg/actuatio n aerosol inhaler INHALE 2 PUFFS BY MOUTH 4 TIMES A DAY NEEDED FOR WHEEZE/SHOR TNESS OF BREATH active Not Available Not Available No t Available ondansetron 4 mg disintegrati ng tablet PLACE 1 TABLET TWICE A DAY BY TRANSLINGUA L ROUTE NEEDED FOR 7 DAYS. active Not Available Not Available No t Available naproxen 500 mg tablet TAKE 1 TABLET BY MOUTH TWICE A DAY FOR 10 DAYS NEEDED FOR PAIN WITH FOOD active Not Available Not Available No t Available Flovent HFA 110 mcg/actuatio n aerosol inhaler INHALE 2 PUFFS TWICE A DAY active Not Available Not Available No t Available quetiapine 50 mg tablet TAKE 1 TABLET BY MOUTH EVERY DAY AT NIGHT active Not Available Not Available No t Available Symbicort 160 mcg-4.5 mcg/actuatio n HFA aerosol inhaler INHALE 2 PUFFS BY MOUTH TWICE A DAY *RINSE MOUTH/THROA T AFTER USE* active Not Available Not Available No t Available levocetirizi ne 5 mg tablet TAKE 1 TABLET BY MOUTH EVERY EVENING active Not Available Not Available No t Available Vitals Date Recorded Body temperature Respiratory rate Oxygen saturation Oxygen saturation in Arterial blood by Pulse oximetry Heart rate Systolic blood pressure Diastolic blood pressure Provider Name and Address Organization Details Last Updated DateTime 2 97.8 [degF] 18 /min 97 % 97 % 67 /min 120 mm[Hg] 72 mm[Hg] Not Available [facility] 13:37:49 Social History Question Answer Notes LastModified by Organizat ion Details LastModified Time Tobacco Smoking Status Current Every Day Smoker January Puneet, [facility] [address], [place], [address], [place] [facility] 04/14/2022 12:42:29 Do You Have An Advance Directive? No [email or web address] Information not available 04/14/2022 What Is Your Level Of Alcohol Consumption? None [email or web address] Information not available 04/14/2022 Within The Past 12 Months, Has It Happened That The Food You Bought Just Didn't Last And You Didn't Have Money To Get More. No [email or web address] Information not available 04/14/2022 Within The Past 12 Months, Have You Worried That Your Food Would Run Out Before You Got Money To Buy More. No [email or web address] Information not available 04/14/2022 Fall Risk: Do You Feel Unsteady When Standing Or Walking? No [email or web address] Information not available 04/14/2022 Excessive Alcohol Or Drug Use No [email or web address] Information not available 04/14/2022 Does This Patient Have A PCP? Yes [email or web address] Information not available 04/14/2022 Has The Patient Seen Their PCP In The Past 6 Months? Yes [email or web address] Information not available 04/14/2022 Is This Patient In Hospice? No [email or web address] Information not available 04/14/2022 We Know From Many Of Our Patients That Covering All Of Their Costs Can Be Difficult At Times. This Can Cause Stress And Impact Health. In The Past Year, Have You Been Unable To Get Any Of The Following When It Was Really Needed? No [email or web address] Information not available 04/14/2022 Would You Like Help Connecting To Resources? None [email or web address] Information not available 04/14/2022 At What Age Did You Start Smoking Tobacco? 23 [email or web address] Information not available 04/14/2022 How Much Tobacco Do You Smoke? No [email or web address] Information not available 04/14/2022 Do You Use Any Illicit Or Recreational Drugs? Yes Marijuana [email or web address] Information not available 04/14/2022 How Many Years Have You Smoked Tobacco? 22 [email or web address] Information not available 04/14/2022 Sex: Unknown Functional Status None recorded. Mental Status None recorded. Family History Nothing Reported. Medical History Condition Response Diabetes N Coronary Artery Disease N CHF N Parkinson's Disease N Cancer N Stroke N Dementia N Hypothyroidism N Asthma Y COPD N Depression Y High Cholesterol N Rheumatoid Arthritis N Pulmonary Embolism N Hypertension N Osteoporosis N A-fib N Kidney Disease N Gynecological HistoryNo gynecological history recorded. Obstetrics History GPAL:G 0 P 0 0 0 0 Past Encounters Encounter ID Performer Location Encounter Start Date Encounter Closed Date Diagnosis/Indication Diagnosis SNOMED-CT Code Diagnosis ICD10 Code Diagnosis Note [id number] January [facility] Te[facility] [address] [place] [address] 04/14/2022 12:40:08 04/15/2022 09:35:56 Bacterial vaginosis 344611181 N76.0 Nausea 885940298 R11.0 Acute urin gennaro tract infection 713151923 N39.0 Health Concerns Section Related Observation LastModified by Organization Detai ls LastModified Time None Recorded Concern Status LastModified by Organization Details LastModified Time None Recorded Advance Directives Directive N: Payers Encounter Date Sequence Insurance Name Policy Number Policy In[place] Covered Member ID In[place] Member ID Guarantor Name 04/14/2022 1 [place] [employer] [id number] [facility] 04/14/2022 2 [place] [facility] [id number] [facility] Notes Date Note Type Note Provider Name and Address Organization Details Recorded Time 04/14/2022 text/html 51 YO F [facility] with . She was seen at [facility] yesterday for pelvic pain that radiates [...] taking any medication since discharged from . January POLO Teixeira [address], [place], [address], [place] [facility] 04/14/2022 16:04:57 OBGyn Episode No OBEpisode recorded.
[2024-11-14] VITALS (7 sets, daily range): BP systolic 102–124; BP diastolic 69–93; PULSE 59–95; RESP 16–19; TEMP 36.6–36.7; O2SAT 96–100; BMI 25.2
[2024-11-14] MEDS: Lactated Ringers 1,000 ML 80 ML IVCONT (07:46)
--- NOTE | 2024-11-14 08:14 | P.CONAN_ITS ---
HPI - Anesthesia Eval Consult details Narrative: for cysto, hydrodistension. PMFSH Active Problems Active Problems: All Active Problems Breast cancer (Acute) Hot flashes due to menopause (Acute) Perimenopausal (Acute) Overactive bladder (Acute) Interstitial cystitis (Acute) Past Medical History Medical History PONV (postoperative nausea and vomiting) Arthritis Bipolar disorder Depression Anxiety Asthma Interstitial cystitis Overactive bladder Family History Family history of problems with anesthesia: No Surgical History Surgical History (Updated 11/09/24 @ 13:37 by Aleisha Melara RN) Hx of eye surgery History of cystoscopy Hx of ovarian cystectomy History of Problems with Anesthesia: Yes (PONV) Social History Social History Household Members: None Housing: Apartment Are you a primary medical care evaluation specialist to a significant other at home: No Do you presently have visiting nurse or other home services: No Alcohol intake: never Patient Tobacco Use Status: Former Tobacco user Tobacco use type: Cigarette Cigarettes Per Day: 4 Second Hand Smoke Exposure: No Use of substances other than those prescribed or required for medical reasons: Yes Substance Use Type: Marijuana Substance Use Frequency: Occasionally Have you been hit, kicked, punched, or otherwise hurt by someone within the past year? If so, by whom?: No Are you DNR?: No Advance Directives: No Advance Directives Information Provided: Yes Advance Directives on File: No : No Poor oral hygiene: No Meds Allergies Allergy/AdvReac Type Severity Reaction Status Date / Time aspirin [Aspirin] Allergy Severe ANAPHYLAXIS, Verified 08/22/24 10:03 nausea,vomiting morphine [Morphine] Allergy Severe SOB, Verified 08/22/24 10:03 horrible feeling cephalexin Allergy Intermediate vomiting Verified 08/22/24 10:03 ibuprofen [From Motrin] Allergy Intermediate BLEEDING-PT Verified 08/22/24 10:03 STATES STILL TAKES pineapple Allergy Mild Rash Verified 08/22/24 10:03 Active Medications: Current Medications Lactated Ringer's (Lr) 1,000 mls @ 80 mls/hr IVCONT .[id number] ALISIA Last Admin: 11/14/24 07:46 Dose: 80 mls/hr Levofloxacin (Levaquin) 500 mg in 100 mls @ 100 mls/hr IV PREOP ONE Stop: 11/14/24 09:03 Home Medications ?Medication ?Instructions ?Recorded ?Confirmed ?Last Taken ?Type clonazepam 1 mg tablet 1 mg PO BID PRN Anxiety 07/08/22 11/09/24 Unknown History albuterol sulfate 90 mcg/actuation 1 inh inhalation Q4H PRN Shortness 07/29/22 11/09/24 Unknown History aerosol inhaler Of Breath Or Wheezing citalopram 20 mg tablet 1.5 tab PO DAILY 07/29/22 11/09/24 Unknown History quetiapine 50 mg tablet 50 mg PO BEDTIME 01/09/23 11/09/24 Unknown History Exam Height,Weight and Vital Signs: Height 5 ft 1 in Weight 60.498 kg Last Vital Signs Temp 97.9 F 11/14/24 07:40 Pulse 88 11/14/24 07:40 Resp 16 11/14/24 07:40 BP 115/93 H 11/14/24 07:40 Pulse Ox 99 11/14/24 07:40 O2 Del Method Room Air 11/14/24 07:40 Airway Mallampati Class: II TM Dist: <=3cm Neck ROM: Full Partial: Upper Heart: ok Lungs: ok Assessment and Plan Assessment Anesthesia Assessment: Anesthesia Plan Discussed and Chart Reviewed Final Anesthetic Review Family History of Problems with Anesthesia: No History of Problems with Anesthesia: Yes (PONV) NPO: Yes ASA Class: II Final Preanesthetic Review: No Changes in Pt Med Stat, Meds/Allgs Chart Reviewed, Consent Obtained/Reviewed and Anes Risks/Benef Reviewed Patient Risk: Low Procedure Risk: Low Anesthetic Plan Anesthetic Plan: GA and Agree w/ Assess. and Plan Disposition: Standard PACU
--- NOTE | 2024-11-14 08:18 | MHC.SHP ---
Pre-Procedural Eval Section A - 24 Hr Update-Section A only Date of Service: 11/14/24 The patient is an INPATIENT: No Changes since office visit: No Cold of Flu in the past 2 weeks, No New Medical Problems, No Changes in Medication and No Patient answered all questions The patient has been examined within 24 hours of the surgical procedure. The History & Physical has been completed within 30 days and I have reviewed it.: Yes Section B - Complete if H&P > 30 days Chief Complaint: Interstitial cystitis (chronic) without hematuria Details of Present Illness: for hydrodistention Allergies: Allergies Allergy/AdvReac Type Severity Reaction Status Date / Time aspirin [Aspirin] Allergy Severe ANAPHYLAXIS, Verified 08/22/24 10:03 nausea,vomiting morphine [Morphine] Allergy Severe SOB, Verified 08/22/24 10:03 horrible feeling cephalexin Allergy Intermediate vomiting Verified 08/22/24 10:03 ibuprofen [From Motrin] Allergy Intermediate BLEEDING-PT Verified 08/22/24 10:03 STATES STILL TAKES pineapple Allergy Mild Rash Verified 08/22/24 10:03 Review of Systems Sugical H&P ROS: Negative: Constitution, Cardiovascular, Respiratory, Neurological, Psychiatric, Hem-Onc, Allergic/Immunologic, Gastrointestinal, Genitourinary, Musculoskeletal, Integumentary, Endocrine and Eyes/Ears/Nose/Throat Exam Surgical H&P Exam: Normal: HEENT, Normal: Heart, Normal: Lungs, Normal: Extremities, Normal: Abdomen, Normal: Skin and Normal: Neurological Plan Diagnosis/Plan: Unchanged (hydrodistention) I have reviewed the history and physical and performed a pertinent physical examination on my patient. No changes have occurred unless specified. Time Spent With Patient Time: Total time managing care of this patient today ____ minutes.
[2024-11-14] MEDS: levoFLOXacin/D5W 500 MG/100 ML PIGGYBACK 100 MG IV (08:28)
--- NOTE | 2024-11-14 09:02 | W.PM.OPN ---
Operative Note Operative Note Date of Service: 11/14/24 Narrative: PreOperative Diagnosis: Interstitial cystitis with pelvic pain Post Operative Diagnosis: Interstitial cystitis with pelvic pain Procedure: Hydrodistention Surgeon: Dr Khurram Hoffmann Anesthesia: General Indications for procedure interstitial cystitis - failed 6 weeks of outpatient intravesical therapy Procedure: After informed consent was verified the patient was brought to the operating room and placed in a supine position. Anesthesia was administered per protocol. The patient was placed in a modified dorsal lithotomy position and prepped and draped in sterile fashion. Safety pause time-out was observed. Antibiotics being given. A 22 [place] cystoscope was used to empty the bladder. A mixture of bupivacaine lidocaine gel 20 cc was instilled into the bladder and allowed to sit for 2-3 minutes. A belladonna and opiate rectal suppository was placed. Hydrodistention of the bladder was performed. The bladder was filled and allowed to sit for 2 minutes. Filling was from a height of 1 m. On the 1st fill there was 350 cc within the bladder. Cystoscopy revealed glomerulations consistent with interstitial cystitis. Second filling of the bladder was performed in similar fashion. Volume was approximately 500 cc. Terminal hematuria noted. The the bladder was emptied. The patient tolerated procedure well was extubated in operating room transferred in stable condition to the recovery area. Appropriate postprocedure pain medication was provided. Reintroduction of 20 cc of lidocaine gel with bupivacaine placed. Pathology: None Drains: None
[2024-11-14] MEDS: Acetaminophen 325 MG TABLET 975 MG PO (09:13)
[2024-11-14] MEDS: Phenazopyridine HCL 100 MG TABLET PO (09:14)
== END 2024-11-14 10:09 | disposition home or self-care (01) ==
PROVIDERS: Visit Provider Urology
PROC: 0T7B7ZZ Dilation of Bladder, Via Natural or Artificial Opening (ICD-10-PCS; CPT 52260; principal; 2024-11-14 08:40)
DX: N30.10 Interstitial cystitis (chronic) without hematuria (principal); R10.2 Pelvic and perineal pain; N32.81 Overactive bladder; R35.1 Nocturia; Z79.899 Other long term (current) drug therapy; Z88.1 Allergy status to other antibiotic agents; Z88.6 Allergy status to analgesic agent; F31.9 Bipolar disorder, unspecified; Z98.890 Other specified postprocedural states; F17.210 Nicotine dependence, cigarettes, uncomplicated
CPT/HCPCS: 52260; J1956; J2003; J2250; J2704; J3010

== ENCOUNTER → 2024-11-14 06:43 | Outpatient (BNV) | payer MEDICARE, MEDICAID, SELFPAY | PROVIDERS: Visit Provider Urology | DX: N30.10 Interstitial cystitis (chronic) without hematuria (principal); R10.2 Pelvic and perineal pain | CPT/HCPCS: 52260 ==

== ENCOUNTER → 2024-11-22 10:07 | Outpatient (BNVA) | payer MEDICARE, MEDICAID, SELFPAY | PROVIDERS: Visit Provider Urology | DX: N30.10 Interstitial cystitis (chronic) without hematuria (principal); N32.81 Overactive bladder | CPT/HCPCS: 51700; 51702; 51798 ==

== ENCOUNTER 2024-11-23 09:24 | Outpatient (AMB) | payer MEDICARE, MEDICAID, SELFPAY ==
--- NOTE | 2024-11-23 09:26 | MHC.OFFVIS ---
Intake Visit Reasons: IC instillation Intake Note: Pt presents to the office today for an IC instillation. Urology Meds:Myrbetriq Allergies aspirin [Aspirin] Allergy (Severe, Verified 11/23/24 10:05) ANAPHYLAXIS, nausea,vomiting morphine [Morphine] Allergy (Severe, Verified 11/23/24 10:05) SOB, horrible feeling cephalexin Allergy (Intermediate, Verified 11/23/24 10:05) vomiting ibuprofen [From Motrin] Allergy (Intermediate, Verified 11/23/24 10:05) BLEEDING-PT STATES STILL TAKES pineapple Allergy (Mild, Verified 11/23/24 10:05) Rash Medication List - Last Reconciled 11/23/24 by PHIL Mccormick- albuterol sulfate 90 mcg/actuation 1 inh inhalation Q4H PRN citalopram 1.5 tabs PO DAILY clonazepam 1 mg PO BID PRN mirabegron ER (Myrbetriq) 25 mg PO DAILY 90 days ondansetron HCl 4 mg PO Q8H PRN 7 days quetiapine 50 mg PO BEDTIME tramadol 50 mg PO Q8H PRN 10 days HPI Comments Details: Analilia is a pleasant 54-year-old female who is a patient of Dr. Hernandez. She has a past medical history of anxiety, asthma, bipolar disorder, depression, interstitial cystitis, and overactive bladder. She presents to the office today for a bladder instillation for her longstanding history of interstitial cystitis as well as overactive bladder. Of note, patient underwent cystoscopy with hydrodistention with Dr. Hoffmann last week 11/14/24. Cystoscopy revealed glomerulations consistent with interstitial cystitis. She presented to the office yesterday to follow-up with nursing for PVR and continue to report ongoing lower urinary tract symptoms of urinary urgency, urinary frequency, as well as nocturia up to 5 times per night at which time recommendations for bladder instillation were discussed and patient wanted to proceed. Bladder instillation was performed. She reports that although she had not been compliant with Myrbetriq in the past she has since restarted the medication. She also reports diff and following up with her oncologist regarding her right-sided breast cancer. She will also be undergoing physical therapy for ongoing right-sided breast pain she continues to experience. In office urinalysis results reviewed with the patient today 3+ microscopic hematuria otherwise within normal limits. She denies incontinence, gross/visible hematuria, dysuria, foul smelling urine, changes to urinary stream, flank pain, fever, and or chills. She otherwise denies any other issues or concerns at this time. Urine cytology 03/05 Negative for high-grade urothelial carcinoma. [facility] Medical History PONV (postoperative nausea and vomiting) Arthritis Bipolar disorder Depression Anxiety Asthma Interstitial cystitis Overactive bladder Surgical History Hx of eye surgery History of cystoscopy Hx of ovarian cystectomy Social History Household Members: None Housing: Apartment Are you a primary pharmacy customer care specialist to a significant other at home: No Do you presently have visiting nurse or other home services: No Alcohol intake: never Patient Tobacco Use Status: Former Tobacco user Tobacco use type: Cigarette Cigarettes Per Day: 4 Second Hand Smoke Exposure: No Substance Use Type: Marijuana Review of Systems Const All systems reviewed & are unremarkable except as noted in HPI and below Physical Exam Const General: cooperative, healthy appearing, comfortable, no acute distress, well developed, alert and awake Nutritional Appearance: average body habitus Orientation/consciousness: patient oriented x3 Limitations: no limitations HEENT Head: Yes normal to inspection, Yes normocephalic and Yes atraumatic Ears: hearing grossly normal bilaterally Eyes General: appearance normal, both eyes and all related structures Neck Neck: Yes normal visual inspection and Yes trachea midline Chest Chest palpation & inspection: normal inspection of the chest Resp Effort & Inspection: normal respiratory effort and able to speak in complete sentences Cardio Rate: regular rate GI Inspection: Yes normal to inspection General: Yes no CVA tenderness External Female Exam: normal external appearance Speculum Exam - Vagina: normal appearance of the vagina Back/Spine/Pelvis Back: no CVA tenderness Skin General skin exam: no rashes or lesions noted Neuro General: patient oriented x3 Extrem General: Yes normal to inspection Psych Appearance: grossly normal and well kempt Mental Status: mental status grossly normal Speech and movement: Normal speech and movement present and Clear speech present Affect: normal affect Attitude: cooperative Thought process: Normal thought process present Thought content: Normal thought content present Office Procedures Bladder/Catheter Procedure Details: Patient presents to office for IC instillation #2 of daily instillations. Gloria PAULINO to do instillaation. Patient to make future IC appointments at checkout? 14fr straight cath used to instill: 10mls bupivicaine 0.50% 2mls heparin 10,000 units 10 mls lidocaine 2% lidocaine urojet 1ml solumedrol 36246-Hhbuyxodad of Bladder 12964-Xrlyhe Temporary Bladder Catheter Procedure code (CPT) selection complete Results AMB Urinalysis, Automated UA Leukoctes 0 Carina/uL Last Edit by Maria Esther Shaw CMA on 11/23/24 09:36 UA Nitrite Negative Last Edit by Maria Esther Shaw, RODOLFO on 11/23/24 09:36 UA Urobilinogen 0.2 mg/dL Last Edit by Maria Esther Shaw, RODOLFO on 11/23/24 09:36 UA Protein 0 mg/dL Last Edit by Maria Esther Shaw, RODOLFO on 11/23/24 09:36 UA pH 5.5 Last Edit by Maria Esther Shaw, RODOLFO on 11/23/24 09:36 UA Blood 200 Vinicio/uL Last Edit by Maria Esther Shaw, RODOLFO on 11/23/24 09:36 UA Specific [place] 1.030 Last Edit by Maria Esther Shaw, RODOLFO on 11/23/24 09:36 UA Ketone Negative Last Edit by Maria Esther Shaw, RODOLFO on 11/23/24 09:36 UA Bilirubin 0 mg/dL Last Edit by Maria Esther Shaw, RODOLFO on 11/23/24 09:36 UA Glucose 0 mg/dL Last Edit by Maria Esther Shaw, RODOLFO on 11/23/24 09:36 Results Reviewed Results Reviewed: Laboratory Last Values Urine pH (Auto) 5.5 11/23/24 09:34 Specific [place] (Auto) 1.030 11/23/24 09:34 Urine Protein (Auto) 0 mg/dL 11/23/24 09:34 Glucose (UA)(Auto) 0 mg/dL 11/23/24 09:34 Urine Ketones (Auto) Negative 11/23/24 09:34 Urine Blood (Auto) 200 Vinicio/uL 11/23/24 09:34 Urine Nitrite (Auto) Negative 11/23/24 09:34 Urine Bilirubin (Auto) 0 mg/dL 11/23/24 09:34 Urine Urobilinogen (Auto) 0.2 mg/dL 11/23/24 09:34 Leukocyte Esterase (Auto) 0 Carina/uL 11/23/24 09:34 Assessment & Plan Assessment & Plan (1) Overactive bladder: Code(s): N32.81 - Overactive bladder Category: Medical (2) Interstitial cystitis: Code(s): N30.10 - Interstitial cystitis (chronic) without hematuria Category: Medical (3) Microscopic hematuria: Code(s): R31.29 - Other microscopic hematuria Category: Medical Plan In office urinalysis results reviewed with the patient today; as noted above; will send for urine cytology. Bladder instillation was performed. Continue Myrbetriq as discussed and prescribed. We discussed importance of limiting bladder triggers and irritants. Discussed, educated, and stressed the importance of adequate hydration relation to lower urinary tract symptoms as well as overall health and well-being. Follow-up tomorrow for bladder instillation 3; or sooner with any issues, concerns, and or questions. Orders: Orders AMB Urinalysis Automated Today N32.81 - Overactive bladder AMB Bladder/Catheter Procedure Today N30.10 - Interstitial cystitis (chronic) without hematuria Urine Cytology Today N30.10 - Interstitial cystitis (chronic) without hematuria, N32.81 - Overactive bladder, R31.29 - Other microscopic hematuria Patient Instructions: The patient had an opportunity to ask questions regarding the treatment plan. All questions were answered. Physical exam, labs, and imaging were discussed and reviewed in detail. As well as risks, benefits, and discussion of treatment choices. No major barriers to understanding were identified. The patient expressed understanding and agreement with the above treatment plan. The patient was made aware they should contact our office by phone for worsening of their current condition, the appearance of new symptoms, or with any questions or concerns. Compliance is encouraged with any medications and follow up testing that is ordered. It is a privilege to be allowed the opportunity to participate in? your urological care.? Again, if you have any questions or concerns If you have any questions or concerns please do not hesitate to contact me. The office is [phone]. This note is constructed using voice recognition software. While every effort has been made to ensure accuracy svp digital sales errors may have been included. Yours sincerely, EVERT Mccormick Coding Level of Care Code Est Pt Level 3 (69794) Diagnoses Overactive bladder N32.81 Interstitial cystitis N30.10 Microscopic hematuria R31.29 CPT Codes Bladder/Catheter Procedure - CPT: 72927-Tvcrnmrqht of Bladder ([id number]) Bladder/Catheter Procedure - CPT: 35925-Anahfz Temporary Bladder Catheter ([id number])
== END 2024-11-23 09:58 | disposition home or self-care (01) ==
LOC: HO.HUSH 09:24
PROVIDERS: Visit Provider Nurse Practitioner Family
DX: N32.81 Overactive bladder (principal); N30.10 Interstitial cystitis (chronic) without hematuria; R31.29 Other microscopic hematuria
CPT/HCPCS: 51700

== ENCOUNTER 2024-11-23 09:24 | Outpatient (REF) | payer MEDICARE, MEDICAID, SELFPAY ==
--- OUTSIDE RECORDS SUMMARY | 2024-11-23 11:10 | XMS_ITS | Data Portability ---
Author Organization [place] [facility] Address [address] [place] [id number] Care Team Providers Care Routing Machine Operator Name Role Phone [facility] Primary Care Provider Assessment Encounter Date Assessment Date Assessment LastModified by Organization Details LastModified Time 04/14/2022 04/14/2022 Time On Scene with Patient: 01:07:54 51 YO F establishing care with . She was seen at [facility] yesterday for pelvic pain that radiates [...] were answered prior to DH team departure. [email or web address] Not available 04/14/2022 16:04:44 Plan of Treatment Reminders Order Date Submit Date Provider Last Modified By Organization Details Last Modified Time Details Appointments None recorded. Lab None recorded. Referral None recorded. Procedures None recorded. Surgeries None recorded. Imaging None recorded. Medication Orders ondansetron 4 mg disintegrat ing tablet 2021 [email or web address] [facility]/Pharmacy #[id number], [address] [place], [address], 16:00:25 metronidazo le 0.75 % (37.5 mg/5 gram) vaginal gel 2021 LOLA [facility]/Pharmacy #[id number], [address] [place], [address], 13:42:34 Patient TargetsNo targets recorded. Patient Instructions Encounter Date Encounter Id Patient Instructions Last Modified By Organization Details Last Modified Time 04/14/2022 [id number] Acute Nausea and Vomiting/Diarrhea BASIC INFORMATION Acute [...] disease, do not use Tylenol. Ask your INDUSTRIAL ELECT[employer]ICIAN JOURNEYMAN how to address fever if you are concerned about Tylenol use. 3) Anti-diarrheal medicines: These are available [id number], but in some cases are not recommended and can even worsen some cases of intestinal problems. Ask your INDUSTRI[employer] ELECT[employer]ICIAN JOURNEYMAN if you should use them. In children [...] with one of the PCP suggestions from [facility]placed [facility]. SEEK CARE IMMEDIATELY IF: 1) You are [...] in your condition between 8am-10pm, please call [facility] at [phone] to help navigate your care. [email or web address] Not available 04/14/2022 14:43:23 Reason for Referral None Reported. Procedures Surgical History Date Name Laterality Status Provider Name and Address Organization Details Recorded Time Removal of ovarian cyst(s) completed Angela Teixeira NP [address], [place], [address], [place] [facility] 04/14/2022 12:43:44 procedure on urinary bladder completed Angela Teixeira NP [address], [place], [address], [place] [facility] 04/14/2022 12:44:03 Imaging Results None recorded. Procedure Notes None recorded. Medical Equipment None Reported. Allergies Allergen ID Allergen Name Allergen Category Reaction Reaction Severity Criticality Documentation Date Start Date Code Code System Note Provider Name and Address Organization Details Recorded Time 776827 morphine medicatio n Not available Not available Not available 04/14/2022 7052 RxNorm Angela Teixeira NP [address], [place], [address], [place] [facility] 2 12:41:13 [id number] aspirin medicatio n Not available Not available Not available 04/14/2022 1191 RxNorm Angela Teixeira NP [address], [place], [address], [place] [facility] 2 12:41:21 [...] /min 120 mm[Hg] 72 mm[Hg] Not Available [facility] 13:37:49 Social History Question Answer Notes LastModified by [employer] Details LastModified Time Tobacco Smoking Status Current Every Day Smoker January Puneet, POLO [address], [place], [address], [place] [facility] 04/14/2022 12:42:29 Do You Have An Advance Directive? No [email or web address] Information not available 04/14/2022 Within The Past 12 Months, Has It Happened That The Food You Bought Just Didn't Last And You Didn't Have Money To Get More. No [email or web address] Information not available 04/14/2022 Within The Past 12 Months, Have You Worried That Your Food Would Run Out Before You Got Money To Buy More. No Information not available 04/14/2022 Fall Risk: Do You Feel Unsteady When Standing Or Walking? No Information not available 04/14/2022 Excessive Alcohol Or Drug Use No Information not available 04/14/2022 Does This Patient Have A PCP? Yes [email or web address] Information not available 04/14/2022 Has The Patient Seen Their PCP In The Past 6 Months? Yes [email or web address] Information not available 04/14/2022 Is This Patient In Hospice? No [email or web address] Information not available 04/14/2022 We Know From Many Of Our Patients That Covering All Of Their Costs Can Be Difficult At Times. This Can Cause Stress And Impact Health. In The Past Year, Have You Been Unable To Get Any Of The Following When It Was Really Needed? No [email or web address] Information not available 04/14/2022 Would You Like Help Connecting To Resources? None [email or web address] Information not available 04/14/2022 At What Age Did You Start Smoking Tobacco? 23 [email or web address] Information not available 04/14/2022 How Much Tobacco Do You Smoke? No [email or web address] Information not available 04/14/2022 How Many Years Have You Smoked Tobacco? 22 [email or web address] Information not available 04/14/2022 Sex: Unknown Functional Status Question Answer Note LastModified by Organizat ion Details LastModified Time Do you use any illicit or recreational drugs? Yes marijuana [email or web address] Information not available 04/14/2022 What is your level of alcohol consumption? None [email or web address] Information not available 04/14/2022 Mental Status None recorded. Family History Nothing Reported. Medical History Condition Response Diabetes N Coronary Artery Disease N CHF N Parkinson's Disease N Cancer N Dementia N Stroke N Hypothyroidism N Depression Y COPD N Asthma Y High Cholesterol N Rheumatoid Arthritis N Pulmonary Embolism N Hypertension N A-fib N Osteoporosis N Kidney Disease N Gynecological HistoryNo gynecological history recorded. Obstetrics History GPAL:G 0 P 0 0 0 0 Past Encounters Encounter ID Performer Location Encounter Start Date Encounter Closed Date Diagnosis/Indication Diagnosis SNOMED-CT Code Diagnosis ICD10 Code Diagnosis Note [id number] January [facility] [address] [place] [address] 04/14/2022 12:40:08 04/15/2022 09:35:56 Bacterial vaginosis 090164702 N76.0 Nausea 573394110 R11.0 Acute urin gennaro tract infection 145772503 N39.0 Health Concerns Section Related Observation LastModified by Organization Detai ls LastModified Time None Recorded Concern Status LastModified by Organization Details LastModified Time None Recorded Advance Directives Directive N: Payers Insurance Date Sequence Insurance Name Policy Number Policy Inman Covered Member ID Inman Member ID Guarantor Name 04/14/2022 2 [place] [facility] Analilia Knoxs [id number] Analilia Knox 04/14/2022 1 *SELF PAY* Analilia Jimenezuras [id number] Analilia Knoxs 04/14/2022 1 MEDIC[place] B[place] [facility] Analilia Knoxs [id number] Analilia Ramos Notes Date Note Type Note Provider Name and Address Organization Details Recorded Time 04/14/2022 text/html 51 YO F [facility] care with . She was seen at [facility] yesterday for pelvic pain that radiates [...] taking any medication since discharged from . Angela Teixeira NP [address], [place], [address], [place] [facility] 04/14/2022 16:04:57 OBGyn Episode No OBEpisode recorded.
== END 2024-11-23 09:25 | disposition home or self-care (01) ==
LOC: HO.LAB 09:24
PROVIDERS: Visit Provider Nurse Practitioner Family
DX: N32.81 Overactive bladder (principal)
CPT/HCPCS: 51700; 81003; 88112

== ENCOUNTER 2024-11-23 10:10 | Outpatient (REF) | payer MEDICARE, MEDICAID, SELFPAY ==
[2024-11-23 16:57] LABS: Urine Cytology See Pathology rpt
== END 2024-11-23 10:11 | disposition home or self-care (01) ==
LOC: HO.LNP 10:10
PROVIDERS: Visit Provider Nurse Practitioner Family
DX: Z13.89 Encounter for screening for other disorder (principal)
CPT/HCPCS: 88112

== ENCOUNTER 2024-11-24 08:47 | Outpatient (AMB) | payer MEDICARE, MEDICAID, SELFPAY ==
--- NOTE | 2024-11-24 09:01 | A.OFFVIS_ITS ---
Intake Visit Reasons: follow up Intake Note: Patient presents today for Bladder Installation #3 Urology Meds:Myrbetriq Blood Thinner: none Curber Required: No Accompanied by: Self / Same As Patient Allergies aspirin [Aspirin] Allergy (Severe, Verified 11/24/24 09:37) ANAPHYLAXIS, nausea,vomiting morphine [Morphine] Allergy (Severe, Verified 11/24/24 09:37) SOB, horrible feeling cephalexin Allergy (Intermediate, Verified 11/24/24 09:37) vomiting ibuprofen [From Motrin] Allergy (Intermediate, Verified 11/24/24 09:37) BLEEDING-PT STATES STILL TAKES pineapple Allergy (Mild, Verified 11/24/24 09:37) Rash Medication List - Last Reconciled 11/24/24 by PHIL Mccormick- albuterol sulfate 90 mcg/actuation 1 inh inhalation Q4H PRN citalopram 1.5 tabs PO DAILY clonazepam 1 mg PO BID PRN mirabegron ER (Myrbetriq) 25 mg PO DAILY 90 days ondansetron HCl 4 mg PO Q8H PRN 7 days quetiapine 50 mg PO BEDTIME tramadol 50 mg PO Q8H PRN 10 days HPI Comments Details: Analilia is a pleasant 54-year-old female who is a patient of Dr. Hernandez. She has a past medical history of anxiety, asthma, bipolar disorder, depression, interstitial cystitis, and overactive bladder. She presents to the office today for a bladder instillation #3 for her longstanding history of interstitial cystitis as well as overactive bladder. Of note, patient underwent cystoscopy with hydrodistention with Dr. Hoffmann last week 11/14/24. Cystoscopy revealed glomerulations consistent with interstitial cystitis. She reports episodes of nocturia have decreased however she does continue to experience urinary urgency and frequency. She otherwise denies incontinence, gross/visible hematuria, dysuria, foul smelling urine, changes to urinary stream, flank pain, fever, and or chills. In office urinalysis results reviewed with the patient today. She otherwise denies any other issues or concerns at this time. Urine cytology 03/05 Negative for high-grade urothelial carcinoma. PFSH Medical History PONV (postoperative nausea and vomiting) Arthritis Bipolar disorder Depression Anxiety Asthma Interstitial cystitis Overactive bladder Surgical History Hx of eye surgery History of cystoscopy Hx of ovarian cystectomy Social History Household Members: None Housing: Apartment Are you a primary healthcare financial analyst to a significant other at home: No Do you presently have visiting nurse or other home services: No Alcohol intake: never Patient Tobacco Use Status: Former Tobacco user Tobacco use type: Cigarette Cigarettes Per Day: 4 Second Hand Smoke Exposure: No Substance Use Type: Marijuana Review of Systems Const All systems reviewed & are unremarkable except as noted in HPI and below Physical Exam Const General: cooperative, healthy appearing, comfortable, no acute distress, well developed, alert and awake Nutritional Appearance: average body habitus Orientation/consciousness: patient oriented x3 Limitations: no limitations HEENT Head: Yes normal to inspection, Yes normocephalic and Yes atraumatic Ears: hearing grossly normal bilaterally Eyes General: appearance normal, both eyes and all related structures Neck Neck: Yes normal visual inspection and Yes trachea midline Chest Chest palpation & inspection: normal inspection of the chest Resp Effort & Inspection: normal respiratory effort and able to speak in complete sentences Cardio Rate: regular rate GI Inspection: Yes normal to inspection General: Yes no CVA tenderness External Female Exam: normal external appearance Speculum Exam - Vagina: normal appearance of the vagina Back/Spine/Pelvis Back: no CVA tenderness Skin General skin exam: no rashes or lesions noted Neuro General: patient oriented x3 Extrem General: Yes normal to inspection Psych Appearance: grossly normal and well kempt Mental Status: mental status grossly normal Speech and movement: Normal speech and movement present and Clear speech present Affect: normal affect Attitude: cooperative Thought process: Normal thought process present Thought content: Normal thought content present Office Procedures Bladder/Catheter Procedure Details: Patient presents to office for IC instillation #3. Instillation done by Gloria LOYD. Patient to make future IC appointments at checkout- patient will come for next instillation with Gloria LOYD Thursday when in office. 14fr straight cath used to instill: 10mls bupivicaine 0.50% 2mls heparin 10,000 units 10 mls lidocaine 2% lidocaine urojet 1ml solumedrol 56652-Efiwfqbxxh of Bladder 97788-Quqois Temporary Bladder Catheter Procedure code (CPT) selection complete Results AMB Urinalysis, Automated UA Leukoctes 0 Carina/uL Last Edit by Marvel Peterson on 11/24/24 09:19 UA Nitrite Last Edit by HZOlucía Peterson on 11/24/24 09:19 UA Urobilinogen 0.2 mg/dL Last Edit by [employer] Kristen on 11/24/24 09:19 UA Protein 0 mg/dL Last Edit by [employer] on 11/24/24 09:19 UA pH 6.0 Last Edit by [employer] Kristen on 11/24/24 09:19 UA Blood 200 Vinicio/uL Last Edit by [employer] Kristen on 11/24/24 09:19 UA Specific [place] 1.025 Last Edit by [employer] [facility] on 11/24/24 09:19 UA Ketone Last Edit by [employer] on 11/24/24 09:19 UA Bilirubin 0 mg/dL Last Edit by [employer] on 11/24/24 09:19 UA Glucose 0 mg/dL Last Edit by [employer] on 11/24/24 09:19 Results Reviewed Results Reviewed: Laboratory Last Values Urine pH (Auto) 6.0 11/24/24 09:03 Specific [place] (Auto) 1.025 11/24/24 09:03 Urine Protein (Auto) 0 mg/dL 11/24/24 09:03 Glucose (UA)(Auto) 0 mg/dL 11/24/24 09:03 Urine Blood (Auto) 200 Vinicio/uL 11/24/24 09:03 Urine Bilirubin (Auto) 0 mg/dL 11/24/24 09:03 Urine Urobilinogen (Auto) 0.2 mg/dL 11/24/24 09:03 Leukocyte Esterase (Auto) 0 Carina/uL 11/24/24 09:03 Assessment & Plan Assessment & Plan (1) Microscopic hematuria: Code(s): R31.29 - Other microscopic hematuria Category: Medical (2) Overactive bladder: Code(s): N32.81 - Overactive bladder Category: Medical (3) Interstitial cystitis: Code(s): N30.10 - Interstitial cystitis (chronic) without hematuria Category: Medical Plan In office urinalysis results reviewed with the patient today; as noted above; will send for urine cytology. Bladder instillation was performed. Continue Myrbetriq as discussed and prescribed. We discussed importance of limiting bladder triggers and irritants. Discussed, educated, and stressed the importance of adequate hydration relation to lower urinary tract symptoms as well as overall health and well-being. Follow-up Thursday for bladder instillation 4; or sooner with any issues, concerns, and or questions. Orders: Orders Urine Cytology Today R31.29 - Other microscopic hematuria AMB Bladder/Catheter Procedure Today N30.10 - Interstitial cystitis (chronic) without hematuria AMB Urinalysis Automated Today Z13.9 - Encounter for screening, unspecified Patient Instructions: The patient had an opportunity to ask questions regarding the treatment plan. All questions were answered. Physical exam, labs, and imaging were discussed and reviewed in detail. As well as risks, benefits, and discussion of treatment choices. No major barriers to understanding were identified. The patient expressed understanding and agreement with the above treatment plan. The patient was made aware they should contact our office by phone for worsening of their current condition, the appearance of new symptoms, or with any questions or concerns. Compliance is encouraged with any medications and follow up testing that is ordered. It is a privilege to be allowed the opportunity to participate in? your urological care.? Again, if you have any questions or concerns If you have any questions or concerns please do not hesitate to contact me. The office is [phone]. This note is constructed using voice recognition software. While every effort has been made to ensure accuracy customer success specialist errors may have been included. Yours sincerely, EVERT Mccormick Coding Level of Care Code Procedure Only Diagnoses Microscopic hematuria R31.29 Overactive bladder N32.81 Interstitial cystitis N30.10 CPT Codes Bladder/Catheter Procedure - CPT: 63765-Ccpzwxdrkz of Bladder ([id number]) Bladder/Catheter Procedure - CPT: 23095-Hflbmq Temporary Bladder Catheter ([id number])
== END 2024-11-24 09:35 | disposition home or self-care (01) ==
LOC: HO.HUSH 08:47
PROVIDERS: Visit Provider Nurse Practitioner Family
DX: R31.29 Other microscopic hematuria (principal); N32.81 Overactive bladder; N30.10 Interstitial cystitis (chronic) without hematuria; Z13.9 Encounter for screening, unspecified
CPT/HCPCS: 51700

== ENCOUNTER 2024-11-24 08:47 | Outpatient (REF) | payer MEDICARE, MEDICAID, SELFPAY | END 2024-11-24 08:48 | disposition home or self-care (01) | LOC: HO.LAB 08:47 | PROVIDERS: Visit Provider Nurse Practitioner Family | DX: Z13.89 Encounter for screening for other disorder (principal) | CPT/HCPCS: 51700; 81003 ==

== ENCOUNTER 2024-11-24 09:41 | Outpatient (REF) | payer MEDICARE, MEDICAID, SELFPAY ==
[2024-11-24 16:59] LABS: Urine Cytology See Pathology rpt
== END 2024-11-24 09:42 | disposition home or self-care (01) ==
LOC: HO.LNP 09:41
PROVIDERS: Visit Provider Nurse Practitioner Family
DX: R31.29 Other microscopic hematuria (principal)
CPT/HCPCS: 51700; 81003; 88112

== ENCOUNTER 2024-11-28 09:56 | Outpatient (AMB) | payer MEDICARE, MEDICAID, SELFPAY ==
--- NOTE | 2024-11-28 10:08 | MHC.OFFVIS ---
Intake Visit Reasons: Bladder instalation Intake Note: Pt presents to the office today for a bladder instalation. Allergies aspirin [Aspirin] Allergy (Severe, Verified 11/28/24 10:41) ANAPHYLAXIS, nausea,vomiting morphine [Morphine] Allergy (Severe, Verified 11/28/24 10:41) SOB, horrible feeling cephalexin Allergy (Intermediate, Verified 11/28/24 10:41) vomiting ibuprofen [From Motrin] Allergy (Intermediate, Verified 11/28/24 10:41) BLEEDING-PT STATES STILL TAKES pineapple Allergy (Mild, Verified 11/28/24 10:41) Rash Medication List - Last Reconciled 11/28/24 by EVERT Mccormick albuterol sulfate 90 mcg/actuation 1 inh inhalation Q4H PRN citalopram 1.5 tabs PO DAILY clonazepam 1 mg PO BID PRN mirabegron ER (Myrbetriq) 25 mg PO DAILY 90 days ondansetron HCl 4 mg PO Q8H PRN 7 days quetiapine 50 mg PO BEDTIME tramadol 50 mg PO Q8H PRN 10 days HPI Comments Details: Analilia is a pleasant 54-year-old female who is a patient of Dr. Hernandez. She has a past medical history of anxiety, asthma, bipolar disorder, depression, interstitial cystitis, and overactive bladder. She presents to the office today for a bladder instillation #4 for her longstanding history of interstitial cystitis as well as overactive bladder. Of note, patient underwent cystoscopy with hydrodistention with Dr. Hoffmann last week 11/14/24. Cystoscopy revealed glomerulations consistent with interstitial cystitis. She reports episodes of nocturia have decreased however she does continue to experience urinary urgency and frequency. She otherwise denies incontinence, gross/visible hematuria, dysuria, foul smelling urine, changes to urinary stream, flank pain, fever, and or chills. In office urinalysis results reviewed with the patient today. She otherwise denies any other issues or concerns at this time. Urine cytology 03/05 Negative for high-grade urothelial carcinoma however cytology from previous office visit 11/24 remains pending. PFSH Medical History PONV (postoperative nausea and vomiting) Arthritis Bipolar disorder Depression Anxiety Asthma Interstitial cystitis Overactive bladder Surgical History Hx of eye surgery History of cystoscopy Hx of ovarian cystectomy Social History Household Members: None Housing: Apartment Are you a primary career development specialist to a significant other at home: No Do you presently have visiting nurse or other home services: No Alcohol intake: never Patient Tobacco Use Status: Former Tobacco user Tobacco use type: Cigarette Cigarettes Per Day: 4 Second Hand Smoke Exposure: No Substance Use Type: Marijuana Review of Systems Const All systems reviewed & are unremarkable except as noted in HPI and below Physical Exam Const General: cooperative, healthy appearing, comfortable, no acute distress, well developed, alert and awake Nutritional Appearance: average body habitus Orientation/consciousness: patient oriented x3 Limitations: no limitations HEENT Head: Yes normal to inspection, Yes normocephalic and Yes atraumatic Ears: hearing grossly normal bilaterally Eyes General: appearance normal, both eyes and all related structures Neck Neck: Yes normal visual inspection and Yes trachea midline Chest Chest palpation & inspection: normal inspection of the chest Resp Effort & Inspection: normal respiratory effort and able to speak in complete sentences Cardio Rate: regular rate GI Inspection: Yes normal to inspection General: Yes no CVA tenderness External Female Exam: normal external appearance Speculum Exam - Vagina: normal appearance of the vagina Back/Spine/Pelvis Back: no CVA tenderness Skin General skin exam: no rashes or lesions noted Neuro General: patient oriented x3 Extrem General: Yes normal to inspection Psych Appearance: grossly normal and well kempt Mental Status: mental status grossly normal Speech and movement: Normal speech and movement present and Clear speech present Affect: normal affect Attitude: cooperative Thought process: Normal thought process present Thought content: Normal thought content present Office Procedures Bladder/Catheter Procedure Details: Patient presents to office for IC instillation #4. Gloria PILLAIP- to do instillation for patient. Patient to make future IC appointments at checkout? 14fr straight cath used to instill: 10mls bupivicaine 0.50% 2mls heparin 10,000 units 10 mls lidocaine 2% lidocaine urojet 1ml solumedrol 21516-Tjrmsxjabn of Bladder 51899-Dmzfsw Bladder Catheter Procedure code (CPT) selection complete Results AMB Urinalysis, Automated UA Leukoctes 0 Carina/uL Last Edit by Maria Esther Shaw, RODOLFO on 11/28/24 10:14 UA Nitrite Negative Last Edit by Maria Esther Shaw, [employer] on 11/28/24 10:14 UA Urobilinogen 0.2 mg/dL Last Edit by Maria Esther Shaw, [employer] on 11/28/24 10:14 UA Protein 15 mg/dL Last Edit by Maria Esther Shaw, [employer] on 11/28/24 10:14 UA pH 5.5 Last Edit by Maria Esther Shaw, [facility] on 11/28/24 10:14 UA Blood 80 Vinicio/uL Last Edit by Maria Esther Shaw, [employer] on 11/28/24 10:14 UA Specific [place] 1.030 Last Edit by Maria Esther Shaw, [employer] on 11/28/24 10:14 UA Ketone Positive Last Edit by Maria Esther Shaw, RODOLFO on 11/28/24 10:14 UA Bilirubin 1 mg/dL Last Edit by Maria Esther Shaw, [employer] on 11/28/24 10:14 UA Glucose 0 mg/dL Last Edit by Maria Esther Shaw, [facility] on 11/28/24 10:14 Results Reviewed Results Reviewed: Laboratory Last Values Urine pH (Auto) 5.5 11/28/24 10:09 Specific [place] (Auto) 1.030 11/28/24 10:09 Urine Protein (Auto) 15 mg/dL 11/28/24 10:09 Glucose (UA)(Auto) 0 mg/dL 11/28/24 10:09 Urine Ketones (Auto) Positive 11/28/24 10:09 Urine Blood (Auto) 80 Vinicio/uL 11/28/24 10:09 Urine Nitrite (Auto) Negative 11/28/24 10:09 Urine Bilirubin (Auto) 1 mg/dL 11/28/24 10:09 Urine Urobilinogen (Auto) 0.2 mg/dL 11/28/24 10:09 Leukocyte Esterase (Auto) 0 Carina/uL 11/28/24 10:09 Assessment & Plan Assessment & Plan (1) Microscopic hematuria: Code(s): R31.29 - Other microscopic hematuria Category: Medical (2) Overactive bladder: Code(s): N32.81 - Overactive bladder Category: Medical (3) Interstitial cystitis: Code(s): N30.10 - Interstitial cystitis (chronic) without hematuria Category: Medical Plan In office urinalysis results reviewed with the patient today; as noted above; will send for urine cytology. Bladder instillation was performed. Continue Myrbetriq as discussed and prescribed. We discussed importance of limiting bladder triggers and irritants. Discussed, educated, and stressed the importance of adequate hydration relation to lower urinary tract symptoms as well as overall health and well-being. Follow-up tomorrow for bladder instillation 5; or sooner with any issues, concerns, and or questions. Orders: Orders AMB Urinalysis Automated Today R31.29 - Other microscopic hematuria AMB Bladder/Catheter Procedure Today N30.10 - Interstitial cystitis (chronic) without hematuria Patient Instructions: The patient had an opportunity to ask questions regarding the treatment plan. All questions were answered. Physical exam, labs, and imaging were discussed and reviewed in detail. As well as risks, benefits, and discussion of treatment choices. No major barriers to understanding were identified. The patient expressed understanding and agreement with the above treatment plan. The patient was made aware they should contact our office by phone for worsening of their current condition, the appearance of new symptoms, or with any questions or concerns. Compliance is encouraged with any medications and follow up testing that is ordered. It is a privilege to be allowed the opportunity to participate in? your urological care.? Again, if you have any questions or concerns If you have any questions or concerns please do not hesitate to contact me. The office is [phone]. This note is constructed using voice recognition software. While every effort has been made to ensure accuracy fire patroller errors may have been included. Yours sincerely, EVERT Mccormick Coding Level of Care Code Procedure Only Diagnoses Microscopic hematuria R31.29 Overactive bladder N32.81 Interstitial cystitis N30.10 CPT Codes Bladder/Catheter Procedure - CPT: 91467-Owwpdzjmah of Bladder ([id number]) Bladder/Catheter Procedure - CPT: 51526-Fykrtw Bladder Catheter ([id number])
--- OUTSIDE RECORDS SUMMARY | 2024-11-28 10:19 | XMS_ITS | Data Portability ---
Author Organization [place] - [facility] Address [address] [place] [id number] Care Team Providers Care Compensator Worker Name Role Phone [facility] Primary Care Provider Assessment Encounter Date Assessment Date Assessment LastModified by Organization Details LastModified Time 04/14/2022 04/14/2022 Time On Scene with Patient: 01:07:54 51 YO F establishing care with . She was seen at [facility] yesterday for pelvic pain that radiates [...] were answered prior to DH team departure. [email or web address] Not available 04/14/2022 16:04:44 Plan of Treatment Reminders Order Date Submit Date Provider Last Modified By Organization Details Last Modified Time Details Appointments None recorded. Lab None recorded. Referral None recorded. Procedures None recorded. Surgeries None recorded. Imaging None recorded. Medication Orders ondansetron 4 mg disintegrat ing tablet 2021 [email or web address] [id number] [facility]/Pharmacy #[id number], [address] [place], [address], 16:00:25 metronidazo le 0.75 % (37.5 mg/5 gram) vaginal gel 2021 LOLA [facility]/Pharmacy #[id number], [address] [place], [address], 13:42:34 Patient TargetsNo targets recorded. Patient Instructions Encounter Date Encounter Id Patient Instructions Last Modified By Organization Details Last Modified Time 04/14/2022 [id number] Acute Nausea and Vomiting/Diarrhea BASIC INFORMATION Acute [...] disease, do not use Tylenol. Ask your POLO COACH how to address fever if you are concerned about Tylenol use. 3) Anti-diarrheal medicines: These are available [id number]-[id number], but in some cases are not recommended and can even worsen some cases of intestinal problems. Ask your POLO COACH if you should use them. In children [...] of the PCP suggestions from [facility]. SEEK CARE IMMEDIATELY IF: 1) You are [...] condition between 8am-10pm, please call [facility] at [phone] to help navigate your care. [email or web address] Not available 04/14/2022 14:43:23 Reason for Referral None Reported. Procedures Surgical History Date Name Laterality Status Provider Name and Address Organization Details Recorded Time Removal of ovarian cyst(s) completed Angela Teixeira NP [address], [place], [address], [place] [facility] 04/14/2022 12:43:44 procedure on urinary bladder completed Angela Teixeira NP [address], [place], [address], [place] [facility] 04/14/2022 12:44:03 Imaging Results None recorded. Procedure Notes None recorded. Medical Equipment None Reported. Allergies Allergen ID Allergen Name Allergen Category Reaction Reaction Severity Criticality Documentation Date Start Date Code Code System Note Provider Name and Address Organization Details Recorded Time 008250 morphine medicatio n Not available Not available Not available 04/14/2022 7052 RxNorm Angela Teixeira NP [address], [place], [address], [place] [facility] 12:41:13 [id number] aspirin medicatio n Not available Not available Not available 04/14/2022 1191 RxNorm Angela Teixeira NP [address], [place], [address], [place] - [facility] 12:41:21 [...] /min 120 mm[Hg] 72 mm[Hg] Not Available [facility] 13:37:49 Social History Question Answer Notes LastModified by [employer] Details LastModified Time Tobacco Smoking Status Current Every Day Smoker January Puneet, POLO [address], [place], [address], [place] [facility] 04/14/2022 12:42:29 Do You Have An Advance Directive? No [email or web address] Information not available 04/14/2022 Within The Past 12 Months, Has It Happened That The Food You Bought Just Didn't Last And You Didn't Have Money To Get More. No [email or web address] Information not available 04/14/2022 Within The Past 12 Months, Have You Worried That Your Food Would Run Out Before You Got Money To Buy More. No [email or web address] Information not available 04/14/2022 Fall Risk: Do You Feel Unsteady When Standing Or Walking? No [email or web address] Information not available 04/14/2022 Excessive Alcohol Or Drug Use No [email or web address] Information not available 04/14/2022 Does This Patient Have A PCP? Yes [email or web address] Information not available 04/14/2022 Has The Patient Seen Their PCP In The Past 6 Months? Yes [email or web address] Information not available 04/14/2022 Is This Patient In Hospice? No [email or web address] Information not available 04/14/2022 We Know From Many Of Our Patients That Covering All Of Their Costs Can Be Difficult At Times. This Can Cause Stress And Impact Health. In The Past Year, Have You Been Unable To Get Any Of The Following When It Was Really Needed? No [email or web address] Information not available 04/14/2022 Would You Like Help Connecting To Resources? None [email or web address] Information not available 04/14/2022 At What Age Did You Start Smoking Tobacco? 23 [email or web address] Information not available 04/14/2022 How Much Tobacco Do You Smoke? No [email or web address] Information not available 04/14/2022 How Many Years Have You Smoked Tobacco? 22 [email or web address] Information not available 04/14/2022 Sex: Unknown Functional Status Question Answer Note LastModified by Organizat ion Details LastModified Time Do you use any illicit or recreational drugs? Yes marijuana [email or web address] Information not available 04/14/2022 What is your level of alcohol consumption? None [email or web address] Information not available 04/14/2022 Mental Status None recorded. Family History Nothing Reported. Medical History Condition Response Coronary Artery Disease N Depression Y COPD N Hypothyroidism N A-fib N Cancer N Stroke N High Cholesterol N Rheumatoid Arthritis N Kidney Disease N Parkinson's Disease N Diabetes N CHF N Dementia N Asthma Y Pulmonary Embolism N Hypertension N Osteoporosis N Gynecological HistoryNo gynecological history recorded. Obstetrics History GPAL:G 0 P 0 0 0 0 Past Encounters Encounter ID Performer Location Encounter Start Date Encounter Closed Date Diagnosis/Indication Diagnosis SNOMED-CT Code Diagnosis ICD10 Code Diagnosis Note [id number] January [facility] [address] [place] [address] 04/14/2022 12:40:08 04/15/2022 09:35:56 Bacterial vaginosis 958924054 N76.0 Nausea 201798882 R11.0 Acute urin gennaro tract infection 980605208 N39.0 Health Concerns Section Related Observation LastModified by Organization Detai ls LastModified Time None Recorded Concern Status LastModified by Organization Details LastModified Time None Recorded Advance Directives Directive N: Payers Insurance Date Sequence Insurance Name Policy Number Policy In[place] Covered Member ID In[place] Member ID Guarantor Name 04/14/2022 2 [place] [facility] Analilia Knoxs [id number] Analilia Knox 04/14/2022 1 *SELF PAY* Analilia Tonyuras [id number] Analilia Knoxs 04/14/2022 1 MEDICARE B-[place] [facility] Analilia Knoxs [id number] Analilia Ramos Notes Date Note Type Note Provider Name and Address Organization Details Recorded Time 04/14/2022 text/html [address] [facility] care with . She was seen at [facility] yesterday for pelvic pain that radiates [...] . Angela Teixeira NP [address], [place], [address], [place] [facility] 04/14/2022 16:04:57 OBGyn Episode No OBEpisode recorded.
== END 2024-11-28 10:41 | disposition home or self-care (01) ==
LOC: HO.HUSH 09:56
PROVIDERS: Visit Provider Nurse Practitioner Family
DX: R31.29 Other microscopic hematuria (principal); N32.81 Overactive bladder; N30.10 Interstitial cystitis (chronic) without hematuria
CPT/HCPCS: 51700

== ENCOUNTER → 2024-11-28 09:56 | Outpatient (BNVA) | payer MEDICARE, MEDICAID, SELFPAY | PROVIDERS: Visit Provider Nurse Practitioner Family | DX: R31.29 Other microscopic hematuria (principal); N32.81 Overactive bladder; N30.10 Interstitial cystitis (chronic) without hematuria | CPT/HCPCS: 51700; 81003 ==

== ENCOUNTER 2024-11-29 09:07 | Outpatient (AMB) | payer MEDICARE, MEDICAID, SELFPAY ==
--- NOTE | 2024-11-29 09:22 | A.OFFVIS_ITS ---
Intake Visit Reasons: bladder instillation Intake Note: Patient presents today for Bladder Installation #5 Urology Meds:Myrbetriq Blood Thinner: none Bottle Sorter Required: No Accompanied by: Self / Same As Patient Allergies aspirin [Aspirin] Allergy (Severe, Verified 11/29/24 10:58) ANAPHYLAXIS, nausea,vomiting morphine [Morphine] Allergy (Severe, Verified 11/29/24 10:58) SOB, horrible feeling cephalexin Allergy (Intermediate, Verified 11/29/24 10:58) vomiting ibuprofen [From Motrin] Allergy (Intermediate, Verified 11/29/24 10:58) BLEEDING-PT STATES STILL TAKES pineapple Allergy (Mild, Verified 11/29/24 10:58) Rash Medication List - Last Reconciled 11/29/24 by PHIL Mccormick- albuterol sulfate 90 mcg/actuation 1 inh inhalation Q4H PRN citalopram 1.5 tabs PO DAILY clonazepam 1 mg PO BID PRN mirabegron ER (Myrbetriq) 25 mg PO DAILY 90 days ondansetron HCl 4 mg PO Q8H PRN 7 days quetiapine 50 mg PO BEDTIME tramadol 50 mg PO Q8H PRN 10 days HPI Comments Details: Analilia is a pleasant 54-year-old female who is a patient of Dr. Hernandez. She has a past medical history of anxiety, asthma, bipolar disorder, depression, interstitial cystitis, and overactive bladder. She presents to the office today for a bladder instillation #5 for her longstanding history of interstitial cystitis as well as overactive bladder. Of note, patient underwent cystoscopy with hydrodistention with Dr. Hoffmann last week 11/14/24. Cystoscopy revealed glomerulations consistent with interstitial cystitis. She reports episodes of nocturia have decreased however she does continue to experience urinary urgency and frequency. She otherwise denies incontinence, gross/visible hematuria, dysuria, foul smelling urine, changes to urinary stream, flank pain, fever, and or chills. In office urinalysis results reviewed with the patient today. She discusses having followed up with her oncologist and has since stopped her tamoxifen as she has been experiencing issues with joint and bone pain. She otherwise denies any other issues or concerns at this time. Urine cytology 03/05& 12/04 Negative for high-grade urothelial carcinoma. PFS Medical History PONV (postoperative nausea and vomiting) Arthritis Bipolar disorder Depression Anxiety Asthma Interstitial cystitis Overactive bladder Surgical History Hx of eye surgery History of cystoscopy Hx of ovarian cystectomy Social History Household Members: None Housing: Apartment Are you a primary care director rn to a significant other at home: No Do you presently have visiting nurse or other home services: No Alcohol intake: never Patient Tobacco Use Status: Former Tobacco user Tobacco use type: Cigarette Cigarettes Per Day: 4 Second Hand Smoke Exposure: No Substance Use Type: Marijuana Review of Systems Const All systems reviewed & are unremarkable except as noted in HPI and below Physical Exam Const General: cooperative, healthy appearing, comfortable, no acute distress, well developed, alert and awake Nutritional Appearance: average body habitus Orientation/consciousness: patient oriented x3 Limitations: no limitations HEENT Head: Yes normal to inspection, Yes normocephalic and Yes atraumatic Ears: hearing grossly normal bilaterally Eyes General: appearance normal, both eyes and all related structures Neck Neck: Yes normal visual inspection and Yes trachea midline Chest Chest palpation & inspection: normal inspection of the chest Resp Effort & Inspection: normal respiratory effort and able to speak in complete sentences Cardio Rate: regular rate GI Inspection: Yes normal to inspection General: Yes no CVA tenderness External Female Exam: normal external appearance Speculum Exam - Vagina: normal appearance of the vagina Back/Spine/Pelvis Back: no CVA tenderness Skin General skin exam: no rashes or lesions noted Neuro General: patient oriented x3 Extrem General: Yes normal to inspection Psych Appearance: grossly normal and well kempt Mental Status: mental status grossly normal Speech and movement: Normal speech and movement present and Clear speech present Affect: normal affect Attitude: cooperative Thought process: Normal thought process present Thought content: Normal thought content present Office Procedures Bladder/Catheter Procedure Details: Patient presents to office for IC instillation 5#. Gloria Roberts [facility]- to do instillation. Patient to make future IC appointments at checkout? 14fr straight cath used to instill: 10mls bupivicaine 0.50% 2mls heparin 10,000 units 10 mls lidocaine 2% lidocaine urojet 1ml solumedrol 30373-Kzjwdnqdwy of Bladder 91038-Dmpnwm Bladder Catheter Procedure code (CPT) selection complete Results AMB Urinalysis, Automated UA Leukoctes 0 Carina/uL Last Edit by [employer] Peterson[employer] on 11/29/24 09:41 UA Nitrite Negative Last Edit by [employer] on 11/29/24 09:41 UA Urobilinogen 0.2 mg/dL Last Edit by [employer] on 11/29/24 09:41 UA Protein 0 mg/dL Last Edit by [employer] on 11/29/24 09:41 UA pH 6.0 Last Edit by [employer] Kristenvelma on 11/29/24 09:41 UA Blood 80 Vinicio/uL Last Edit by [employer] on 11/29/24 09:41 UA Specific [place] 1.025 Last Edit by [employer] on 11/29/24 09:41 UA Ketone Last Edit by [employer] on 11/29/24 09:41 UA Bilirubin 0 mg/dL Last Edit by [employer] on 11/29/24 09:41 UA Glucose 0 mg/dL Last Edit by [employer] on 11/29/24 09:41 Results Reviewed Results Reviewed: Laboratory Last Values Urine pH (Auto) 6.0 11/29/24 09:37 Specific [place] (Auto) 1.025 11/29/24 09:37 Urine Protein (Auto) 0 mg/dL 11/29/24 09:37 Glucose (UA)(Auto) 0 mg/dL 11/29/24 09:37 Urine Blood (Auto) 80 Vinicio/uL 11/29/24 09:37 Urine Nitrite (Auto) Negative 11/29/24 09:37 Urine Bilirubin (Auto) 0 mg/dL 11/29/24 09:37 Urine Urobilinogen (Auto) 0.2 mg/dL 11/29/24 09:37 Leukocyte Esterase (Auto) 0 Carina/uL 11/29/24 09:37 Assessment & Plan Assessment & Plan (1) Microscopic hematuria: Code(s): R31.29 - Other microscopic hematuria Category: Medical (2) Overactive bladder: Code(s): N32.81 - Overactive bladder Category: Medical (3) Interstitial cystitis: Code(s): N30.10 - Interstitial cystitis (chronic) without hematuria Category: Medical Plan In office urinalysis results reviewed with the patient today; as noted above. Previous urine cytology results reviewed with the patient today Bladder instillation was performed. Continue Myrbetriq as discussed and prescribed; refill submitted We discussed importance of limiting bladder triggers and irritants. Discussed, educated, and stressed the importance of adequate hydration relation to lower urinary tract symptoms as well as overall health and well-being. Follow-up in 1-3 months with [facility]; or sooner with any issues, concerns, and or questions. Orders: Orders AMB Bladder/Catheter Procedure Today N30.10 - Interstitial cystitis (chronic) without hematuria AMB Urinalysis Automated Today Z13.9 - Encounter for screening, unspecified Medications: Refilled mirabegron ER (Myrbetriq) 25 mg PO DAILY 90 tabs 1RF 90 days N32.81 - Overactive bladder, R35.1 - Nocturia Patient Instructions: The patient had an opportunity to ask questions regarding the treatment plan. All questions were answered. Physical exam, labs, and imaging were discussed and reviewed in detail. As well as risks, benefits, and discussion of treatment choices. No major barriers to understanding were identified. The patient expressed understanding and agreement with the above treatment plan. The patient was made aware they should contact our office by phone for worsening of their current condition, the appearance of new symptoms, or with any questions or concerns. Compliance is encouraged with any medications and follow up testing that is ordered. It is a privilege to be allowed the opportunity to participate in? your urological care.? Again, if you have any questions or concerns If you have any questions or concerns please do not hesitate to contact me. The office is [phone]. This note is constructed using voice recognition software. While every effort has been made to ensure accuracy equipment application specialist errors may have been included. Yours sincerely, EVERT Mccormick Coding Level of Care Code Est Pt Level 3 (24415) Complex EM visit Add On G2211 Diagnoses Microscopic hematuria R31.29 Overactive bladder N32.81 Interstitial cystitis N30.10 CPT Codes Bladder/Catheter Procedure - CPT: 37656-Rlmyiydclu of Bladder ([id number]) Bladder/Catheter Procedure - CPT: 50108-Djvmha Bladder Catheter ([id number])
== END 2024-11-29 10:02 | disposition home or self-care (01) ==
LOC: HO.HUSH 09:08
PROVIDERS: Visit Provider Nurse Practitioner Family
DX: R31.29 Other microscopic hematuria (principal); N32.81 Overactive bladder; N30.10 Interstitial cystitis (chronic) without hematuria; Z13.9 Encounter for screening, unspecified
CPT/HCPCS: 51700

== ENCOUNTER → 2024-11-29 09:07 | Outpatient (BNVA) | payer MEDICARE, MEDICAID, SELFPAY | PROVIDERS: Visit Provider Nurse Practitioner Family | DX: R31.29 Other microscopic hematuria (principal); N32.81 Overactive bladder; N30.10 Interstitial cystitis (chronic) without hematuria; R35.1 Nocturia | CPT/HCPCS: 51700; 81003 ==

== ENCOUNTER 2024-12-15 09:28 | Emergency (ER) | payer MEDICARE, MEDICAID, SELFPAY ==
--- NOTE | 2024-12-15 | ECG_ITS ---
Test Reason : OCCASIONAL SOB Blood Pressure : */* mmHG Vent. Rate : 65 BPM Atrial Rate : 65 BPM P-R Int : 156 ms QRS Dur : 78 ms QT Int : 394 ms P-R-T Axes : 60 53 43 degrees QTcB Int : 409 ms Normal sinus rhythm with sinus arrhythmia Normal ECG When compared with ECG of 19-Oct-2021 12:07, No significant change was found Referred By: Generic ED Physician Electronically Signed By: JED LINN
--- NOTE | ~2024-12-15 | US_ITS ---
EXAMINATION: US LOWER EXTREMITY VEINS BILATERAL HISTORY: pain and swelling COMPARISON: There are no prior studies available for comparison. TECHNIQUE: Duplex and color Doppler sonographic examination of the deep venous system of the bilateral lower extremities was performed. FINDINGS: The right common femoral, superficial femoral, and popliteal veins are patent demonstrating normal compressibility, spontaneous flow, and augmentation. There is a normal color and spectral Doppler waveform appearance of the visualized deep venous system above the knee. The posterior tibial and peroneal veins are patent. The left common femoral, superficial femoral, and popliteal veins are patent demonstrating normal compressibility, spontaneous flow, and augmentation. There is a normal color and spectral Doppler waveform appearance of the visualized deep venous system above the knee. The posterior tibial and peroneal veins are patent. US/US venous duplex LE BI IMPRESSION: No evidence of acute DVT in the bilateral lower extremities. Electronically signed by: Silvestre Long MD 12/15/2024 12:11 PM EDT
[2024-12-15 09:50] VITALS: BP 134/87; PULSE 75; RESP 18; TEMP 36.7; O2SAT 99; BMI 25.4
[2024-12-15 10:30] LABS: MANUAL DIFF FLAG NO
[2024-12-15 10:42] LABS: Basophils Percent Auto 0.7 % (0-2); Eosinophils Absolute Auto 0.4 X10*3/uL (0.0-0.4); Eosinophils Percent Auto 7.7 % (0-4); Hematocrit 37.6 % (37.0-47.0); Hemoglobin 12.6 g/dl (12.0-16.0); Imm Gran Abs Auto 0.02 X10*3/uL (0.00-0.03); Imm Gran Pct Auto 0.4 % (0.0-0.4); Lymphocytes Absolute Auto 1.7 X10*3/uL (1.2-4.9); Lymphocytes Percent Auto 31.6 % (20-40); Mean Corpuscular HGB Conc 33.5 g/dl (31.0-35.0); Mean Corpuscular Volume 89.5 fL (80.0-98.0); Mean Platelet Volume 11.1 fL (9.4-12.3); Monocytes Absolute Auto 0.5 X10*3/uL (0.1-1.2); Monocytes Percent Auto 8.4 % (2-11); Neutrophils Absolute Auto 2.8 x10*3/uL (2.0-8.3); Neutrophils Percent Auto 51.2 % (45-73); Platelet Count 217 X10*3/uL (160-400); Red Cell Distribution Width 14.3 % (11.0-16.0); White Blood Count 5.5 X10*3/uL (4.8-10.8)
[2024-12-15 10:47] LABS: Alanine Aminotransferase 18 U/L (0-31); Albumin Level 4.2 g/dL (3.5-5.0); Alkaline Phosphatase 122 U/L (39-117); Anion Gap 8 (12-20); Aspartate Amino Transferase 24 U/L (5-31); Bilirubin Total 0.4 mg/dL (0.0-1.0); Blood Urea Nitrogen 17 mg/dL (9-16); Calcium 9.8 mg/dL (8.4-10.2); Carbon Dioxide 27 mmol/L (22-29); Chloride 110 mmol/L (96-108); Creatinine Clr Calc Pharmacy 58.7; Estimated Glomerular Filt Rate > 60; Glucose Random 109 mg/dL (60-115); Potassium 3.6 mmol/L (3.3-5.1); Sodium 141 mmol/L (135-145); Total Protein 6.9 g/dL (6.5-8.0)
[2024-12-15 10:52] LABS: B Type Natriuretic Peptide 29 pg/mL (<100)
--- NOTE | 2024-12-15 10:55 | ED_ITS ---
HPI - General Adult General Chief complaint: General Medical Stated complaint: Swelling in hands/legs Time Seen by Provider: 12/15/24 12:52 Source: patient and old records reviewed Mode of arrival: ambulatory Limitations: no limitations History of Present Illness ED Provider: NISSA WARD narrative: 54 yo female with PMH of breast cancer on anastrozole s/p XRT also has overactive bladder. Her care for breast cancer is at [facility]. She comes in today with c/o leg swelling and hand pain/foot pain x 2 weeks. She was told by her oncologist to stop the anastrozole but she still feels her legs and hands are still puffy and painful. She has a family hx of MS - but has no known autoimmune issues. Her oncologist sent her in for eval. She has no CP/SOB. No prior DVT MD complaint: joint pain and swelling Onset (ago): week(s) (2) Location: left, right, upper extremity and lower extremity Radiation: non-radiation Severity: moderate Quality: aching Pain Consistency: intermittent Relieving factors: immobilization Exacerbating factors: movement Associated symptoms: denies other symptoms Treatments prior to arrival: none Related Data Home Medications ?Medication ?Instructions ?Recorded ?Confirmed clonazepam 1 mg tablet 1 mg PO BID PRN Anxiety 07/08/22 11/09/24 albuterol sulfate 90 mcg/actuation 1 inh inhalation Q4H PRN Shortness 07/29/22 11/09/24 aerosol inhaler Of Breath Or Wheezing citalopram 20 mg tablet 1.5 tab PO DAILY 07/29/22 11/09/24 quetiapine 50 mg tablet 50 mg PO BEDTIME 01/09/23 11/09/24 Previous Rx's ?Medication ?Instructions ?Recorded ondansetron HCl 4 mg tablet 4 mg PO Q8H PRN nausea and 05/05/24 vomiting 7 days #15 tabs tramadol 50 mg tablet 50 mg PO Q8H PRN pain 10 days #30 11/28/24 tabs mirabegron 25 mg tablet,extended 25 mg PO DAILY 90 days #90 tabs 11/29/24 release 24 hr (Myrbetriq) cyclobenzaprine 10 mg tablet 10 mg PO TID PRN muscle spasm #15 12/15/24 tabs Allergies Allergy/AdvReac Type Severity Reaction Status Date / Time aspirin [Aspirin] Allergy Severe ANAPHYLAXIS, Verified 12/15/24 09:52 nausea,vomiting morphine [Morphine] Allergy Severe SOB, Verified 12/15/24 09:52 horrible feeling cephalexin Allergy Intermediate vomiting Verified 12/15/24 09:52 ibuprofen [From Motrin] Allergy Intermediate BLEEDING-PT Verified 12/15/24 09:52 STATES STILL TAKES pineapple Allergy Mild Rash Verified 12/15/24 09:52 Review of Systems 2 Review of Systems: Constitutional : No Fever, No Chills ENT/Mouth : No Ear Pain, No Hoarseness, No sore throat Eyes: No Eye Pain, No Swelling, No Redness, No Foreign Body Cardiovascular : No Chest Pain, No SOB Respiratory : No Cough, No Dyspnea Gastrointestinal : No Nausea, No Vomiting, No Diarrhea, No abdominal Pain Genitourinary : No Dysuria, No Hematuria Musculoskeletal : positive joint pain, No Myalgias, pos Joint Swelling Skin : No Skin lacerations, No rash Neuro : No Weakness, No Numbness, No Loss of Consciousness, No Dizziness, No Headache All other systems reviewed and are negative [facility] Past Medical History Attestation statement: The following information was validated with the patient. Source: old records reviewed Medical History PONV (postoperative nausea and vomiting) Arthritis Bipolar disorder Depression Anxiety Asthma Interstitial cystitis Overactive bladder Surgical History Hx of eye surgery History of cystoscopy Hx of ovarian cystectomy Social History Social History Household Members: None Housing: Apartment Are you a primary medical care evaluation specialist to a significant other at home: No Do you presently have visiting nurse or other home services: No Alcohol intake: never Patient Tobacco Use Status: Former Tobacco user Tobacco use type: Cigarette Cigarettes Per Day: 4 Smoked in Last 30 Days: No Second Hand Smoke Exposure: No Use of substances other than those prescribed or required for medical reasons: No Substance Use Type: Marijuana Advance Directives: No Advance Directives Information Provided: Yes Patient : No Physical Exam ED Vital Signs: Vital Signs - 24 hr 12/15/24 09:50 12/15/24 13:00 12/15/24 13:38 Temperature 98.1 F 98.5 F Pulse Rate 75 59 59 Respiratory Rate 18 18 18 Blood Pressure 134/87 123/70 123/70 Pulse Oximetry 99 98 98 Oxygen Delivery Method Room Air Room Air Room Air BMI result Body Mass Index 25.4 Appearance: Alert. Oriented X3. No acute distress. Eyes: Pupils equal, round and reactive to light. ENT: Pharynx normal. Neck: Normal inspection. Neck supple. CVS: Normal heart rate and rhythm. Pulses normal. Respiratory: No respiratory distress. Breath sounds normal. Abdomen: Soft and nontender. Skin: Skin warm and dry. Normal skin color. Normal skin turgor. Extremities: no pitting edema but puffiness to both feet and fingers - no redness, rash, NV intact pulses and BCR intact Neuro: Oriented X 3. No motor deficit. No sensory deficit. CN2-12 intact Course Course Course Narrative: 54 yo female with PMH of breast cancer s/p XRT now just on anastrozole who is treated at [facility], overactive bladder who has had pain in fingers/feet and leg swelling she was told to stop the hormone by her oncologist for 2 weeks but the swelling persists and she has pain. She has no rash of fevers. At this time will add on BNP, TSH T4, She has no CP/SOB. I did order venous DVT study. This could be med related. this is a RAPID medical screening exam the rest of the history and physical exam is to be done by the main provider. NISSA 12/15/24 1055. Reevaluation(s) Reevaluation #1: Patient is well-appearing. Labs reassured. Ultrasound negative for DVT. Whole-body evaluated in negative for signs of compartment syndrome, DVT, arterial occlusion, cellulitis, osteomyelitis, petechia, dislocation, fractures, or any other concerning symptoms. Patient given copy of labs and imaging. Patient will be discharged with Flexeril. Patient has appointment tomorrow with follow-up. Patient explained worrisome signs and informed to return to the ED immediately. Not suspecting MS, rhabdomyolysis, PE, sepsis, or any other life- threatening etiology. Time: 13:22 Medical Decision Making Medical Decision Making [facility] Narrative: 54 yo female with PMH of breast cancer s/p XRT now just on anastrozole who is treated at [facility], overactive bladder who has 2 weeks of painful joints which was felt to be due to anastrozole despite stopping the medications she still has these issues. No CP/SOB, no signs of infection, no insect bites reported. At this time will obtain EKG, trop, BNP, TSH, Cr and albumin. Will also obtain DVT study if negative will DC home with supportive medications and ask her to see her oncologist Differential Diagnosis Differential Diagnoses: The differential diagnosis associated with the presentation includes DVT, CHF, kidney issues, low albumin, arthropathy, med reaction no chest pain/dyspnea to suggest effusions of heart or lung Admission/Observation Consideration of admission/observation: Escalation of care including admission/observation considered normal Cr, heart markers, albumin, TSH, DVT study negative Lab Data MDM Lab Attestation statement: I reviewed the patient's lab results. 12/15/24 10:26 12/15/24 10:26 Labs: Lab Results 12/15/24 Range/Units 10:26 WBC 5.5 (4.8-10.8) X10*3/uL RBC 4.20 (4.20-5.50) X10*6/uL Hgb 12.6 (12.0-16.0) g/dl Hct 37.6 (37.0-47.0) % MCV 89.5 (80.0-98.0) fL MCH 30.0 (27.0-33.0) pg MCHC 33.5 (31.0-35.0) g/dl RDW 14.3 (11.0-16.0) % Plt Count 217 (160-400) X10*3/uL MPV 11.1 (9.4-12.3) fL Immature Gran % (Auto) 0.4 (0.0-0.4) % Neut % (Auto) 51.2 (45-73) % Lymph % (Auto) 31.6 (20-40) % [place] % (Auto) 8.4 (2-11) % Eos % (Auto) 7.7 H (0-4) % Baso % (Auto) 0.7 (0-2) % Lymph # (Auto) 1.7 (1.2-4.9) X10*3/uL [place] # (Auto) 0.5 (0.1-1.2) X10*3/uL Eos # (Auto) 0.4 (0.0-0.4) X10*3/uL Baso # (Auto) 0.0 (0.0-0.2) X10*3/uL Abs Immat Gran (auto) 0.02 (0.00-0.03) X10*3/uL Absolute Neuts (auto) 2.8 (2.0-8.3) x10*3/uL Absolute Nucleated RBC 0.000 (0.0-0.012) X10*3/uL Nucleated RBC % (auto) 0.0 (0.0-0.2) /100WBC ESR 16 (0-20) MM/HR Sodium 141 (135-145) mmol/L Potassium 3.6 (3.3-5.1) mmol/L Chloride 110 H (96-108) mmol/L Carbon Dioxide 27 (22-29) mmol/L Anion Gap 8 L (12-20) BUN 17 H (9-16) mg/dL Creatinine 0.94 (0.5-1.4) mg/dL Estim Creat Clear Calc 58.7 Estimated GFR > 60 Random Glucose 109 (60-115) mg/dL Calcium 9.8 D (8.4-10.2) mg/dL Total Bilirubin 0.4 (0.0-1.0) mg/dL AST 24 (5-31) U/L ALT 18 (0-31) U/L Alkaline Phosphatase 122 H (39-117) U/L C-Reactive Protein 0.14 (< or = 0.50) mg/dL B-Natriuretic Peptide 29 (<100) pg/mL Total Protein 6.9 (6.5-8.0) g/dL Albumin 4.2 (3.5-5.0) g/dL TSH 1.34 (0.32-4.0) uIU/mL Independent Interpretation I performed an independent interpretation of an: EKG and Ultrasound (no DVT) Interpretation: Rate: 65 Rhythm: NSR [place]: normal Normal P waves. Normal TERESA. Normal QRS complex. ST T wave : no KARLENE, inverted t wave V1 qTC: 409 prior studies: no acute ischemia The study has been interpreted contemporaneously by me. . Radiology Impression Discussion of test interpretation with radiology: I have reviewed the radiologist's reading. Independent Historian Clinical information obtained from an independent historian. History obtained from or confirmed by: Friend External Record Review External record reviewed: Inpatient record and Outpatient record Prescription Management I considered prescription management with: Other Discharge Plan Discharge Clinical Impression: Joint swelling Arthralgia Qualifiers: Joint pain location: unspecified Qualified Code(s): M25.50 - Pain in unspecified joint Patient Disposition: Home, Self-Care Instructions: Leg Edema (ED), Arthralgia (ED) Additional Instructions: on today's visit your blood counts, kidney function, liver enzymes, congestive heart failure tests, thyroid studies, your inflammatory markers are all normal your blood sugar is in a good range your EKG is normal your blood count study is normal at this time I would follow up with your oncologist please wear tight soccer socks to help with swelling take medications as prescribed return for any worsening symptoms or concerns. Ordering Physician: Allyn Benjamin DO Date of Service: 12/15/24 Procedure(s): US venous duplex LE BI Accession Number(s): [id number] cc: Allyn Benjamin DO; Dony Marie DO~ EXAMINATION: US LOWER EXTREMITY VEINS BILATERAL HISTORY: pain and swelling COMPARISON: There are no prior studies available for comparison. TECHNIQUE: Duplex and color Doppler sonographic examination of the deep venous system of the bilateral lower extremities was performed. FINDINGS: The right common femoral, superficial femoral, and popliteal veins are patent demonstrating normal compressibility, spontaneous flow, and augmentation. There is a normal color and spectral Doppler waveform appearance of the visualized deep venous system above the knee. The posterior tibial and peroneal veins are patent. The left common femoral, superficial femoral, and popliteal veins are patent demonstrating normal compressibility, spontaneous flow, and augmentation. There is a normal color and spectral Doppler waveform appearance of the visualized deep venous system above the knee. The posterior tibial and peroneal veins are patent. US/US venous duplex LE BI IMPRESSION: No evidence of acute DVT in the bilateral lower extremities. Electronically signed by: Silvestre Long MD 12/15/2024 12:11 PM EDT Dictated By: Silvestre Long MD Signed By: <Electronically signed by Silvestre Long MD in OV> 12/15/24 1211 Prescriptions: New cyclobenzaprine 10 mg tablet 10 mg PO TID PRN (Reason: muscle spasm) Qty: 15 0RF Rx Instructions: side effect is drowsiness. Do not take while driving or working. No Action citalopram 20 mg tablet 1.5 tab PO DAILY albuterol sulfate 90 mcg/actuation HFA aerosol inhaler 1 inh inhalation Q4H PRN (Reason: Shortness Of Breath Or Wheezing) clonazepam 1 mg tablet 1 mg PO BID PRN (Reason: Anxiety) quetiapine 50 mg tablet 50 mg PO BEDTIME ondansetron HCl 4 mg tablet 4 mg PO Q8H PRN (Reason: nausea and vomiting) 7 Days Qty: 15 0RF tramadol 50 mg tablet 50 mg PO Q8H PRN (Reason: pain) 10 Days Qty: 30 0RF mirabegron [Myrbetriq] 25 mg tablet extended release 24 hr 25 mg PO DAILY 90 Days Qty: 90 1RF Interventions: ED Discharge Assessment Last Done: 12/15/24 13:38 Discharge Date/Time: 12/15/24 13:38 Print Language: Iranian
[2024-12-15 11:20] LABS: C Reactive Protein 0.14 mg/dL (< or = 0.50)
[2024-12-15 11:36] LABS: TSH reflex Free T4 1.34 uIU/mL (0.32-4.0)
[2024-12-15 11:49] LABS: Erythrocyte Sedimentation Rate 16 MM/HR (0-20)
[2024-12-15 13:00] VITALS: BP 123/70; PULSE 59; RESP 18; O2SAT 98
[2024-12-15 13:38] VITALS: BP 123/70; PULSE 59; RESP 18; TEMP 36.9; O2SAT 98
== END 2024-12-15 13:38 | disposition home or self-care (01) ==
LOC: HO.ED 13:37
PROVIDERS: Emergency Medicine Emergency Medical Services; Emergency Provider Emergency Medicine; PCP Family Medicine
DX: R06.02 Shortness of breath (principal); I49.9 Cardiac arrhythmia, unspecified; R60.0 Localized edema; Z79.899 Other long term (current) drug therapy; Z87.891 Personal history of nicotine dependence
CPT/HCPCS: 36415; 80053; 83880; 84443; 85025; 85652; 86140; 93005; 93970; 99284

== ENCOUNTER → 2024-12-15 10:18 | Outpatient (BNV) | payer MEDICARE, MEDICAID, SELFPAY | PROVIDERS: Emergency Provider Emergency Medicine; PCP Family Medicine; Visit Provider Internal Medicine | DX: R06.02 Shortness of breath (principal) | CPT/HCPCS: 93010 ==

== ENCOUNTER → 2024-12-15 10:54 | Outpatient (BNV) | payer MEDICARE, MEDICAID, SELFPAY | PROVIDERS: PCP Family Medicine; Visit Provider Radiology Diagnostic Radiology | DX: M79.661 Pain in right lower leg (principal); M79.662 Pain in left lower leg; R22.43 Localized swelling, mass and lump, lower limb, bilateral | CPT/HCPCS: 93970 ==

== ENCOUNTER 2025-02-16 13:24 | Outpatient (AMB) | payer MEDICARE, MEDICAID, SELFPAY ==
--- NOTE | 2025-02-16 13:30 | A.OFFVIS_ITS ---
Intake Visit Reasons: 3m/IC Intake Note: Patient is present for 3M/IC Urology Medication:MIRABEGRON Antibiotic Allergy:NONE Blood Thinner:NONE Land Surveyor Required: No Allergies aspirin (Aspirin) Allergy (Severe, Verified 02/16/25 22:38) ANAPHYLAXIS, nausea,vomiting morphine (Morphine) Allergy (Severe, Verified 02/16/25 22:38) SOB, horrible feeling cephalexin Allergy (Intermediate, Verified 02/16/25 22:38) vomiting ibuprofen (From Motrin) Allergy (Intermediate, Verified 02/16/25 22:38) BLEEDING-PT STATES STILL TAKES pineapple Allergy (Mild, Verified 02/16/25 22:38) Rash Medication List - Last Reconciled 02/16/25 by PHIL Mccormick- albuterol sulfate 90 mcg/actuation 1 inh inhalation Q4H PRN citalopram 1.5 tabs PO DAILY clonazepam 1 mg PO BID PRN cyclobenzaprine 10 mg PO TID PRN quetiapine 50 mg PO BEDTIME solifenacin (Vesicare) 5 mg PO DAILY 90 days tramadol 50 mg PO Q8H PRN 30 days HPI Comments Details: Analilia is a pleasant 54-year-old female who is a patient of Dr. Hernandez. She has a past medical history of anxiety, asthma, bipolar disorder, depression, interstitial cystitis, and overactive bladder. She presents to the office today for follow-up of her interstitial cystitis as well as overactive bladder. In discussion with the patient today she reports since her last office visit here approximately 3 months ago at which time she underwent weekly bladder instillations she has been doing and feeling well. She does report noting intermittent episodes of urinary urgency and frequency however does feel they have been somewhat manageable. She reports having utilized Pyridium a few times and did find this helpful. She does endorse to not drinking enough water daily. She discusses her ongoing follow-up with her oncologist for her breast cancer. She discusses having had a recent follow-up mammogram and was told her breast cancer was in remission. She discusses her ongoing issues with weight gain and generalized edema. She continues to follow-up with her PCP for this issue. Initially patient reports having come off Myrbetriq as it was believe this could be a contributing factor to her increased lower leg edema however despite discontinuation this does still become an issue from time to time. Of note, patient underwent cystoscopy with hydrodistention with Dr. Hoffmann last week 11/14/24. Cystoscopy revealed glomerulations consistent with interstitial cystitis. She reports episodes of nocturia have decreased however she does continue to experience urinary urgency and frequency. She otherwise denies incontinence, gross/visible hematuria, dysuria, foul smelling urine, changes to urinary stream, flank pain, fever, and or chills. In office urinalysis results reviewed with the patient today. She discusses her upcoming appointment with Oncology to potentially restart her to tamoxifen as this also has been discontinued as she felt this could have been contributing to her generalized edema and joint discomfort. She otherwise denies any other issues or concerns at this time. Urine cytology 03/05& 12/04 Negative for high-grade urothelial carcinoma. [facility] Medical History PONV (postoperative nausea and vomiting) Arthritis Bipolar disorder Depression Anxiety Asthma Interstitial cystitis Overactive bladder Surgical History Hx of eye surgery History of cystoscopy Hx of ovarian cystectomy Social History Household Members: None Housing: Apartment Are you a primary director of health care marketing to a significant other at home: No Do you presently have visiting nurse or other home services: No Alcohol intake: never Patient Tobacco Use Status: Former Tobacco user Tobacco use type: Cigarette Cigarettes Per Day: 4 Second Hand Smoke Exposure: No Substance Use Type: Marijuana Review of Systems Const All systems reviewed & are unremarkable except as noted in HPI and below Physical Exam Const General: cooperative, healthy appearing, comfortable, no acute distress, well developed, alert and awake Nutritional Appearance: average body habitus Orientation/consciousness: patient oriented x3 Limitations: no limitations HEENT Head: Yes normal to inspection, Yes normocephalic and Yes atraumatic Ears: hearing grossly normal bilaterally Eyes General: appearance normal, both eyes and all related structures Neck Neck: Yes normal visual inspection and Yes trachea midline Chest Chest palpation & inspection: normal inspection of the chest Resp Effort & Inspection: normal respiratory effort and able to speak in complete sentences Cardio Rate: regular rate GI Inspection: Yes normal to inspection General: Yes no CVA tenderness External Female Exam: normal external appearance Speculum Exam - Vagina: normal appearance of the vagina Back/Spine/Pelvis Back: no CVA tenderness Skin General skin exam: no rashes or lesions noted Neuro General: patient oriented x3 Extrem General: Yes normal to inspection Psych Appearance: grossly normal and well kempt Mental Status: mental status grossly normal Speech and movement: Normal speech and movement present and Clear speech present Affect: normal affect Attitude: cooperative Thought process: Normal thought process present Thought content: Normal thought content present Results AMB Urinalysis, Automated UA Leukoctes 0 Carina/uL Last Edit by KRYSTAL Yusuf on 02/16/25 14:20 UA Nitrite Negative Last Edit by Zachary Souza CCM on 02/16/25 14:20 UA Urobilinogen 0.2 mg/dL Last Edit by KRYSTAL Yusuf on 02/16/25 14:2 0 UA Protein 15 mg/dL Last Edit by Zachary Souza CCM on 02/16/25 14:20 UA pH 5.5 Last Edit by Zachary Souza CCM on 02/16/25 14:20 UA Blood 80 Vinicio/uL Last Edit by Zachary Souza CCM on 02/16/25 14:20 UA Specific [place] 1.025 Last Edit by KRYSTAL Yusuf on 02/16/25 14: 20 UA Ketone Negative Last Edit by Zachary Souza CCM on 02/16/25 14:20 UA Bilirubin 0 mg/dL Last Edit by Zachary Souza CCM on 02/16/25 14:20 UA Glucose 0 mg/dL Last Edit by Zachary Souza [facility] on 02/16/25 14:20 Results Reviewed Results Reviewed: Laboratory Last Values Urine pH (Auto) 5.5 02/16/25 14:19 Specific [place] (Auto) 1.025 02/16/25 14:19 Urine Protein (Auto) 15 mg/dL 02/16/25 14:19 Glucose (UA)(Auto) 0 mg/dL 02/16/25 14:19 Urine Ketones (Auto) Negative 02/16/25 14:19 Urine Blood (Auto) 80 Vinicio/uL 02/16/25 14:19 Urine Nitrite (Auto) Negative 02/16/25 14:19 Urine Bilirubin (Auto) 0 mg/dL 02/16/25 14:19 Urine Urobilinogen (Auto) 0.2 mg/dL 02/16/25 14:19 Leukocyte Esterase (Auto) 0 Carina/uL 02/16/25 14:19 Assessment & Plan Assessment & Plan (1) Microscopic hematuria: Code(s): R31.29 - Other microscopic hematuria Category: Medical (2) Overactive bladder: Code(s): N32.81 - Overactive bladder Category: Medical (3) Interstitial cystitis: Code(s): N30.10 - Interstitial cystitis (chronic) without hematuria Category: Medical Plan In office urinalysis results reviewed with the patient today; as as noted above; will send for urine cytology. We discussed importance of adequate hydration relation to lower urinary tract symptoms as well as overall health and well-being. Continue to avoid bladder triggers and irritants. Will trial low-dose VESIcare. We did discuss further treatment options and risks and benefits of these treatment options. All questions were answered. Continue follow-up with PCP and oncology as planned. Follow-up in 1-3 months with [facility]; or sooner with any issues, concerns, and or questions. Orders: Orders AMB Urinalysis Automated Today Z13.9 - Encounter for screening, unspecified Medications: New solifenacin (Vesicare) 5 mg PO DAILY 90 tabs 1RF 90 days Changed From tramadol 50 mg PO Q8H PRN 30 tabs 0RF pain 10 days To tramadol 50 mg PO Q8H PRN 90 tabs 0RF pain 30 days Coding Level of Care Code Est Pt Level 4 (82161) Complex EM visit Add On G2211 Diagnoses Microscopic hematuria R31.29 Overactive bladder N32.81 Interstitial cystitis N30.10
== END 2025-02-16 14:13 | disposition home or self-care (01) ==
LOC: HO.HUSH 13:24
PROVIDERS: PCP Family Medicine; Visit Provider Nurse Practitioner Family
DX: R31.29 Other microscopic hematuria (principal); N32.81 Overactive bladder; N30.10 Interstitial cystitis (chronic) without hematuria; Z13.9 Encounter for screening, unspecified
CPT/HCPCS: 99214; G2211

== ENCOUNTER → 2025-02-16 13:24 | Outpatient (BNVA) | payer MEDICARE, MEDICAID, SELFPAY | PROVIDERS: PCP Family Medicine; Visit Provider Nurse Practitioner Family | DX: R31.29 Other microscopic hematuria (principal); N32.81 Overactive bladder; N30.10 Interstitial cystitis (chronic) without hematuria | CPT/HCPCS: 81003; 99212 ==

== ENCOUNTER 2025-03-07 07:03 | Emergency (ER) | payer MEDICARE, MEDICAID, SELFPAY ==
--- NOTE | ~2025-03-07 | US_ITS ---
EXAMINATION: US LOWER EXTREMITY VEINS LIMITED FOLLOW UP LEFT HISTORY: Pain and swelling, R/O DVT COMPARISON: There are no prior studies available for comparison. TECHNIQUE: Duplex and color Doppler sonographic examination of the deep venous system of the left lower extremity was performed. FINDINGS: The common femoral, superficial femoral, and popliteal veins are patent demonstrating normal compressibility, spontaneous flow, and augmentation. There is a normal color and spectral Doppler waveform appearance of the visualized deep venous system above the knee. The posterior tibial and peroneal veins are patent. US/US venous duplex LE LT IMPRESSION: No evidence of acute DVT in the left lower extremity. Electronically signed by: Silvestre Long MD 03/07/2025 08:58 AM EDT
--- NOTE | ~2025-03-07 | CT_ITS ---
EXAMINATION: CT ABDOMEN PELVIS WITH IV CONTRAST HISTORY: Left lower abdominal pain COMPARISON: Comparison is made with the prior examination dated 10/01/2022. TECHNIQUE: CT scan of the abdomen and pelvis was performed following administration of 85 mL Omnipaque 350 using standard departmental protocol. Coronal and sagittal reformatted images were generated and reviewed. Oral contrast material was not administered at the request of the referring physician. This CT exam was performed with one or more of the following dose reduction techniques: automated exposure control, adjustment of the mA and/or kV according to patient size, use of iterative reconstruction technique. DLP: 663 mGy-cm FINDINGS: LOWER CHEST: The visualized lung bases are clear. There is no pleural effusion. CARDIOVASCULATURE: The heart is normal in size. There is no pericardial effusion. LIVER: The liver is normal in size and contour. No liver mass is identified. The hepatic and portal veins are patent. GALLBLADDER / BILE DUCTS: The gallbladder is unremarkable. There is no intra or extrahepatic biliary ductal dilatation. SPLEEN: The spleen is normal in size. No focal splenic lesion is identified. PANCREAS: The pancreas is unremarkable in appearance. ADRENAL GLANDS: Within normal limits. KIDNEYS/RETROPERITONEUM: No renal calculi are identified. There is no hydronephrosis. No renal masses are identified. LYMPH NODES: No abdominal or pelvic lymphadenopathy. VASCULATURE: The abdominal aorta is normal in caliber. MESENTERY/PERITONEUM: No free fluid. No masses. There is no free intraperitoneal gas. STOMACH: The stomach is collapsed, limiting evaluation. SMALL BOWEL: The small bowel is normal in caliber. COLON: There is a large amount of stool throughout the colon. APPENDIX: Normal. URINARY BLADDER/PELVIC ORGANS: The urinary bladder is collapsed, limiting evaluation. The uterus is unremarkable. BONES / SOFT TISSUES: No suspicious bony or soft tissue abnormalities. CT/CT abdomen pelvis w IV con IMPRESSION: Large amount of stool throughout the colon. Otherwise unremarkable contrast-enhanced CT of the abdomen and pelvis. Electronically signed by: Silvestre Long MD 03/07/2025 09:01 AM EDT
[2025-03-07 07:15] VITALS: BP 134/77; PULSE 81; RESP 16; TEMP 36.8; O2SAT 99; BMI 27.8
[2025-03-07 07:21] VITALS: BP 134/77; PULSE 81; RESP 16; TEMP 36.8; O2SAT 99
[2025-03-07 07:43] LABS: Appearance Urine Clear; Glucose Urine UA Negative (Negative); PH 6.0 (5.0-9.0); Specific Gravity - Urine 1.025 (1.005-1.025); UMIC TRIGGER UACC YES
--- NOTE | 2025-03-07 07:53 | ED_ITS ---
HPI - Abdominal Pain General Chief Complaint: Abdominal Pain Stated Complaint: Abd pain L side, pain upon urination Time Seen by Provider: 03/07/25 07:46 Source: patient Mode of arrival: ambulatory Limitations: no limitations History of Present Illness ED Provider: DR. Cantu HPI narrative: 54-year-old female PMHx breast cancer, bilateral oophorectomy, overactive bladder, came in for evaluation of a left lower quadrant abdominal pain x3 days, no fever, no chills, no blood in the urine, no blood in the stool. Pain has been constant for the last 3 days, aggravated by urination, no dysuria, no hematuria, no nausea, no vomiting, no fever, no chills. Pain also radiates down to the left lower extremity, +swelling of the left lower extremity with tender to the left thigh. No trauma, no fall. Related Data Home Medications ?Medication ?Instructions ?Recorded ?Confirmed clonazepam 1 mg tablet 1 mg PO BID PRN Anxiety 12/01/3102/16/25 albuterol sulfate 90 mcg/actuation 1 inh inhalation Q4 H PRN Shortness 07/29/22 02/16/25 aerosol inhaler Of Breath Or Wheezing citalopram 20 mg tablet 1.5 tab PO DAILY 07/29/22 quetiapine 50 mg tablet 50 mg PO BEDTIME 01/09/23 Previous Rx's ?Medication ?Instructions ?Recorded cyclobenzaprine 10 mg tablet 10 mg PO TID PRN muscle s pasm #15 12/15/24 tabs solifenacin 5 mg tablet (Vesicare) 5 mg PO DAILY 90 da ys #90 tabs 02/16/25 tramadol 50 mg tablet 50 mg PO Q8H PRN pain 30 day s #90 02/16/25 tabs phenazopyridine 200 mg tablet 200 mg PO TID 6 doses #6 tabs 03/07/25 (Pyridium) polyethylene glycol 3350 17 17 g PO BID #119 grams gram/dose oral powder (Miralax) Allergies Allergy/AdvReac Type Severity Reaction Status Date / Time aspirin (Aspirin) Allergy Severe ANAPHYLAXIS, Verified 03/07/25 07:18 nausea,vomiting morphine (Morphine) Allergy Severe SOB, Verified 03/07/25 07:18 horrible feeling cephalexin Allergy Intermediate vomiting Verified 03/07/25 07:18 ibuprofen (From Motrin) Allergy Intermediate BLEEDING-PT Verified 03/07/25 07:18 STATES STILL TAKES pineapple Allergy Mild Rash Verified 03/07/25 07:18 Review of Systems Review of Systems All other systems are reviewed and are negative Constitutional: Reports as per HPI and Reports no additional constitutional complaints Eyes: Reports as per HPI and Reports no additional eye complaints Reports system reviewed and no additional complaints, except as documented Cardiovascular: Reports as per HPI and Reports no additional cardiovascular complaints Respiratory: Reports as per HPI and Reports no additional respiratory complaints Gastrointestinal: Reports as per HPI and Reports no additional gastrointestinal complaints Genitourinary: Reports no additional female genitourinary complaints Musculoskeletal: Reports no additional musculoskeletal complaints Skin/Breast: Reports system reviewed and no additional complaints, except as docu Psychiatric: Reports no additional psychiatric complaints Endocrine: Reports no additional endocrine complaints Hematologic/Lymphatic: Reports no additional hematologic/lymphatic complaints Allergic/Immunologic: Reports no additional allergic/immunologic complaints Reports system reviewed and no additional complaints, except as documented and Reports Abnormal speech present [facility] Past Medical History Medical History PONV (postoperative nausea and vomiting) Arthritis Bipolar disorder Depression Anxiety Asthma Interstitial cystitis Overactive bladder Surgical History Hx of eye surgery History of cystoscopy Hx of ovarian cystectomy Social History Social History Household Members: None Housing: Apartment Are you a primary manager critical care unit to a significant other at home: No Do you presently have visiting nurse or other home services: No Alcohol intake: never Patient Tobacco Use Status: Former Tobacco user Tobacco use type: Cigarette Cigarettes Per Day: 4 Smoked in Last 30 Days: No Second Hand Smoke Exposure: No Use of substances other than those prescribed or required for medical reasons: No Substance Use Type: Marijuana Advance Directives: No Advance Directives Information Provided: No Do you have a plan to hurt others: No Plan Physical Exam ED Vital Signs: Vital Signs - 24 hr 03/07/25 07:15 03/07/25 07:21 03/07/25 08:05 Temperature 98.2 F 98.2 F 98.2 F Pulse Rate 81 81 81 Respiratory Rate 16 16 16 Blood Pressure 134/77 134/77 134/77 Pulse Oximetry 99 99 99 Oxygen Delivery Method Room Air Room Air Room Air BMI result Body Mass Index 27.8 Vital signs have been reviewed and appear to be correct. Blood pressure elevated. Heart rate normal. Respiratory rate normal. Temperature normal. Oxygen saturation normal. Appearance: Alert. Oriented X3. No acute distress. Head: Normal external exam. Normocephalic. Atraumatic. No G[place]a signs noted. No raccoon eyes noted Eyes: PERRLA. EOMI. Conjunctiva and sclera normal. Eyelids normal. ENT: TM's Normal. Pharynx normal. Uvula midline. Moist mucous membranes. No trismus noted. No drooling noted. No muffled voice noted. Neck: Normal inspection. Neck supple. FROM. No adenopathy. Thyroid Normal. No meningeal signs. No neck mass noted. CVS: Normal heart rate and rhythm. Heart sound normal. No murmurs noted. Pulses normal throughout. Respiratory: No respiratory distress. Painless inspiration. Breath sounds normal. No wheezes/rales/rhonchi noted. Chest nontender. No accessory muscle usage noted or decreased air movement noted. Abdomen: Soft, left lower quadrant abdominal tenderness, no rebound tenderness, no guarding. Bowel sounds normal in all 4 quadrants. No distention noted. No organomegaly noted. No visible injury noted. Back: No CVA tenderness. Full range of motion noted. Skin: Skin warm and dry. Normal skin color. Normal skin turgor. No rashes/lesions/lacerations noted. Extremities: No lower extremity edema. Extremities exhibit normal range of motion. Extremities nontender. Neuro: Oriented X 3. Cranial nerve exam: II-XII are grossly intact No motor deficit. No sensory deficit. Reflexes normal. Course Reevaluation(s) Reevaluation #1: Dysuria, patient just finished a course of antibiotic, UA is positive for 6-10 RBCs with trace of leuko esterase, feels better with Pyridium, no kirstie urinary infection patient was advised to drink plenty of fluids. Abdominal pain CT abdomen and pelvis revealed constipation patient was instructed to take MiraLax otherwise no acute pathology. No DVT in the left lower extremity. Time: 09:51 Medical Decision Making Differential Diagnosis Differential Diagnoses: The differential diagnosis associated with the presentation includes (Colitis, pancreatitis, kidney stone, UTI, pyelonephritis, constipation, obstructive kidney stone, DVT.) Admission/Observation Consideration of admission/observation: Escalation of care including admission/observation considered Lab Data MDM Lab Attestation statement: I reviewed the patient's lab results. 03/07/25 07:54 03/07/25 07:54 Labs: Lab Results 03/07/25 03/07/25 Range/Units 07:34 07:54 WBC 5.4 (4.8-10.8) X10*3/uL RBC 3.81 L (4.20-5.50) X10*6/uL Hgb 11.6 L (12.0-16.0) g/dl Hct 33.4 L (37.0-47.0) % MCV 87.7 (80.0-98.0) fL MCH 30.4 (27.0-33.0) pg MCHC 34.7 (31.0-35.0) g/dl RDW 14.4 (11.0-16.0) % Plt Count 219 (160-400) X10*3/uL MPV 10.4 (9.4-12.3) fL Immature Gran % (Auto) 0.4 (0.0-0.4) % Neut % (Auto) 49.2 (45-73) % Lymph % (Auto) 33.8 (20-40) % [place] % (Auto) 10.8 (2-11) % Eos % (Auto) 5.2 H (0-4) % Baso % (Auto) 0.6 (0-2) % Lymph # (Auto) 1.8 (1.2-4.9) X10*3/uL [place] # (Auto) 0.6 (0.1-1.2) X10*3/uL Eos # (Auto) 0.3 (0.0-0.4) X10*3/uL Baso # (Auto) 0.0 (0.0-0.2) X10*3/uL Abs Immat Gran (auto) 0.02 (0.00-0.03) X10*3/uL Absolute Neuts (auto) 2.7 (2.0-8.3) x10*3/uL Absolute Nucleated RBC 0.000 (0.0-0.012) X10*3/uL Nucleated RBC % (auto) 0.0 (0.0-0.2) /100WBC Sodium 141 (135-145) mmol/L Potassium 4.2 (3.3-5.1) mmol/L Chloride 107 (96-108) mmol/L Carbon Dioxide 26 (22-29) mmol/L Anion Gap 12 (12-20) BUN 21 H (9-16) mg/dL Creatinine 0.94 (0.5-1.4) mg/dL Estim Creat Clear Calc 61.2 Estimated GFR > 60 Random Glucose 93 (60-115) mg/dL Calcium 9.6 (8.4-10.2) mg/dL Magnesium 2.1 (1.6-2.6) mg/dL Total Bilirubin 0.2 (0.0-1.0) mg/dL Direct Bilirubin < 0.2 (0.0-0.5) mg/dL AST 25 (5-31) U/L ALT 20 (0-31) U/L Alkaline Phosphatase 131 H (39-117) U/L Total Protein 6.8 (6.5-8.0) g/dL Albumin 4.1 (3.5-5.0) g/dL Lipase 36 (8-78) U/L Urine Color Dark Yellow Urine Appearance Clear Urine pH 6.0 (5.0-9.0) Ur Specific [place] 1.025 (1.005-1.025) Urine Protein Negative (Neg-Trace) mg/dL Urine Glucose (UA) Negative (Negative) mg/dL Urine Ketones Negative (Negative) mg/dL Urine Blood Small (1+) H (Negative) Urine Nitrite Negative (Negative) Ur Leukocyte Esterase Trace H (Negative) Urine RBC 6-10 H (0-2) /HPF Urine WBC 0-5 (0-5) /HPF Ur Squamous Epith Cells 6-10 (0-2) /HPF Urine Bacteria None Seen (None Seen) Hyaline Casts 0-2 (0-2) /LPF Independent Interpretation I performed an independent interpretation of an: CT Scan (Abdomen pelvis:Large amount of stool throughout the colon. Otherwise unremarkable contrast-enhanced CT of the abdomen and pelvis.) Radiology Impression Discussion of test interpretation with radiology: I have reviewed the radiologist's reading. Medications Administered Discontinued Medications Generic Name Dose Route Start Last Admin Trade Name Freq PRN Reason Stop Dose Admin Acetaminophen 1,000 mg in 100 mls @ 400 mls/hr 03/07/25 08:10 03/07/25 08:35 Ofirmev IV 03/07/25 08:24 Infused ONCE ONE Infusion Iohexol 100 ml 03/07/25 08:47 03/07/25 08:47 Iohexol 350 Mg/Ml 100 Ml Infus..Btl IV 03/07/25 08:48 85 ml ONCE ONE Administration Phenazopyridine HCl 200 mg 03/07/25 08:55 03/07/25 08:59 Phenazopyridine Hcl 200 Mg Tablet PO 03/07/25 08:56 200 mg ONCE ONE Administration Discharge Plan Discharge Clinical Impression: Constipation, Dysuria Patient Disposition: Home, Self-Care Instructions: Constipation (ED), Dysuria (ED) Prescriptions: New phenazopyridine [Pyridium] 200 mg tablet 200 mg PO TID Qty: 6 0RF polyethylene glycol 3350 [Miralax] 17 gram/dose powder 17 g PO BID Qty: 119 0RF No Action citalopram 20 mg tablet 1.5 tab PO DAILY albuterol sulfate 90 mcg/actuation HFA aerosol inhaler 1 inh inhalation Q4H PRN (Reason: Shortness Of Breath Or Wheezing) cyclobenzaprine 10 mg tablet 10 mg PO TID PRN (Reason: muscle spasm) Qty: 15 0RF Rx Instructions: side effect is drowsiness. Do not take while driving or working. clonazepam 1 mg tablet 1 mg PO BID PRN (Reason: Anxiety) quetiapine 50 mg tablet 50 mg PO BEDTIME tramadol 50 mg tablet 50 mg PO Q8H PRN (Reason: pain) 30 Days Qty: 90 0RF solifenacin [Vesicare] 5 mg tablet 5 mg PO DAILY 90 Days Qty: 90 1RF Referrals: Dony Marie DO [Primary Care Provider, Internal Medicine] Print Language: Hebrew
[2025-03-07 07:59] LABS: MANUAL DIFF FLAG NO
[2025-03-07 08:05] VITALS: BP 134/77; PULSE 81; RESP 16; TEMP 36.8; O2SAT 99
[2025-03-07 08:06] LABS: Hematocrit 33.4 % (37.0-47.0); Hemoglobin 11.6 g/dl (12.0-16.0); Imm Gran Abs Auto 0.02 X10*3/uL (0.00-0.03); Imm Gran Pct Auto 0.4 % (0.0-0.4); Lymphocytes Absolute Auto 1.8 X10*3/uL (1.2-4.9); Mean Corpuscular HGB Conc 34.7 g/dl (31.0-35.0); Mean Corpuscular Hemoglobin 30.4 pg (27.0-33.0); Mean Corpuscular Volume 87.7 fL (80.0-98.0); NRBC Abs Auto 0.000 X10*3/uL (0.0-0.012); NRBC Pct Auto 0.0 /100WBC (0.0-0.2); Platelet Count 219 X10*3/uL (160-400); Red Blood Count 3.81 X10*6/uL (4.20-5.50); White Blood Count 5.4 X10*3/uL (4.8-10.8)
[2025-03-07 08:16] LABS: Alanine Aminotransferase 20 U/L (0-31); Albumin Level 4.1 g/dL (3.5-5.0); Alkaline Phosphatase 131 U/L (39-117); Anion Gap 12 (12-20); Aspartate Amino Transferase 25 U/L (5-31); Blood Urea Nitrogen 21 mg/dL (9-16); Calcium 9.6 mg/dL (8.4-10.2); Carbon Dioxide 26 mmol/L (22-29); Chloride 107 mmol/L (96-108); Creatinine Clr Calc Pharmacy 61.2; Estimated Glomerular Filt Rate > 60; Lipase 36 U/L (8-78); Magnesium 2.1 mg/dL (1.6-2.6); Potassium 4.2 mmol/L (3.3-5.1); Sodium 141 mmol/L (135-145); Total Protein 6.8 g/dL (6.5-8.0)
--- NOTE | 2025-03-07 08:23 | PC.NURSE ---
pt verbalizing increase in LLQ pain - rating it a /10. pt medicated per provider order. effectiveness pending. pt having US completed at this time. pt pending CT to be completed at this time. plan of care ongoing. call chand placed within reach.
[2025-03-07] MEDS: iohexoL 350 MG/ML 100 ML INFUS..BTL IV (08:47)
--- NOTE | 2025-03-07 08:59 | PC.NURSE ---
pt requesting pyridium. provider notified/aware. per MD, verbal order given for this RN to order 20mg pyridium PO. medication ordered/administered per provider order. effectiveness pending.
--- NOTE | 2025-03-07 09:51 | PC.NURSE ---
IV access removed from left AC. Patient to be discharged home. Awaiting discharge paperwork being written by Dr. Cantu at this time.
[2025-03-07 09:56] VITALS: BP 134/77; PULSE 81; RESP 16; TEMP 36.8; O2SAT 99
== END 2025-03-07 09:56 | disposition home or self-care (01) ==
PROVIDERS: Emergency Provider Emergency Medicine; PCP Family Medicine
DX: R10.32 Left lower quadrant pain (principal); K59.00 Constipation, unspecified; R30.0 Dysuria; M79.89 Other specified soft tissue disorders; Z85.3 Personal history of malignant neoplasm of breast; Z87.891 Personal history of nicotine dependence; Z79.899 Other long term (current) drug therapy
CPT/HCPCS: 36415; 74177; 80053; 81001; 82248; 83690; 83735; 85025; 93971; 96374; 99285; J0131; Q9967

== ENCOUNTER → 2025-03-07 07:51 | Outpatient (BNV) | payer MEDICARE, MEDICAID, SELFPAY | PROVIDERS: Emergency Provider Emergency Medicine; PCP Family Medicine; Visit Provider Radiology Diagnostic Radiology | DX: R10.32 Left lower quadrant pain (principal); R22.42 Localized swelling, mass and lump, left lower limb | CPT/HCPCS: 74177; 93971 ==

== ENCOUNTER 2025-03-28 10:17 | Outpatient (REF) | payer MEDICARE, MEDICAID, SELFPAY | END 2025-03-28 10:18 | disposition home or self-care (01) | LOC: HO.LAB 10:17 | PROVIDERS: PCP Family Medicine; Visit Provider Nurse Practitioner Family | DX: N30.11 Interstitial cystitis (chronic) with hematuria (principal); N32.81 Overactive bladder; Z79.899 Other long term (current) drug therapy | CPT/HCPCS: 51700; 51798; 81003; 88112 ==

== ENCOUNTER 2025-03-28 10:17 | Outpatient (AMB) | payer MEDICARE, MEDICAID, SELFPAY ==
--- NOTE | 2025-03-28 10:22 | A.OFFVIS_ITS ---
Intake Visit Reasons: 1m/PVR Intake Note: Patient is present for 1M/PVR Urology Medication:TRAMADOL,SOLIFENACIN,PYRIDIUM Antibiotic Allergy:CEPHALEXIN Blood Thinner:NONE Todays PVR:0ML'S Community Recreation Coordinator Required: No Allergies aspirin (Aspirin) Allergy (Severe, Verified 03/28/25 15:03) ANAPHYLAXIS, nausea,vomiting morphine (Morphine) Allergy (Severe, Verified 03/28/25 15:03) SOB, horrible feeling cephalexin Allergy (Intermediate, Verified 03/28/25 15:03) vomiting ibuprofen (From Motrin) Allergy (Intermediate, Verified 03/28/25 15:03) BLEEDING-PT STATES STILL TAKES pineapple Allergy (Mild, Verified 03/28/25 15:03) Rash Medication List - Last Reconciled 03/28/25 by PHIL Mccormick-NOE albuterol sulfate 90 mcg/actuation 1 inh inhalation Q4H PRN citalopram 1.5 tabs PO DAILY clonazepam 1 mg PO BID PRN cyclobenzaprine 10 mg PO TID PRN phenazopyridine (Pyridium) 200 mg PO TID 6 doses quetiapine 50 mg PO BEDTIME solifenacin (Vesicare) 5 mg PO DAILY 90 days tramadol 50 mg PO Q8H PRN 30 days HPI Comments Details: Analilia is a pleasant 54-year-old female who is a patient of Dr. Hernandez. She has a past medical history of anxiety, asthma, bipolar disorder, depression, interstitial cystitis, and overactive bladder. She presents to the office today for follow-up of her interstitial cystitis as well as overactive bladder. In discussion with the patient today she reports she continues with lower urinary tract symptoms of urinary urgency and frequency. She is requesting bladder instillation today. She also was enquiring cystoscopy hydrodistention. She reports having followed up with her PCP for ongoing issues with bilateral upper and lower extremity edema as well as increase in weight gain. When asked she reports she is noncompliant with VESIcare. She does continue to attempt to avoid bladder triggers and irritants. She also reports she is attempting to drink plenty of fluid daily. Patient with a longstanding history of interstitial cystitis and has undergone multiple bladder instillations as well as cystoscopy with hydrodistention in the past. Most recent cystoscopy hydrodistention 12/[address] Hoffmann that noted/not good revealed globularations consistent with interstitial cystitis. She continues to also experience episodes of nocturia up to 7 times per night. She otherwise denies incontinence, gross/visible hematuria, dysuria, foul smelling urine, changes to urinary stream, flank pain, fever, and or chills. In office urinalysis results reviewed with the patient today. She discusses her upcoming appointment with Oncology to potentially restart her to tamoxifen as this also has been discontinued as she felt this could have been contributing to her generalized edema and joint discomfort. She otherwise denies any other issues or concerns at this time. Urine cytology 03/05& 12/04 Negative for high-grade urothelial carcinoma. [facility] Medical History PONV (postoperative nausea and vomiting) Arthritis Bipolar disorder Depression Anxiety Asthma Interstitial cystitis Overactive bladder Surgical History Hx of eye surgery History of cystoscopy Hx of ovarian cystectomy Social History Household Members: None Housing: Apartment Are you a primary home health care worker to a significant other at home: No Do you presently have visiting nurse or other home services: No Alcohol intake: never Patient Tobacco Use Status: Former Tobacco user Tobacco use type: Cigarette Cigarettes Per Day: 4 Second Hand Smoke Exposure: No Substance Use Type: Marijuana Review of Systems Const All systems reviewed & are unremarkable except as noted in HPI and below Physical Exam Const General: cooperative, healthy appearing, comfortable, no acute distress, well developed, alert and awake Nutritional Appearance: average body habitus Orientation/consciousness: patient oriented x3 Limitations: no limitations HEENT Head: Yes normal to inspection, Yes normocephalic and Yes atraumatic Ears: hearing grossly normal bilaterally Eyes General: appearance normal, both eyes and all related structures Neck Neck: Yes normal visual inspection and Yes trachea midline Chest Chest palpation & inspection: normal inspection of the chest Resp Effort & Inspection: normal respiratory effort and able to speak in complete sentences Cardio Rate: regular rate GI Inspection: Yes normal to inspection General: Yes no CVA tenderness External Female Exam: normal external appearance Speculum Exam - Vagina: normal appearance of the vagina Back/Spine/Pelvis Back: no CVA tenderness Skin General skin exam: no rashes or lesions noted Neuro General: patient oriented x3 Extrem General: Yes normal to inspection Psych Appearance: grossly normal and well kempt Mental Status: mental status grossly normal Speech and movement: Normal speech and movement present and Clear speech present Affect: normal affect Attitude: cooperative Thought process: Normal thought process present Thought content: Normal thought content present Insight: Fair insight present (Psych) Judgement: Fair judgement present (Psych) Office Procedures Bladder/Catheter Procedure Details: Patient presents to office for IC instillation with Gloria PLANNING LEAD-BC 14fr straight cath used to instill: 10mls bupivicaine 0.50% 2mls heparin 10,000 units 10 mls lidocaine 2% lidocaine urojet 1ml solumedrol 40mg Bladder instillation for interstitial cystitis. Patient was catheterized using clean technique 14 Swedish female CIC catheter utilized. Bladder was emptied for 15 mL of yellow urine Bladder rescue installed Patient tolerated procedure well. Instructed and educated to hold in bladder for 1 hour or greater. 57554-Hbpiznxvsc of Bladder 12229-Vzhoib Temporary Bladder Catheter Procedure code (CPT) selection complete Post Void Residual Post Residual Void Post Void Residual (PVR): 0 93508-Qnli Void Residual by ultrasound Results AMB Urinalysis, Automated UA Leukoctes 0 Carina/uL Last Edit by KRYSTAL Yusuf on 03/28/25 11:16 UA Nitrite Negative Last Edit by KRYSTAL Yusuf on 03/28/25 11:16 UA Urobilinogen 0.2 mg/dL Last Edit by KRYSTAL Yusuf on 03/28/25 11:1 6 UA Protein 0 mg/dL Last Edit by KRYSTAL Yusuf on 03/28/25 11:16 UA pH 6.5 Last Edit by KRYSTAL Yusuf on 03/28/25 11:16 UA Blood 80 Vinicio/uL Last Edit by KRYSTAL Yusuf on 03/28/25 11:16 UA Specific [place] 1.005 Last Edit by KRYSTAL Yusuf on 03/28/25 11: 16 UA Ketone Negative Last Edit by KRYSTAL Yusuf on 03/28/25 11:16 UA Bilirubin 0 mg/dL Last Edit by KRYSTAL Yusuf on 03/28/25 11:16 UA Glucose 0 mg/dL Last Edit by KRYSTAL Yusuf on 03/28/25 11:16 Results Reviewed Results Reviewed: Laboratory Last Values Urine pH (Auto) 6.5 03/28/25 11:14 Specific [place] (Auto) 1.005 03/28/25 11:14 Urine Protein (Auto) 0 mg/dL 03/28/25 11:14 Glucose (UA)(Auto) 0 mg/dL 03/28/25 11:14 Urine Ketones (Auto) Negative 03/28/25 11:14 Urine Blood (Auto) 80 Vinicio/uL 03/28/25 11:14 Urine Nitrite (Auto) Negative 03/28/25 11:14 Urine Bilirubin (Auto) 0 mg/dL 03/28/25 11:14 Urine Urobilinogen (Auto) 0.2 mg/dL 03/28/25 11:14 Leukocyte Esterase (Auto) 0 Carina/uL 03/28/25 11:14 Assessment & Plan Assessment & Plan (1) Microscopic hematuria: Code(s): R31.29 - Other microscopic hematuria Category: Medical (2) Overactive bladder: Code(s): N32.81 - Overactive bladder Category: Medical (3) Interstitial cystitis: Code(s): N30.10 - Interstitial cystitis (chronic) without hematuria Category: Medical Plan: Risks, benefits and alternatives to therapy were discussed. These include but are not limited to infection, bleeding, damage to local organs and tissues, need for further interventions. ? Anesthetic risks regarding cardiac arrhythmia, blood clots, and potential mortality were discussed. The patient understands the typical recovery time and the outpatient nature of the procedure. After consideration of these risks the patient gives full informed consent and they wish to move ahead with the procedure. Plan In office urinalysis results reviewed with the patient today; will send for urine cytology. PVR 0ml Bladder instillation was performed; patient tolerated procedure well. We discussed continuing to avoid bladder triggers and irritants. Refill provided on tramadol We did discussed importance of compliance with Estrace and VESIcare as prescribed. All questions were answered. Will schedule for surgical procedure; cystoscopy hydrodistention Follow-up per doctor's orders; or sooner with any issues, concerns, and or questions. Orders: Orders AMB Bladder/Catheter Procedure Today N30.10 - Interstitial cystitis (chronic) without hematuria AMB Urinalysis Automated Today Z13.9 - Encounter for screening, unspecified Urine Cytology Today R31.29 - Other microscopic hematuria Medications: Refilled tramadol 50 mg PO Q8H PRN 90 tabs 0RF pain 30 days Patient Instructions: The patient had an opportunity to ask questions regarding the treatment plan. All questions were answered. Physical exam, labs, and imaging were discussed and reviewed in detail. As well as risks, benefits, and discussion of treatment choices. No major barriers to understanding were identified. The patient expressed understanding and agreement with the above treatment plan. The patient was made aware they should contact our office by phone for worsening of their current condition, the appearance of new symptoms, or with any questions or concerns. Compliance is encouraged with any medications and follow up testing that is ordered. It is a privilege to be allowed the opportunity to participate in? your urological care.? Again, if you have any questions or concerns If you have any questions or concerns please do not hesitate to contact me. The office is [phone]. This note is constructed using voice recognition software. While every effort has been made to ensure accuracy perinatal tech errors may have been included. Yours sincerely, JEFFERSON Mccormick Coding Level of Care Code Est Pt Level 4 (38285) Complex EM visit Add On G2211 Diagnoses Microscopic hematuria R31.29 Overactive bladder N32.81 Interstitial cystitis N30.10 CPT Codes Bladder/Catheter Procedure - CPT: 10309-Xakssalohn of Bladder ([id number]) Bladder/Catheter Procedure - CPT: 33003-Lxfdcd Temporary Bladder Catheter ([id number]) Post Residual Void - PVR CPT Code: 11136-Eusy Void Residual by ultrasound ([id number])
== END 2025-03-28 11:33 | disposition home or self-care (01) ==
LOC: HO.HUSH 10:17
PROVIDERS: PCP Family Medicine; Visit Provider Nurse Practitioner Family
DX: R31.29 Other microscopic hematuria (principal); N32.81 Overactive bladder; N30.10 Interstitial cystitis (chronic) without hematuria; Z13.9 Encounter for screening, unspecified
CPT/HCPCS: 51700

== ENCOUNTER 2025-05-29 07:13 | Day surgery (SDC) | payer MEDICARE, MEDICAID, SELFPAY ==
--- NOTE | 2025-05-24 13:08 | HO.ANESPROP2 ---
Documented by User: Dahiana Leach NP 05/24/25 13:11 HPI - Anesthesia Eval Consult details Narrative: 54yo F for Cystoscopy Hydrodistention of Bladder s/p same 11/2024 with GA-LMA 3 Hx of PONV - no issue with nausea 11/2024, no scop patch PMFSH Active Problems Active Problems: All Active Problems Microscopic hematuria (Acute) Breast cancer (Acute) Hot flashes due to menopause (Acute) Perimenopausal (Acute) Overactive bladder (Acute) Interstitial cystitis (Acute) Past Medical History Medical History PONV (postoperative nausea and vomiting) Arthritis Bipolar disorder Depression Anxiety Asthma Interstitial cystitis Overactive bladder Family History Family history of problems with anesthesia: No Surgical History Surgical History (Updated 05/29/25 @ 07:40 by Ashley Grissom RN) H/O breast surgery Hx of eye surgery History of cystoscopy (11/14/24) Hx of ovarian cystectomy History of Problems with Anesthesia: Yes (PONV) Social History Social History Household Members: None Housing: Apartment Are you a primary child care centre manager to a significant other at home: No Do you presently have visiting nurse or other home services: No Alcohol intake: never Patient Tobacco Use Status: Former Tobacco user Tobacco use type: Cigarette Cigarettes Per Day: 4 Second Hand Smoke Exposure: No Use of substances other than those prescribed or required for medical reasons: Yes Substance Use Type: Marijuana Are you DNR?: No Advance Directives: No Advance Directives Information Provided: Yes Patient : No : No Meds Allergies Allergy/AdvReac Type Severity Reaction Status Date / Time aspirin (Aspirin) Allergy Severe ANAPHYLAXIS, Verified 03/28/25 15:03 nausea,vomiting morphine (Morphine) Allergy Severe SOB, Verified 03/28/25 15:03 horrible feeling cephalexin Allergy Intermediate vomiting Verified 03/28/25 15:03 ibuprofen (From Motrin) Allergy Intermediate BLEEDING-PT Verified 03/28/25 15:03 STATES STILL TAKES pineapple Allergy Mild Rash Verified 03/28/25 15:03 seafood Allergy Mild Rash Verified 05/29/25 08:58 Home Medications ?Medication ?Instructions ?Recorded ?Confirmed ?Last Taken ?Type clonazepam 1 mg tablet 1 mg PO BID PRN Anxiety 07/08/22 05/25/25 Unknown History albuterol sulfate 90 mcg/actuation 1 inh inhalation Q4H PRN Shortness 07/29/22 05/29/25 05/29/25 History aerosol inhaler Of Breath Or Wheezing 0430 citalopram 20 mg tablet 1.5 tab PO DAILY 07/29/22 05/25/25 Unknown History quetiapine 50 mg tablet 50 mg PO BEDTIME 01/09/23 05/25/25 Unknown History Assessment and Plan Assessment Anesthesia Assessment: Chart Reviewed Final Anesthetic Review Family History of Problems with Anesthesia: No History of Problems with Anesthesia: Yes (PONV) Documented by User: Cuco Monique MD 05/29/25 09:22 [facility] Past Medical History Medical History PONV (postoperative nausea and vomiting) Arthritis Bipolar disorder Depression Anxiety Asthma Interstitial cystitis Overactive bladder Surgical History Surgical History (Updated 05/29/25 @ 07:40 by Ashley Grissom RN) H/O breast surgery Hx of eye surgery History of cystoscopy (11/14/24) Hx of ovarian cystectomy Social History Social History Household Members: None Housing: Apartment Are you a primary child care centre manager to a significant other at home: No Do you presently have visiting nurse or other home services: No Alcohol intake: never Patient Tobacco Use Status: Former Tobacco user Tobacco use type: Cigarette Cigarettes Per Day: 4 Second Hand Smoke Exposure: No Use of substances other than those prescribed or required for medical reasons: Yes Substance Use Type: Marijuana Are you DNR?: No Advance Directives: No Advance Directives Information Provided: Yes Patient : No : No Meds Allergies Allergy/AdvReac Type Severity Reaction Status Date / Time aspirin (Aspirin) Allergy Severe ANAPHYLAXIS, Verified 03/28/25 15:03 nausea,vomiting morphine (Morphine) Allergy Severe SOB, Verified 03/28/25 15:03 horrible feeling cephalexin Allergy Intermediate vomiting Verified 03/28/25 15:03 ibuprofen (From Motrin) Allergy Intermediate BLEEDING-PT Verified 03/28/25 15:03 STATES STILL TAKES pineapple Allergy Mild Rash Verified 03/28/25 15:03 seafood Allergy Mild Rash Verified 05/29/25 08:58 Home Medications ?Medication ?Instructions ?Recorded ?Confirmed ?Last Taken ?Type clonazepam 1 mg tablet 1 mg PO BID PRN Anxiety 07/08/22 05/25/25 Unknown History albuterol sulfate 90 mcg/actuation 1 inh inhalation Q4H PRN Shortness 07/29/22 05/29/25 05/29/25 History aerosol inhaler Of Breath Or Wheezing 0430 citalopram 20 mg tablet 1.5 tab PO DAILY 07/29/22 05/25/25 Unknown History quetiapine 50 mg tablet 50 mg PO BEDTIME 01/09/23 05/25/25 Unknown History Exam Airway Mallampati Class: II TM Dist: <=3cm Neck ROM: Full Partial: Upper Loose/Missing/Broken Teeth: Yes and Upper Heart: ok Lungs: ok Assessment and Plan Assessment Anesthesia Assessment: Anesthesia Plan Discussed Final Anesthetic Review NPO: Yes ASA Class: II Final Preanesthetic Review: No Changes in Pt Med Stat, Meds/Allgs Chart Reviewed, Consent Obtained/Reviewed and Anes Risks/Benef Reviewed Patient Risk: Low Procedure Risk: Low Anesthetic Plan Anesthetic Plan: GA and Agree w/ Assess. and Plan Disposition: Standard PACU
[2025-05-25 14:39] VITALS: BMI 25.2
[2025-05-29] VITALS (7 sets, daily range): BP systolic 110–142; BP diastolic 47–85; PULSE 59–100; RESP 14–22; TEMP 36.2–36.7; O2SAT 97–99; BMI 26.9
[2025-05-29] MEDS: Lactated Ringers 1,000 ML 100 ML IVCONT (08:05)
--- NOTE | 2025-05-29 08:43 | MHC.SHP ---
Pre-Procedural Eval Section A - 24 Hr Update-Section A only Date of Service: 05/29/25 Changes since office visit: No Cold of Flu in the past 2 weeks, No New Medical Problems, No Changes in Medication and No Patient answered all questions The patient has been examined within 24 hours of the surgical procedure. The History & Physical has been completed within 30 days and I have reviewed it.: Yes Section B - Complete if H&P > 30 days Chief Complaint: Overactive bladder Details of Present Illness: Hydrodistention Allergies: Allergies Allergy/AdvReac Type Severity Reaction Status Date / Time aspirin (Aspirin) Allergy Severe ANAPHYLAXIS, Verified 03/28/25 15:03 nausea,vomiting morphine (Morphine) Allergy Severe SOB, Verified 03/28/25 15:03 horrible feeling cephalexin Allergy Intermediate vomiting Verified 03/28/25 15:03 ibuprofen (From Motrin) Allergy Intermediate BLEEDING-PT Verified 03/28/25 15:03 STATES STILL TAKES pineapple Allergy Mild Rash Verified 03/28/25 15:03 Plan I have reviewed the history and physical and performed a pertinent physical examination on my patient. No changes have occurred unless specified. Time Spent With Patient Time: Total time managing care of this patient today ____ minutes.
--- NOTE | 2025-05-29 09:26 | W.PM.OPN ---
Operative Note Operative Note Date of Service: 05/29/25 Narrative: PreOperative Diagnosis: Interstitial cystitis with pelvic pain Post Operative Diagnosis: Interstitial cystitis with pelvic pain Procedure: Hydrodistention Surgeon: Dr Khurram Hoffmann Anesthesia: General Indications for procedure interstitial cystitis - progressive symptoms Procedure: After informed consent was verified the patient was brought to the operating room and placed in a supine position. Anesthesia was administered per protocol. The patient was placed in a modified dorsal lithotomy position and prepped and draped in sterile fashion. Safety pause time-out was observed. Antibiotics being given. A 22 Turkish cystoscope was used to empty the bladder. A mixture of bupivacaine lidocaine gel 20 cc was instilled into the bladder and allowed to sit for 2-3 minutes. A belladonna and opiate rectal suppository was placed. Hydrodistention of the bladder was performed. The bladder was filled and allowed to sit for 2 minutes. Filling was from a height of 1 m. On the 1st fill there was 400 cc within the bladder. Cystoscopy revealed glomerulations consistent with interstitial cystitis. Second filling of the bladder was performed in similar fashion. Volume was approximately 500 cc. Terminal hematuria noted. The bladder was emptied. 20 cc of lidocaine gel with bupivacaine was placed with the bladder. The patient tolerated procedure well was extubated in operating room transferred in stable condition to the recovery area. Appropriate postprocedure pain medication was provided. Pathology: None Drains: None
== END 2025-05-29 11:18 | disposition home or self-care (01) ==
PROVIDERS: PCP Family Medicine; Visit Provider Urology
PROC: 0T7B7ZZ Dilation of Bladder, Via Natural or Artificial Opening (ICD-10-PCS; CPT 52260; principal; 2025-05-29 09:10)
DX: N30.10 Interstitial cystitis (chronic) without hematuria (principal); R10.20 Pelvic and perineal pain unspecified side; N32.81 Overactive bladder; R35.1 Nocturia; R31.29 Other microscopic hematuria; J45.909 Unspecified asthma, uncomplicated; F41.9 Anxiety disorder, unspecified; F31.9 Bipolar disorder, unspecified; M19.90 Unspecified osteoarthritis, unspecified site; Z79.899 Other long term (current) drug therapy; Z88.1 Allergy status to other antibiotic agents; Z88.6 Allergy status to analgesic agent; Z88.5 Allergy status to narcotic agent; Z87.891 Personal history of nicotine dependence
CPT/HCPCS: 52260; J0131; J1956; J2003; J2405; J2704; J3010

== ENCOUNTER → 2025-05-29 07:13 | Outpatient (BNV) | payer MEDICARE, MEDICAID, SELFPAY | PROVIDERS: PCP Family Medicine; Visit Provider Urology | DX: N30.11 Interstitial cystitis (chronic) with hematuria (principal) | CPT/HCPCS: 52260 ==

== ENCOUNTER 2025-06-19 08:17 | Outpatient (AMB) | payer MEDICARE, MEDICAID, SELFPAY ==
--- NOTE | 2025-06-19 08:16 | A.OFFVIS_ITS ---
Intake Visit Reasons: UA/PVR/SET Intake Note: Patient is present for follow up Urology Medication:Pyridium ,SOLIFENACIN,PYRIDIUM Antibiotic Allergy:CEPHALEXIN Blood Thinner:NONE Todays PVR:18ML'S Lot Attendant Required: No Accompanied by: Self / Same As Patient Allergies aspirin (Aspirin) Allergy (Severe, Verified 06/19/25 09:27) ANAPHYLAXIS, nausea,vomiting morphine (Morphine) Allergy (Severe, Verified 06/19/25 09:27) SOB, horrible feeling cephalexin Allergy (Intermediate, Verified 06/19/25 09:27) vomiting ibuprofen (From Motrin) Allergy (Intermediate, Verified 06/19/25 09:27) BLEEDING-PT STATES STILL TAKES pineapple Allergy (Mild, Verified 06/19/25 09:27) Rash seafood Allergy (Mild, Verified 06/19/25 09:27) Rash Medication List - Last Reconciled 06/19/25 by PHIL Mccormick- albuterol sulfate 90 mcg/actuation 1 inh inhalation Q4H PRN citalopram 1.5 tabs PO DAILY clonazepam 1 mg PO BID PRN cyclobenzaprine 10 mg PO TID PRN oxycodone-acetaminophen 5-325 mg (Percocet) 1 tab PO Q6H PRN 7 days phenazopyridine (Pyridium) 200 mg PO TID 6 doses quetiapine 50 mg PO BEDTIME solifenacin (Vesicare) 5 mg PO DAILY 90 days tramadol 50 mg PO Q8H PRN 30 days HPI Comments Details: Analilia is a pleasant 54-year-old female who is a patient of Dr. Alberts. She has a past medical history of anxiety, asthma, bipolar disorder, depression, interstitial cystitis, and overactive bladder. She presents to the office today for follow-up of her interstitial cystitis as well as overactive bladder. Of note, patient is status post cystoscopy hydrodistention with Dr. Hoffmann 05/29/2025. She reports she continues with dysuria, nocturia, bladder pressure, urinary urgency, and urinary frequency. In office urinalysis results reviewed with the patient today. Negative nitrates negative leukocytes 2+ microscopic hematuria. We discussed cystoscopy revealed glomerulations consistent with interstitial cystitis. When asked she reports she is only taking Pyridium as needed however we discussed trial of VESIcare to assist with potential lower urinary tract symptoms she is experiencing. We also discussed the importance of adequate hydration in relation to lower urinary tract symptoms. She does continue to attempt to avoid bladder triggers and irritants. Patient with a longstanding history of interstitial cystitis and has undergone multiple bladder instillations as well as cystoscopy with hydrodistention in the past. She continues to also experience episodes of nocturia up to 5 times per night which is an improvement as she had been experiencing nocturia up to 7 times per night. She otherwise denies incontinence, gross/visible hematuria, dysuria, foul smelling urine, changes to urinary stream, flank pain, fever, and or chills. PVR 18 mL. She otherwise denies any other issues or concerns at this time. Urine cytology 03/05, 12/04, 04/06: Negative for high-grade urothelial carcinoma. All questions were answered. [facility] Medical History PONV (postoperative nausea and vomiting) Arthritis Bipolar disorder Depression Anxiety Asthma Interstitial cystitis Overactive bladder Surgical History (Updated 05/29/25 @ 07:40 by Ashley Grissom RN) H/O breast surgery Hx of eye surgery History of cystoscopy (11/14/24) Hx of ovarian cystectomy Social History Household Members: None Housing: Apartment Are you a primary healthcare consultant to a significant other at home: No Do you presently have visiting nurse or other home services: No Alcohol intake: never Patient Tobacco Use Status: Former Tobacco user Tobacco use type: Cigarette Cigarettes Per Day: 4 Second Hand Smoke Exposure: No Substance Use Type: Marijuana Review of Systems Const All systems reviewed & are unremarkable except as noted in HPI and below Physical Exam Const General: cooperative, healthy appearing, comfortable, no acute distress, well developed, alert and awake Nutritional Appearance: average body habitus Orientation/consciousness: patient oriented x3 Limitations: no limitations HEENT Head: Yes normal to inspection, Yes normocephalic and Yes atraumatic Ears: hearing grossly normal bilaterally Eyes General: appearance normal, both eyes and all related structures Neck Neck: Yes normal visual inspection and Yes trachea midline Chest Chest palpation & inspection: normal inspection of the chest Resp Effort & Inspection: normal respiratory effort and able to speak in complete sentences Cardio Rate: regular rate GI Inspection: Yes normal to inspection General: Yes no CVA tenderness External Female Exam: normal external appearance Speculum Exam - Vagina: normal appearance of the vagina Back/Spine/Pelvis Back: no CVA tenderness Skin General skin exam: no rashes or lesions noted Neuro General: patient oriented x3 Extrem General: Yes normal to inspection Psych Appearance: grossly normal and well kempt Mental Status: mental status grossly normal Speech and movement: Normal speech and movement present and Clear speech present Affect: normal affect Attitude: cooperative Thought process: Normal thought process present Thought content: Normal thought content present Insight: Fair insight present (Psych) Judgement: Fair judgement present (Psych) Office Procedures Post Void Residual Post Residual Void Post Void Residual (PVR): 18 [id number] Void Residual by ultrasound Results AMB Urinalysis, Automated UA Leukoctes 0 Carina/uL Last Edit by Cherie Grady [facility] on 06/19/25 08:28 UA Nitrite Negative Last Edit by Cherie Grady [facility] on 06/19/25 08:28 UA Urobilinogen 0.2 mg/dL Last Edit by Cherie Grady [facility] on 06/19/25 08:28 UA Protein 6.0 mg/dL Last Edit by Cherie Grady [facility] on 06/19/25 08:28 UA pH 6.0 Last Edit by Cherie Grady [facility] on 06/19/25 08:28 UA Blood 80 Vinicio/uL Last Edit by Cherie Grady [facility] on 06/19/25 08:28 UA Specific Hollins 1.020 Last Edit by Cherie Grady [facility] on 06/19/25 08:2 8 UA Ketone Negative Last Edit by Cherie Grady [facility] on 06/19/25 08:28 UA Bilirubin 0 mg/dL Last Edit by Cherie Grady [facility] on 06/19/25 08:28 UA Glucose 0 mg/dL Last Edit by Cherie Grady [facility] on 06/19/25 08:28 Results Reviewed Results Reviewed: Laboratory Last Values Urine pH (Auto) 6.0 06/19/25 08:27 Specific Hollins (Auto) 1.020 06/19/25 08:27 Urine Protein (Auto) 6.0 mg/dL 06/19/25 08:27 Glucose (UA)(Auto) 0 mg/dL 06/19/25 08:27 Urine Ketones (Auto) Negative 06/19/25 08:27 Urine Blood (Auto) 80 Vinicio/uL 06/19/25 08:27 Urine Nitrite (Auto) Negative 06/19/25 08:27 Urine Bilirubin (Auto) 0 mg/dL 06/19/25 08:27 Urine Urobilinogen (Auto) 0.2 mg/dL 06/19/25 08:27 Leukocyte Esterase (Auto) 0 Carina/uL 06/19/25 08:27 Assessment & Plan Assessment & Plan (1) Microscopic hematuria: Code(s): R31.29 - Other microscopic hematuria Category: Medical (2) Interstitial cystitis: Code(s): N30.10 - Interstitial cystitis (chronic) without hematuria Category: Medical (3) Lower urinary tract symptoms: Code(s): R39.9 - Unspecified symptoms and signs involving the genitourinary system Category: Medical Plan In office urinalysis results with the patient today; as noted above. We discussed importance of taking medications as prescribed. We discussed the importance of adequate hydration relation to lower urinary tract symptoms as well as overall health and well-being. Continue to avoid bladder triggers and irritants. Start VESIcare as discussed and prescribed PVR 18 mL. We did discussed at length further treatment options of interstitial cystitis and risks and benefits of these treatment options. All questions were answered. Follow-up in 1-3 months with PVR; or sooner with any issues, concerns, and or questions. Orders: Orders AMB Urinalysis Automated Today N13.8 - Other obstructive and reflux uropathy, N40.1 - Benign prostatic hyperplasia with lower urinary tract symptoms AMB Post Void Residual by ultrasound Today N40.1 - Benign prostatic hyperplasia with lower urinary tract symptoms Medications: Refilled oxycodone-acetaminophen 5-325 mg (Percocet) Partial Fill upon patient request. 1 tab PO Q6H PRN 20 tabs 0RF mild pain (scale score 1-4) 7 days Patient Instructions: The patient had an opportunity to ask questions regarding the treatment plan. All questions were answered. Physical exam, labs, and imaging were discussed and reviewed in detail. As well as risks, benefits, and discussion of treatment choices. No major barriers to understanding were identified. The patient expressed understanding and agreement with the above treatment plan. The patient was made aware they should contact our office by phone for worsening of their current condition, the appearance of new symptoms, or with any questions or concerns. Compliance is encouraged with any medications and follow up testing that is ordered. It is a privilege to be allowed the opportunity to participate in? your urological care.? Again, if you have any questions or concerns If you have any questions or concerns please do not hesitate to contact me. The office is [phone]. This note is constructed using voice recognition software. While every effort has been made to ensure accuracy remote sensing technician errors may have been included. Yours sincerely, EVERT Mccormick Coding Level of Care Code Est Pt Level 3 (78139) Complex visit Add On G2211 Diagnoses Microscopic hematuria R31.29 Interstitial cystitis N30.10 Lower urinary tract symptoms R39.9 CPT Codes Post Residual Void - PVR CPT Code: 02737-Yief Void Residual by ultrasound ([id number])
== END 2025-06-19 08:53 | disposition home or self-care (01) ==
LOC: HO.HUSH 08:18
PROVIDERS: PCP Family Medicine; Visit Provider Nurse Practitioner Family
DX: R31.29 Other microscopic hematuria (principal); N30.10 Interstitial cystitis (chronic) without hematuria; R39.9 Unspecified symptoms and signs involving the genitourinary system; N40.1 Benign prostatic hyperplasia with lower urinary tract symptoms; N13.8 Other obstructive and reflux uropathy
CPT/HCPCS: 99213; G2211

== ENCOUNTER → 2025-06-19 08:17 | Outpatient (BNVA) | payer MEDICARE, MEDICAID, SELFPAY | PROVIDERS: PCP Family Medicine; Visit Provider Nurse Practitioner Family | DX: R31.29 Other microscopic hematuria (principal); N30.10 Interstitial cystitis (chronic) without hematuria; R39.9 Unspecified symptoms and signs involving the genitourinary system; N13.8 Other obstructive and reflux uropathy | CPT/HCPCS: 51798; 81003; 99212 ==